=== PATIENT | male | born 1965 | race Caucasian/White ===

== ENCOUNTER 2023-02-22 19:38 | Inpatient (IN) ==
[2023-02-22] MEDS ORDERED: NARCAN INJ ONE (19:45)
[2023-02-22] MEDS ORDERED: NS 1,000 ML IV 1,000 ML ONE (19:45)
[2023-02-22] MEDS: NS 1,000 ML IV 1,000 ML IV ONE (19:48)
[2023-02-22] MEDS ORDERED: NARCAN INJ IVP ONE (19:52)
[2023-02-22 20:12] LABS: BILIRUBIN,URINE NEGATIVE (NEGATIVE); BLOOD/HEMOGLOBIN,URINE 4+ (NEGATIVE); GLUCOSE, URINE NEGATIVE (NEGATIVE); KETONES,URINE NEGATIVE (NEGATIVE); LEUKOCYTE ESTERASE ,URINE NEGATIVE (NEGATIVE); NITRITES,URINE POSITIVE (NEGATIVE); PROTEIN,URINE 3+ (NEGATIVE); UROBILINOGEN,URINE NORMAL (NORMAL)
--- NOTE | 2023-02-22 20:12 | DR.DING ---
HPI <Jane Monge - Last Filed: 02/22/23 22:57> Time Seen Time Seen by Provider: 02/22/23 19:57 Complaint Chief Complaint Doctors Comments: Abbey has a h/o alcohol use and cirhosis.He was found at a local apartment unresponsive and PD and EMS were notified. PD gave partient 4mg of intranasal narcan and he became alert. He had a BG check of 99. Patient was transported by ambulance to the ED. He became lethargic and iv access was initiated on arrival and he recieved narcan 2mg iv.Patient does not have any complaints. Patient has sisters in [facility].His sister Nannette Miller is an Rn and would like to be called if you need more information.Patient used to live in [place] but recently moved to [place] to be near family when he developed cirrhosis. <Angel Andrei - Last Filed: 02/23/23 08:06> PMH Past Surgical History: No Surgical History: Unknown ROS <Jane Monge - Last Filed: 02/22/23 22:57> Review of Systems Constitutional: Weakness Eyes: No Symptoms Reported ENTM: No Symptoms Reported Respiratoy: No Symptoms Reported Cardiovascular: No Symptoms Reported Gastrointestinal/Abdominal: No Symptoms Reported Genitourinary: No Symptoms Reported Neurological: No Symptoms Reported Musculoskeletal: No Symptoms Reported Integumentary: No Symptoms Reported Hematologic/Lymphatic: No Symptoms Reported Endocrine: No Symptoms Reported Psychiatric: No Symptoms Reported All Other Systems: Reviewed and Negative PE <Jane Monge - Last Filed: 02/22/23 22:57> Vital signs Vitals: Vital Signs Temperature 97.1 F Pulse Rate 66 Pulse Rate 63 Pulse Rate 61 Pulse Rate 59 Pulse Rate 60 Pulse Rate 61 Pulse Rate 63 Pulse Rate 60 Pulse Rate 66 Pulse Rate 56 Pulse Rate 61 Pulse Rate 62 Pulse Rate 75 Pulse Rate 62 Pulse Rate 71 Pulse Rate 66 Pulse Rate 55 Pulse Rate 59 Pulse Rate 55 Respiratory Rate 13 Respiratory Rate 14 Respiratory Rate 26 Respiratory Rate 24 Respiratory Rate 18 Respiratory Rate 15 Respiratory Rate 20 Respiratory Rate 14 Respiratory Rate 15 Respiratory Rate 14 Respiratory Rate 14 Respiratory Rate 27 Respiratory Rate 30 Respiratory Rate 30 Respiratory Rate 24 Respiratory Rate 18 Respiratory Rate 15 Respiratory Rate 16 Respiratory Rate 15 Blood Pressure 130/74 Blood Pressure 164/90 Blood Pressure 164/90 Blood Pressure 144/67 Blood Pressure 144/67 Blood Pressure 162/73 Blood Pressure 163/75 Blood Pressure 168/72 Blood Pressure 162/74 Blood Pressure 162/74 O2 Sat by Pulse Oximetry 98 O2 Sat by Pulse Oximetry 100 O2 Sat by Pulse Oximetry 100 O2 Sat by Pulse Oximetry 100 O2 Sat by Pulse Oximetry 100 O2 Sat by Pulse Oximetry 100 O2 Sat by Pulse Oximetry 100 O2 Sat by Pulse Oximetry 100 O2 Sat by Pulse Oximetry 100 O2 Sat by Pulse Oximetry 100 O2 Sat by Pulse Oximetry 100 O2 Sat by Pulse Oximetry 100 O2 Sat by Pulse Oximetry 100 O2 Sat by Pulse Oximetry 100 O2 Sat by Pulse Oximetry 100 O2 Sat by Pulse Oximetry 100 O2 Sat by Pulse Oximetry 100 General Limitations: No Limitations General Appearance: In No Apparent Distress and Lethargic Head Head Exam: Normal Inspection Eyes Eye exam: Normal Appearance ENT ENT Exam: Normal Exam Neck Neck Exam: Normal Inspection Chest Chest Inspection: Normal Inspection Respiratory Respiratory Exam: Normal Lung Sounds Bilat Respiratory Exam: Bilateral: Clear to Auscultation Cardiovascular Cardiovascular Exam: Regular Rate and Normal Rhythm Abdominal Exam Abdominal Exam: Distention and Hypoactive Bowel Sounds Extremities Extremities Exam: Edema (Non-pitting legs and feet bilaterally) Back Back Exam: Normal Inspection Neurologic Neurological Exam: Alert; negative Oriented X3 (Oriented to self) Psychiatric Psychiatric Exam: Normal Affect and Normal Mood Skin Skin Exam: Warm, Dry, Intact and Normal Color <Angel Forbes - [facility] Filed: 02/23/23 08:06> Vital signs Vitals: Vital Signs Temperature 97.1 F Pulse Rate 66 Pulse Rate 63 Pulse Rate 61 Pulse Rate 59 Pulse Rate 60 Pulse Rate 61 Pulse Rate 63 Pulse Rate 60 Pulse Rate 66 Pulse Rate 56 Pulse Rate 61 Pulse Rate 62 Pulse Rate 75 Pulse Rate 62 Pulse Rate 71 Pulse Rate 66 Pulse Rate 55 Pulse Rate 59 Pulse Rate 55 Respiratory Rate 13 Respiratory Rate 14 Respiratory Rate 26 Respiratory Rate 24 Respiratory Rate 18 Respiratory Rate 15 Respiratory Rate 20 Respiratory Rate 14 Respiratory Rate 15 Respiratory Rate 14 Respiratory Rate 14 Respiratory Rate 27 Respiratory Rate 30 Respiratory Rate 30 Respiratory Rate 24 Respiratory Rate 18 Respiratory Rate 15 Respiratory Rate 16 Respiratory Rate 15 Blood Pressure 130/74 Blood Pressure 164/90 Blood Pressure 164/90 Blood Pressure 144/67 Blood Pressure 144/67 Blood Pressure 162/73 Blood Pressure 163/75 Blood Pressure 168/72 Blood Pressure 162/74 Blood Pressure 162/74 O2 Sat by Pulse Oximetry 98 O2 Sat by Pulse Oximetry 100 O2 Sat by Pulse Oximetry 100 O2 Sat by Pulse Oximetry 100 O2 Sat by Pulse Oximetry 100 O2 Sat by Pulse Oximetry 100 O2 Sat by Pulse Oximetry 100 O2 Sat by Pulse Oximetry 100 O2 Sat by Pulse Oximetry 100 O2 Sat by Pulse Oximetry 100 O2 Sat by Pulse Oximetry 100 O2 Sat by Pulse Oximetry 100 O2 Sat by Pulse Oximetry 100 O2 Sat by Pulse Oximetry 100 O2 Sat by Pulse Oximetry 100 O2 Sat by Pulse Oximetry 100 O2 Sat by Pulse Oximetry 100 MDM <Jane Saleem - Last Filed: 02/22/23 22:57> Differential Diagnosis Differential Diagnosis: Alcohol abuse, Accidental drug overdose and Substance abuse (DDx:Infection,Electrolyte abnormality,Encephalopathy) COURSE <Jane Saleem - Last Filed: 02/22/23 22:57> Treatment Treatment: Patient was brought to a critical care room and IV access was ninitated. He was given: narcan 2mg iv,Rocephin 2g iv for UTi and Possible JOEY pneumonia, lactulose 30mg for ammonia 103,Magnesium 1g for Mg 1.7.Discussed case with Dr Rivas. Dr Rivas will admit patient to [facility]. Patient susan nue to be lethargic.He has stable vs and is on 2L 02 per NC. ROR <Jane Monge - Last Filed: 02/22/23 22:57> Labs Reviewed Laboratory Results Reviewed?: Yes 02/23/23 04:21 02/23/23 04:21 Laboratory: WBC 9.3 X10^3/uL (3.6-10.0) 02/22/23 20:16 RBC 3.92 X10^6/uL (4.7-6.0) L 02/22/23 20:16 Hgb 12.1 g/dL (13.5-18.0) L 02/22/23 20:16 Hct 34.6 % (42.0-54.0) L 02/22/23 20:16 MCV 88.4 fL (80.0-100.0) 02/22/23 20:16 MCH 30.8 pg (27.0-34.0) 02/22/23 20:16 MCHC 34.9 g/dL (33.0-35.0) 02/22/23 20:16 RDW 15.0 % (11.6-16.5) 02/22/23 20:16 Plt Count 250 X10^3/uL (150.0-450.0) 02/22/23 20:16 MPV 7.3 fL (7.4-11.0) L 02/22/23 20:16 Neut % (Auto) 79.4 % (42.0-75.0) H 02/22/23 20:16 Lymph % (Auto) 10.2 % (21.0-51.0) L 02/22/23 20:16 [place] % (Auto) 8.0 % (0.0-13.0) 02/22/23 20:16 Eos % (Auto) 1.7 % (0.9-2.9) 02/22/23 20:16 Baso % (Auto) 0.7 % (0.2-1.0) 02/22/23 20:16 Neut # (Auto) 7.4 x10^3/uL (2.2-4.8) H 02/22/23 20:16 Lymph # (Auto) 1.0 X10^3/uL (1.3-2.9) L 02/22/23 20:16 [place] # (Auto) 0.7 x10^3/uL (0.3-0.8) 02/22/23 20:16 Eos # (Auto) 0.2 x10^3/uL (0.0-0.2) 02/22/23 20:16 Baso # (Auto) 0.1 X10^3/uL (0.0-0.1) 02/22/23 20:16 Absolute Nucleated RBC 0.0 /100WBC 02/22/23 20:16 Sodium 139 mmol/L (136-145) 02/22/23 20:16 Corrected Sodium TNP 02/22/23 20:16 Potassium 4.5 mmol/L (3.5-5.1) 02/22/23 20:16 Chloride 107 mmol/L (98-107) 02/22/23 20:16 Carbon Dioxide 25.1 mmol/L (21-32) 02/22/23 20:16 BUN 20 mg/dL (7-18) H 02/22/23 20:16 Creatinine 0.90 mg/dL (0.70-1.30) 02/22/23 20:16 Est GFR (MDRD) Af Amer > 60 (>60) 02/22/23 20:16 Est GFR (MDRD) Non-Af > 60 (>60) 02/22/23 20:16 Glucose 104 mg/dL (65-99) H 02/22/23 20:16 Calcium 8.5 mg/dL (8.5-10.1) 02/22/23 20:16 Corrected Calcium 10.3 mg/dL (8.5-10.1) H 02/22/23 20:16 Magnesium 1.7 mg/dL (2.0-2.9) L 02/22/23 20:16 Total Bilirubin 0.70 mg/dL (0.2-1.0) 02/22/23 20:16 AST 34 Units/L (15-37) 02/22/23 20:16 ALT 9 Units/L (12-78) L 02/22/23 20:16 Alkaline Phosphatase 113 Units/L (46-116) 02/22/23 20:16 Ammonia 103 umol/L (11-32) H 02/22/23 20:16 Total Protein 5.8 g/dL (6.4-8.2) L 02/22/23 20:16 Albumin 1.7 g/dL (3.4-5.0) L 02/22/23 20:16 Globulin 4.1 g/dL (2.5-4.5) 02/22/23 20:16 Albumin/Globulin Ratio 0.4 Ratio (1.1-2.1) L 02/22/23 20:16 Amylase 81 Units/L (25-115) 02/22/23 20:16 Lipase 266 Units/L (73-393) 02/22/23 20:16 Lipase 271 Units/L (73-393) 02/22/23 20:16 Specimen Type Catherized urine 02/22/23 20:02 Urine Color Yellow (YELLOW) 02/22/23 20:02 Urine Appearance Cloudy (CLEAR) 02/22/23 20:02 Urine pH 8.0 (5.0 - 8.0) 02/22/23 20:02 Ur Specific Balm 1.015 (1.000-1.030) 02/22/23 20:02 Urine Protein 3+ (NEGATIVE) 02/22/23 20:02 Urine Glucose (UA) Negative (NEGATIVE) 02/22/23 20:02 Urine Ketones Negative (NEGATIVE) 02/22/23 20:02 Urine Blood 4+ (NEGATIVE) 02/22/23 20:02 Urine Nitrite Positive (NEGATIVE) 02/22/23 20:02 Urine Bilirubin Negative (NEGATIVE) 02/22/23 20:02 Urine Urobilinogen Normal (NORMAL) 02/22/23 20:02 Ur Leukocyte Esterase Negative (NEGATIVE) 02/22/23 20:02 Urine RBC 3-5 /HPF (0-3) A 02/22/23 20:02 Urine WBC 3-5 /HPF (0-5) 02/22/23 20:02 Ur Squamous Epith Cells Rare /HPF (NEGATIVE) 02/22/23 20:02 Urine Bacteria 3+ /HPF (NEGATIVE) 02/22/23 20:02 Ur Culture Indicated? Yes/culture set up 02/22/23 20:02 Salicylates < 2.8 mg/dL (2.8-20) L 02/22/23 20:16 Urine Opiates Screen Negative (NEG=<300) 02/22/23 20:02 Urine Methadone Screen Negative (NEG=<300) 02/22/23 20:02 Acetaminophen 1.1 ug/mL (10-30) L 02/22/23 20:16 Ur Barbiturates Screen Negative (NEG=<200) 02/22/23 20:02 Ur Phencyclidine Scrn Negative (NEG=<25) 02/22/23 20:02 Ur Amphetamines Screen Negative (NEG=<1000) 02/22/23 20:02 U Benzodiazepines Scrn Negative (NEG=<200) 02/22/23 20:02 Urine Cocaine Screen Negative (NEG=<300) 02/22/23 20:02 U Marijuana (THC) Screen Positive (NEG=<50) A 02/22/23 20:02 Ethyl Alcohol mg/dL < 3 mg/dL (0-19.9) 02/22/23 20:16 <Angel Forbes - Last Filed: 02/23/23 08:06> Labs Reviewed Laboratory: WBC 9.3 X10^3/uL (3.6-10.0) 02/22/23 20:16 RBC 3.92 X10^6/uL (4.7-6.0) L 02/22/23 20:16 Hgb 12.1 g/dL (13.5-18.0) L 02/22/23 20:16 Hct 34.6 % (42.0-54.0) L 02/22/23 20:16 MCV 88.4 fL (80.0-100.0) 02/22/23 20:16 MCH 30.8 pg (27.0-34.0) 02/22/23 20:16 MCHC 34.9 g/dL (33.0-35.0) 02/22/23 20:16 RDW 15.0 % (11.6-16.5) 02/22/23 20:16 Plt Count 250 X10^3/uL (150.0-450.0) 02/22/23 20:16 MPV 7.3 fL (7.4-11.0) L 02/22/23 20:16 Neut % (Auto) 79.4 % (42.0-75.0) H 02/22/23 20:16 Lymph % (Auto) 10.2 % (21.0-51.0) L 02/22/23 20:16 [place] % (Auto) 8.0 % (0.0-13.0) 02/22/23 20:16 Eos % (Auto) 1.7 % (0.9-2.9) 02/22/23 20:16 Baso % (Auto) 0.7 % (0.2-1.0) 02/22/23 20:16 Neut # (Auto) 7.4 x10^3/uL (2.2-4.8) H 02/22/23 20:16 Lymph # (Auto) 1.0 X10^3/uL (1.3-2.9) L 02/22/23 20:16 [place] # (Auto) 0.7 x10^3/uL (0.3-0.8) 02/22/23 20:16 Eos # (Auto) 0.2 x10^3/uL (0.0-0.2) 02/22/23 20:16 Baso # (Auto) 0.1 X10^3/uL (0.0-0.1) 02/22/23 20:16 Absolute Nucleated RBC 0.0 /100WBC 02/22/23 20:16 Sodium 139 mmol/L (136-145) 02/22/23 20:16 Corrected Sodium TNP 02/22/23 20:16 Potassium 4.5 mmol/L (3.5-5.1) 02/22/23 20:16 Chloride 107 mmol/L (98-107) 02/22/23 20:16 Carbon Dioxide 25.1 mmol/L (21-32) 02/22/23 20:16 BUN 20 mg/dL (7-18) H 02/22/23 20:16 Creatinine 0.90 mg/dL (0.70-1.30) 02/22/23 20:16 Est GFR (MDRD) Af Amer > 60 (>60) 02/22/23 20:16 Est GFR (MDRD) Non-Af > 60 (>60) 02/22/23 20:16 Glucose 104 mg/dL (65-99) H 02/22/23 20:16 Calcium 8.5 mg/dL (8.5-10.1) 02/22/23 20:16 Corrected Calcium 10.3 mg/dL (8.5-10.1) H 02/22/23 20:16 Magnesium 1.7 mg/dL (2.0-2.9) L 02/22/23 20:16 Total Bilirubin 0.70 mg/dL (0.2-1.0) 02/22/23 20:16 AST 34 Units/L (15-37) 02/22/23 20:16 ALT 9 Units/L (12-78) L 02/22/23 20:16 Alkaline Phosphatase 113 Units/L (46-116) 02/22/23 20:16 Ammonia 103 umol/L (11-32) H 02/22/23 20:16 Total Protein 5.8 g/dL (6.4-8.2) L 02/22/23 20:16 Albumin 1.7 g/dL (3.4-5.0) L 02/22/23 20:16 Globulin 4.1 g/dL (2.5-4.5) 02/22/23 20:16 Albumin/Globulin Ratio 0.4 Ratio (1.1-2.1) L 02/22/23 20:16 Amylase 81 Units/L (25-115) 02/22/23 20:16 Lipase 266 Units/L (73-393) 02/22/23 20:16 Lipase 271 Units/L (73-393) 02/22/23 20:16 Specimen Type Catherized urine 02/22/23 20:02 Urine Color Yellow (YELLOW) 02/22/23 20:02 Urine Appearance Cloudy (CLEAR) 02/22/23 20: Urine pH 8.0 (5.0 - 8.0) 02/22/23 20:02 Ur Specific Balm 1.015 (1.000-1.030) 02/22/23 20:02 Urine Protein 3+ (NEGATIVE) 02/22/23 20: Urine Glucose (UA) Negative (NEGATIVE) 02/22/23 20: Urine Ketones Negative (NEGATIVE) 02/22/23 20: Urine Blood 4+ (NEGATIVE) 02/22/23 20: Urine Nitrite Positive (NEGATIVE) 02/22/23 20: Urine Bilirubin Negative (NEGATIVE) 02/22/23 20:02 Urine Urobilinogen Normal (NORMAL) 02/22/23 20:02 Ur Leukocyte Esterase Negative (NEGATIVE) 02/22/23 20:02 Urine RBC 3-5 /HPF (0-3) A 02/22/23 20:02 Urine WBC 3-5 /HPF (0-5) 02/22/23 20:02 Ur Squamous Epith Cells Rare /HPF (NEGATIVE) 02/22/23 20:02 Urine Bacteria 3+ /HPF (NEGATIVE) 02/22/23 20:02 Ur Culture Indicated? Yes/culture set up 02/22/23 20:02 Salicylates < 2.8 mg/dL (2.8-20) L 02/22/23 20:16 Urine Opiates Screen Negative (NEG=<300) 02/22/23 20:02 Urine Methadone Screen Negative (NEG=<300) 02/22/23 20:02 Acetaminophen 1.1 ug/mL (10-30) L 02/22/23 20:16 Ur Barbiturates Screen Negative (NEG=<200) 02/22/23 20:02 Ur Phencyclidine Scrn Negative (NEG=<25) 02/22/23 20:02 Ur Amphetamines Screen Negative (NEG=<1000) 02/22/23 20:02 U Benzodiazepines Scrn Negative (NEG=<200) 02/22/23 20:02 Urine Cocaine Screen Negative (NEG=<300) 02/22/23 20:02 U Marijuana (THC) Screen Positive (NEG=<50) A 02/22/23 20:02 Ethyl Alcohol mg/dL < 3 mg/dL (0-19.9) 02/22/23 20:16 Opioid <Jane Monge - Last Filed: 02/22/23 22:57> Opioid Risk Tool Total: 0 Total Score Risk Category: Low Risk Copyright: Paul predicting aberrant behaviors <Angel Forbes - Last Filed: 02/23/23 08:06> Opioid Risk Tool Age (Shaan box if 16-45): No History of Preadolescent Sexual Abuse: No Total: 0 Total Score Risk Category: Low Risk Discharge Plan Diagnosis Discharge Problem: Altered mental status, Urinary tract infection, Cirrhosis Discharge Plan Patient Disposition: ADMITTED INPATIENT Condition: Stable <Angel Forbes - Last Filed: 02/23/23 08:06> Additional Notes Additional Notes: Pt initially greeted by me, intial orders written for W/u. Pt seen, treated and admitted by Dr Murphy.
[2023-02-22 20:21] LABS: APPEARANCE,URINE CLOUDY (CLEAR); BACTERIA,URINE 3+ /HPF (NEGATIVE); COLOR,URINE YELLOW (YELLOW); SQUAMOUS EPITHELIAL CELL,UR RARE /HPF (NEGATIVE)
[2023-02-22 20:27] LABS: BASOPHILS # (AUTO) 0.1 X10^3/uL (0.0-0.1); BASOPHILS % (AUTO) 0.7 % (0.2-1.0); EOSINOPHILS # (AUTO) 0.2 x10^3/uL (0.0-0.2); EOSINOPHILS % (AUTO) 1.7 % (0.9-2.9); HEMATOCRIT 34.6 % (42.0-54.0); HEMOGLOBIN 12.1 g/dL (13.5-18.0); LYMPHOCYTES % (AUTO) 10.2 % (21.0-51.0); MEAN CORPUSCULAR HEMOGLOBIN 30.8 pg (27.0-34.0); MEAN CORPUSCULAR HGB CONC 34.9 g/dL (33.0-35.0); MEAN CORPUSCULAR VOLUME 88.4 fL (80.0-100.0); MEAN PLATELET VOLUME 7.3 fL (7.4-11.0); MONOCYTES # (AUTO) 0.7 x10^3/uL (0.3-0.8); NEUTROPHILS # (AUTO) 7.4 x10^3/uL (2.2-4.8); NEUTROPHILS % (AUTO) 79.4 % (42.0-75.0); PLATELET COUNT 250 X10^3/uL (150.0-450.0); RED BLOOD COUNT 3.92 X10^6/uL (4.7-6.0); WHITE BLOOD COUNT 9.3 X10^3/uL (3.6-10.0)
[2023-02-22 20:43] LABS: ALANINE AMINOTRANSFERASE 9 Units/L (12-78); ALBUMIN 1.7 g/dL (3.4-5.0); ALKALINE PHOSPHATASE 113 Units/L (46-116); ASPARTATE AMINO TRANSFERASE 34 Units/L (15-37); BLOOD UREA NITROGEN 20 mg/dL (7-18); CALCIUM 8.5 mg/dL (8.5-10.1); CARBON DIOXIDE 25.1 mmol/L (21-32); CHLORIDE 107 mmol/L (98-107); COR CA(FOR HYPOALB) 10.3 mg/dL (8.5-10.1); GLUCOSE 104 mg/dL (65-99); LIPASE 271 Units/L (73-393); POTASSIUM 4.5 mmol/L (3.5-5.1); SODIUM 139 mmol/L (136-145); TOTAL PROTEIN 5.8 g/dL (6.4-8.2); eGFR NON BLACK RACES > 60 (>60)
[2023-02-22 20:45] LABS: ACETAMINOPHEN 1.1 ug/mL (10-30)
[2023-02-22 20:53] LABS: BLOOD ALCOHOL < 3 mg/dL (0-19.9); SALICYLATE < 2.8 mg/dL (2.8-20)
[2023-02-22 21:09] LABS: AMYLASE 81 Units/L (25-115); LIPASE 266 Units/L (73-393)
[2023-02-22 21:18] LABS: AMMONIA 103 umol/L (11-32)
[2023-02-22] MEDS ORDERED: NS 100 ML IV 100 ML ONE (21:41)
[2023-02-22] MEDS ORDERED: ROCEPHIN VIAL 2 GRAMS ONE (21:41)
[2023-02-22] MEDS ORDERED: ROCEPHIN VIAL 2 GRAMS 2 G in NS 100 ML IV 100 ML IV ONE (21:41)
[2023-02-22] MEDS ORDERED: MAGNESIUM SULFATE 1 GRAM/100 mL PREMIX 1 G/100 ML BAG IV ONE ×2 (21:41→21:42)
[2023-02-22] MEDS ORDERED: CHRONULAC PO ONE (21:50)
[2023-02-22] MEDS ORDERED: CHRONULAC ONE (21:50)
[2023-02-22] MEDS ORDERED: PATIENT'S HOME MEDICATION (Lactulose 10 gram/15 mL solution) PO PRN (22:46)
[2023-02-22] MEDS ORDERED: CONSULT PHARMACY - POTASSIUM & MAGNESIUM XX SCH (23:00)
[2023-02-22] MEDS ORDERED: CHRONULAC PO PRN (23:07)
[2023-02-22] MEDS ORDERED: NS 250 ML IV 250 ML IV ONE (23:29)
[2023-02-22] MEDS ORDERED: NS 250 ML IV 250 ML IV PRN (23:29)
[2023-02-22] MEDS ORDERED: MAG-OX TAB PO SCH (23:30)
[2023-02-22] MEDS: MAGNESIUM SULFATE 1 GRAM/100 mL PREMIX 1 G/100 ML BAG IV SCH (23:31)
--- NOTE | 2023-02-22 23:44 | RAD ---
HISTORYEMS STATING THEY WERE CALLED OUT TO UNRESPONSIVE MALE. PT ADMINISTERED NARCAN 4MG NASALLY BY POLICE. ^ pt combative during examSTUDYCHEST, 1 [id number] trachea is midline. The cardiac silhouette is mildly enlarged.. Pulmonary vascular congestion. Parenchymal opacities throughout the right lung. There is blunting of the right costophrenic angle due to small effusion. No pneumothorax. The bony thorax is unremarkable.IMPRESSIONMild cardiomegaly with pulmonary vascular congestion.Right mid and lower lung parenchymal opacities with small right pleural effusion..Electronically signed by: Shaka Whyte (Feb 22, 2023 23:43:08)
[2023-02-23 01:12] VITALS: BMI 32.8
[2023-02-23] MEDS: MAGNESIUM SULFATE 1 GRAM/100 mL PREMIX 1 G/100 ML BAG IV SCH (02:24)
[2023-02-23 05:08] LABS: BASOPHILS # (AUTO) 0.1 X10^3/uL (0.0-0.1); BASOPHILS % (AUTO) 0.9 % (0.2-1.0); EOSINOPHILS # (AUTO) 0.4 x10^3/uL (0.0-0.2); EOSINOPHILS % (AUTO) 3.8 % (0.9-2.9); HEMATOCRIT 32.2 % (42.0-54.0); HEMOGLOBIN 11.4 g/dL (13.5-18.0); LYMPHOCYTES # (AUTO) 1.5 X10^3/uL (1.3-2.9); LYMPHOCYTES % (AUTO) 15.8 % (21.0-51.0); MEAN CORPUSCULAR HGB CONC 35.4 g/dL (33.0-35.0); MEAN CORPUSCULAR VOLUME 87.7 fL (80.0-100.0); MEAN PLATELET VOLUME 7.8 fL (7.4-11.0); MONOCYTES # (AUTO) 0.9 x10^3/uL (0.3-0.8); MONOCYTES % (AUTO) 8.8 % (0.0-13.0); NEUTROPHILS # (AUTO) 6.9 x10^3/uL (2.2-4.8); NEUTROPHILS % (AUTO) 70.7 % (42.0-75.0); PLATELET COUNT 237 X10^3/uL (150.0-450.0); RED BLOOD COUNT 3.67 X10^6/uL (4.7-6.0); WHITE BLOOD COUNT 9.8 X10^3/uL (3.6-10.0)
[2023-02-23 05:25] LABS: ALANINE AMINOTRANSFERASE 8 Units/L (12-78); ALBUMIN 1.4 g/dL (3.4-5.0); ALKALINE PHOSPHATASE 98 Units/L (46-116); ASPARTATE AMINO TRANSFERASE 31 Units/L (15-37); BLOOD UREA NITROGEN 16 mg/dL (7-18); CALCIUM 8.1 mg/dL (8.5-10.1); CARBON DIOXIDE 25.8 mmol/L (21-32); CHLORIDE 109 mmol/L (98-107); COR CA(FOR HYPOALB) 10.2 mg/dL (8.5-10.1); CREATININE 0.78 mg/dL (0.70-1.30); GLUCOSE 84 mg/dL (65-99); POTASSIUM 3.7 mmol/L (3.5-5.1); SODIUM 139 mmol/L (136-145); eGFR NON BLACK RACES > 60 (>60)
[2023-02-23] MEDS ORDERED: CONSULT PHARMACY - POTASSIUM & MAGNESIUM XX SCH ×2 (07:00→21:00)
[2023-02-23] MEDS: LASIX PO SCH ×2 (08:31→21:12)
[2023-02-23] MEDS: PROTONIX TAB 40 MG PO SCH (08:31)
[2023-02-23] MEDS: LOVENOX INJ 40 MG SYR SC SCH (08:32)
[2023-02-23] MEDS: K-RIDER 10 MEQ/NS 100 ML 10 MEQ/100 ML BAG IV SCH ×4 (08:32→23:03)
[2023-02-23] MEDS: MICRO K EXTEN CAP 10 MEQ PO SCH (08:32)
--- NOTE | 2023-02-23 16:20 | DR.H&P ---
H&P History & Physical for Day of: H&P Date: 02/23/23 Chief Complaint Chief Complaint: Unresponsive Allergies Allergies Allergy/AdvReac Type Severity Reaction Status Date / Time No Known Drug Allergies Allergy Unknown Verified 01/02/23 09:55 History of Present Illness History of Present Illness: This is a 57-year-old white male well-known to me. He was found recently in his apartment yesterday after being unresponsive. The [place] [employer] and EMS were notified and the patient was given the patient 4 mg of intranasal Narcan. After that was given he became alert and they checked his blood glucose and it was 99. The patient was subsequently transported to the [facility] emergency department via ambulance. The patient became lethargic on the way to the emergency department where he was given Narcan 2 mg IV and became more alert afterward. After the patient became alert he had no complaints. The patient has a history of alcoholic cirrhosis. He also has a history of alcohol abuse and ascites. The patient typically goes between 2 and 4 times per month to [facility] where he receives paracentesis. He has had some appointments set up with construction and maintenance inspector, Dr. Valladares in the past however the patient has neglected to go to his gastroenterology appointments that had been set up for him. He recently failed an oral drug screen with me and was discharged from our practice. Past Medical History Past Medical History: Cirrhosis, COPD, GERD and Hypertension Past Surgical History Surgical History: Unknown Family History Family Medical History: CA and Hypertension Social History Does patient currently use any type of tobacco product: Yes Have you used tobacco products in the last 12 months: Yes Type of Tobacco Use: MARAJUANA Alcohol Use: Heavy Drug Use: Marijuana Medications Home Medications: Home Medications Medication Instructions Recorded Confirmed Type furosemide 40 mg tablet 40 mg PO BID 02/22/23 02/22/23 History lactulose 10 gram/15 mL oral ml PO 02/22/23 History solution pantoprazole 40 mg tablet,delayed 40 mg PO QDAY 02/22/23 02/22/23 History release potassium chloride 10 mEq 10 meq PO QDAY 02/22/23 02/22/23 History tablet,extended release Labs 02/23/23 04:21 02/23/23 04:21 Labs: 02/22/23 20:02 Urine,Catheterized Urine Culture - Preliminary Laboratory WBC 9.8 X10^3/uL (3.6-10.0) 02/23/23 04:21 RBC 3.67 X10^6/uL (4.7-6.0) L 02/23/23 04:21 Hgb 11.4 g/dL (13.5-18.0) L 02/23/23 04:21 Hct 32.2 % (42.0-54.0) L 02/23/23 04:21 MCV 87.7 fL (80.0-100.0) 02/23/23 04:21 MCH 31.0 pg (27.0-34.0) 02/23/23 04:21 MCHC 35.4 g/dL (33.0-35.0) H 02/23/23 04:21 RDW 15.0 % (11.6-16.5) 02/23/23 04:21 Plt Count 237 X10^3/uL (150.0-450.0) 02/23/23 04:21 MPV 7.8 fL (7.4-11.0) 02/23/23 04:21 Neut % (Auto) 70.7 % (42.0-75.0) 02/23/23 04:21 Lymph % (Auto) 15.8 % (21.0-51.0) L 02/23/23 04:21 Band[place] % (Auto) 8.8 % (0.0-13.0) 02/23/23 04:21 Eos % (Auto) 3.8 % (0.9-2.9) H 02/23/23 04:21 Baso % (Auto) 0.9 % (0.2-1.0) 02/23/23 04:21 Neut # (Auto) 6.9 x10^3/uL (2.2-4.8) H 02/23/23 04:21 Lymph # (Auto) 1.5 X10^3/uL (1.3-2.9) 02/23/23 04:21 Bandera # (Auto) 0.9 x10^3/uL (0.3-0.8) H 02/23/23 04:21 Eos # (Auto) 0.4 x10^3/uL (0.0-0.2) H 02/23/23 04:21 Baso # (Auto) 0.1 X10^3/uL (0.0-0.1) 02/23/23 04:21 Absolute Nucleated RBC 0.0 /100WBC 02/23/23 04:21 Sodium 139 mmol/L (136-145) 02/23/23 04:21 Corrected Sodium TNP 02/23/23 04:21 Potassium 3.7 mmol/L (3.5-5.1) 02/23/23 04:21 Chloride 109 mmol/L (98-107) H 02/23/23 04:21 Carbon Dioxide 25.8 mmol/L (21-32) 02/23/23 04:21 BUN 16 mg/dL (7-18) 02/23/23 04:21 Creatinine 0.78 mg/dL (0.70-1.30) 02/23/23 04:21 Est GFR (MDRD) Af Amer > 60 (>60) 02/23/23 04:21 Est GFR (MDRD) Non-Af > 60 (>60) 02/23/23 04:21 Glucose 84 mg/dL (65-99) 02/23/23 04:21 Calcium 8.1 mg/dL (8.5-10.1) L 02/23/23 04:21 Corrected Calcium 10.2 mg/dL (8.5-10.1) H 02/23/23 04:21 Magnesium 2.0 mg/dL (2.0-2.9) 02/23/23 04:21 Total Bilirubin 0.60 mg/dL (0.2-1.0) 02/23/23 04:21 AST 31 Units/L (15-37) 02/23/23 04:21 ALT 8 Units/L (12-78) L 02/23/23 04:21 Alkaline Phosphatase 98 Units/L (46-116) 02/23/23 04:21 Ammonia 103 umol/L (11-32) H 02/22/23 20:16 Total Protein 5.0 g/dL (6.4-8.2) L 02/23/23 04:21 Albumin 1.4 g/dL (3.4-5.0) L 02/23/23 04:21 Globulin 3.6 g/dL (2.5-4.5) 02/23/23 04:21 Albumin/Globulin Ratio 0.4 Ratio (1.1-2.1) L 02/23/23 04:21 Amylase 81 Units/L (25-115) 02/22/23 20:16 Lipase 266 Units/L (73-393) 02/22/23 20:16 Lipase 271 Units/L (73-393) 02/22/23 20:16 Specimen Type Catherized urine 02/22/23 20:02 Urine Color Yellow (YELLOW) 02/22/23 20:02 Urine Appearance Cloudy (CLEAR) 02/22/23 20:02 Urine pH 8.0 (5.0 - 8.0) 02/22/23 20:02 Ur Specific [place] 1.015 (1.000-1.030) 02/22/23 20:02 Urine Protein 3+ (NEGATIVE) 02/22/23 20: Urine Glucose (UA) Negative (NEGATIVE) 02/22/23 20: Urine Ketones Negative (NEGATIVE) 02/22/23 20:02 Urine Blood 4+ (NEGATIVE) 02/22/23 20:02 Urine Nitrite Positive (NEGATIVE) 02/22/23 20: Urine Bilirubin Negative (NEGATIVE) 02/22/23 20:02 Urine Urobilinogen Normal (NORMAL) 02/22/23 20:02 Ur Leukocyte Esterase Negative (NEGATIVE) 02/22/23 20:02 Urine RBC 3-5 /HPF (0-3) A 02/22/23 20:02 Urine WBC 3-5 /HPF (0-5) 02/22/23 20:02 Ur Squamous Epith Cells Rare /HPF (NEGATIVE) 02/22/23 20:02 Urine Bacteria 3+ /HPF (NEGATIVE) 02/22/23 20:02 Ur Culture Indicated? Yes/culture set up 02/22/23 20:02 Salicylates < 2.8 mg/dL (2.8-20) L 02/22/23 20:16 Urine Opiates Screen Negative (NEG=<300) 02/22/23 20:02 Urine Methadone Screen Negative (NEG=<300) 02/22/23 20:02 Acetaminophen 1.1 ug/mL (10-30) L 02/22/23 20:16 Ur Barbiturates Screen Negative (NEG=<200) 02/22/23 20:02 Ur Phencyclidine Scrn Negative (NEG=<25) 02/22/23 20:02 Ur Amphetamines Screen Negative (NEG=<1000) 02/22/23 20:02 U Benzodiazepines Scrn Negative (NEG=<200) 02/22/23 20:02 Urine Cocaine Screen Negative (NEG=<300) 02/22/23 20:02 U Marijuana (THC) Screen Positive (NEG=<50) A 02/22/23 20:02 Ethyl Alcohol mg/dL < 3 mg/dL (0-19.9) 02/22/23 20:16 Review of Systems Constitutional: No Symptoms Reported Eyes: No Symptoms Reported ENT: No Symptoms Reported Respiratory: No Symptoms Reported Cardiovascular: No Symptoms Reported Gastrointestinal: Nausea and Abdominal Pain; denies Vomiting, Diarrhea, Constipation, Melena or Hematochezia Genitourinary: No Symptoms Reported Musculoskeletal: Back Pain Skin: No Symptoms Reported Neurological: Weakness, Incoordination and Confusion; denies Numbness or Seizures Physical Exam Vital Signs: Vital Signs Pulse Rate 78 Pulse Rate 78 Pulse Rate 79 Pulse Rate 79 Pulse Rate 78 Pulse Rate 75 Pulse Rate 72 Pulse Rate 76 Pulse Rate 78 Pulse Rate 78 Pulse Rate 80 Pulse Rate 84 Pulse Rate 77 Pulse Rate 77 Pulse Rate 79 Pulse Rate 82 Pulse Rate 71 Pulse Rate 72 Pulse Rate 76 Pulse Rate 70 Pulse Rate 77 Pulse Rate 75 Pulse Rate 74 Pulse Rate 71 Pulse Rate 69 Pulse Rate 73 Pulse Rate 78 Pulse Rate 76 Pulse Rate 71 Pulse Rate 77 Pulse Rate 80 Respiratory Rate 18 Respiratory Rate 20 Respiratory Rate 18 Respiratory Rate 18 Respiratory Rate 18 Respiratory Rate 16 Respiratory Rate 15 Respiratory Rate 16 Respiratory Rate 16 Respiratory Rate 15 Respiratory Rate 16 Respiratory Rate 18 Respiratory Rate 33 Respiratory Rate 17 Respiratory Rate 19 Respiratory Rate 29 Respiratory Rate 16 Respiratory Rate 16 Respiratory Rate 17 Respiratory Rate 15 Respiratory Rate 17 Respiratory Rate 20 Respiratory Rate 24 Respiratory Rate 18 Respiratory Rate 17 Respiratory Rate 19 Respiratory Rate 27 Respiratory Rate 34 Respiratory Rate 17 Respiratory Rate 18 Respiratory Rate 23 Blood Pressure 119/57 Blood Pressure 129/76 Blood Pressure 129/76 Blood Pressure 128/73 Blood Pressure 128/73 Blood Pressure 128/73 Blood Pressure 114/77 Blood Pressure 103/59 Blood Pressure 119/60 Blood Pressure 88/64 Blood Pressure 88/64 O2 Sat by Pulse Oximetry 96 O2 Sat by Pulse Oximetry 96 O2 Sat by Pulse Oximetry 96 O2 Sat by Pulse Oximetry 96 O2 Sat by Pulse Oximetry 96 O2 Sat by Pulse Oximetry 97 O2 Sat by Pulse Oximetry 98 O2 Sat by Pulse Oximetry 98 O2 Sat by Pulse Oximetry 97 O2 Sat by Pulse Oximetry 97 O2 Sat by Pulse Oximetry 97 O2 Sat by Pulse Oximetry 97 O2 Sat by Pulse Oximetry 96 O2 Sat by Pulse Oximetry 96 O2 Sat by Pulse Oximetry 99 O2 Sat by Pulse Oximetry 99 O2 Sat by Pulse Oximetry 99 O2 Sat by Pulse Oximetry 98 O2 Sat by Pulse Oximetry 97 O2 Sat by Pulse Oximetry 99 O2 Sat by Pulse Oximetry 100 O2 Sat by Pulse Oximetry 97 O2 Sat by Pulse Oximetry 97 O2 Sat by Pulse Oximetry 99 O2 Sat by Pulse Oximetry 99 O2 Sat by Pulse Oximetry 99 O2 Sat by Pulse Oximetry 100 O2 Sat by Pulse Oximetry 100 O2 Sat by Pulse Oximetry 100 O2 Sat by Pulse Oximetry 99 O2 Sat by Pulse Oximetry 100 Oriented: Normal, Time, Person and Place Eyes: Normal Throat: Normal Respiratory: Clear Throughout Cardiovascular: Normal Auscultation: Bowel Sounds: Normal Palpation: Normal and Other (Abdomen distended with ascites present.) Tenderness: Diffuse Psychiatric: Anxiety and Depression Mood Description: Depressed and Appropriate; negative Happy or Suspicious Affect: Anxious and Depressed; negative Angry, Flat, Hysterical, Quiet or Violent Speech Pattern: Clear and Appropriate; negative Unclear, Inappropriate, Delayed, Slurred, Excessive, Aphasic or Artificially Ventilated Assessment/Plan (1) Urinary tract infection: Qualifiers: Urinary tract infection type: acute cystitis Hematuria presence: with hematuria Qualified Code(s): N30.01 - Acute cystitis with hematuria Status: Acute Plan: Continue IV Rocephin and follow-up with urine culture and sensitivity when available. (2) Hyperammonemia: Status: Acute Plan: Change the patient's lactulose 15 mg every 8 hours as needed to every 8 hours. Recheck the ammonia level tomorrow morning. (3) Acute opioid intoxication delirium with moderate or severe use disorder: Narrative Support Text: The patient's acute opioid intoxication has resolved with intranasal Narcan yesterday and IV Narcan yesterday as well. Status: Acute (4) Alcoholic cirrhosis of liver with ascites: Status: None Plan: Consult gastroenterology, Dr. 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 (5) Chronic obstructive pulmonary disease: Status: None Plan: Monitor patient's O2 saturation and treat accordingly. (6) Hypertension: Status: None Plan: Monitor daily blood pressures. Treat accordingly. (7) Bilateral lower extremity edema: Status: Acute Plan: IV Lasix.
[2023-02-23] MEDS: ROCEPHIN VIAL 1 GRAM 1 G in NS 100 ML IV 100 ML IV SCH (17:32)
[2023-02-23] MEDS ORDERED: CHRONULAC ONE (20:20)
[2023-02-23] MEDS: CHRONULAC PO SCH (21:22)
[2023-02-24] MEDS: CHRONULAC PO SCH ×3 (05:04→22:39)
[2023-02-24 05:06] LABS: BASOPHILS # (AUTO) 0.1 X10^3/uL (0.0-0.1); BASOPHILS % (AUTO) 1.2 % (0.2-1.0); EOSINOPHILS # (AUTO) 0.3 x10^3/uL (0.0-0.2); EOSINOPHILS % (AUTO) 4.6 % (0.9-2.9); HEMATOCRIT 30.9 % (42.0-54.0); HEMOGLOBIN 10.9 g/dL (13.5-18.0); LYMPHOCYTES # (AUTO) 1.7 X10^3/uL (1.3-2.9); LYMPHOCYTES % (AUTO) 21.9 % (21.0-51.0); MEAN CORPUSCULAR HEMOGLOBIN 30.8 pg (27.0-34.0); MEAN CORPUSCULAR HGB CONC 35.1 g/dL (33.0-35.0); MEAN CORPUSCULAR VOLUME 87.8 fL (80.0-100.0); MEAN PLATELET VOLUME 7.7 fL (7.4-11.0); MONOCYTES # (AUTO) 0.7 x10^3/uL (0.3-0.8); MONOCYTES % (AUTO) 9.6 % (0.0-13.0); NEUTROPHILS # (AUTO) 4.8 x10^3/uL (2.2-4.8); NEUTROPHILS % (AUTO) 62.7 % (42.0-75.0); PLATELET COUNT 234 X10^3/uL (150.0-450.0); RED BLOOD COUNT 3.52 X10^6/uL (4.7-6.0); RED CELL DISTRIBUTION WIDTH 15.2 % (11.6-16.5); WHITE BLOOD COUNT 7.6 X10^3/uL (3.6-10.0)
[2023-02-24 05:10] LABS: AMMONIA 86 umol/L (11-32)
[2023-02-24 05:19] LABS: ALANINE AMINOTRANSFERASE 9 Units/L (12-78); ALBUMIN 1.4 g/dL (3.4-5.0); ALKALINE PHOSPHATASE 102 Units/L (46-116); ASPARTATE AMINO TRANSFERASE 33 Units/L (15-37); BLOOD UREA NITROGEN 15 mg/dL (7-18); CALCIUM 7.6 mg/dL (8.5-10.1); CARBON DIOXIDE 25.2 mmol/L (21-32); CHLORIDE 108 mmol/L (98-107); COR CA(FOR HYPOALB) 9.7 mg/dL (8.5-10.1); COR NA(FOR HYPERGLY) 141 mmol/L (136-145); CREATININE 0.98 mg/dL (0.70-1.30); GLUCOSE 132 mg/dL (65-99); POTASSIUM 3.5 mmol/L (3.5-5.1); SODIUM 140 mmol/L (136-145); eGFR NON BLACK RACES > 60 (>60)
[2023-02-24] MEDS ORDERED: CONSULT PHARMACY - POTASSIUM & MAGNESIUM XX SCH (06:00)
[2023-02-24] MEDS: ROCEPHIN VIAL 1 GRAM 1 G in NS 100 ML IV 100 ML IV SCH (09:08)
[2023-02-24] MEDS: MICRO K EXTEN CAP 10 MEQ PO SCH (09:08)
[2023-02-24] MEDS: ALDACTONE TAB 25 MG PO SCH (09:08)
[2023-02-24] MEDS: LASIX PO SCH ×2 (09:08→20:08)
[2023-02-24] MEDS: PROTONIX TAB 40 MG PO SCH (09:08)
[2023-02-24] MEDS: LOVENOX INJ 40 MG SYR SC SCH (09:08)
[2023-02-24] MEDS: K-RIDER 10 MEQ/NS 100 ML 10 MEQ/100 ML BAG IV SCH ×2 (09:08→10:43)
--- NOTE | 2023-02-24 09:52 | DR.CONSULT ---
Consult - Consultation for Day of: Date: 02/23/23 (GI) - Chief Complaint Chief Complaint: Patient referred for abnormal LFTs. Patient has complaints of mild, generalized abdominal pain and nausea. Denies melena, hematochezia, vomiting, dysphagia, diarrhea, constipation, and GERD. Denies previous colonoscopy. Last EGD was done in 2020. Patient was seen on office Jul 2022, but did not return for follow-up. He is currently on Protonix, Lasix, and Lactulose at home. Pt was found recently in his apartment yesterday after being unresponsive. The [place] [employer] and EMS were notified and the patient was given the patient 4 mg of intranasal Narcan. After that was given he became alert and they checked his blood glucose and it was 99. The patient was subsequently transported to the [facility] emergency department via ambulance. The patient became lethargic on the way to the emergency department where he was given Narcan 2 mg IV and became more alert afterward. After the patient became alert he had no complaints. The patient has a history of alcoholic cirrhosis. He also has a history of alcohol abuse and ascites. The patient typically goes between 2 and 4 times per month to [facility] where he receives paracentesis. He has had some appointments set up with neuropsychology service director, Dr. Valladares in the past however the patient has neglected to go to his gastroenterology appointments that had been set up for him. He recently failed an oral drug screen with me and was discharged from our practice. - Past Medical History Past Medical History: Hypertension, Cirrhosis, COPD, GERD - Past Surgical History Surgical History: Unknown - Family History Family Medical History: [place], Hypertension - Social History Does patient currently use any type of tobacco product: Yes Have you used tobacco products in the last 12 months: Yes Type of Tobacco Use: MARAJUANA Alcohol Use: Heavy Drug Use: Marijuana - Medications Home Medications: No Known Drug Allergies Allergy (Unknown, Verified 01/02/23 09:55) CONTINUE taking the following medications furosemide 40 mg tablet 40 mg PO BID 02/22/23 [History] lactulose 10 gram/15 mL oral solution ml PO 02/22/23 [History] pantoprazole 40 mg tablet,delayed release 40 mg PO QDAY 02/22/23 [History] potassium chloride 10 mEq tablet,extended release 10 meq PO QDAY 02/22/23 [History] - Review of Systems Constitutional: See HPI, Weakness. denies: No Symptoms Reported, Fever, Chills, Sweats, Malaise, Other Eyes: denies: No Symptoms Reported, See HPI, Pain, Vision Change, Conjunctivae Inflammation, Eyelid Inflammation, Redness, Other ENT: denies: No Symptoms Reported, See HPI, Ear Pain, Ear Discharge, Nose Pain, Nose Discharge, Nose Congestion, Mouth Pain, Mouth Swelling, Throat Pain, Throat Swelling, Other Respiratory: No Symptoms Reported. denies: See HPI, Cough, Dry, Shortness of Breath, Hemoptysis, SOB with Excertion, Pleuritic Pain, Sputum, Wheezing, Other Cardiovascular: No Symptoms Reported. denies: Chest Pain, See HPI, Palpitatio ns, Orthopnea, Paroxysmal Noc. Dyspnea, Edema, Light Headedness, Other Gastrointestinal: Nausea, Abdominal Pain. denies: No Symptoms Reported, See HPI, Vomiting, Diarrhea, Constipation, Melena, Hematochezia, Other Genitourinary: No Symptoms Reported. denies: See HPI, Dysuria, Frequency, Incontinence, Hematuria, Retention, Other Musculoskeletal: No Symptoms Reported. denies: See HPI, Shoulder Pain, Arm Pain, Back Pain, Hand Pain, Leg Pain, Foot Pain, Neck Pain, Other Skin: No Symptoms Reported. denies: See HPI, Rash, Lesions, Jaundice, Bruising, Wound, Ecchymosis, Other Neurological: No Symptoms Reported. denies: See HPI, Weakness, Numbness, Incoordination, Change in Speech, Confusion, Seizures, Other - Physical Exam Vital Signs: Vital Signs Temperature 98 F Pulse Rate 76 Pulse Rate 79 Pulse Rate 76 Pulse Rate 92 Pulse Rate 83 Pulse Rate 81 Pulse Rate 76 Pulse Rate 75 Pulse Rate 80 Pulse Rate 70 Pulse Rate 77 Pulse Rate 73 Pulse Rate 81 Pulse Rate 73 Pulse Rate 73 Pulse Rate 90 Pulse Rate 80 Pulse Rate 78 Pulse Rate 82 Pulse Rate 76 Pulse Rate 77 Pulse Rate 75 Pulse Rate 78 Pulse Rate 79 Pulse Rate 80 Pulse Rate 77 Pulse Rate 83 Pulse Rate 77 Pulse Rate 83 Pulse Rate 81 Pulse Rate 81 Pulse Rate 78 Pulse Rate 81 Pulse Rate 80 Pulse Rate 82 Pulse Rate 83 Pulse Rate 87 Pulse Rate 87 Pulse Rate 77 Respiratory Rate 20 Respiratory Rate 20 Respiratory Rate 20 Respiratory Rate 20 Respiratory Rate 20 Respiratory Rate 25 Respiratory Rate 27 Respiratory Rate 31 Respiratory Rate 20 Respiratory Rate 22 Blood Pressure 147/82 Blood Pressure 140/65 Blood Pressure 165/79 Blood Pressure 170/77 Blood Pressure 170/77 Blood Pressure 170/77 Blood Pressure 167/90 Blood Pressure 175/84 Blood Pressure 175/84 Blood Pressure 183/84 Blood Pressure 147/82 Blood Pressure 147/82 Blood Pressure 147/82 Blood Pressure 152/73 Blood Pressure 152/73 O2 Sat by Pulse Oximetry 97 O2 Sat by Pulse Oximetry 97 O2 Sat by Pulse Oximetry 96 O2 Sat by Pulse Oximetry 96 O2 Sat by Pulse Oximetry 96 O2 Sat by Pulse Oximetry 96 O2 Sat by Pulse Oximetry 97 O2 Sat by Pulse Oximetry 98 O2 Sat by Pulse Oximetry 96 O2 Sat by Pulse Oximetry 93 O2 Sat by Pulse Oximetry 97 O2 Sat by Pulse Oximetry 100 O2 Sat by Pulse Oximetry 98 O2 Sat by Pulse Oximetry 98 O2 Sat by Pulse Oximetry 99 O2 Sat by Pulse Oximetry 99 O2 Sat by Pulse Oximetry 100 O2 Sat by Pulse Oximetry 99 O2 Sat by Pulse Oximetry 91 O2 Sat by Pulse Oximetry 98 O2 Sat by Pulse Oximetry 99 O2 Sat by Pulse Oximetry 98 O2 Sat by Pulse Oximetry 100 O2 Sat by Pulse Oximetry 100 O2 Sat by Pulse Oximetry 99 O2 Sat by Pulse Oximetry 99 O2 Sat by Pulse Oximetry 98 O2 Sat by Pulse Oximetry 99 O2 Sat by Pulse Oximetry 98 O2 Sat by Pulse Oximetry 99 O2 Sat by Pulse Oximetry 96 O2 Sat by Pulse Oximetry 97 O2 Sat by Pulse Oximetry 97 O2 Sat by Pulse Oximetry 97 O2 Sat by Pulse Oximetry 98 O2 Sat by Pulse Oximetry 96 O2 Sat by Pulse Oximetry 98 O2 Sat by Pulse Oximetry 98 O2 Sat by Pulse Oximetry 98 Oriented: Normal. negative: Time, Person, Place, Not Oriented, Unable to test, Other Eyes: Normal. negative: Blurred Vision, Diplopia, Discharge, Pain, Redness, Photophobia, Other Ear: negative: Normal, Right, Left, Swelling, Ecchymosis, Hemotypanum, Abrasion, Laceration Nose: negative: Normal, Injected, Discharge, Blood, Other Throat: negative: Normal, Tonsillar Hypertrophy, Red, Exudate, Dry, Other Respiratory: Clear Throughout. negative: Diminished Throughout, Rhonchi Throughout, Rales Throughout, Wheezes Throughout, RUL Clear, RML Clear, RLL Clear, JOEY Clear, LML Clear, LLL Clear, RUL Diminished, RML Diminished, RLL Diminished, JOEY Diminished, LML Diminished, LLL Diminished, RUL Absent, RML Absent, RLL Absent, JOEY Absent, LML Absent, LLL Absent, RUL Rhonchi, RML Rhonchi, RLL Rhonchi, JOEY Rhonchi, LML Rhonchi, LLL Rhonchi, RUL Insp. Wheeze, RML Insp. Wheeze, RLL Insp. Wheeze, JOEY Insp.Wheeze, LML Insp.Wheeze, LLL Insp.Wheeze, RUL Exp. Wheeze, RML Exp. Wheeze, RLL Exp. Wheeze, JOEY Exp. Wheeze, LML Exp. Wheeze, LLL Exp. Wheeze, RUL Rales, RML Rales, RLL Rales, JOEY Rales, LML Rales, LLL Rales, RUL Rub, RML Rub, RLL Rub, JOEY Rub, LML Rub, LLL Rub, RUL Squeak, RML Squeak, RLL Squeak, JOEY Squeak, LML Squeak, LLL Squeak Cardiovascular: Normal. negative: Tachycardia, Bradycardia, Irregular, S3, S4, Systolic, Diastolic, Murmur, Edema, Other : negative: Normal, Dysuria, Hematuria, Frequency, Discharge, Testicular Pain, Bleeding, , Other Auscultation: Bowel Sounds: Normal. negative: Bruit, Absent, Increased, Decreased, High Pitched, Other Palpation: Other (Abd distended). negative: Normal, Spleen Enlarged, Liver Enlarged, Mass Pulsatile Tenderness: Diffuse (Mild). negative: Normal, RUQ, RLQ, LUQ, LLQ, Epigastric, Periumbilical, Suprapubic, Mild, Moderate, Severe, Rebound, Guarding, Rigidity, Other Skin: Normal. negative: Decreased Turgur, Rash, Papular, Macular, Maculopapular, Vesicular, Pustular, Petechial, Red, Tender, Hot, Diaphoresis, Wound, Bruising, Ecchymosis, Other Musculoskeletal: Normal. negative: Right, Left, Shoulder, Clavicle, Arm, Elbow, Forearm, Wrist, Hand, Hip, Thigh, Knee, Leg, Ankle, Foot, Back:Thoracic, Back:Lumbar, Back:Midline, Back:Paraspinous, Pelvis, Swelling, Tender, Deformity, Pulse Deficit, Motor Deficit, Sensory Deficit, Instability, Crepitance Psychiatric: Normal. negative: Anxiety, Depression, Agitation, Other Mood Description: Calm. negative: Angry, Apathetic, Depressed, Fearful, Flat, Happy, Hostile, Sad, Suspicious, Withdrawn, Anxious, Appropriate, Labile Affect: Normal. negative: Angry, Anxious, Depressed, Flat, Hysterical, Quiet, Violent Speech Pattern: Clear, Appropriate. negative: Unclear, Inappropriate, Delayed, Slurred, Excessive, Aphasic, Artificially Ventilated, Trach(not ventilated) - Plan Plan: Assessment. 1. Alcoholic liver cirrhosis. 2. Hyperammonemia. 3. Ascites. Plan: LFTs normal at present, continue to monitor. Liver US. Hemoccult stool. Continue Protonix, Lactulose, Lasix, and Spironolactone. Continue garcia pportive measures. Plan D/W Dr. Valladares - Allergies Allergies/Adverse Reactions: Allergies Allergy/AdvReac Type Severity Reaction Status Date / Time No Known Drug Allergies Allergy Unknown Verified 01/02/23 09:55
--- NOTE | 2023-02-24 20:50 | PCM.PROG ---
Progress Note Progress Note for Day of Date of Exam: 02/24/23 Subjective Subjective: The patient is alert and awake this morning. He reports he feels better and had a better night of resting last night. His ammonia level is down to 83 from 103 yesterday. His hemoglobin has dropped slightly to 10.9. He currently is receiving lactulose 30 mg p.o. 3 times daily for his elevated ammonia. Fortunately, he is not confused nor does he have altered mental status at this time. Gastroenterology has not seen the patient for the consultation at this time, we will wait for them and follow up with a consult when available. His blood pressure is elevated so we will add spironolactone 50 mg p.o. daily for his generalized edema, ascites, and hypertension. We will follow up with his daily blood pressure checks until we get his blood pressure under control. Past Medical Family Social History Past Med/Fam/Surg Hx: No changes since H&P Allergies: Allergies No Known Drug Allergies Allergy (Unknown, Verified 01/02/23 09:55) Onset Date: 05/26/2022 Review of Systems ROS: No change since H&P Vital Signs and I&O's Vital Signs: Vital Signs Temperature 97.4 F Temperature 98.3 F Pulse Rate 82 Pulse Rate 73 Pulse Rate 88 Pulse Rate 97 Pulse Rate 82 Pulse Rate 73 Pulse Rate 78 Pulse Rate 77 Pulse Rate 81 Pulse Rate 83 Pulse Rate 83 Pulse Rate 81 Pulse Rate 83 Pulse Rate 84 Pulse Rate 90 Pulse Rate 86 Pulse Rate 84 Pulse Rate 84 Pulse Rate 80 Pulse Rate 75 Pulse Rate 89 Pulse Rate 76 Pulse Rate 69 Pulse Rate 104 Pulse Rate 104 Blood Pressure 170/88 Blood Pressure 173/95 Blood Pressure 168/93 Blood Pressure 130/71 O2 Sat by Pulse Oximetry 98 O2 Sat by Pulse Oximetry 99 O2 Sat by Pulse Oximetry 97 O2 Sat by Pulse Oximetry 97 O2 Sat by Pulse Oximetry 98 O2 Sat by Pulse Oximetry 99 O2 Sat by Pulse Oximetry 99 O2 Sat by Pulse Oximetry 99 O2 Sat by Pulse Oximetry 98 O2 Sat by Pulse Oximetry 96 O2 Sat by Pulse Oximetry 96 O2 Sat by Pulse Oximetry 96 O2 Sat by Pulse Oximetry 95 O2 Sat by Pulse Oximetry 95 O2 Sat by Pulse Oximetry 97 O2 Sat by Pulse Oximetry 95 O2 Sat by Pulse Oximetry 94 O2 Sat by Pulse Oximetry 95 O2 Sat by Pulse Oximetry 97 O2 Sat by Pulse Oximetry 99 O2 Sat by Pulse Oximetry 99 O2 Sat by Pulse Oximetry 99 O2 Sat by Pulse Oximetry 98 O2 Sat by Pulse Oximetry 90 O2 Sat by Pulse Oximetry 97 Intake and Output: Intake & Output 02/22/23 02/23/23 02/24/23 02/25/23 11:59 11:59 11:59 11:59 Intake Total 100 / 100 694 / 694 830 / 830 Balance 100 / 100 694 / 694 830 / 830 Physical Exam Oriented: Normal; negative Time, Person, Place, Not Oriented, Unable to test or Other Eyes: Normal; negative Blurred Vision, Diplopia, Discharge, Pain, Redness, Photophobia or Other Ear: negative Normal, Right, Left, Swelling, Ecchymosis, Hemotypanum, Abrasion or Laceration Nose: negative Normal, Injected, Discharge, Blood or Other Throat: negative Normal, Tonsillar Hypertrophy, Red, Exudate, Dry or Other Cardiovascular: Normal; negative Tachycardia, Bradycardia, Irregular, S3, S4, Systolic, Diastolic, Murmur, Edema or Other : negative Normal, Dysuria, Hematuria, Frequency, Discharge, Testicular Pain, Bleeding, or Other Auscultation: Bowel Sounds: Normal; negative Bruit, Absent, Increased, Decreased, High Pitched or Other Tenderness: Diffuse (Mild); negative Normal, RUQ, RLQ, LUQ, LLQ, Epigastric, Periumbilical, Suprapubic, Mild, Moderate, Severe, Rebound, Guarding, Rigidity or Other Skin: Normal; negative Decreased Turgur, Rash, Papular, Macular, Maculopapular, Vesicular, Pustular, Petechial, Red, Tender, Hot, Diaphoresis, Wound, Bruising, Ecchymosis or Other Musculoskeletal: Normal; negative Right, Left, Shoulder, Clavicle, Arm, Elbow, Forearm, Wrist, Hand, Hip, Thigh, Knee, Leg, Ankle, Foot, Back:Thoracic, Back:Lumbar, Back:Midline, Back:Paraspinous, Pelvis, Swelling, Tender, Deformity, Pulse Deficit, Motor Deficit, Sensory Deficit, Instability or Crepitance Psychiatric: Normal; negative Anxiety, Depression, Agitation or Other Mood Description: Calm; negative Angry, Apathetic, Depressed, Fearful, Flat, Happy, Hostile, Sad, Suspicious, Withdrawn, Anxious, Appropriate or Labile Affect: Normal; negative Angry, Anxious, Depressed, Flat, Hysterical, Quiet or Violent Speech Pattern: Clear Laboratory and Diagnostics 02/24/23 04:18 02/24/23 04:18 Labs: 02/22/23 20:02 Urine,Catheterized Urine Culture - Preliminary Laboratory WBC 7.6 X10^3/uL (3.6-10.0) 02/24/23 04:18 RBC 3.52 X10^6/uL (4.7-6.0) L 02/24/23 04:18 Hgb 10.9 g/dL (13.5-18.0) L 02/24/23 04:18 Hct 30.9 % (42.0-54.0) L 02/24/23 04:18 MCV 87.8 fL (80.0-100.0) 02/24/23 04:18 MCH 30.8 pg (27.0-34.0) 02/24/23 04:18 MCHC 35.1 g/dL (33.0-35.0) H 02/24/23 04:18 RDW 15.2 % (11.6-16.5) 02/24/23 04:18 Plt Count 234 X10^3/uL (150.0-450.0) 02/24/23 04:18 MPV 7.7 fL (7.4-11.0) 02/24/23 04:18 Neut % (Auto) 62.7 % (42.0-75.0) 02/24/23 04:18 Lymph % (Auto) 21.9 % (21.0-51.0) 02/24/23 04:18 [place] % (Auto) 9.6 % (0.0-13.0) 02/24/23 04:18 Eos % (Auto) 4.6 % (0.9-2.9) H 02/24/23 04:18 Baso % (Auto) 1.2 % (0.2-1.0) H 02/24/23 04:18 Neut # (Auto) 4.8 x10^3/uL (2.2-4.8) 02/24/23 04:18 Lymph # (Auto) 1.7 X10^3/uL (1.3-2.9) 02/24/23 04:18 [place] # (Auto) 0.7 x10^3/uL (0.3-0.8) 02/24/23 04:18 Eos # (Auto) 0.3 x10^3/uL (0.0-0.2) H 02/24/23 04:18 Baso # (Auto) 0.1 X10^3/uL (0.0-0.1) 02/24/23 04:18 Absolute Nucleated RBC 0.0 /100WBC 02/24/23 04:18 Sodium 140 mmol/L (136-145) 02/24/23 04:18 Corrected Sodium 141 mmol/L (136-145) 02/24/23 04:18 Potassium 3.5 mmol/L (3.5-5.1) 02/24/23 04:18 Chloride 108 mmol/L (98-107) H 02/24/23 04:18 Carbon Dioxide 25.2 mmol/L (21-32) 02/24/23 04:18 BUN 15 mg/dL (7-18) 02/24/23 04:18 Creatinine 0.98 mg/dL (0.70-1.30) 02/24/23 04:18 Est GFR (MDRD) Af Amer > 60 (>60) 02/24/23 04:18 Est GFR (MDRD) Non-Af > 60 (>60) 02/24/23 04:18 Glucose 132 mg/dL (65-99) H 02/24/23 04:18 Calcium 7.6 mg/dL (8.5-10.1) L 02/24/23 04:18 Corrected Calcium 9.7 mg/dL (8.5-10.1) 02/24/23 04:18 Magnesium 2.0 mg/dL (2.0-2.9) 02/23/23 04:21 Total Bilirubin 0.30 mg/dL (0.2-1.0) 02/24/23 04:18 AST 33 Units/L (15-37) 02/24/23 04:18 ALT 9 Units/L (12-78) L 02/24/23 04:18 Alkaline Phosphatase 102 Units/L (46-116) 02/24/23 04:18 Ammonia 86 umol/L (11-32) H 02/24/23 04:18 Total Protein 5.0 g/dL (6.4-8.2) L 02/24/23 04:18 Albumin 1.4 g/dL (3.4-5.0) L 02/24/23 04:18 Globulin 3.6 g/dL (2.5-4.5) 02/24/23 04:18 Albumin/Globulin Ratio 0.4 Ratio (1.1-2.1) L 02/24/23 04:18 Amylase 81 Units/L (25-115) 02/22/23 20:16 Lipase 266 Units/L (73-393) 02/22/23 20:16 Lipase 271 Units/L (73-393) 02/22/23 20:16 Specimen Type Catherized urine 02/22/23 20:02 Urine Color Yellow (YELLOW) 02/22/23 20: Urine Appearance Cloudy (CLEAR) 02/22/23 20:02 Urine pH 8.0 (5.0 - 8.0) 02/22/23 20:02 Ur Specific [place] 1.015 (1.000-1.030) 02/22/23 20:02 Urine Protein 3+ (NEGATIVE) 02/22/23 20:02 Urine Glucose (UA) Negative (NEGATIVE) 02/22/23 20: Urine Ketones Negative (NEGATIVE) 02/22/23 20: Urine Blood 4+ (NEGATIVE) 02/22/23 20: Urine Nitrite Positive (NEGATIVE) 02/22/23 20: Urine Bilirubin Negative (NEGATIVE) 02/22/23 20:02 Urine Urobilinogen Normal (NORMAL) 02/22/23 20:02 Ur Leukocyte Esterase Negative (NEGATIVE) 02/22/23 20:02 Urine RBC 3-5 /HPF (0-3) A 02/22/23 20:02 Urine WBC 3-5 /HPF (0-5) 02/22/23 20:02 Ur Squamous Epith Cells Rare /HPF (NEGATIVE) 02/22/23 20:02 Urine Bacteria 3+ /HPF (NEGATIVE) 02/22/23 20:02 Ur Culture Indicated? Yes/culture set up 02/22/23 20:02 Salicylates < 2.8 mg/dL (2.8-20) L 02/22/23 20:16 Urine Opiates Screen Negative (NEG=<300) 02/22/23 20:02 Urine Methadone Screen Negative (NEG=<300) 02/22/23 20:02 Acetaminophen 1.1 ug/mL (10-30) L 02/22/23 20:16 Ur Barbiturates Screen Negative (NEG=<200) 02/22/23 20:02 Ur Phencyclidine Scrn Negative (NEG=<25) 02/22/23 20:02 Ur Amphetamines Screen Negative (NEG=<1000) 02/22/23 20:02 U Benzodiazepines Scrn Negative (NEG=<200) 02/22/23 20:02 Urine Cocaine Screen Negative (NEG=<300) 02/22/23 20:02 U Marijuana (THC) Screen Positive (NEG=<50) A 02/22/23 20:02 Ethyl Alcohol mg/dL < 3 mg/dL (0-19.9) 02/22/23 20:16 Plan (1) Urinary tract infection: Status: Acute Qualifiers: Hematuria presence: with hematuria Urinary tract infection type: acute cystitis Qualified Code(s): N30.01 - Acute cystitis with hematuria Plan: Continue IV Rocephin and follow-up with urine culture and sensitivity when available. (2) Hyperammonemia: Status: Acute Plan: Continue the patient's lactulose 15 mg every 8 hours as needed to every 8 hours. Recheck the ammonia level tomorrow morning. (3) Acute opioid intoxication delirium with moderate or severe use disorder: Status: Resolved (4) Alcoholic cirrhosis of liver with ascites: Status: None Plan: Consult gastroenterology, Dr. 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 (5) Chronic obstructive pulmonary disease: Status: None Plan: Monitor patient's O2 saturation and treat accordingly. (6) Hypertension: Status: None Plan: Add spironolactone 50 mg p.o. daily. (7) Bilateral lower extremity edema: Status: Acute Plan: IV Lasix.
[2023-02-25] MEDS: CHRONULAC PO SCH ×3 (05:02→21:24)
[2023-02-25 05:21] LABS: BASOPHILS # (AUTO) 0.1 X10^3/uL (0.0-0.1); BASOPHILS % (AUTO) 1.2 % (0.2-1.0); EOSINOPHILS # (AUTO) 0.5 x10^3/uL (0.0-0.2); EOSINOPHILS % (AUTO) 6.3 % (0.9-2.9); HEMATOCRIT 29.9 % (42.0-54.0); HEMOGLOBIN 10.9 g/dL (13.5-18.0); LYMPHOCYTES # (AUTO) 1.5 X10^3/uL (1.3-2.9); LYMPHOCYTES % (AUTO) 16.9 % (21.0-51.0); MEAN CORPUSCULAR HEMOGLOBIN 31.6 pg (27.0-34.0); MEAN CORPUSCULAR HGB CONC 36.3 g/dL (33.0-35.0); MEAN CORPUSCULAR VOLUME 86.9 fL (80.0-100.0); MEAN PLATELET VOLUME 7.7 fL (7.4-11.0); MONOCYTES % (AUTO) 11.2 % (0.0-13.0); NEUTROPHILS # (AUTO) 5.6 x10^3/uL (2.2-4.8); NEUTROPHILS % (AUTO) 64.4 % (42.0-75.0); PLATELET COUNT 237 X10^3/uL (150.0-450.0); RED BLOOD COUNT 3.44 X10^6/uL (4.7-6.0); WHITE BLOOD COUNT 8.7 X10^3/uL (3.6-10.0)
[2023-02-25 05:30] LABS: AMMONIA 99 umol/L (11-32)
[2023-02-25 05:35] LABS: ALANINE AMINOTRANSFERASE 12 Units/L (12-78); ALBUMIN 1.4 g/dL (3.4-5.0); ALKALINE PHOSPHATASE 104 Units/L (46-116); ASPARTATE AMINO TRANSFERASE 36 Units/L (15-37); BLOOD UREA NITROGEN 12 mg/dL (7-18); CALCIUM 7.3 mg/dL (8.5-10.1); CARBON DIOXIDE 27.1 mmol/L (21-32); CHLORIDE 106 mmol/L (98-107); COR CA(FOR HYPOALB) 9.4 mg/dL (8.5-10.1); COR NA(FOR HYPERGLY) 139 mmol/L (136-145); CREATININE 0.92 mg/dL (0.70-1.30); GLUCOSE 145 mg/dL (65-99); MAGNESIUM 1.8 mg/dL (2.0-2.9); POTASSIUM 3.6 mmol/L (3.5-5.1); SODIUM 138 mmol/L (136-145); TOTAL PROTEIN 5.1 g/dL (6.4-8.2); eGFR NON BLACK RACES > 60 (>60)
[2023-02-25] MEDS ORDERED: CONSULT PHARMACY - POTASSIUM & MAGNESIUM XX SCH (06:00)
[2023-02-25] MEDS: LASIX PO SCH ×2 (08:39→21:24)
[2023-02-25] MEDS: PROTONIX TAB 40 MG PO SCH (08:39)
[2023-02-25] MEDS: MICRO K EXTEN CAP 10 MEQ PO SCH (08:39)
[2023-02-25] MEDS: ROCEPHIN VIAL 1 GRAM 1 G in NS 100 ML IV 100 ML IV SCH (08:40)
[2023-02-25] MEDS: MAG-OX TAB PO SCH ×2 (08:40→09:33)
[2023-02-25] MEDS: ALDACTONE TAB 25 MG PO SCH (08:40)
[2023-02-25] MEDS: LOVENOX INJ 40 MG SYR SC SCH (08:40)
[2023-02-25] MEDS ORDERED: K-DUR TAB 20 MEQ PO ONE (09:00)
[2023-02-25] MEDS: ALBUMIN HUMAN 25%- 100 ML 100 ML IV SCH (09:32)
[2023-02-25] MEDS: ZOSYN VIAL 3.375 GRAMS 3.375 G in NS 100 ML IV 100 ML IV SCH ×2 (15:36→21:24)
--- NOTE | 2023-02-25 18:17 | US ---
PROCEDURE: Ultrasound Abdomen Limited .HISTORY: Cirrhosis.TECHNIQUE: Dempsey scale and color Doppler evaluation was performed of the liver, gallbladder, and common duct.COMPARISON: 01/03/2023 ultrasound paracentesis.TECHNICAL QUALITY: Satisfactory .FINDINGS:Heterogeneous echo pattern to the liver and irregular contour consistent with cirrhosis with no masses or intrahepatic biliary ductal dilatation. Hepatomegaly with right lobe measuring 19.5 cm. Hepatopetal and hepatofugal flow in the portal and hepatic veins. Patent hepatic artery.Gallbladder shows no stones or sludge with normal wall at 3 mm.Normal common duct at 4 mm.Moderate ascites around the liver.IMPRESSION:1. Cirrhosis.2. Normal biliary tract.3. Moderate ascites.Electronically signed by: Vincent Morris (Feb 25, 2023 18:14:50)
--- NOTE | 2023-02-25 20:36 | PCM.PROG ---
Progress Note - Progress Note for Day of Date of Exam: 02/25/23 - Subjective Subjective: IS A 57 YEAR OLD WHITE MALE. HE IS A 57 YEAR OLD PATIENT OF . HE IS CURRENTLY INPATIENT STATUS FOR TREATMENT OF URINARY TRACT INFECTION, ALCOHOLIC CIRRHOSIS OF LIVER WITH ASCITES, HYPERAMMONEMIA, BILATERAL LOWER EXTREMITY EDEMA, AND ACUTE OPIOID INTOXICATION DELIRIUM. HE HAS A PMH OF COPD, HTN, GERD, CIRRHOSIS, AND ALCOHOL ABUSE. PATIENT REQUIRES PARACENTESIS ABOUT TWO TO FOUR TIMES A MONTH, WHICH HE GETS AT [facility]. TODAY, HE IS ALERT AND ORIENTED, LYING IN BED ON MORNING ROUNDS. HE COMPLAINS OF LEFT SIDE CHEST AND RIB PAIN THIS MORNING. HE REPORTS THAT PAIN INITIALLY STARTED WHEN HE FELL AT HOME AND HAS PROGRESSIVELY GOTTEN WORSE. ON EXAMINATION, HEART IS REGULAR IN RATE AND RHYTHM. BILATERAL LUNGS ARE NOTED WITH DIMINISHED LUNG SOUNDS THROUGHOUT. ABDOMEN IS MODERATELY DISTENDED. NORMAL BOWEL SOUNDS ARE NOTED IN ALL QUADRANTS. GOOD MOVEMENT TO UPPER AND LOWER EXTREMITIES WITH 1+ PITTING EDEMA NOTED. HIS VITALS THIS MORNING ARE: 98.2-93-21-97%-128/60. LABS WERE OBTAINED. WBC 8.7, RBC 3.44, HGB 10.9, HCT 29.9, PLT COUNT 237, SODIUM 138, POTASSIUM 3.6, CHLORIDE 106, BUN 12, CREATININE 0.92, GLUCOSE 145, CALCIUM 7.3, MAGNESIUM 1.8, AST 36, ALT 12, ALK PHOS 104, AMMONIA 99, BNP 156, TOTAL PROTEIN 5.1, ALBUMIN 1.4. URINE CULTURE IS POSITIVE FOR E.COLI. A LIVER ULTRASOUND WAS DONE YESTERDAY. RESULTS ARE PENDING. HE IS CURRENTLY RECEIVING NORMAL SALINE AT [facility], ROCEPHIN 1G IV DAILY, LACTULOSE 15MG TID, LOVENOX 40MG SC DAILY, LASIX 40MG PO BID, PROTONIX 40MG DAILY, POTASSIUM CHLORIDE 10MEQ PO DAILY, AND ALDACTONE 50MG DAILY. TODAY, WE WILL DISCONTINUE THE ROCEPHIN AND START ZOSYN 3.375G IV TID. WE WILL ALSO ADD ALBUMIN 25% IV DAILY. OTHERWISE, WE WILL FOLLOW UP WITH AM LABS AND CONTINUE TO MONITOR. TIME SPENT ON CLINICAL ASSESSMENT, REVIEWING LABS AND IMAGING, DECISION MAKING, AND DOCUMENTATION GREATER THAN 45 MINUTES. - Past Medical Family Social History Past Med/Fam/Surg Hx: No changes since H&P Allergies: Allergies No Known Drug Allergies Allergy (Unknown, Verified 01/02/23 09:55) Onset Date: 05/26/2022 - Review of Systems ROS: No change since H&P - Vital Signs and I&O's Vital Signs: Vital Signs Temperature 98.6 F Temperature 98.4 F Pulse Rate [Brachial] 96 Pulse Rate 87 Pulse Rate 92 Pulse Rate 94 Respiratory Rate 20 Respiratory Rate 20 Respiratory Rate 24 Respiratory Rate 25 Blood Pressure [Right Arm] 138/78 Blood Pressure 133/69 Blood Pressure 141/87 O2 Sat by Pulse Oximetry 98 O2 Sat by Pulse Oximetry 98 O2 Sat by Pulse Oximetry 98 O2 Sat by Pulse Oximetry 94 Intake and Output: Intake & Output 02/23/23 02/24/23 02/25/23 02/26/23 11:59 11:59 11:59 11:59 Intake Total 100 / 100 694 / 694 850 / 850 1300 / 1300 Balance 100 / 100 694 / 694 850 / 850 1300 / 1300 - Physical Exam Oriented: Normal. negative: Time, Person, Place, Not Oriented, Unable to test, Other Eyes: Normal. negative: Blurred Vision, Diplopia, Discharge, Pain, Redness, Photophobia, Other Ear: negative: Normal, Right, Left, Swelling, Ecchymosis, Hemotypanum, Abrasion, Laceration Nose: negative: Injected, Discharge, Blood, Other, Normal Throat: negative: Tonsillar Hypertrophy, Red, Exudate, Dry, Normal, Other Respiratory: Generalized, Diminished Cardiovascular: Normal. negative: Tachycardia, Bradycardia, Irregular, S3, S4, Systolic, Diastolic, Murmur, Edema, Other : negative: Dysuria, Hematuria, Frequency, Discharge, Testicular Pain, Bleeding, , Normal, Other Auscultation: Bowel Sounds: Normal. negative: Bruit, Absent, Increased, Decreased, High Pitched, Other Palpation: Normal Tenderness: Diffuse (Mild), Other (DISTENDED ). negative: Normal, RUQ, RLQ, LUQ, LLQ, Epigastric, Periumbilical, Suprapubic, Mild, Moderate, Severe, Rebound, Guarding, Rigidity Skin: Normal. negative: Decreased Turgur, Rash, Papular, Macular, Maculopapular, Vesicular, Pustular, Petechial, Red, Tender, Hot, Diaphoresis, Wound, Bruising, Ecchymosis, Other Musculoskeletal: Normal. negative: Shoulder, Clavicle, Arm, Elbow, Right, Left, Forearm, Wrist, Hand, Hip, Thigh, Knee, Leg, Ankle, Foot, Back:Thoracic, Back:Lumbar, Back:Midline, Back:Paraspinous, Pelvis, Swelling, Tender, Deformity, Pulse Deficit, Motor Deficit, Sensory Deficit, Instability, Crepitance Psychiatric: Normal. negative: Anxiety, Depression, Agitation, Other Mood Description: Calm. negative: Angry, Apathetic, Depressed, Fearful, Flat, Happy, Hostile, Sad, Suspicious, Withdrawn, Anxious, Appropriate, Labile Affect: Normal. negative: Angry, Anxious, Depressed, Flat, Hysterical, Quiet, Violent Speech Pattern: Clear - Laboratory and Diagnostics Result Diagrams: 02/25/23 04:55 02/25/23 04:55 Labs: 02/22/23 20:02 Urine,Catheterized Urine Culture - Final Escherichia Coli Laboratory WBC 8.7 X10^3/uL (3.6-10.0) 02/25/23 04:55 RBC 3.44 X10^6/uL (4.7-6.0) L 02/25/23 04:55 Hgb 10.9 g/dL (13.5-18.0) L 02/25/23 04:55 Hct 29.9 % (42.0-54.0) L 02/25/23 04:55 MCV 86.9 fL (80.0-100.0) 02/25/23 04:55 MCH 31.6 pg (27.0-34.0) 02/25/23 04:55 MCHC 36.3 g/dL (33.0-35.0) H 02/25/23 04:55 RDW 15.0 % (11.6-16.5) 02/25/23 04:55 Plt Count 237 X10^3/uL (150.0-450.0) 02/25/23 04:55 MPV 7.7 fL (7.4-11.0) 02/25/23 04:55 Neut % (Auto) 64.4 % (42.0-75.0) 02/25/23 04:55 Lymph % (Auto) 16.9 % (21.0-51.0) L 02/25/23 04:55 [place] % (Auto) 11.2 % (0.0-13.0) 02/25/23 04:55 Eos % (Auto) 6.3 % (0.9-2.9) H 02/25/23 04:55 Baso % (Auto) 1.2 % (0.2-1.0) H 02/25/23 04:55 Neut # (Auto) 5.6 x10^3/uL (2.2-4.8) H 02/25/23 04:55 Lymph # (Auto) 1.5 X10^3/uL (1.3-2.9) 02/25/23 04:55 [place] # (Auto) 1.0 x10^3/uL (0.3-0.8) H 02/25/23 04:55 Eos # (Auto) 0.5 x10^3/uL (0.0-0.2) H 02/25/23 04:55 Baso # (Auto) 0.1 X10^3/uL (0.0-0.1) 02/25/23 04:55 Absolute Nucleated RBC 0.0 /100WBC 02/25/23 04:55 Sodium 138 mmol/L (136-145) 02/25/23 04:55 Corrected Sodium 139 mmol/L (136-145) 02/25/23 04:55 Potassium 3.6 mmol/L (3.5-5.1) 02/25/23 04:55 Chloride 106 mmol/L (98-107) 02/25/23 04:55 Carbon Dioxide 27.1 mmol/L (21-32) 02/25/23 04:55 BUN 12 mg/dL (7-18) 02/25/23 04:55 Creatinine 0.92 mg/dL (0.70-1.30) 02/25/23 04:55 Est GFR (MDRD) Af Amer > 60 (>60) 02/25/23 04:55 Est GFR (MDRD) Non-Af > 60 (>60) 02/25/23 04:55 Glucose 145 mg/dL (65-99) H 02/25/23 04:55 Calcium 7.3 mg/dL (8.5-10.1) L 02/25/23 04:55 Corrected Calcium 9.4 mg/dL (8.5-10.1) 02/25/23 04:55 Magnesium 1.8 mg/dL (2.0-2.9) L 02/25/23 04:55 Total Bilirubin 0.40 mg/dL (0.2-1.0) 02/25/23 04:55 AST 36 Units/L (15-37) 02/25/23 04:55 ALT 12 Units/L (12-78) 02/25/23 04:55 Alkaline Phosphatase 104 Units/L (46-116) 02/25/23 04:55 Ammonia 99 umol/L (11-32) H 02/25/23 04:55 B-Natriuretic Peptide 156 pg/mL (0-79) H 02/25/23 04:55 Total Protein 5.1 g/dL (6.4-8.2) L 02/25/23 04:55 Albumin 1.4 g/dL (3.4-5.0) L 02/25/23 04:55 Globulin 3.7 g/dL (2.5-4.5) 02/25/23 04:55 Albumin/Globulin Ratio 0.4 Ratio (1.1-2.1) L 02/25/23 04:55 Amylase 81 Units/L (25-115) 02/22/23 20:16 Lipase 266 Units/L (73-393) 02/22/23 20:16 Lipase 271 Units/L (73-393) 02/22/23 20:16 Specimen Type Catherized urine 02/22/23 20:02 Urine Color Yellow (YELLOW) 02/22/23 20:02 Urine Appearance Cloudy (CLEAR) 02/22/23 20:02 Urine pH 8.0 (5.0 - 8.0) 02/22/23 20:02 Ur Specific [place] 1.015 (1.000-1.030) 02/22/23 20:02 Urine Protein 3+ (NEGATIVE) 02/22/23 20:02 Urine Glucose (UA) Negative (NEGATIVE) 02/22/23 20:02 Urine Ketones Negative (NEGATIVE) 02/22/23 20:02 Urine Blood 4+ (NEGATIVE) 02/22/23 20:02 Urine Nitrite Positive (NEGATIVE) 02/22/23 20:02 Urine Bilirubin Negative (NEGATIVE) 02/22/23 20:02 Urine Urobilinogen Normal (NORMAL) 02/22/23 20:02 Ur Leukocyte Esterase Negative (NEGATIVE) 02/22/23 20:02 Urine RBC 3-5 /HPF (0-3) A 02/22/23 20:02 Urine WBC 3-5 /HPF (0-5) 02/22/23 20:02 Ur Squamous Epith Cells Rare /HPF (NEGATIVE) 02/22/23 20:02 Urine Bacteria 3+ /HPF (NEGATIVE) 02/22/23 20:02 Ur Culture Indicated? Yes/culture set up 02/22/23 20:02 Stl Occult Blood (IFOB) Negative (NEGATIVE) 02/25/23 20:00 Salicylates < 2.8 mg/dL (2.8-20) L 02/22/23 20:16 Urine Opiates Screen Negative (NEG=<300) 02/22/23 20:02 Urine Methadone Screen Negative (NEG=<300) 02/22/23 20:02 Acetaminophen 1.1 ug/mL (10-30) L 02/22/23 20:16 Ur Barbiturates Screen Negative (NEG=<200) 02/22/23 20:02 Ur Phencyclidine Scrn Negative (NEG=<25) 02/22/23 20:02 Ur Amphetamines Screen Negative (NEG=<1000) 02/22/23 20:02 U Benzodiazepines Scrn Negative (NEG=<200) 02/22/23 20:02 Urine Cocaine Screen Negative (NEG=<300) 02/22/23 20:02 U Marijuana (THC) Screen Positive (NEG=<50) A 02/22/23 20:02 Ethyl Alcohol mg/dL < 3 mg/dL (0-19.9) 02/22/23 20:16 - Plan (1) Urinary tract infection Status: Acute Qualifiers: Urinary tract infection type: acute cystitis Hematuria presence: with hematuria Qualified Code(s): N30.01 - Acute cystitis with hematuria Plan: discontinue IV Rocephin and start zosyn 3.375g iv tid. continue to monitor (2) Alcoholic cirrhosis of liver with ascites Status: None Plan: Consult gastroenterology, Dr. 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 (3) Hyperammonemia Status: Acute Plan: Continue the patient's lactulose 15 mg every 8 hours as needed to every 8 hours. Recheck the ammonia level tomorrow morning. (4) Hypoalbuminemia Status: Acute Plan: albumin 25% iv daily (5) Bilateral lower extremity edema Status: Acute Plan: IV Lasix. (6) Chronic obstructive pulmonary disease Status: Chronic Qualifiers: COPD type: unspecified COPD Qualified Code(s): J44.9 - Chronic obstructive pulmonary disease, unspecified Plan: Monitor patient's O2 saturation and treat accordingly. (7) Hypertension Status: Chronic Qualifiers: Hypertension type: primary hypertension Qualified Code(s): I10 - Essential (primary) hypertension Plan: Add spironolactone 50 mg p.o. daily.
[2023-02-26 05:03] LABS: BASOPHILS # (AUTO) 0.1 X10^3/uL (0.0-0.1); EOSINOPHILS # (AUTO) 0.5 x10^3/uL (0.0-0.2); HEMATOCRIT 33.6 % (42.0-54.0); LYMPHOCYTES # (AUTO) 1.5 X10^3/uL (1.3-2.9); LYMPHOCYTES % (AUTO) 18.5 % (21.0-51.0); MEAN CORPUSCULAR HEMOGLOBIN 31.2 pg (27.0-34.0); MEAN CORPUSCULAR HGB CONC 35.7 g/dL (33.0-35.0); MEAN CORPUSCULAR VOLUME 87.3 fL (80.0-100.0); MEAN PLATELET VOLUME 7.3 fL (7.4-11.0); MONOCYTES # (AUTO) 0.9 x10^3/uL (0.3-0.8); MONOCYTES % (AUTO) 11.2 % (0.0-13.0); NEUTROPHILS # (AUTO) 5.3 x10^3/uL (2.2-4.8); NEUTROPHILS % (AUTO) 63.3 % (42.0-75.0); PLATELET COUNT 279 X10^3/uL (150.0-450.0); RED BLOOD COUNT 3.85 X10^6/uL (4.7-6.0); RED CELL DISTRIBUTION WIDTH 15.4 % (11.6-16.5); WHITE BLOOD COUNT 8.3 X10^3/uL (3.6-10.0)
[2023-02-26 05:06] LABS: AMMONIA 39 umol/L (11-32)
[2023-02-26] MEDS: CHRONULAC PO SCH ×3 (05:13→21:06)
[2023-02-26] MEDS: ZOSYN VIAL 3.375 GRAMS 3.375 G in NS 100 ML IV 100 ML IV SCH ×3 (05:14→21:06)
[2023-02-26 05:21] LABS: ALANINE AMINOTRANSFERASE 12 Units/L (12-78); ALBUMIN 1.8 g/dL (3.4-5.0); ALKALINE PHOSPHATASE 113 Units/L (46-116); ASPARTATE AMINO TRANSFERASE 34 Units/L (15-37); BLOOD UREA NITROGEN 11 mg/dL (7-18); CALCIUM 7.9 mg/dL (8.5-10.1); CARBON DIOXIDE 27.7 mmol/L (21-32); CHLORIDE 106 mmol/L (98-107); COR CA(FOR HYPOALB) 9.7 mg/dL (8.5-10.1); CREATININE 0.94 mg/dL (0.70-1.30); GLUCOSE 79 mg/dL (65-99); POTASSIUM 3.5 mmol/L (3.5-5.1); SODIUM 139 mmol/L (136-145); TOTAL PROTEIN 5.8 g/dL (6.4-8.2); eGFR NON BLACK RACES > 60 (>60)
[2023-02-26] MEDS ORDERED: CONSULT PHARMACY - POTASSIUM & MAGNESIUM XX SCH (06:00)
--- NOTE | 2023-02-26 07:33 | RAD ---
HISTORYFellSTUDYRight ribs five viewsCOMPARISONChest February 22, 2023FINDINGSSubmitted images of the right ribs are of limited technical quality; detail is reduced.There is no definite right rib fracture or bone destruction or contour deformity.Re-demonstration of 3.4 cm soft tissue mass with associated pleural effusion at the right base.IMPRESSION1. No acute rib fracture although the study is technically limited and incomplete. A repeat study is recommended if symptoms persist.2. 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 Associated pleural effusion.Electronically signed by: DELFIN BAUMANN (Feb 26, 2023 07:31:45)
[2023-02-26] MEDS: ALBUMIN HUMAN 25%- 100 ML 100 ML IV SCH (08:06)
[2023-02-26] MEDS: MICRO K EXTEN CAP 10 MEQ PO SCH (08:08)
[2023-02-26] MEDS: LASIX PO SCH ×2 (08:08→21:06)
[2023-02-26] MEDS: PROTONIX TAB 40 MG PO SCH (08:08)
[2023-02-26] MEDS: ALDACTONE TAB 25 MG PO SCH (08:08)
[2023-02-26] MEDS: LOVENOX INJ 40 MG SYR SC SCH (08:08)
[2023-02-26] MEDS ORDERED: K-DUR TAB 20 MEQ PO SCH (09:00)
[2023-02-26] MEDS ORDERED: OMNIPAQUE 350 mg/mL 100 mL BTL 100 ML ONE (09:59)
--- NOTE | 2023-02-26 10:19 | PCM.PROG ---
Progress Note - Progress Note for Day of Date of Exam: 02/26/23 - Subjective Subjective: IS A 57 YEAR OLD WHITE MALE. HE IS A PATIENT OF . HE IS CURRENTLY INPATIENT STATUS FOR TREATMENT OF URINARY TRACT INFECTION, ALCOHOLIC CIRRHOSIS OF LIVER WITH ASCITES, HYPERAMMONEMIA, BILATERAL LOWER EXTREMITY EDEMA, AND ACUTE OPIOID INTOXICATION DELIRIUM. HE HAS A PMH OF COPD, HTN, GERD, CIRRHOSIS, AND ALCOHOL ABUSE. PATIENT REQUIRES PARACENTESIS ABOUT TWO TO FOUR TIMES A MONTH, WHICH HE GETS AT THE [facility]. TODAY, HE IS ALERT AND ORIENTED, LYING IN BED ON MORNING ROUNDS. HE COMPLAINS OF SHORTNESS OF BREATH AND LEFT SIDE CHEST AND RIB PAIN THIS MORNING. HE REPORTS THAT PAIN INITIALLY STARTED WHEN HE FELL AT HOME AND HAS PROGRESSIVELY GOTTEN WORSE. ON EXAMINATION, HEART IS REGULAR IN RATE AND RHYTHM. BILATERAL LUNGS ARE NOTED WITH DIMINISHED LUNG SOUNDS THROUGHOUT. ABDOMEN IS MODERATELY DISTENDED. NORMAL BOWEL SOUNDS ARE NOTED IN ALL QUADRANTS. GOOD MOVEMENT TO UPPER AND LOWER EXTREMITIES WITH 1+ PITTING EDEMA NOTED. HIS VITALS THIS MORNING ARE: 98 .9-80-20-97%-114/52. LABS WERE OBTAINED. WBC 8.3, RBC 3.85, HGB 12.0, HCT 33.6, PLT COUNT 279, SODIUM 139, POTASSIUM 3.5, CHLORIDE 106, CARBON DIOXIDE 27.7, BUN 11, CREATININE 0.94, GLUCOSE 79, MAGNESIUM 2.0, AST 34, ALT 12, ALK PHOS 113, AMMONIA 39, TOTAL PROTEIN 5.8, ALBUMIN 1.8. URINE CULTURE IS POSITIVE FOR E.COLI. A LIVER ULTRASOUND WAS DONE MONDAY AND REVEALED: 1. Cirrhosis.2. Normal biliary tract.3. Moderate ascites. WE OBTAINED A RIB SERIES AND CHEST XRAY YESTERDAY. IT REVEALED: 1. No acute rib fracture although the study is technically limited and incomplete. A repeat study is recommended if symptoms persist. 2. 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 Associated pleural effusion. HE IS CURRENTLY RECEIVING NORMAL SALINE AT KVO, ALBUMIN 25% IV DAILY, ZOSYN 3.375G IV TID, LACTULOSE 15MG TID, LOVENOX 40MG SC DAILY, LASIX 40MG PO BID, PROTONIX 40MG DAILY, POTASSIUM CHLORIDE 10MEQ PO DAILY, AND ALDACTONE 50MG DAILY. WE WILL CONTINUE WITH CURRENT PLAN OF CARE TODAY. WE WILL ORDER A CHEST CT WITH CONTRAST TO FURTHER EVALUATE THE RIGHT LUNG MASS. OTHERWISE, WE WILL FOLLOW UP WITH AM LABS AND CONTINUE TO MONITOR. TIME SPENT ON CLINICAL ASSESSMENT, REVIEWING LABS AND IMAGING, DECISION MAKING, AND DOCUMENTATION GREATER THAN 45 MINUTES. - Past Medical Family Social History Past Med/Fam/Surg Hx: No changes since H&P Allergies: Allergies No Known Drug Allergies Allergy (Unknown, Verified 01/02/23 09:55) Onset Date: 05/26/2022 - Review of Systems ROS: No change since H&P - Vital Signs and I&O's Vital Signs: Vital Signs Temperature 98.9 F Temperature 98.5 F Pulse Rate [Brachial] 80 Pulse Rate [Brachial] 88 Respiratory Rate 20 Respiratory Rate 20 Blood Pressure [Right Arm] 114/52 Blood Pressure [Right Arm] 160/86 O2 Sat by Pulse Oximetry 97 O2 Sat by Pulse Oximetry 98 Intake and Output: Intake & Output 02/23/23 02/24/23 02/25/23 02/26/23 11:59 11:59 11:59 11:59 Intake Total 100 / 100 694 / 694 850 / 850 1959 Balance 100 / 100 694 / 694 850 / 850 1959 - Physical Exam Oriented: Normal. negative: Time, Person, Place, Not Oriented, Unable to test, Other Eyes: Normal. negative: Blurred Vision, Diplopia, Discharge, Pain, Redness, Photophobia, Other Ear: negative: Normal, Right, Left, Swelling, Ecchymosis, Hemotypanum, Abrasion, Laceration Nose: negative: Injected, Discharge, Blood, Other, Normal Throat: negative: Tonsillar Hypertrophy, Red, Exudate, Dry, Normal, Other Respiratory: Generalized, Diminished Cardiovascular: Normal. negative: Tachycardia, Bradycardia, Irregular, S3, S4, Systolic, Diastolic, Murmur, Edema, Other : negative: Dysuria, Hematuria, Frequency, Discharge, Testicular Pain, Bleeding, , Normal, Other Auscultation: Bowel Sounds: Normal. negative: Bruit, Absent, Increased, Decreased, High Pitched, Other Tenderness: Diffuse (Mild), Other (DISTENDED ). negative: Normal, RUQ, RLQ, LUQ, LLQ, Epigastric, Periumbilical, Suprapubic, Mild, Moderate, Severe, Rebound, Guarding, Rigidity Skin: Normal. negative: Decreased Turgur, Rash, Papular, Macular, Maculopapular, Vesicular, Pustular, Petechial, Red, Tender, Hot, Diaphoresis, Wound, Bruising, Ecchymosis, Other Musculoskeletal: Normal. negative: Shoulder, Clavicle, Arm, Elbow, Right, Left, Forearm, Wrist, Hand, Hip, Thigh, Knee, Leg, Ankle, Foot, Back:Thoracic, Back:Lumbar, Back:Midline, Back:Paraspinous, Pelvis, Swelling, Tender, Deformity, Pulse Deficit, Motor Deficit, Sensory Deficit, Instability, Crepitance Psychiatric: Normal. negative: Anxiety, Depression, Agitation, Other Mood Description: Calm. negative: Angry, Apathetic, Depressed, Fearful, Flat, Happy, Hostile, Sad, Suspicious, Withdrawn, Anxious, Appropriate, Labile Affect: Normal. negative: Angry, Anxious, Depressed, Flat, Hysterical, Quiet, Violent Speech Pattern: Clear - Laboratory and Diagnostics Result Diagrams: 02/26/23 04:45 02/26/23 04:45 Labs: 02/22/23 20:02 Urine,Catheterized Urine Culture - Final Escherichia Coli Laboratory WBC 8.3 X10^3/uL (3.6-10.0) 02/26/23 04:45 RBC 3.85 X10^6/uL (4.7-6.0) L 02/26/23 04:45 Hgb 12.0 g/dL (13.5-18.0) L 02/26/23 04:45 Hct 33.6 % (42.0-54.0) L 02/26/23 04:45 MCV 87.3 fL (80.0-100.0) 02/26/23 04:45 MCH 31.2 pg (27.0-34.0) 02/26/23 04:45 MCHC 35.7 g/dL (33.0-35.0) H 02/26/23 04:45 RDW 15.4 % (11.6-16.5) 02/26/23 04:45 Plt Count 279 X10^3/uL (150.0-450.0) 02/26/23 04:45 MPV 7.3 fL (7.4-11.0) L 02/26/23 04:45 Neut % (Auto) 63.3 % (42.0-75.0) 02/26/23 04:45 Lymph % (Auto) 18.5 % (21.0-51.0) L 02/26/23 04:45 [place] % (Auto) 11.2 % (0.0-13.0) 02/26/23 04:45 Eos % (Auto) 6.0 % (0.9-2.9) H 02/26/23 04:45 Baso % (Auto) 1.0 % (0.2-1.0) 02/26/23 04:45 Neut # (Auto) 5.3 x10^3/uL (2.2-4.8) H 02/26/23 04:45 Lymph # (Auto) 1.5 X10^3/uL (1.3-2.9) 02/26/23 04:45 [place] # (Auto) 0.9 x10^3/uL (0.3-0.8) H 02/26/23 04:45 Eos # (Auto) 0.5 x10^3/uL (0.0-0.2) H 02/26/23 04:45 Baso # (Auto) 0.1 X10^3/uL (0.0-0.1) 02/26/23 04:45 Absolute Nucleated RBC 0.1 /100WBC 02/26/23 04:45 Sodium 139 mmol/L (136-145) 02/26/23 04:45 Corrected Sodium TNP 02/26/23 04:45 Potassium 3.5 mmol/L (3.5-5.1) 02/26/23 04:45 Chloride 106 mmol/L (98-107) 02/26/23 04:45 Carbon Dioxide 27.7 mmol/L (21-32) 02/26/23 04:45 BUN 11 mg/dL (7-18) 02/26/23 04:45 Creatinine 0.94 mg/dL (0.70-1.30) 02/26/23 04:45 Est GFR (MDRD) Af Amer > 60 (>60) 02/26/23 04:45 Est GFR (MDRD) Non-Af > 60 (>60) 02/26/23 04:45 Glucose 79 mg/dL (65-99) 02/26/23 04:45 Calcium 7.9 mg/dL (8.5-10.1) L 02/26/23 04:45 Corrected Calcium 9.7 mg/dL (8.5-10.1) 02/26/23 04:45 Magnesium 2.0 mg/dL (2.0-2.9) 02/26/23 04:45 Total Bilirubin 0.50 mg/dL (0.2-1.0) 02/26/23 04:45 AST 34 Units/L (15-37) 02/26/23 04:45 ALT 12 Units/L (12-78) 02/26/23 04:45 Alkaline Phosphatase 113 Units/L (46-116) 02/26/23 04:45 Ammonia 39 umol/L (11-32) H 02/26/23 04:45 B-Natriuretic Peptide 156 pg/mL (0-79) H 02/25/23 04:55 Total Protein 5.8 g/dL (6.4-8.2) L 02/26/23 04:45 Albumin 1.8 g/dL (3.4-5.0) L 02/26/23 04:45 Globulin 4.0 g/dL (2.5-4.5) 02/26/23 04:45 Albumin/Globulin Ratio 0.5 Ratio (1.1-2.1) L 02/26/23 04:45 Amylase 81 Units/L (25-115) 02/22/23 20:16 Lipase 266 Units/L (73-393) 02/22/23 20:16 Lipase 271 Units/L (73-393) 02/22/23 20:16 Specimen Type Catherized urine 02/22/23 20:02 Urine Color Yellow (YELLOW) 02/22/23 20:02 Urine Appearance Cloudy (CLEAR) 02/22/23 20:02 Urine pH 8.0 (5.0 - 8.0) 02/22/23 20:02 Ur Specific [place] 1.015 (1.000-1.030) 02/22/23 20:02 Urine Protein 3+ (NEGATIVE) 02/22/23 20:02 Urine Glucose (UA) Negative (NEGATIVE) 02/22/23 20:02 Urine Ketones Negative (NEGATIVE) 02/22/23 20:02 Urine Blood 4+ (NEGATIVE) 02/22/23 20:02 Urine Nitrite Positive (NEGATIVE) 02/22/23 20:02 Urine Bilirubin Negative (NEGATIVE) 02/22/23 20:02 Urine Urobilinogen Normal (NORMAL) 02/22/23 20:02 Ur Leukocyte Esterase Negative (NEGATIVE) 02/22/23 20:02 Urine RBC 3-5 /HPF (0-3) A 02/22/23 20:02 Urine WBC 3-5 /HPF (0-5) 02/22/23 20:02 Ur Squamous Epith Cells Rare /HPF (NEGATIVE) 02/22/23 20:02 Urine Bacteria 3+ /HPF (NEGATIVE) 02/22/23 20:02 Ur Culture Indicated? Yes/culture set up 02/22/23 20:02 Stl Occult Blood (IFOB) Negative (NEGATIVE) 02/25/23 20:00 Salicylates < 2.8 mg/dL (2.8-20) L 02/22/23 20:16 Urine Opiates Screen Negative (NEG=<300) 02/22/23 20:02 Urine Methadone Screen Negative (NEG=<300) 02/22/23 20:02 Acetaminophen 1.1 ug/mL (10-30) L 02/22/23 20:16 Ur Barbiturates Screen Negative (NEG=<200) 02/22/23 20:02 Ur Phencyclidine Scrn Negative (NEG=<25) 02/22/23 20:02 Ur Amphetamines Screen Negative (NEG=<1000) 02/22/23 20:02 U Benzodiazepines Scrn Negative (NEG=<200) 02/22/23 20:02 Urine Cocaine Screen Negative (NEG=<300) 02/22/23 20:02 U Marijuana (THC) Screen Positive (NEG=<50) A 02/22/23 20:02 Ethyl Alcohol mg/dL < 3 mg/dL (0-19.9) 02/22/23 20:16 - Plan (1) Urinary tract infection Status: Acute Qualifiers: Urinary tract infection type: acute cystitis Hematuria presence: with hematuria Qualified Code(s): N30.01 - Acute cystitis with hematuria Plan: discontinue IV Rocephin and start zosyn 3.375g iv tid. continue to monitor (2) Alcoholic cirrhosis of liver with ascites Status: None Plan: Consult gastroenterology, Dr. 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 (3) Hyperammonemia Status: Acute Plan: Continue the patient's lactulose 15 mg every 8 hours as needed to every 8 hours. Recheck the ammonia level tomorrow morning. (4) Hypoalbuminemia Status: Acute Plan: albumin 25% iv daily (5) Bilateral lower extremity edema Status: Acute Plan: IV Lasix. (6) Chronic obstructive pulmonary disease Status: Chronic Qualifiers: COPD type: unspecified COPD Qualified Code(s): J44.9 - Chronic obstructive pulmonary disease, unspecified Plan: Monitor patient's O2 saturation and treat accordingly. (7) Hypertension Status: Chronic Qualifiers: Hypertension type: primary hypertension Qualified Code(s): I10 - Essential (primary) hypertension Plan: Add spironolactone 50 mg p.o. daily.
[2023-02-27] MEDS: ZOSYN VIAL 3.375 GRAMS 3.375 G in NS 100 ML IV 100 ML IV SCH ×3 (05:11→21:51)
[2023-02-27] MEDS: CHRONULAC PO SCH ×3 (05:11→21:51)
[2023-02-27 05:24] LABS: BASOPHILS # (AUTO) 0.1 X10^3/uL (0.0-0.1); BASOPHILS % (AUTO) 1.3 % (0.2-1.0); EOSINOPHILS # (AUTO) 0.5 x10^3/uL (0.0-0.2); EOSINOPHILS % (AUTO) 7.3 % (0.9-2.9); HEMATOCRIT 30.3 % (42.0-54.0); HEMOGLOBIN 10.7 g/dL (13.5-18.0); LYMPHOCYTES # (AUTO) 1.3 X10^3/uL (1.3-2.9); LYMPHOCYTES % (AUTO) 18.2 % (21.0-51.0); MEAN CORPUSCULAR HEMOGLOBIN 30.9 pg (27.0-34.0); MEAN CORPUSCULAR HGB CONC 35.2 g/dL (33.0-35.0); MEAN CORPUSCULAR VOLUME 87.8 fL (80.0-100.0); MEAN PLATELET VOLUME 7.4 fL (7.4-11.0); MONOCYTES # (AUTO) 0.7 x10^3/uL (0.3-0.8); MONOCYTES % (AUTO) 9.5 % (0.0-13.0); NEUTROPHILS # (AUTO) 4.6 x10^3/uL (2.2-4.8); NEUTROPHILS % (AUTO) 63.7 % (42.0-75.0); PLATELET COUNT 222 X10^3/uL (150.0-450.0); RED BLOOD COUNT 3.45 X10^6/uL (4.7-6.0); RED CELL DISTRIBUTION WIDTH 15.6 % (11.6-16.5); WHITE BLOOD COUNT 7.3 X10^3/uL (3.6-10.0)
[2023-02-27 05:40] LABS: ALANINE AMINOTRANSFERASE 9 Units/L (12-78); ALBUMIN 1.7 g/dL (3.4-5.0); ALKALINE PHOSPHATASE 91 Units/L (46-116); ASPARTATE AMINO TRANSFERASE 24 Units/L (15-37); BLOOD UREA NITROGEN 11 mg/dL (7-18); CALCIUM 7.7 mg/dL (8.5-10.1); CARBON DIOXIDE 25.9 mmol/L (21-32); CHLORIDE 106 mmol/L (98-107); COR CA(FOR HYPOALB) 9.5 mg/dL (8.5-10.1); COR NA(FOR HYPERGLY) 141 mmol/L (136-145); CREATININE 0.93 mg/dL (0.70-1.30); GLUCOSE 135 mg/dL (65-99); POTASSIUM 3.4 mmol/L (3.5-5.1); SODIUM 140 mmol/L (136-145); eGFR NON BLACK RACES > 60 (>60)
[2023-02-27] MEDS ORDERED: CONSULT PHARMACY - POTASSIUM & MAGNESIUM XX SCH (06:00)
--- NOTE | 2023-02-27 07:40 | RAD ---
HISTORYShortness of breathSTUDYChest AP [id number]/02/2023 chest x-ray, 02/26/2023 CT chestFINDINGSHeart size is normal. Right lung is clear. There is a right pleural effusion present somewhat decreased when compared to the prior examination. Rounded density in the right lung base could represent fluid within the minor fissure or could reflect pleural/parenchymal mass as is suggested on the chest CT. Remainder of the lung andrews are clear. Bony thorax is unremarkable.IMPRESSIONDecreasing right pleural effusionRounded density peripherally in the right lung base which may represent some residual fluid within the minor fissure however it could also reflect the pleural parenchymal masslike density suggested on recent chest CT. This could be infectious, neoplastic, or atelectatic in origin.Electronically signed by: HENRIETTA ALVAREZ (Feb 27, 2023 07:34:18)
[2023-02-27] MEDS: ALDACTONE TAB 25 MG PO SCH (08:43)
[2023-02-27] MEDS: LOVENOX INJ 40 MG SYR SC SCH (08:43)
[2023-02-27] MEDS: MAG-OX TAB PO SCH ×2 (08:44→09:57)
[2023-02-27] MEDS: LASIX PO SCH ×2 (08:44→21:51)
[2023-02-27] MEDS: PROTONIX TAB 40 MG PO SCH (08:44)
[2023-02-27] MEDS: ALBUMIN HUMAN 25%- 100 ML 100 ML IV SCH (08:44)
[2023-02-27] MEDS: MICRO K EXTEN CAP 10 MEQ PO SCH (08:45)
[2023-02-27] MEDS ORDERED: K-DUR TAB 20 MEQ PO ONE (09:00)
--- NOTE | 2023-02-27 10:37 | CT ---
HISTORYSHORTNESS OF BREATH, RIGHT LUNG MASSSTUDYCT chest with IV contrastCOMPARISONX-ray 02/22/[address] abdomen 04/15/2022TECHNIQUEMultiple axial images of the chest were obtained from the thoracic inlet to the upper abdomenwith the administration of IV contrast. Sagittal and coronal reformations are performed. Dose reduction techniques including Automated Exposure Control (AEC) and adjustment of mA and kV were utilized.FINDINGSChanges of cirrhosis with moderate to prominent ascites and splenomegaly are seen in the upper abdomen. Varices are seen in the paraesophageal region. These changes are similar to prior CT abdomen. Reactive appearing lymph nodes are seen in the left axilla and mediastinum.There is volume loss in the right fernanda thorax with mediastinal shift to the right. There is small right pleural effusion and 2 areas of rounded atelectasis in the right lung. A right lung mass is not likely. There is a calcified granuloma within the rounded atelectasis at the right lung base.In the subpleural region of the right lower lobe of the lungs there is a 1.5 mm nodule. There is a probable sub mm nodule laterally in the left lower lung on MIP axial image 76. On MIP axial image 70, there is another 2.0 mm nodule. There is mild linear atelectasis in the left upper lobe of the lungs superiorly.There is probable cardiomegaly and possible mild CHF. No pulmonary edema is seen. The thoracic aorta is normal in size. No acute fractures are seen.IMPRESSIONSmall right pleural effusion with 2 areas of likely rounded atelectasis are seen in the right lung.There are few tiny nodules in the left lung without evidence of suspicious lung mass. Recommend follow-up chest CT in 1 years time for these tiny nodulesCirrhosis and portal venous hypertension changes are seen in the upper abdomen.Electronically signed by: Marco A Rothman (Feb 27, 2023 10:35:56)
[2023-02-27] MEDS ORDERED: NS 250 ML IV 250 ML IV ONE (16:36)
[2023-02-27] MEDS ORDERED: MAG-OX TAB PO SCH (21:00)
[2023-02-27] MEDS ORDERED: K-DUR TAB 20 MEQ PO SCH (21:00)
[2023-02-27] MEDS: PULMICORT NEB TX 0.5 MG NEB SCH (21:10)
[2023-02-28] MEDS: CHRONULAC PO SCH ×3 (05:18→21:02)
[2023-02-28] MEDS: ZOSYN VIAL 3.375 GRAMS 3.375 G in NS 100 ML IV 100 ML IV SCH ×3 (05:18→21:02)
[2023-02-28 06:07] LABS: BASOPHILS # (AUTO) 0.1 X10^3/uL (0.0-0.1); BASOPHILS % (AUTO) 1.2 % (0.2-1.0); EOSINOPHILS # (AUTO) 0.5 x10^3/uL (0.0-0.2); EOSINOPHILS % (AUTO) 6.2 % (0.9-2.9); HEMATOCRIT 28.5 % (42.0-54.0); HEMOGLOBIN 10.1 g/dL (13.5-18.0); LYMPHOCYTES # (AUTO) 1.4 X10^3/uL (1.3-2.9); LYMPHOCYTES % (AUTO) 17.5 % (21.0-51.0); MEAN CORPUSCULAR HEMOGLOBIN 31.2 pg (27.0-34.0); MEAN CORPUSCULAR HGB CONC 35.6 g/dL (33.0-35.0); MEAN CORPUSCULAR VOLUME 87.7 fL (80.0-100.0); MEAN PLATELET VOLUME 7.4 fL (7.4-11.0); MONOCYTES # (AUTO) 1.1 x10^3/uL (0.3-0.8); MONOCYTES % (AUTO) 13.6 % (0.0-13.0); NEUTROPHILS # (AUTO) 4.8 x10^3/uL (2.2-4.8); NEUTROPHILS % (AUTO) 61.5 % (42.0-75.0); PLATELET COUNT 224 X10^3/uL (150.0-450.0); RED BLOOD COUNT 3.25 X10^6/uL (4.7-6.0); RED CELL DISTRIBUTION WIDTH 15.1 % (11.6-16.5); WHITE BLOOD COUNT 7.9 X10^3/uL (3.6-10.0)
[2023-02-28 06:26] LABS: ALANINE AMINOTRANSFERASE 7 Units/L (12-78); ALBUMIN 1.9 g/dL (3.4-5.0); ALKALINE PHOSPHATASE 85 Units/L (46-116); ASPARTATE AMINO TRANSFERASE 21 Units/L (15-37); BLOOD UREA NITROGEN 10 mg/dL (7-18); CALCIUM 7.8 mg/dL (8.5-10.1); CARBON DIOXIDE 27.1 mmol/L (21-32); CHLORIDE 106 mmol/L (98-107); COR CA(FOR HYPOALB) 9.5 mg/dL (8.5-10.1); CREATININE 0.88 mg/dL (0.70-1.30); GLUCOSE 100 mg/dL (65-99); POTASSIUM 3.4 mmol/L (3.5-5.1); SODIUM 138 mmol/L (136-145); eGFR NON BLACK RACES > 60 (>60)
[2023-02-28] MEDS ORDERED: CONSULT PHARMACY - POTASSIUM & MAGNESIUM XX SCH (07:00)
--- NOTE | 2023-02-28 08:01 | RAD ---
HISTORYShortness of breathSTUDYChest AP [id number]/07/2023 chest x-ray, CT chest 02/26/2023FINDINGSHeart size is normal. June are normal. There is some residual right pleural effusion present. It is unchanged from the prior examination. There is a rounded density again identified in the right lung base which could represent fluid within the minor fissure or could reflect the pleural parenchymal masslike densities visualized on recent chest CT. These densities could be infectious, neoplastic or atelectatic (as in rounded atelectasis). Remainder of the lung andrews are clear.IMPRESSIONNo significant change from the prior examinationElectronically signed by: HENRIETTA ALVAREZ (Feb 28, 2023 08:00:22)
[2023-02-28] MEDS: LOVENOX INJ 40 MG SYR SC SCH (08:59)
[2023-02-28] MEDS: MICRO K EXTEN CAP 10 MEQ PO SCH ×2 (09:00→21:03)
[2023-02-28] MEDS: ALBUMIN HUMAN 25%- 100 ML 100 ML IV SCH (09:00)
[2023-02-28] MEDS: PULMICORT NEB TX 0.5 MG NEB SCH ×2 (09:00→20:24)
[2023-02-28] MEDS: PROTONIX TAB 40 MG PO SCH (09:00)
[2023-02-28] MEDS: LASIX PO SCH ×2 (09:00→21:03)
[2023-02-28] MEDS: ALDACTONE TAB 25 MG PO SCH (09:01)
[2023-02-28] MEDS ORDERED: K-DUR TAB 20 MEQ PO SCH (10:00)
[2023-02-28] MEDS: MAG-OX TAB PO SCH ×2 (10:00→21:03)
[2023-02-28] MEDS ORDERED: MAG-OX TAB PO SCH (10:00)
[2023-02-28 12:28] LABS: IRON 52 ug/dL (50-175)
[2023-02-28 19:51] VITALS: RESP 20
[2023-03-01] MEDS: ZOSYN VIAL 3.375 GRAMS 3.375 G in NS 100 ML IV 100 ML IV SCH (05:08)
[2023-03-01] MEDS: CHRONULAC PO SCH (05:08)
[2023-03-01 06:21] LABS: BASOPHILS # (AUTO) 0.1 X10^3/uL (0.0-0.1); BASOPHILS % (AUTO) 1.3 % (0.2-1.0); EOSINOPHILS # (AUTO) 0.5 x10^3/uL (0.0-0.2); EOSINOPHILS % (AUTO) 6.1 % (0.9-2.9); HEMATOCRIT 29.9 % (42.0-54.0); HEMOGLOBIN 10.4 g/dL (13.5-18.0); LYMPHOCYTES # (AUTO) 1.4 X10^3/uL (1.3-2.9); LYMPHOCYTES % (AUTO) 16.3 % (21.0-51.0); MEAN CORPUSCULAR HEMOGLOBIN 30.6 pg (27.0-34.0); MEAN CORPUSCULAR HGB CONC 34.7 g/dL (33.0-35.0); MEAN CORPUSCULAR VOLUME 88.4 fL (80.0-100.0); MEAN PLATELET VOLUME 7.5 fL (7.4-11.0); MONOCYTES % (AUTO) 11.8 % (0.0-13.0); NEUTROPHILS # (AUTO) 5.4 x10^3/uL (2.2-4.8); NEUTROPHILS % (AUTO) 64.5 % (42.0-75.0); PLATELET COUNT 207 X10^3/uL (150.0-450.0); RED BLOOD COUNT 3.39 X10^6/uL (4.7-6.0); RED CELL DISTRIBUTION WIDTH 15.3 % (11.6-16.5); WHITE BLOOD COUNT 8.3 X10^3/uL (3.6-10.0)
[2023-03-01 06:30] LABS: ALANINE AMINOTRANSFERASE 9 Units/L (12-78); ALKALINE PHOSPHATASE 93 Units/L (46-116); ASPARTATE AMINO TRANSFERASE 26 Units/L (15-37); BLOOD UREA NITROGEN 9 mg/dL (7-18); CALCIUM 8.1 mg/dL (8.5-10.1); CARBON DIOXIDE 26.3 mmol/L (21-32); CHLORIDE 107 mmol/L (98-107); COR CA(FOR HYPOALB) 9.7 mg/dL (8.5-10.1); CREATININE 0.91 mg/dL (0.70-1.30); GLUCOSE 90 mg/dL (65-99); MAGNESIUM 1.8 mg/dL (2.0-2.9); SODIUM 138 mmol/L (136-145); TOTAL PROTEIN 5.4 g/dL (6.4-8.2); eGFR NON BLACK RACES > 60 (>60)
--- NOTE | 2023-03-01 07:24 | RAD ---
HISTORYShortness of breathSTUDYChest AP [id number]/08/2023FINDINGSHear t size is normal. June appear normal. Some residual right pleural effusion is present unchanged. Rounded density again identified laterally in the right lung base also unchanged. This could represent retained fluid within the minor fissure or could reflect the pleural parenchymal masslike densities visualized on recent chest CT. These densities could be infectious, neoplastic or atelectatic in origin. Remainder of the lung andrews are clear. Bony thorax is unremarkable.IMPRESSIONNo significant change from the prior examinationElectronically signed by: HENRIETTA ALVAREZ (Mar 01, 2023 07:23:06)
--- NOTE | 2023-03-01 07:53 | PCM.PROG ---
Progress Note Progress Note for Day of Date of Exam: 02/27/23 Subjective Subjective: Patient is unchanged through the weekend. He does have what appears to be a soft tissue mass in the right lower lung consistent with neoplasm we will obtain another CT scan to have a look at this. We are waiting gastroenterology consultation to look for guidance regarding his chronic liver failure Past Medical Family Social History Past Med/Fam/Surg Hx: No changes since H&P Allergies: Allergies No Known Drug Allergies Allergy (Unknown, Verified 01/02/23 09:55) Onset Date: 05/26/2022 Review of Systems ROS: No change since H&P Vital Signs and I&O's Vital Signs: Vital Signs Temperature 97.8 F Pulse Rate [Brachial] 89 Respiratory Rate 20 Blood Pressure [Right Arm] 161/74 O2 Sat by Pulse Oximetry 98 Intake and Output: Intake & Output 02/26/23 02/27/23 02/28/23 03/01/23 11:59 11:59 11:59 11:59 Intake Total 1959 1600 / 1600 1919 / 0 1074 / 1074 Balance 1959 1600 / 1600 1919 1074 / 1074 Physical Exam Oriented: Normal; negative Time, Person, Place, Not Oriented, Unable to test or Other Eyes: Normal; negative Blurred Vision, Diplopia, Discharge, Pain, Redness, Photophobia or Other Ear: negative Normal, Right, Left, Swelling, Ecchymosis, Hemotypanum, Abrasion or Laceration Nose: negative Normal, Injected, Discharge, Blood or Other Throat: negative Normal, Tonsillar Hypertrophy, Red, Exudate, Dry or Other Respiratory: Generalized and Diminished Cardiovascular: Normal; negative Tachycardia, Bradycardia, Irregular, S3, S4, Systolic, Diastolic, Murmur, Edema or Other : negative Normal, Dysuria, Hematuria, Frequency, Discharge, Testicular Pain, Bleeding, or Other Auscultation: Bowel Sounds: Normal; negative Bruit, Absent, Increased, Decreased, High Pitched or Other Tenderness: Diffuse (Mild) and Other (DISTENDED ); negative Normal, RUQ, RLQ, LUQ, LLQ, Epigastric, Periumbilical, Suprapubic, Mild, Moderate, Severe, Rebo und, Guarding or Rigidity Skin: Normal; negative Decreased Turgur, Rash, Papular, Macular, Maculopapular, Vesicular, Pustular, Petechial, Red, Tender, Hot, Diaphoresis, Wound, Bruising, Ecchymosis or Other Musculoskeletal: Normal; negative Right, Left, Shoulder, Clavicle, Arm, Elbow, Forearm, Wrist, Hand, Hip, Thigh, Knee, Leg, Ankle, Foot, Back:Thoracic, Back:Lumbar, Back:Midline, Back:Paraspinous, Pelvis, Swelling, Tender, Deformity, Pulse Deficit, Motor Deficit, Sensory Deficit, Instability or Crepitance Psychiatric: Normal; negative Anxiety, Depression, Agitation or Other Mood Description: Calm; negative Angry, Apathetic, Depressed, Fearful, Flat, Happy, Hostile, Sad, Suspicious, Withdrawn, Anxious, Appropriate or Labile Affect: Normal; negative Angry, Anxious, Depressed, Flat, Hysterical, Quiet or Violent Speech Pattern: Clear Laboratory and Diagnostics 03/01/23 05:31 03/01/23 05:31 Labs: 02/22/23 20:02 Urine,Catheterized Urine Culture - Final Escherichia Coli Laboratory WBC 8.3 X10^3/uL (3.6-10.0) 03/01/23 05:31 RBC 3.39 X10^6/uL (4.7-6.0) L 03/01/23 05:31 Hgb 10.4 g/dL (13.5-18.0) L 03/01/23 05:31 Hct 29.9 % (42.0-54.0) L 03/01/23 05:31 MCV 88.4 fL (80.0-100.0) 03/01/23 05:31 MCH 30.6 pg (27.0-34.0) 03/01/23 05:31 MCHC 34.7 g/dL (33.0-35.0) 03/01/23 05:31 RDW 15.3 % (11.6-16.5) 03/01/23 05:31 Plt Count 207 X10^3/uL (150.0-450.0) 03/01/23 05:31 MPV 7.5 fL (7.4-11.0) 03/01/23 05:31 Neut % (Auto) 64.5 % (42.0-75.0) 03/01/23 05:31 Lymph % (Auto) 16.3 % (21.0-51.0) L 03/01/23 05:31 [place] % (Auto) 11.8 % (0.0-13.0) 03/01/23 05:31 Eos % (Auto) 6.1 % (0.9-2.9) H 03/01/23 05:31 Baso % (Auto) 1.3 % (0.2-1.0) H 03/01/23 05:31 Neut # (Auto) 5.4 x10^3/uL (2.2-4.8) H 03/01/23 05:31 Lymph # (Auto) 1.4 X10^3/uL (1.3-2.9) 03/01/23 05:31 [place] # (Auto) 1.0 x10^3/uL (0.3-0.8) H 03/01/23 05:31 Eos # (Auto) 0.5 x10^3/uL (0.0-0.2) H 03/01/23 05:31 Baso # (Auto) 0.1 X10^3/uL (0.0-0.1) 03/01/23 05:31 Absolute Nucleated RBC 0.1 /100WBC 03/01/23 05:31 Sodium 138 mmol/L (136-145) 03/01/23 05:31 Corrected Sodium TNP 03/01/23 05:31 Potassium 4.0 mmol/L (3.5-5.1) 03/01/23 05:31 Chloride 107 mmol/L (98-107) 03/01/23 05:31 Carbon Dioxide 26.3 mmol/L (21-32) 03/01/23 05:31 BUN 9 mg/dL (7-18) 03/01/23 05:31 Creatinine 0.91 mg/dL (0.70-1.30) 03/01/23 05:31 Est GFR (MDRD) Af Amer > 60 (>60) 03/01/23 05:31 Est GFR (MDRD) Non-Af > 60 (>60) 03/01/23 05:31 Glucose 90 mg/dL (65-99) 03/01/23 05:31 Calcium 8.1 mg/dL (8.5-10.1) L 03/01/23 05:31 Corrected Calcium 9.7 mg/dL (8.5-10.1) 03/01/23 05:31 Magnesium 1.8 mg/dL (2.0-2.9) L 03/01/23 05:31 Iron 52 ug/dL (50-175) 02/28/23 11:40 Transferrin 102 mg/dL (202-364) L 02/28/23 11:40 Ferritin 220 ng/mL (26-388) 02/28/23 11:40 Total Bilirubin 0.50 mg/dL (0.2-1.0) 03/01/23 05:31 AST 26 Units/L (15-37) 03/01/23 05:31 ALT 9 Units/L (12-78) L 03/01/23 05:31 Alkaline Phosphatase 93 Units/L (46-116) 03/01/23 05:31 Ammonia 39 umol/L (11-32) H 02/26/23 04:45 B-Natriuretic Peptide 156 pg/mL (0-79) H 02/25/23 04:55 Total Protein 5.4 g/dL (6.4-8.2) L 03/01/23 05:31 Albumin 2.0 g/dL (3.4-5.0) L 03/01/23 05:31 Globulin 3.4 g/dL (2.5-4.5) 03/01/23 05:31 Albumin/Globulin Ratio 0.6 Ratio (1.1-2.1) L 03/01/23 05:31 Amylase 81 Units/L (25-115) 02/22/23 20:16 Lipase 266 Units/L (73-393) 02/22/23 20:16 Lipase 271 Units/L (73-393) 02/22/23 20:16 Specimen Type Catherized urine 02/22/23 20:02 Urine Color Yellow (YELLOW) 02/22/23 20:02 Urine Appearance Cloudy (CLEAR) 02/22/23 20:02 Urine pH 8.0 (5.0 - 8.0) 02/22/23 20:02 Ur Specific [place] 1.015 (1.000-1.030) 02/22/23 20:02 Urine Protein 3+ (NEGATIVE) 02/22/23 20:02 Urine Glucose (UA) Negative (NEGATIVE) 02/22/23 20:02 Urine Ketones Negative (NEGATIVE) 02/22/23 20:02 Urine Blood 4+ (NEGATIVE) 02/22/23 20:02 Urine Nitrite Positive (NEGATIVE) 02/22/23 20:02 Urine Bilirubin Negative (NEGATIVE) 02/22/23 20:02 Urine Urobilinogen Normal (NORMAL) 02/22/23 20:02 Ur Leukocyte Esterase Negative (NEGATIVE) 02/22/23 20:02 Urine RBC 3-5 /HPF (0-3) A 02/22/23 20:02 Urine WBC 3-5 /HPF (0-5) 02/22/23 20:02 Ur Squamous Epith Cells Rare /HPF (NEGATIVE) 02/22/23 20:02 Urine Bacteria 3+ /HPF (NEGATIVE) 02/22/23 20:02 Ur Culture Indicated? Yes/culture set up 02/22/23 20:02 Stl Occult Blood (IFOB) Negative (NEGATIVE) 02/25/23 20:00 Salicylates < 2.8 mg/dL (2.8-20) L 02/22/23 20:16 Urine Opiates Screen Negative (NEG=<300) 02/22/23 20:02 Urine Methadone Screen Negative (NEG=<300) 02/22/23 20:02 Acetaminophen 1.1 ug/mL (10-30) L 02/22/23 20:16 Ur Barbiturates Screen Negative (NEG=<200) 02/22/23 20:02 Ur Phencyclidine Scrn Negative (NEG=<25) 02/22/23 20:02 Ur Amphetamines Screen Negative (NEG=<1000) 02/22/23 20:02 U Benzodiazepines Scrn Negative (NEG=<200) 02/22/23 20:02 Urine Cocaine Screen Negative (NEG=<300) 02/22/23 20:02 U Marijuana (THC) Screen Positive (NEG=<50) A 02/22/23 20:02 Ethyl Alcohol mg/dL < 3 mg/dL (0-19.9) 02/22/23 20:16 Plan (1) Urinary tract infection: Status: Acute Qualifiers: Hematuria presence: with hematuria Urinary tract infection type: acute cystitis Qualified Code(s): N30.01 - Acute cystitis with hematuria Plan: discontinue IV Rocephin and start zosyn 3.375g iv tid. continue to monitor (2) Alcoholic cirrhosis of liver with ascites: Status: None Plan: Consult gastroenterology, Dr. 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 (3) Hyperammonemia: Status: Acute Narrative Support Text: Improve Plan: Continue the patient's lactulose 15 mg every 8 hours as needed to every 8 hours. Recheck the ammonia level tomorrow morning. (4) Hypoalbuminemia: Status: Acute Plan: albumin 25% iv daily (5) Bilateral lower extremity edema: Status: Acute Plan: IV Lasix. (6) Chronic obstructive pulmonary disease: Status: Chronic Qualifiers: COPD type: unspecified COPD Qualified Code(s): J44.9 - Chronic obstructive pulmonary disease, unspecified Plan: Monitor patient's O2 saturation and treat accordingly. (7) Hypertension: Status: Chronic Qualifiers: Hypertension type: primary hypertension Qualified Code(s): I10 - Essential (primary) hypertension Plan: Add spironolactone 50 mg p.o. daily.
--- NOTE | 2023-03-01 07:55 | PCM.PROG ---
Progress Note Progress Note for Day of Date of Exam: 02/28/23 Subjective Subjective: The patient is alert and awake this morning. I spoke with Dr. Valladares's nurse practitioner regarding consultation. She I have asked Dr. Valladares to see him today regarding his chronic liver problems. They have agreed to follow-up with him in the office when he gets out. Plan on discharge in a pproximately 1 to 2 days. Past Medical Family Social History Past Med/Fam/Surg Hx: No changes since H&P Allergies: Allergies No Known Drug Allergies Allergy (Unknown, Verified 01/02/23 09:55) Onset Date: 05/26/2022 Review of Systems ROS: No change since H&P Vital Signs and I&O's Vital Signs: Vital Signs Temperature 97.8 F Pulse Rate [Brachial] 89 Respiratory Rate 20 Blood Pressure [Right Arm] 161/74 O2 Sat by Pulse Oximetry 98 Intake and Output: Intake & Output 02/26/23 02/27/23 02/28/23 03/01/23 11:59 11:59 11:59 11:59 Intake Total 1959 1600 / 1600 1919 / 1919 1074 / 1074 Balance 1959 1600 / 1600 19190 1074 / 1074 Physical Exam Oriented: Normal; negative Time, Person, Place, Not Oriented, Unable to test or Other Eyes: Normal; negative Blurred Vision, Diplopia, Discharge, Pain, Redness, Photophobia or Other Ear: negative Normal, Right, Left, Swelling, Ecchymosis, Hemotypanum, Abrasion or Laceration Nose: negative Normal, Injected, Discharge, Blood or Other Throat: negative Normal, Tonsillar Hypertrophy, Red, Exudate, Dry or Other Respiratory: Generalized and Diminished Cardiovascular: Normal; negative Tachycardia, Bradycardia, Irregular, S3, S4, Systolic, Diastolic, Murmur, Edema or Other : negative Normal, Dysuria, Hematuria, Frequency, Discharge, Testicular Pain, Bleeding, or Other Auscultation: Bowel Sounds: Normal; negative Bruit, Absent, Increased, Decreased, High Pitched or Other Tenderness: Diffuse (Mild) and Other (DISTENDED ); negative Normal, RUQ, RLQ, LUQ, LLQ, Epigastric, Periumbilical, Suprapubic, Mild, Moderate, Severe, Rebound, Guarding or Rigidity Skin: Normal; negative Decreased Turgur, Rash, Papular, Macular, Maculopapular, Vesicular, Pustular, Petechial, Red, Tender, Hot, Diaphoresis, Wound, Bruising, Ecchymosis or Other Musculoskeletal: Normal; negative Right, Left, Shoulder, Clavicle, Arm, Elbow, Forearm, Wrist, Hand, Hip, Thigh, Knee, Leg, Ankle, Foot, Back:Thoracic, Back:Lumbar, Back:Midline, Back:Paraspinous, Pelvis, Swelling, Tender, Deform ity, Pulse Deficit, Motor Deficit, Sensory Deficit, Instability or Crepitance Psychiatric: Normal; negative Anxiety, Depression, Agitation or Other Mood Description: Calm; negative Angry, Apathetic, Depressed, Fearful, Flat, Happy, Hostile, Sad, Suspicious, Withdrawn, Anxious, Appropriate or Labile Affect: Normal; negative Angry, Anxious, Depressed, Flat, Hysterical, Quiet or Violent Speech Pattern: Clear Laboratory and Diagnostics 03/01/23 05:31 03/01/23 05:31 Labs: 02/22/23 20:02 Urine,Catheterized Urine Culture - Final Escherichia Coli Laboratory WBC 8.3 X10^3/uL (3.6-10.0) 03/01/23 05:31 RBC 3.39 X10^6/uL (4.7-6.0) L 03/01/23 05:31 Hgb 10.4 g/dL (13.5-18.0) L 03/01/23 05:31 Hct 29.9 % (42.0-54.0) L 03/01/23 05:31 MCV 88.4 fL (80.0-100.0) 03/01/23 05:31 MCH 30.6 pg (27.0-34.0) 03/01/23 05:31 MCHC 34.7 g/dL (33.0-35.0) 03/01/23 05:31 RDW 15.3 % (11.6-16.5) 03/01/23 05:31 Plt Count 207 X10^3/uL (150.0-450.0) 03/01/23 05:31 MPV 7.5 fL (7.4-11.0) 03/01/23 05:31 Neut % (Auto) 64.5 % (42.0-75.0) 03/01/23 05:31 Lymph % (Auto) 16.3 % (21.0-51.0) L 03/01/23 05:31 [place] % (Auto) 11.8 % (0.0-13.0) 03/01/23 05:31 Eos % (Auto) 6.1 % (0.9-2.9) H 03/01/23 05:31 Baso % (Auto) 1.3 % (0.2-1.0) H 03/01/23 05:31 Neut # (Auto) 5.4 x10^3/uL (2.2-4.8) H 03/01/23 05:31 Lymph # (Auto) 1.4 X10^3/uL (1.3-2.9) 03/01/23 05:31 [place] # (Auto) 1.0 x10^3/uL (0.3-0.8) H 03/01/23 05:31 Eos # (Auto) 0.5 x10^3/uL (0.0-0.2) H 03/01/23 05:31 Baso # (Auto) 0.1 X10^3/uL (0.0-0.1) 03/01/23 05:31 Absolute Nucleated RBC 0.1 /100WBC 03/01/23 05:31 Sodium 138 mmol/L (136-145) 03/01/23 05:31 Corrected Sodium TNP 03/01/23 05:31 Potassium 4.0 mmol/L (3.5-5.1) 03/01/23 05:31 Chloride 107 mmol/L (98-107) 03/01/23 05:31 Carbon Dioxide 26.3 mmol/L (21-32) 03/01/23 05:31 BUN 9 mg/dL (7-18) 03/01/23 05:31 Creatinine 0.91 mg/dL (0.70-1.30) 03/01/23 05:31 Est GFR (MDRD) Af Amer > 60 (>60) 03/01/23 05:31 Est GFR (MDRD) Non-Af > 60 (>60) 03/01/23 05:31 Glucose 90 mg/dL (65-99) 03/01/23 05:31 Calcium 8.1 mg/dL (8.5-10.1) L 03/01/23 05:31 Corrected Calcium 9.7 mg/dL (8.5-10.1) 03/01/23 05:31 Magnesium 1.8 mg/dL (2.0-2.9) L 03/01/23 05:31 Iron 52 ug/dL (50-175) 02/28/23 11:40 Transferrin 102 mg/dL (202-364) L 02/28/23 11:40 Ferritin 220 ng/mL (26-388) 02/28/23 11:40 Total Bilirubin 0.50 mg/dL (0.2-1.0) 03/01/23 05:31 AST 26 Units/L (15-37) 03/01/23 05:31 ALT 9 Units/L (12-78) L 03/01/23 05:31 Alkaline Phosphatase 93 Units/L (46-116) 03/01/23 05:31 Ammonia 39 umol/L (11-32) H 02/26/23 04:45 B-Natriuretic Peptide 156 pg/mL (0-79) H 02/25/23 04:55 Total Protein 5.4 g/dL (6.4-8.2) L 03/01/23 05:31 Albumin 2.0 g/dL (3.4-5.0) L 03/01/23 05:31 Globulin 3.4 g/dL (2.5-4.5) 03/01/23 05:31 Albumin/Globulin Ratio 0.6 Ratio (1.1-2.1) L 03/01/23 05:31 Amylase 81 Units/L (25-115) 02/22/23 20:16 Lipase 266 Units/L (73-393) 02/22/23 20:16 Lipase 271 Units/L (73-393) 02/22/23 20:16 Specimen Type Catherized urine 02/22/23 20:02 Urine Color Yellow (YELLOW) 02/22/23 20:02 Urine Appearance Cloudy (CLEAR) 02/22/23 20:02 Urine pH 8.0 (5.0 - 8.0) 02/22/23 20:02 Ur Specific [place] 1.015 (1.000-1.030) 02/22/23 20:02 Urine Protein 3+ (NEGATIVE) 02/22/23 20:02 Urine Glucose (UA) Negative (NEGATIVE) 02/22/23 20:02 Urine Ketones Negative (NEGATIVE) 02/22/23 20:02 Urine Blood 4+ (NEGATIVE) 02/22/23 20:02 Urine Nitrite Positive (NEGATIVE) 02/22/23 20:02 Urine Bilirubin Negative (NEGATIVE) 02/22/23 20:02 Urine Urobilinogen Normal (NORMAL) 02/22/23 20:02 Ur Leukocyte Esterase Negative (NEGATIVE) 02/22/23 20:02 Urine RBC 3-5 /HPF (0-3) A 02/22/23 20:02 Urine WBC 3-5 /HPF (0-5) 02/22/23 20:02 Ur Squamous Epith Cells Rare /HPF (NEGATIVE) 02/22/23 20:02 Urine Bacteria 3+ /HPF (NEGATIVE) 02/22/23 20:02 Ur Culture Indicated? Yes/culture set up 02/22/23 20:02 Stl Occult Blood (IFOB) Negative (NEGATIVE) 02/25/23 20:00 Salicylates < 2.8 mg/dL (2.8-20) L 02/22/23 20:16 Urine Opiates Screen Negative (NEG=<300) 02/22/23 20:02 Urine Methadone Screen Negative (NEG=<300) 02/22/23 20:02 Acetaminophen 1.1 ug/mL (10-30) L 02/22/23 20:16 Ur Barbiturates Screen Negative (NEG=<200) 02/22/23 20:02 Ur Phencyclidine Scrn Negative (NEG=<25) 02/22/23 20:02 Ur Amphetamines Screen Negative (NEG=<1000) 02/22/23 20:02 U Benzodiazepines Scrn Negative (NEG=<200) 02/22/23 20:02 Urine Cocaine Screen Negative (NEG=<300) 02/22/23 20:02 U Marijuana (THC) Screen Positive (NEG=<50) A 02/22/23 20:02 Ethyl Alcohol mg/dL < 3 mg/dL (0-19.9) 02/22/23 20:16 Plan (1) Urinary tract infection: Status: Acute Qualifiers: Hematuria presence: with hematuria Urinary tract infection type: acute cystitis Qualified Code(s): N30.01 - Acute cystitis with hematuria Plan: discontinue IV Rocephin and start zosyn 3.375g iv tid. continue to monitor (2) Alcoholic cirrhosis of liver with ascites: Status: None Plan: Consult gastroenterology, Dr. 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 (3) Hyperammonemia: Status: Acute Plan: Continue the patient's lactulose 15 mg every 8 hours as needed to every 8 hours. Recheck the ammonia level tomorrow morning. (4) Hypoalbuminemia: Status: Acute Plan: albumin 25% iv daily (5) Bilateral lower extremity edema: Status: Acute Plan: IV Lasix. (6) Chronic obstructive pulmonary disease: Status: Chronic Qualifiers: COPD type: unspecified COPD Qualified Code(s): J44.9 - Chronic obs tructive pulmonary disease, unspecified Plan: Monitor patient's O2 saturation and treat accordingly. (7) Hypertension: Status: Chronic Qualifiers: Hypertension type: primary hypertension Qualified Code(s): I10 - Essential (primary) hypertension Plan: Add spironolactone 50 mg p.o. daily. (8) Right lower lobe lung mass: Status: Acute Plan: Check CT scan of the lungs with IV contrast.
[2023-03-01 08:01] VITALS: BP 135/63; TEMP 98.6
[2023-03-01] MEDS: MICRO K EXTEN CAP 10 MEQ PO SCH (08:22)
[2023-03-01] MEDS: ALBUMIN HUMAN 25%- 100 ML 100 ML IV SCH (08:22)
[2023-03-01] MEDS: ALDACTONE TAB 25 MG PO SCH (08:22)
[2023-03-01] MEDS: LASIX PO SCH (08:22)
[2023-03-01] MEDS: MAG-OX TAB PO SCH (08:23)
[2023-03-01] MEDS: PROTONIX TAB 40 MG PO SCH (08:23)
[2023-03-01] MEDS: LOVENOX INJ 40 MG SYR SC SCH (08:23)
[2023-03-01] MEDS: PULMICORT NEB TX 0.5 MG NEB SCH (08:40)
--- NOTE | 2023-03-01 08:58 | EKG ---
Test Reason : Chest pain Blood Pressure : */* mmHG Vent. Rate : 89 BPM Atrial Rate : 89 BPM P-R Int : 156 ms QRS Dur : 80 ms QT Int : 400 ms P-R-T Axes : 6 50 59 degrees QTc Int : 486 ms Normal sinus rhythm Prolonged QT Abnormal ECG No previous ECGs available Confirmed by Kwesi Johnson ([id number]) on 03/01/2023 12:07:12 PM Referred By: Confirmed By: Kwesi Johnson
[2023-03-01 09:24] VITALS: PULSE 81; O2SAT 98
[2023-03-03 06:07] LABS: HEPATITIS B SURFACE ANTIGEN Negative (Negative)
== END 2023-03-01 11:10 | disposition home health service (06) | DRG 690 ==
LOC: ICU 19:38 → ER 19:38 → ICU 23:15 → MED/SURG 02-25 14:36
PROVIDERS: ADMIT Family Medicine; ATTEND Family Medicine
DX: F12.921 Cannabis use, unspecified with intoxication delirium; N30.01 Acute cystitis with hematuria; I10 Essential (primary) hypertension; R07.89 Other chest pain; R60.0 Localized edema; F11.221 Opioid dependence with intoxication delirium; E72.20 Disorder of urea cycle metabolism, unspecified; R40.4 Transient alteration of awareness; K70.31 Alcoholic cirrhosis of liver with ascites; E87.6 Hypokalemia; R07.81 Pleurodynia; E88.09 Other disorders of plasma-protein metabolism, not elsewhere classified; J44.9 Chronic obstructive pulmonary disease, unspecified; R91.8 Other nonspecific abnormal finding of lung field; R06.02 Shortness of breath; B96.29 Other Escherichia coli [E. coli] as the cause of diseases classified elsewhere; Z91.81 History of falling

== ENCOUNTER 2023-12-12 04:18 | Observation (INO) ==
[2023-12-12 04:49] LABS: EOSINOPHILS # (AUTO) 0.4 x10^3/uL (0.0-0.2); HEMOGLOBIN 9.1 g/dL (13.5-18.0)
--- NOTE | 2023-12-12 04:52 | DR.SOBA ---
HPI <KALI CAZARES - Last Filed: 12/12/23 08:08> Time Seen Time Seen by Provider: 12/12/23 04:52 Primary Care Physician Primary Care Physician: Chris Peter Chief Complaint:: pt to room 4 via stretcher per EMS with c/o shortness of breath d/t needing peritoneal dialysis which he usually receives every week in [place] but more often if needed, pt reports his last dialysis was last Mon. and his wt was 186 lb, pt c/o swelling in his abd, pt with NAD noted at present COVID-19 Coronavirus risk:travel/contact w/high risk person: No Has patient experienced Coronavirus symptoms: No Source History Provided: Patient and EMS Mode of Arrival Mode of Arrival: Stretcher Timing Onset of Chief Complaint: 12/11/23 PMH <KALI CAZARES - Last Filed: 12/12/23 08:08> PMH Past Medical History: Yes Past Medical History: Cirrhosis, COPD, GERD and Hypertension Past Surgical History: No Surgical History: Unknown Family History History of Family Medical Conditions: Yes Family Medical History: DC and Hypertension Social History Alcohol Use: None Do you use any recreational Drugs:: No Lives With: Family Lives Where: Home Travel Risk Coronavirus risk:travel/contact w/high risk person: No Has patient experienced Coronavirus symptoms: No Infectious screening Have you traveled outside the country in the last 6 months?: No Isolation: Standard PE <KALI CAZARES Last Filed: 12/12/23 08:08> Vital Signs Vitals: Vital Signs Temperature 97.7 F Pulse Rate 71 Pulse Rate 73 Pulse Rate 72 Pulse Rate 75 Pulse Rate 75 Pulse Rate 76 Pulse Rate 77 Pulse Rate 75 Pulse Rate 77 Pulse Rate 76 Pulse Rate 87 Pulse Rate 83 Pulse Rate 84 Pulse Rate 89 Respiratory Rate 22 Blood Pressure 160/83 Blood Pressure 156/80 Blood Pressure 156/83 Blood Pressure 165/89 Blood Pressure 160/82 Blood Pressure 135/85 Blood Pressure 155/74 Blood Pressure 141/78 Blood Pressure 159/84 O2 Sat by Pulse Oximetry 100 O2 Sat by Pulse Oximetry 100 O2 Sat by Pulse Oximetry 100 O2 Sat by Pulse Oximetry 100 O2 Sat by Pulse Oximetry 99 O2 Sat by Pulse Oximetry 99 O2 Sat by Pulse Oximetry 99 O2 Sat by Pulse Oximetry 99 O2 Sat by Pulse Oximetry 99 O2 Sat by Pulse Oximetry 99 O2 Sat by Pulse Oximetry 99 O2 Sat by Pulse Oximetry 99 O2 Sat by Pulse Oximetry 98 O2 Sat by Pulse Oximetry 99 O2 Sat by Pulse Oximetry 99 O2 Sat by Pulse Oximetry 99 <Angel Andrei - Last Filed: 12/12/23 10:03> Vital Signs Vitals: Vital Signs Temperature 97.7 F Pulse Rate 71 Pulse Rate 73 Pulse Rate 72 Pulse Rate 75 Pulse Rate 75 Pulse Rate 76 Pulse Rate 77 Pulse Rate 75 Pulse Rate 77 Pulse Rate 76 Pulse Rate 87 Pulse Rate 83 Pulse Rate 84 Pulse Rate 89 Respiratory Rate 22 Blood Pressure 160/83 Blood Pressure 156/80 Blood Pressure 156/83 Blood Pressure 165/89 Blood Pressure 160/82 Blood Pressure 135/85 Blood Pressure 155/74 Blood Pressure 141/78 Blood Pressure 159/84 O2 Sat by Pulse Oximetry 100 O2 Sat by Pulse Oximetry 100 O2 Sat by Pulse Oximetry 100 O2 Sat by Pulse Oximetry 100 O2 Sat by Pulse Oximetry 99 O2 Sat by Pulse Oximetry 99 O2 Sat by Pulse Oximetry 99 O2 Sat by Pulse Oximetry 99 O2 Sat by Pulse Oximetry 99 O2 Sat by Pulse Oximetry 99 O2 Sat by Pulse Oximetry 99 O2 Sat by Pulse Oximetry 99 O2 Sat by Pulse Oximetry 98 O2 Sat by Pulse Oximetry 99 O2 Sat by Pulse Oximetry 99 O2 Sat by Pulse Oximetry 99 <Angel Forbes - Last Filed: 12/12/23 10:03> Treatment Treatment: 58-year-old male with recurrent ascites, initially evaluated by Dr. Cazares. Was signed over for me. Dr. Ernandez came and put a drain into the peritoneum, 500 mls out, drain left in, recommended admission. Dr. Rivas on- call, accepts admission. ROR <KALI CAZARES - Last Filed: 12/12/23 08:08> Labs Reviewed 12/12/23 04:30 12/12/23 04:30 Laboratory: WBC 11.2 X10^3/uL (3.6-10.0) H 12/12/23 04:30 RBC 3.03 X10^6/uL (4.7-6.0) L 12/12/23 04:30 Hgb 9.1 g/dL (13.5-18.0) L 12/12/23 04:30 Hct 26.9 % (42.0-54.0) L 12/12/23 04:30 MCV 88.9 fL (80.0-100.0) 12/12/23 04:30 MCH 29.9 pg (27.0-34.0) 12/12/23 04:30 MCHC 33.7 g/dL (33.0-35.0) 12/12/23 04:30 RDW 16.5 % (11.6-16.5) 12/12/23 04:30 Plt Count 160 X10^3/uL (150.0-450.0) 12/12/23 04:30 Plt Count Comment Adequate (ADEQUATE) 12/12/23 04:30 MPV 7.7 fL (7.4-11.0) 12/12/23 04:30 Neut % (Auto) 78.1 % (42.0-75.0) H 12/12/23 04:30 Lymph % (Auto) 7.1 % (21.0-51.0) L 12/12/23 04:30 [place] % (Auto) 7.9 % (0.0-13.0) 12/12/23 04:30 Eos % (Auto) 3.6 % (0.9-2.9) H 12/12/23 04:30 Baso % (Auto) 3.3 % (0.2-1.0) H 12/12/23 04:30 Neut # (Auto) 8.7 x10^3/uL (2.2-4.8) H 12/12/23 04:30 Lymph # (Auto) 0.8 X10^3/uL (1.3-2.9) L 12/12/23 04:30 [place] # (Auto) 0.9 x10^3/uL (0.3-0.8) H 12/12/23 04:30 Eos # (Auto) 0.4 x10^3/uL (0.0-0.2) H 12/12/23 04:30 Baso # (Auto) 0.4 X10^3/uL (0.0-0.1) H 12/12/23 04:30 Absolute Nucleated RBC 0.1 /100WBC 12/12/23 04:30 Total Counted 100 12/12/23 04:30 Neutrophils % (Manual) 72 % (39-76) 12/12/23 04:30 Lymphocytes % (Manual) 17 % (13-43) 12/12/23 04:30 Monocytes % (Manual) 6 % (4-9) 12/12/23 04:30 Eosinophils % (Manual) 4 % (0-6) 12/12/23 04:30 Basophils % (Manual) 1 % (0-1) 12/12/23 04:30 Plt Morphology Comment Normal (NORMAL) 12/12/23 04:30 RBC Morphology Normal (NORMAL) 12/12/23 04:30 Sodium 142 mmol/L (136-145) 12/12/23 04:30 Corrected Sodium TNP 12/12/23 04:30 Potassium 4.2 mmol/L (3.5-5.1) 12/12/23 04:30 Chloride 110 mmol/L (98-107) H 12/12/23 04:30 Carbon Dioxide 27.0 mmol/L (21-32) 12/12/23 04:30 BUN 24 mg/dL (7-18) H 12/12/23 04:30 Creatinine 1.47 mg/dL (0.70-1.30) H 12/12/23 04:30 Est GFR (MDRD) Af Amer > 60 (>60) 12/12/23 04:30 Est GFR (MDRD) Non-Af 52 (>60) L 12/12/23 04:30 Glucose 98 mg/dL (65-99) 12/12/23 04:30 Calcium 8.0 mg/dL (8.5-10.1) L 12/12/23 04:30 Corrected Calcium 9.8 mg/dL (8.5-10.1) 12/12/23 04:30 Total Bilirubin 0.40 mg/dL (0.2-1.0) 12/12/23 04:30 AST 30 Units/L (15-37) 12/12/23 04:30 ALT 12 Units/L (12-78) 12/12/23 04:30 Alkaline Phosphatase 124 Units/L (46-116) H 12/12/23 04:30 Total Protein 5.8 g/dL (6.4-8.2) L 12/12/23 04:30 Albumin 1.8 g/dL (3.4-5.0) L 12/12/23 04:30 Globulin 4.0 g/dL (2.5-4.5) 12/12/23 04:30 Albumin/Globulin Ratio 0.5 Ratio (1.1-2.1) L 12/12/23 04:30 <Angel Forbes - Last Filed: 12/12/23 10:03> Labs Reviewed Laboratory: WBC 11.2 X10^3/uL (3.6-10.0) H 12/12/23 04:30 RBC 3.03 X10^6/uL (4.7-6.0) L 12/12/23 04:30 Hgb 9.1 g/dL (13.5-18.0) L 12/12/23 04:30 Hct 26.9 % (42.0-54.0) L 12/12/23 04:30 MCV 88.9 fL (80.0-100.0) 12/12/23 04:30 MCH 29.9 pg (27.0-34.0) 12/12/23 04:30 MCHC 33.7 g/dL (33.0-35.0) 12/12/23 04:30 RDW 16.5 % (11.6-16.5) 12/12/23 04:30 Plt Count 160 X10^3/uL (150.0-450.0) 12/12/23 04:30 Plt Count Comment Adequate (ADEQUATE) 12/12/23 04:30 MPV 7.7 fL (7.4-11.0) 12/12/23 04:30 Neut % (Auto) 78.1 % (42.0-75.0) H 12/12/23 04:30 Lymph % (Auto) 7.1 % (21.0-51.0) L 12/12/23 04:30 [place] % (Auto) 7.9 % (0.0-13.0) 12/12/23 04:30 Eos % (Auto) 3.6 % (0.9-2.9) H 12/12/23 04:30 Baso % (Auto) 3.3 % (0.2-1.0) H 12/12/23 04:30 Neut # (Auto) 8.7 x10^3/uL (2.2-4.8) H 12/12/23 04:30 Lymph # (Auto) 0.8 X10^3/uL (1.3-2.9) L 12/12/23 04:30 [place] # (Auto) 0.9 x10^3/uL (0.3-0.8) H 12/12/23 04:30 Eos # (Auto) 0.4 x10^3/uL (0.0-0.2) H 12/12/23 04:30 Baso # (Auto) 0.4 X10^3/uL (0.0-0.1) H 12/12/23 04:30 Absolute Nucleated RBC 0.1 /100WBC 12/12/23 04:30 Total Counted 100 12/12/23 04:30 Neutrophils % (Manual) 72 % (39-76) 12/12/23 04:30 Lymphocytes % (Manual) 17 % (13-43) 12/12/23 04:30 Monocytes % (Manual) 6 % (4-9) 12/12/23 04:30 Eosinophils % (Manual) 4 % (0-6) 12/12/23 04:30 Basophils % (Manual) 1 % (0-1) 12/12/23 04:30 Plt Morphology Comment Normal (NORMAL) 12/12/23 04:30 RBC Morphology Normal (NORMAL) 12/12/23 04:30 Sodium 142 mmol/L (136-145) 12/12/23 04:30 Corrected Sodium TNP 12/12/23 04:30 Potassium 4.2 mmol/L (3.5-5.1) 12/12/23 04:30 Chloride 110 mmol/L (98-107) H 12/12/23 04:30 Carbon Dioxide 27.0 mmol/L (21-32) 12/12/23 04:30 BUN 24 mg/dL (7-18) H 12/12/23 04:30 Creatinine 1.47 mg/dL (0.70-1.30) H 12/12/23 04:30 Est GFR (MDRD) Af Amer > 60 (>60) 12/12/23 04:30 Est GFR (MDRD) Non-Af 52 (>60) L 12/12/23 04:30 Glucose 98 mg/dL (65-99) 12/12/23 04:30 Calcium 8.0 mg/dL (8.5-10.1) L 12/12/23 04:30 Corrected Calcium 9.8 mg/dL (8.5-10.1) 12/12/23 04:30 Total Bilirubin 0.40 mg/dL (0.2-1.0) 12/12/23 04:30 AST 30 Units/L (15-37) 12/12/23 04:30 ALT 12 Units/L (12-78) 12/12/23 04:30 Alkaline Phosphatase 124 Units/L (46-116) H 12/12/23 04:30 Total Protein 5.8 g/dL (6.4-8.2) L 12/12/23 04:30 Albumin 1.8 g/dL (3.4-5.0) L 12/12/23 04:30 Globulin 4.0 g/dL (2.5-4.5) 12/12/23 04:30 Albumin/Globulin Ratio 0.5 Ratio (1.1-2.1) L 12/12/23 04:30 Opioid <KALI CAZARES - Last Filed: 12/12/23 08:08> Opioid Risk Tool Age ([place] box if 16-45): No History of Preadolescent Sexual Abuse: No Total: 0 Total Score Risk Category: Low Risk Copyright: Humberto OSEGUERA predicting aberrant behaviors <Angel Forbes - Last Filed: 12/12/23 10:03> Opioid Risk Tool Total: 0 Total Score Risk Category: Low Risk Discharge Plan Diagnosis Discharge Problem: Tense ascites, Cirrhosis Discharge Plan Patient Disposition: ADMITTED INPATIENT Condition: Stable Orders to Discharge Patient Discharge Orders: Transfer (Routine); Ordered 12/12/23 Ordered By: Angel Forbes
[2023-12-12 04:53] LABS: BASOPHILS # (AUTO) 0.4 X10^3/uL (0.0-0.1); BASOPHILS % (AUTO) 3.3 % (0.2-1.0); EOSINOPHILS % (AUTO) 3.6 % (0.9-2.9); HEMATOCRIT 26.9 % (42.0-54.0); LYMPHOCYTES # (AUTO) 0.8 X10^3/uL (1.3-2.9); LYMPHOCYTES % (AUTO) 7.1 % (21.0-51.0); MEAN CORPUSCULAR HEMOGLOBIN 29.9 pg (27.0-34.0); MEAN CORPUSCULAR HGB CONC 33.7 g/dL (33.0-35.0); MEAN CORPUSCULAR VOLUME 88.9 fL (80.0-100.0); MEAN PLATELET VOLUME 7.7 fL (7.4-11.0); MONOCYTES # (AUTO) 0.9 x10^3/uL (0.3-0.8); MONOCYTES % (AUTO) 7.9 % (0.0-13.0); NEUTROPHILS # (AUTO) 8.7 x10^3/uL (2.2-4.8); NEUTROPHILS % (AUTO) 78.1 % (42.0-75.0); PLATELET COUNT 160 X10^3/uL (150.0-450.0); RED BLOOD COUNT 3.03 X10^6/uL (4.7-6.0); RED CELL DISTRIBUTION WIDTH 16.5 % (11.6-16.5); WHITE BLOOD COUNT 11.2 X10^3/uL (3.6-10.0)
[2023-12-12 04:58] LABS: ALANINE AMINOTRANSFERASE 12 Units/L (12-78); ALBUMIN 1.8 g/dL (3.4-5.0); ALKALINE PHOSPHATASE 124 Units/L (46-116); ASPARTATE AMINO TRANSFERASE 30 Units/L (15-37); BLOOD UREA NITROGEN 24 mg/dL (7-18); CHLORIDE 110 mmol/L (98-107); COR CA(FOR HYPOALB) 9.8 mg/dL (8.5-10.1); CREATININE 1.47 mg/dL (0.70-1.30); GLUCOSE 98 mg/dL (65-99); POTASSIUM 4.2 mmol/L (3.5-5.1); SODIUM 142 mmol/L (136-145); TOTAL PROTEIN 5.8 g/dL (6.4-8.2); eGFR NON BLACK RACES 52 (>60)
[2023-12-12 05:08] LABS: BASOPHILS % (MANUAL) 1 % (0-1); PLATELET MORPHOLOGY COMMENT NORMAL (NORMAL)
[2023-12-12] MEDS ORDERED: CONSULT PHARMACY - POTASSIUM & MAGNESIUM XX SCH (10:45)
[2023-12-12] MEDS ORDERED: CHRONULAC PO PRN (11:53)
[2023-12-12] MEDS: MICRO K EXTEN CAP 10 MEQ PO SCH (12:43)
[2023-12-12] MEDS: PROTONIX TAB 40 MG PO SCH (12:44)
[2023-12-12] MEDS: ALDACTONE TAB 25 MG PO SCH (12:44)
[2023-12-12] MEDS: DILAUDID INJ IVP PRN (12:49)
[2023-12-12 13:04] VITALS: BMI 28.5
[2023-12-12] MEDS: ULTRAM PO SCH (14:13)
[2023-12-12] MEDS: LASIX PO SCH (16:28)
[2023-12-12 19:21] LABS: AMMONIA 101 umol/L (11-32)
[2023-12-12] MEDS: PULMICORT NEB TX 0.5 MG NEB SCH (20:21)
[2023-12-12] MEDS: INDERAL TAB 10 MG PO SCH (21:03)
[2023-12-12] MEDS: CHRONULAC PO SCH (21:03)
[2023-12-13 07:08] LABS: BASOPHILS # (AUTO) 0.1 X10^3/uL (0.0-0.1); BASOPHILS % (AUTO) 1.1 % (0.2-1.0); EOSINOPHILS # (AUTO) 0.2 x10^3/uL (0.0-0.2); EOSINOPHILS % (AUTO) 2.2 % (0.9-2.9); HEMATOCRIT 26.1 % (42.0-54.0); HEMOGLOBIN 8.8 g/dL (13.5-18.0); LYMPHOCYTES # (AUTO) 0.9 X10^3/uL (1.3-2.9); LYMPHOCYTES % (AUTO) 9.1 % (21.0-51.0); MEAN CORPUSCULAR HGB CONC 33.7 g/dL (33.0-35.0); MEAN CORPUSCULAR VOLUME 89.1 fL (80.0-100.0); MEAN PLATELET VOLUME 7.6 fL (7.4-11.0); MONOCYTES # (AUTO) 0.9 x10^3/uL (0.3-0.8); MONOCYTES % (AUTO) 8.4 % (0.0-13.0); NEUTROPHILS # (AUTO) 8.2 x10^3/uL (2.2-4.8); NEUTROPHILS % (AUTO) 79.2 % (42.0-75.0); PLATELET COUNT 169 X10^3/uL (150.0-450.0); RED BLOOD COUNT 2.92 X10^6/uL (4.7-6.0); RED CELL DISTRIBUTION WIDTH 16.2 % (11.6-16.5); WHITE BLOOD COUNT 10.3 X10^3/uL (3.6-10.0)
[2023-12-13 07:20] LABS: AMMONIA 96 umol/L (11-32)
[2023-12-13 07:22] LABS: PLATELET MORPHOLOGY COMMENT NORMAL (NORMAL)
[2023-12-13 07:35] LABS: ALANINE AMINOTRANSFERASE 11 Units/L (12-78); ALBUMIN 1.5 g/dL (3.4-5.0); ALKALINE PHOSPHATASE 113 Units/L (46-116); ASPARTATE AMINO TRANSFERASE 27 Units/L (15-37); BLOOD UREA NITROGEN 23 mg/dL (7-18); CALCIUM 7.9 mg/dL (8.5-10.1); CARBON DIOXIDE 28.1 mmol/L (21-32); CHLORIDE 108 mmol/L (98-107); COR CA(FOR HYPOALB) 9.9 mg/dL (8.5-10.1); COR NA(FOR HYPERGLY) 138 mmol/L (136-145); CREATININE 1.11 mg/dL (0.70-1.30); GLUCOSE 117 mg/dL (65-99); MAGNESIUM 1.8 mg/dL (2.0-2.9); POTASSIUM 4.2 mmol/L (3.5-5.1); SODIUM 138 mmol/L (136-145); TOTAL PROTEIN 5.3 g/dL (6.4-8.2); eGFR NON BLACK RACES > 60 (>60)
[2023-12-13] MEDS: ALBUMIN HUMAN 25%- 100 ML 100 ML IV SCH (09:46)
[2023-12-13] MEDS: MEGACE PO SCH (09:49)
--- NOTE | 2023-12-13 09:58 | DR.PROGNOT ---
HOSPITAL PROGRESS NOTE Progress Note for Day of: Progress Note Date: 12/13/23 Chief Complaint Chief Complaint: Patient is comfortable today after draining about 6 L of ascites. No nausea or vomiting and breathing better. BUN and creatinine are 23 and 1.1, serum ammonia level is elevated to 96, albumin 1.5, BNP is elevated to 320. Platelet count 169, white count 10.3 with hemoglobin 8.8. Stable vital signs and afebrile. Past Medical Family Social History Allergies: Allergies No Known Drug Allergies Allergy (Unknown, Verified 12/12/23 04:42) Onset Date: 05/26/2022 Review Of Systems ROS: No change since H&P Vital Signs Vital Signs: Vital Signs Temperature 97.6 F Temperature 97.8 F Pulse Rate [Bilateral Brachial 63 ] Pulse Rate [Bilateral Brachial 58 ] Respiratory Rate 18 Respiratory Rate 20 Respiratory Rate 20 Respiratory Rate 20 Blood Pressure [Right Arm] 135/81 Blood Pressure [Right Arm] 129/74 O2 Sat by Pulse Oximetry 98 O2 Sat by Pulse Oximetry 96 Physical Exam GI:Palpation: Other (Soft abdomen with moderate distention with residual ascites. Nontender. Bowel sounds present.) Speech Pattern: Clear and Appropriate Laboratory and Diagnostics 12/13/23 06:47 12/13/23 06:47 Labs: Laboratory WBC 10.3 X10^3/uL (3.6-10.0) H 12/13/23 06:47 RBC 2.92 X10^6/uL (4.7-6.0) L 12/13/23 06:47 Hgb 8.8 g/dL (13.5-18.0) L 12/13/23 06:47 Hct 26.1 % (42.0-54.0) L 12/13/23 06:47 MCV 89.1 fL (80.0-100.0) 12/13/23 06:47 MCH 30.0 pg (27.0-34.0) 12/13/23 06:47 MCHC 33.7 g/dL (33.0-35.0) 12/13/23 06:47 RDW 16.2 % (11.6-16.5) 12/13/23 06:47 Plt Count 169 X10^3/uL (150.0-450.0) 12/13/23 06:47 Plt Count Comment Adequate (ADEQUATE) 12/13/23 06:47 MPV 7.6 fL (7.4-11.0) 12/13/23 06:47 Neut % (Auto) 79.2 % (42.0-75.0) H 12/13/23 06:47 Lymph % (Auto) 9.1 % (21.0-51.0) L 12/13/23 06:47 [place] % (Auto) 8.4 % (0.0-13.0) 12/13/23 06:47 Eos % (Auto) 2.2 % (0.9-2.9) 12/13/23 06:47 Baso % (Auto) 1.1 % (0.2-1.0) H 12/13/23 06:47 Neut # (Auto) 8.2 x10^3/uL (2.2-4.8) H 12/13/23 06:47 Lymph # (Auto) 0.9 X10^3/uL (1.3-2.9) L 12/13/23 06:47 [place] # (Auto) 0.9 x10^3/uL (0.3-0.8) H 12/13/23 06:47 Eos # (Auto) 0.2 x10^3/uL (0.0-0.2) 12/13/23 06:47 Baso # (Auto) 0.1 X10^3/uL (0.0-0.1) 12/13/23 06:47 Absolute Nucleated RBC 0.0 /100WBC 12/13/23 06:47 Total Counted 100 12/13/23 06:47 Neutrophils % (Manual) 75 % (39-76) 12/13/23 06:47 Lymphocytes % (Manual) 16 % (13-43) 12/13/23 06:47 Monocytes % (Manual) 5 % (4-9) 12/13/23 06:47 Eosinophils % (Manual) 4 % (0-6) 12/13/23 06:47 Basophils % (Manual) 1 % (0-1) 12/12/23 04:30 Plt Morphology Comment Normal (NORMAL) 12/13/23 06:47 RBC Morphology Normal (NORMAL) 12/13/23 06:47 Sodium 138 mmol/L (136-145) 12/13/23 06:47 Corrected Sodium 138 mmol/L (136-145) 12/13/23 06:47 Potassium 4.2 mmol/L (3.5-5.1) 12/13/23 06:47 Chloride 108 mmol/L (98-107) H 12/13/23 06:47 Carbon Dioxide 28.1 mmol/L (21-32) 12/13/23 06:47 BUN 23 mg/dL (7-18) H 12/13/23 06:47 Creatinine 1.11 mg/dL (0.70-1.30) 12/13/23 06:47 Est GFR (MDRD) Af Amer > 60 (>60) 12/13/23 06:47 Est GFR (MDRD) Non-Af > 60 (>60) 12/13/23 06:47 Glucose 117 mg/dL (65-99) H 12/13/23 06:47 Calcium 7.9 mg/dL (8.5-10.1) L 12/13/23 06:47 Corrected Calcium 9.9 mg/dL (8.5-10.1) 12/13/23 06:47 Magnesium 1.8 mg/dL (2.0-2.9) L 12/13/23 06:47 Total Bilirubin 0.40 mg/dL (0.2-1.0) 12/13/23 06:47 AST 27 Units/L (15-37) 12/13/23 06:47 ALT 11 Units/L (12-78) L 12/13/23 06:47 Alkaline Phosphatase 113 Units/L (46-116) 12/13/23 06:47 Ammonia 96 umol/L (11-32) H 12/13/23 06:47 B-Natriuretic Peptide 320 pg/mL (0-79) H 12/13/23 06:47 Total Protein 5.3 g/dL (6.4-8.2) L 12/13/23 06:47 Albumin 1.5 g/dL (3.4-5.0) L 12/13/23 06:47 Globulin 3.8 g/dL (2.5-4.5) 12/13/23 06:47 Albumin/Globulin Ratio 0.4 Ratio (1.1-2.1) L 12/13/23 06:47 Assessment and Plan 1: Large ascites secondary to liver cirrhosis, status post paracentesis and drainage. Patient will receive salt to pure albumin and drain more ascites today. Problem Patient Problems: Patient Problems (Updated 12/12/23 @ 09:00 by Angel Forbes) Cirrhosis (Acute) K74.60 Tense ascites (Acute) R18.8
--- NOTE | 2023-12-13 11:32 | DR.H&P ---
H&P History & Physical for Day of: H&P Date: 12/12/23 Chief Complaint Chief Complaint: Shortness of breath History of Present Illness History of Present Illness: This is a 58-year-old white male who presented to [facility] via EMS on a stretcher. He states he could not breathe and has having significant shortness of breath. He states he is needing peritoneal dialysis which he normally receives weekly about day but sometimes more often if needed. Patient states his last dialysis was last Monday which was 6 days ago. His current weight is 186 pounds and he is complaining of swelling in his abdomen. Patient is currently in no acute distress according to the ER. The ER physician called general surgery, Dr. Sparks who came down and put in a drain in his abdomen and they were able to get out 500 cc of fluid. Given his current condition we elected to go ahead and meeting to the hospital so we can continue to drain the fluid off of his abdomen as he has chronic profound ascites. Past Medical History Past Medical History: Cirrhosis, COPD, GERD and Hypertension Past Surgical History Surgical History: Unknown Family History Family Medical History: HI and Hypertension Social History Alcohol Use: None Drug Use: Marijuana Medications Home Medications: Home Medications Medication Instructions Recorded Confirmed Type fluticasone fur. 100 mcg-umeclid 1 ea inhalation QDAY 12/12/23 12/12/23 History 62.5 mcg-vilant 25 mcg inhalat.powder (Trelegy Ellipta) furosemide 40 mg tablet (Lasix) 80 mg PO DAILY 12/12/23 12/12/23 History hydromorphone 2 mg tablet 2 mg PO BID PRN 12/12/23 12/12/23 History lactulose 10 gram/15 mL oral 15 ml PO TID PRN 12/12/23 12/12/23 History solution (Constulose) nadolol 20 mg tablet 20 mg PO DAILY 12/12/23 12/12/23 History pantoprazole 40 mg tablet,delayed 40 mg PO QDAY 12/12/23 12/12/23 History release potassium chloride 10 mEq 10 meq PO DAILY 12/12/23 12/12/23 History capsule,extended release spironolactone 50 mg tablet 50 mg PO QDAY 12/12/23 12/12/23 History tramadol 50 mg tablet 50 mg PO TID PRN 12/12/23 12/12/23 History Allergies Allergies Allergy/AdvReac Type Severity Reaction Status Date / Time No Known Drug Allergies Allergy Unknown Verified 12/12/23 04:42 Labs 12/13/23 06:47 12/13/23 06:47 Labs: Laboratory WBC 11.2 X10^3/uL (3.6-10.0) H 12/12/23 04:30 RBC 3.03 X10^6/uL (4.7-6.0) L 12/12/23 04:30 Hgb 9.1 g/dL (13.5-18.0) L 12/12/23 04:30 Hct 26.9 % (42.0-54.0) L 12/12/23 04:30 MCV 88.9 fL (80.0-100.0) 12/12/23 04:30 MCH 29.9 pg (27.0-34.0) 12/12/23 04:30 MCHC 33.7 g/dL (33.0-35.0) 12/12/23 04:30 RDW 16.5 % (11.6-16.5) 12/12/23 04:30 Plt Count 160 X10^3/uL (150.0-450.0) 12/12/23 04:30 Plt Count Comment Adequate (ADEQUATE) 12/12/23 04:30 MPV 7.7 fL (7.4-11.0) 12/12/23 04:30 Neut % (Auto) 78.1 % (42.0-75.0) H 12/12/23 04:30 Lymph % (Auto) 7.1 % (21.0-51.0) L 12/12/23 04:30 [place] % (Auto) 7.9 % (0.0-13.0) 12/12/23 04:30 Eos % (Auto) 3.6 % (0.9-2.9) H 12/12/23 04:30 Baso % (Auto) 3.3 % (0.2-1.0) H 12/12/23 04:30 Neut # (Auto) 8.7 x10^3/uL (2.2-4.8) H 12/12/23 04:30 Lymph # (Auto) 0.8 X10^3/uL (1.3-2.9) L 12/12/23 04:30 [place] # (Auto) 0.9 x10^3/uL (0.3-0.8) H 12/12/23 04:30 Eos # (Auto) 0.4 x10^3/uL (0.0-0.2) H 12/12/23 04:30 Baso # (Auto) 0.4 X10^3/uL (0.0-0.1) H 12/12/23 04:30 Absolute Nucleated RBC 0.1 /100WBC 12/12/23 04:30 Total Counted 100 12/12/23 04:30 Neutrophils % (Manual) 72 % (39-76) 12/12/23 04:30 Lymphocytes % (Manual) 17 % (13-43) 12/12/23 04:30 Monocytes % (Manual) 6 % (4-9) 12/12/23 04:30 Eosinophils % (Manual) 4 % (0-6) 12/12/23 04:30 Basophils % (Manual) 1 % (0-1) 12/12/23 04:30 Plt Morphology Comment Normal (NORMAL) 12/12/23 04:30 RBC Morphology Normal (NORMAL) 12/12/23 04:30 Sodium 142 mmol/L (136-145) 12/12/23 04:30 Corrected Sodium TNP 12/12/23 04:30 Potassium 4.2 mmol/L (3.5-5.1) 12/12/23 04:30 Chloride 110 mmol/L (98-107) H 12/12/23 04:30 Carbon Dioxide 27.0 mmol/L (21-32) 12/12/23 04:30 BUN 24 mg/dL (7-18) H 12/12/23 04:30 Creatinine 1.47 mg/dL (0.70-1.30) H 12/12/23 04:30 Est GFR (MDRD) Af Amer > 60 (>60) 12/12/23 04:30 Est GFR (MDRD) Non-Af 52 (>60) L 12/12/23 04:30 Glucose 98 mg/dL (65-99) 12/12/23 04:30 Calcium 8.0 mg/dL (8.5-10.1) L 12/12/23 04:30 Corrected Calcium 9.8 mg/dL (8.5-10.1) 12/12/23 04:30 Total Bilirubin 0.40 mg/dL (0.2-1.0) 12/12/23 04:30 AST 30 Units/L (15-37) 12/12/23 04:30 ALT 12 Units/L (12-78) 12/12/23 04:30 Alkaline Phosphatase 124 Units/L (46-116) H 12/12/23 04:30 Total Protein 5.8 g/dL (6.4-8.2) L 12/12/23 04:30 Albumin 1.8 g/dL (3.4-5.0) L 12/12/23 04:30 Globulin 4.0 g/dL (2.5-4.5) 12/12/23 04:30 Albumin/Globulin Ratio 0.5 Ratio (1.1-2.1) L 12/12/23 04:30 Review of Systems Constitutional: Weakness Eyes: No Symptoms Reported ENT: No Symptoms Reported Respiratory: Shortness of Breath Cardiovascular: No Symptoms Reported Gastrointestinal: Abdominal Pain Genitourinary: No Symptoms Reported Musculoskeletal: No Symptoms Reported Skin: No Symptoms Reported Neurological: No Symptoms Reported Physical Exam Vital Signs: Vital Signs Temperature 97.7 F Temperature 98.6 F Pulse Rate [Bilateral Brachial 65 ] Pulse Rate [Bilateral Brachial 80 ] Pulse Rate 79 Pulse Rate 77 Pulse Rate 78 Pulse Rate 78 Pulse Rate 79 Pulse Rate 76 Pulse Rate 77 Pulse Rate 74 Pulse Rate 80 Pulse Rate 80 Respiratory Rate 18 Respiratory Rate 18 Respiratory Rate 17 Respiratory Rate 17 Respiratory Rate 16 Respiratory Rate 16 Blood Pressure [Right Arm] 126/65 Blood Pressure [Right Arm] 152/78 Blood Pressure 145/71 Blood Pressure 149/80 Blood Pressure 144/73 Blood Pressure 149/78 Blood Pressure 155/70 Blood Pressure 155/70 Blood Pressure 157/72 Blood Pressure 157/72 Blood Pressure 147/82 Blood Pressure 150/88 O2 Sat by Pulse Oximetry 97 O2 Sat by Pulse Oximetry 98 O2 Sat by Pulse Oximetry 99 O2 Sat by Pulse Oximetry 100 O2 Sat by Pulse Oximetry 99 O2 Sat by Pulse Oximetry 99 O2 Sat by Pulse Oximetry 99 O2 Sat by Pulse Oximetry 99 O2 Sat by Pulse Oximetry 99 O2 Sat by Pulse Oximetry 100 O2 Sat by Pulse Oximetry 99 O2 Sat by Pulse Oximetry 99 Oriented: Normal, Time, Person and Place Eyes: Normal Ear: Normal Nose: Normal Throat: Normal Respiratory: Clear Throughout Cardiovascular: Normal : Normal Auscultation: Bowel Sounds: Normal Palpation: Normal and Other (The patient's abdomen initially was very distended until after the drain was put in and drained off his ascitic fluid) Tenderness: Normal Skin: Normal Musculoskeletal: Normal Psychiatric: Normal Mood Description: Calm Affect: Normal Speech Pattern: Clear Assessment/Plan (1) Cirrhosis: Status: Acute Plan: Avoid any medications that is hepatically metabolized to ease the burden on the liver and patient is informed to make sure he does not drink any alcohol. And he is also informed not to take Tylenol. (2) Hypoalbuminemia: Status: Acute Plan: IV albumin 25% IV daily. (3) Right lower lobe lung mass: Status: Acute Plan: I will check with the patient to see if his right lower lung mass is being monitored by his primary care physician or someone else. (4) Alcoholic cirrhosis of liver with ascites: Status: None Plan: Continue oral spironolactone, Lasix and lactulose. (5) Chronic obstructive pulmonary disease: Qualifiers: COPD type: unspecified COPD Qualified Code(s): J44.9 - Chronic obstructive pulmonary disease, unspecified Status: Chronic Plan: Continue patient's Trelegy. (6) Hypertension: Qualifiers: Hypertension type: primary hypertension Qualified Code(s): I10 - Essential (primary) hypertension Status: Chronic Plan: Monitor patient's blood pressure daily and we will hold his antihypertensives since we are draining a lot of fluid. He is already had approximately 5 L drained off today. Review H&P Reviewed: Yes Patient was examined?: Yes
--- NOTE | 2023-12-13 11:38 | PCM.PROG ---
Progress Note Progress Note for Day of Date of Exam: 12/13/23 Subjective Subjective: The patient states he feels much better this morning. The drain has not drained much more ascitic fluid off since yesterday. His abdomen is much better and decompress at this time. His albumin is low this morning so we will give him some IV albumin 25% today and again tomorrow morning. We will continue him with his peritoneal drain at this time continue his regular home medications except his blood pressure medication at this time. If his blood pressure becomes elevated we will resume it as well. His hemoglobin is stable this morning 8.8 and he does have a slightly small elevated white count of 10,300. Overall he is improving and hopefully we can get him discharged home in the next 1 or 2 days. Past Medical Family Social History Allergies: Allergies No Known Drug Allergies Allergy (Unknown, Verified 12/12/23 04:42) Onset Date: 05/26/2022 Review of Systems ROS: No change since H&P Vital Signs and I&O's Vital Signs: Vital Signs Temperature 97.6 F Temperature 97.8 F Pulse Rate [Bilateral Brachial 63 ] Pulse Rate [Bilateral Brachial 58 ] Respiratory Rate 18 Respiratory Rate 18 Respiratory Rate 20 Respiratory Rate 20 Respiratory Rate 20 Blood Pressure [Right Arm] 135/81 Blood Pressure [Right Arm] 129/74 O2 Sat by Pulse Oximetry 98 O2 Sat by Pulse Oximetry 96 Intake and Output: Intake & Output 12/10/23 12/11/23 12/12/23 12/13/23 11:59 11:59 11:59 11:59 Intake Total 920 / 920 Output Total 4100 / 5500 1400 / 1400 Balance -4100 / -5500 -480 / -480 Physical Exam Oriented: Normal, Time, Person and Place Eyes: Normal Ear: Normal Nose: Normal Throat: Normal Respiratory: Normal Cardiovascular: Normal : Normal Auscultation: Bowel Sounds: Normal Tenderness: Normal Skin: Normal Musculoskeletal: Normal Psychiatric: Normal Mood Description: Calm Affect: Normal Speech Pattern: Clear Laboratory and Diagnostics 12/13/23 06:47 12/13/23 06:47 Labs: Laboratory WBC 10.3 X10^3/uL (3.6-10.0) H 12/13/23 06:47 RBC 2.92 X10^6/uL (4.7-6.0) L 12/13/23 06:47 Hgb 8.8 g/dL (13.5-18.0) L 12/13/23 06:47 Hct 26.1 % (42.0-54.0) L 12/13/23 06:47 MCV 89.1 fL (80.0-100.0) 12/13/23 06:47 MCH 30.0 pg (27.0-34.0) 12/13/23 06:47 MCHC 33.7 g/dL (33.0-35.0) 12/13/23 06:47 RDW 16.2 % (11.6-16.5) 12/13/23 06:47 Plt Count 169 X10^3/uL (150.0-450.0) 12/13/23 06:47 Plt Count Comment Adequate (ADEQUATE) 12/13/23 06:47 MPV 7.6 fL (7.4-11.0) 12/13/23 06:47 Neut % (Auto) 79.2 % (42.0-75.0) H 12/13/23 06:47 Lymph % (Auto) 9.1 % (21.0-51.0) L 12/13/23 06:47 [place] % (Auto) 8.4 % (0.0-13.0) 12/13/23 06:47 Eos % (Auto) 2.2 % (0.9-2.9) 12/13/23 06:47 Baso % (Auto) 1.1 % (0.2-1.0) H 12/13/23 06:47 Neut # (Auto) 8.2 x10^3/uL (2.2-4.8) H 12/13/23 06:47 Lymph # (Auto) 0.9 X10^3/uL (1.3-2.9) L 12/13/23 06:47 [place] # (Auto) 0.9 x10^3/uL (0.3-0.8) H 12/13/23 06:47 Eos # (Auto) 0.2 x10^3/uL (0.0-0.2) 12/13/23 06:47 Baso # (Auto) 0.1 X10^3/uL (0.0-0.1) 12/13/23 06:47 Absolute Nucleated RBC 0.0 /100WBC 12/13/23 06:47 Total Counted 100 12/13/23 06:47 Neutrophils % (Manual) 75 % (39-76) 12/13/23 06:47 Lymphocytes % (Manual) 16 % (13-43) 12/13/23 06:47 Monocytes % (Manual) 5 % (4-9) 12/13/23 06:47 Eosinophils % (Manual) 4 % (0-6) 12/13/23 06:47 Basophils % (Manual) 1 % (0-1) 12/12/23 04:30 Plt Morphology Comment Normal (NORMAL) 12/13/23 06:47 RBC Morphology Normal (NORMAL) 12/13/23 06:47 Sodium 138 mmol/L (136-145) 12/13/23 06:47 Corrected Sodium 138 mmol/L (136-145) 12/13/23 06:47 Potassium 4.2 mmol/L (3.5-5.1) 12/13/23 06:47 Chloride 108 mmol/L (98-107) H 12/13/23 06:47 Carbon Dioxide 28.1 mmol/L (21-32) 12/13/23 06:47 BUN 23 mg/dL (7-18) H 12/13/23 06:47 Creatinine 1.11 mg/dL (0.70-1.30) 12/13/23 06:47 Est GFR (MDRD) Af Amer > 60 (>60) 12/13/23 06:47 Est GFR (MDRD) Non-Af > 60 (>60) 12/13/23 06:47 Glucose 117 mg/dL (65-99) H 12/13/23 06:47 Calcium 7.9 mg/dL (8.5-10.1) L 12/13/23 06:47 Corrected Calcium 9.9 mg/dL (8.5-10.1) 12/13/23 06:47 Magnesium 1.8 mg/dL (2.0-2.9) L 12/13/23 06:47 Total Bilirubin 0.40 mg/dL (0.2-1.0) 12/13/23 06:47 AST 27 Units/L (15-37) 12/13/23 06:47 ALT 11 Units/L (12-78) L 12/13/23 06:47 Alkaline Phosphatase 113 Units/L (46-116) 12/13/23 06:47 Ammonia 96 umol/L (11-32) H 12/13/23 06:47 B-Natriuretic Peptide 320 pg/mL (0-79) H 12/13/23 06:47 Total Protein 5.3 g/dL (6.4-8.2) L 12/13/23 06:47 Albumin 1.5 g/dL (3.4-5.0) L 12/13/23 06:47 Globulin 3.8 g/dL (2.5-4.5) 12/13/23 06:47 Albumin/Globulin Ratio 0.4 Ratio (1.1-2.1) L 12/13/23 06:47 Radiology Reviewed: Yes Plan (1) Cirrhosis: Status: Acute Plan: Avoid any medications that is hepatically metabolized to ease the burden on the liver and patient is informed to make sure he does not drink any alcohol. And he is also informed not to take Tylenol. (2) Hypoalbuminemia: Status: Acute Plan: IV albumin 25% IV daily. (3) Right lower lobe lung mass: Status: Acute Plan: I will check with the patient to see if his right lower lung mass is being monitored by his primary care physician or someone else. (4) Alcoholic cirrhosis of liver with ascites: Status: None Plan: Continue oral spironolactone, Lasix and lactulose. (5) Chronic obstructive pulmonary disease: Status: Chronic Qualifiers: COPD type: unspecified COPD Qualified Code(s): J44.9 - Chronic obstructive pulmonary disease, unspecified Plan: Continue patient's Trelegy. (6) Hypertension: Status: Chronic Qualifiers: Hypertension type: primary hypertension Qualified Code(s): I10 - Essential (primary) hypertension Plan: Continue patient's current antihypertensive treatment.
[2023-12-13] MEDS ORDERED: PATIENT'S HOME MEDICATION (Fluticasone-Umeclidin-Vilanter [Trelegy Ellipta] 100-62.5-25 mc IN SCH (11:45)
[2023-12-13] MEDS ORDERED: DUONEB 0.5 MG/3 MG (3 mL) NEB SCH (13:00)
[2023-12-13] MEDS: DUONEB 0.5 MG/3 MG (3 mL) NEB SCH (21:27)
[2023-12-14] MEDS: CHRONULAC PO PRN (03:30)
[2023-12-14] MEDS: DUONEB 0.5 MG/3 MG (3 mL) NEB ONE (04:42)
[2023-12-14 06:27] VITALS: RESP 18
[2023-12-14 06:36] LABS: BASOPHILS # (AUTO) 0.1 X10^3/uL (0.0-0.1); EOSINOPHILS # (AUTO) 0.4 x10^3/uL (0.0-0.2); EOSINOPHILS % (AUTO) 3.7 % (0.9-2.9); HEMATOCRIT 26.5 % (42.0-54.0); LYMPHOCYTES # (AUTO) 1.3 X10^3/uL (1.3-2.9); LYMPHOCYTES % (AUTO) 11.8 % (21.0-51.0); MEAN CORPUSCULAR HEMOGLOBIN 30.2 pg (27.0-34.0); MEAN CORPUSCULAR HGB CONC 34.1 g/dL (33.0-35.0); MEAN CORPUSCULAR VOLUME 88.6 fL (80.0-100.0); MEAN PLATELET VOLUME 7.6 fL (7.4-11.0); NEUTROPHILS # (AUTO) 8.4 x10^3/uL (2.2-4.8); NEUTROPHILS % (AUTO) 74.5 % (42.0-75.0); PLATELET COUNT 190 X10^3/uL (150.0-450.0); RED BLOOD COUNT 2.99 X10^6/uL (4.7-6.0); RED CELL DISTRIBUTION WIDTH 16.6 % (11.6-16.5); WHITE BLOOD COUNT 11.3 X10^3/uL (3.6-10.0)
[2023-12-14 06:49] LABS: BAND NEUTROPHILS % 2 % (0-10); PLATELET MORPHOLOGY COMMENT NORMAL (NORMAL)
[2023-12-14 06:53] LABS: ALANINE AMINOTRANSFERASE 11 Units/L (12-78); ALBUMIN 1.7 g/dL (3.4-5.0); ALKALINE PHOSPHATASE 109 Units/L (46-116); ASPARTATE AMINO TRANSFERASE 23 Units/L (15-37); BLOOD UREA NITROGEN 23 mg/dL (7-18); CARBON DIOXIDE 27.7 mmol/L (21-32); CHLORIDE 106 mmol/L (98-107); COR CA(FOR HYPOALB) 9.8 mg/dL (8.5-10.1); CREATININE 1.02 mg/dL (0.70-1.30); GLUCOSE 81 mg/dL (65-99); MAGNESIUM 1.8 mg/dL (2.0-2.9); POTASSIUM 3.9 mmol/L (3.5-5.1); SODIUM 137 mmol/L (136-145); TOTAL PROTEIN 5.2 g/dL (6.4-8.2); eGFR NON BLACK RACES > 60 (>60)
[2023-12-14] MEDS: PULMICORT NEB TX 0.5 MG NEB SCH (08:51)
[2023-12-14] MEDS ORDERED: SPIRONOLACTONE 50 MG PO SCH (09:00)
[2023-12-14] MEDS ORDERED: ALBUMIN HUMAN 25%- 100 ML 100 ML IV SCH (09:00)
--- NOTE | 2023-12-14 09:04 | DR.PROGNOT ---
HOSPITAL PROGRESS NOTE Progress Note for Day of: Progress Note Date: 12/14/23 Chief Complaint Chief Complaint: Patient is feeling better after significant amount of ascites was drained. No shortness of breath and minimal abdominal discomfort. The drainage catheter was removed, Patient could be discharged from surgical point of view and will follow as an outpatient. Past Medical Family Social History Allergies: Allergies No Known Drug Allergies Allergy (Unknown, Verified 12/12/23 04:42) Onset Date: 05/26/2022 Review Of Systems ROS: No change since H&P Vital Signs Vital Signs: Vital Signs Temperature 98.1 F Pulse Rate [Bilateral Brachial 61 ] Respiratory Rate 18 Respiratory Rate 18 Respiratory Rate 20 Respiratory Rate 20 Blood Pressure [Right Arm] 135/64 O2 Sat by Pulse Oximetry 100 Physical Exam Oriented: Normal, Time, Person and Place Eyes: Normal Ear: Normal Nose: Normal Throat: Normal Respiratory: Normal Cardiovascular: Normal : Normal GI:Auscultation: Normal GI:Palpation: Other (Soft but full abdomen with good bowel sounds, nontender.) GI: Tenderness: Normal Skin: Normal Musculoskeletal: Normal Psychiatric: Normal Mood Description: Calm Affect: Normal Speech Pattern: Clear and Appropriate Laboratory and Diagnostics 12/14/23 06:03 12/14/23 06:03 Labs: Laboratory WBC 11.3 X10^3/uL (3.6-10.0) H 12/14/23 06:03 RBC 2.99 X10^6/uL (4.7-6.0) L 12/14/23 06:03 Hgb 9.0 g/dL (13.5-18.0) L 12/14/23 06:03 Hct 26.5 % (42.0-54.0) L 12/14/23 06:03 MCV 88.6 fL (80.0-100.0) 12/14/23 06:03 MCH 30.2 pg (27.0-34.0) 12/14/23 06:03 MCHC 34.1 g/dL (33.0-35.0) 12/14/23 06:03 RDW 16.6 % (11.6-16.5) H 12/14/23 06:03 Plt Count 190 X10^3/uL (150.0-450.0) 12/14/23 06:03 Plt Count Comment Adequate (ADEQUATE) 12/14/23 06:03 MPV 7.6 fL (7.4-11.0) 12/14/23 06:03 Neut % (Auto) 74.5 % (42.0-75.0) 12/14/23 06:03 Lymph % (Auto) 11.8 % (21.0-51.0) L 12/14/23 06:03 [place] % (Auto) 9.0 % (0.0-13.0) 12/14/23 06:03 Eos % (Auto) 3.7 % (0.9-2.9) H 12/14/23 06:03 Baso % (Auto) 1.0 % (0.2-1.0) 12/14/23 06:03 Neut # (Auto) 8.4 x10^3/uL (2.2-4.8) H 12/14/23 06:03 Lymph # (Auto) 1.3 X10^3/uL (1.3-2.9) 12/14/23 06:03 [place] # (Auto) 1.0 x10^3/uL (0.3-0.8) H 12/14/23 06:03 Eos # (Auto) 0.4 x10^3/uL (0.0-0.2) H 12/14/23 06:03 Baso # (Auto) 0.1 X10^3/uL (0.0-0.1) 12/14/23 06:03 Absolute Nucleated RBC 0.1 /100WBC 12/14/23 06:03 Total Counted 100 12/14/23 06:03 Neutrophils % (Manual) 72 % (39-76) 12/14/23 06:03 Band Neutrophils % 2 % (0-10) 12/14/23 06:03 Lymphocytes % (Manual) 13 % (13-43) 12/14/23 06:03 Monocytes % (Manual) 8 % (4-9) 12/14/23 06:03 Eosinophils % (Manual) 5 % (0-6) 12/14/23 06:03 Basophils % (Manual) 1 % (0-1) 12/12/23 04:30 Plt Morphology Comment Normal (NORMAL) 12/14/23 06:03 RBC Morphology Normal (NORMAL) 12/14/23 06:03 Sodium 137 mmol/L (136-145) 12/14/23 06:03 Corrected Sodium TNP 12/14/23 06:03 Potassium 3.9 mmol/L (3.5-5.1) 12/14/23 06:03 Chloride 106 mmol/L (98-107) 12/14/23 06:03 Carbon Dioxide 27.7 mmol/L (21-32) 12/14/23 06:03 BUN 23 mg/dL (7-18) H 12/14/23 06:03 Creatinine 1.02 mg/dL (0.70-1.30) 12/14/23 06:03 Est GFR (MDRD) Af Amer > 60 (>60) 12/14/23 06:03 Est GFR (MDRD) Non-Af > 60 (>60) 12/14/23 06:03 Glucose 81 mg/dL (65-99) 12/14/23 06:03 Calcium 8.0 mg/dL (8.5-10.1) L 12/14/23 06:03 Corrected Calcium 9.8 mg/dL (8.5-10.1) 12/14/23 06:03 Magnesium 1.8 mg/dL (2.0-2.9) L 12/14/23 06:03 Total Bilirubin 0.40 mg/dL (0.2-1.0) 12/14/23 06:03 AST 23 Units/L (15-37) 12/14/23 06:03 ALT 11 Units/L (12-78) L 12/14/23 06:03 Alkaline Phosphatase 109 Units/L (46-116) 12/14/23 06:03 Ammonia 85 umol/L (11-32) H 12/14/23 08:14 B-Natriuretic Peptide 320 pg/mL (0-79) H 12/13/23 06:47 Total Protein 5.2 g/dL (6.4-8.2) L 12/14/23 06:03 Albumin 1.7 g/dL (3.4-5.0) L 12/14/23 06:03 Globulin 3.5 g/dL (2.5-4.5) 12/14/23 06:03 Albumin/Globulin Ratio 0.5 Ratio (1.1-2.1) L 12/14/23 06:03 Assessment and Plan 1: Large ascites secondary to liver cirrhosis, status post paracentesis and drainage. Patient could be discharged and will follow as an outpatient in 10 days. Problem Patient Problems: Patient Problems Cirrhosis (Acute) K74.60 Tense ascites (Acute) R18.8
[2023-12-14 10:47] VITALS: BP 125/68; PULSE 71; TEMP 97.9; O2SAT 97
--- NOTE | 2023-12-14 11:01 | PCM.DCPLAN ---
DISCHARGE SUMMARY Admission Date Date of Admission: 12/12/23 Discharge Date Discharge Date: 12/14/23 Admission Diagnoses (1) Cirrhosis: Status: Acute (2) Hypoalbuminemia: Status: Acute (3) Right lower lobe lung mass: Status: Acute (4) Alcoholic cirrhosis of liver with ascites: Status: None (5) Chronic obstructive pulmonary disease: Status: Chronic (6) Hypertension: Status: Chronic Discharge Diagnoses Discharge Diagnosis: 1. Alcohol cirrhosis of liver with ascites 2. Hyperammonemia 3. COPD 4. Hypertension 5. History of right lower lung mass 6. History of anemia of chronic disease 7. Hypoalbuminemia 8. Abdominal pain secondary abdominal distention secondary to ascites 9. Hypomagnesemia Discharge Medications Discharge Medications: Home Medication List fluticasone fur. 100 mcg-umeclid 62.5 mcg-vilant 25 mcg inhalat.powder (Trelegy Ellipta) 1 ea inhalation QDAY 12/12/23 [History] furosemide 40 mg tablet (Lasix) 80 mg PO DAILY 12/12/23 [History] hydromorphone 2 mg tablet 2 mg PO BID PRN 12/12/23 [History] lactulose 10 gram/15 mL oral solution (Constulose) 15 ml PO TID PRN 12/12/23 [History] nadolol 20 mg tablet 20 mg PO DAILY 12/12/23 [History] pantoprazole 40 mg tablet,delayed release 40 mg PO QDAY 12/12/23 [History] potassium chloride 10 mEq capsule,extended release 10 meq PO DAILY 12/12/23 [History] spironolactone 50 mg tablet 50 mg PO QDAY 12/12/23 [History] tramadol 50 mg tablet 50 mg PO TID PRN 12/12/23 [History] Prescriptions: Hospital Course Vital Signs: Vital Signs Temperature 97.9 F Temperature 98.1 F Pulse Rate [Bilateral Brachial 71 ] Pulse Rate [Bilateral Brachial 61 ] Respiratory Rate 18 Respiratory Rate 20 Respiratory Rate 18 Respiratory Rate 20 Respiratory Rate 20 Blood Pressure [Right Arm] 125/68 Blood Pressure [Right Arm] 135/64 O2 Sat by Pulse Oximetry 97 O2 Sat by Pulse Oximetry 100 Latest Lab Results: Laboratory Last Values WBC 11.3 X10^3/uL (3.6-10.0) H 12/14/23 06:03 RBC 2.99 X10^6/uL (4.7-6.0) L 05/23/24 06:03 Hgb 9.0 g/dL (13.5-18.0) L 12/14/23 06:03 Hct 26.5 % (42.0-54.0) L 12/14/23 06:03 MCV 88.6 fL (80.0-100.0) 12/14/23 06:03 MCH 30.2 pg (27.0-34.0) 12/14/23 06:03 MCHC 34.1 g/dL (33.0-35.0) 12/14/23 06:03 RDW 16.6 % (11.6-16.5) H 12/14/23 06:03 Plt Count 190 X10^3/uL (150.0-450.0) 12/14/23 06:03 Plt Count Comment Adequate (ADEQUATE) 12/14/23 06:03 MPV 7.6 fL (7.4-11.0) 12/14/23 06:03 Neut % (Auto) 74.5 % (42.0-75.0) 12/14/23 06:03 Lymph % (Auto) 11.8 % (21.0-51.0) L 12/14/23 06:03 [place] % (Auto) 9.0 % (0.0-13.0) 12/14/23 06:03 Eos % (Auto) 3.7 % (0.9-2.9) H 12/14/23 06:03 Baso % (Auto) 1.0 % (0.2-1.0) 12/14/23 06:03 Neut # (Auto) 8.4 x10^3/uL (2.2-4.8) H 12/14/23 06:03 Lymph # (Auto) 1.3 X10^3/uL (1.3-2.9) 12/14/23 06:03 [place] # (Auto) 1.0 x10^3/uL (0.3-0.8) H 12/14/23 06:03 Eos # (Auto) 0.4 x10^3/uL (0.0-0.2) H 12/14/23 06:03 Baso # (Auto) 0.1 X10^3/uL (0.0-0.1) 12/14/23 06:03 Absolute Nucleated RBC 0.1 /100WBC 12/14/23 06:03 Total Counted 100 12/14/23 06:03 Neutrophils % (Manual) 72 % (39-76) 12/14/23 06:03 Band Neutrophils % 2 % (0-10) 12/14/23 06:03 Lymphocytes % (Manual) 13 % (13-43) 12/14/23 06:03 Monocytes % (Manual) 8 % (4-9) 12/14/23 06:03 Eosinophils % (Manual) 5 % (0-6) 12/14/23 06:03 Basophils % (Manual) 1 % (0-1) 12/12/23 04:30 Plt Morphology Comment Normal (NORMAL) 12/14/23 06:03 RBC Morphology Normal (NORMAL) 12/14/23 06:03 Sodium 137 mmol/L (136-145) 12/14/23 06:03 Corrected Sodium TNP 12/14/23 06:03 Potassium 3.9 mmol/L (3.5-5.1) 12/14/23 06:03 Chloride 106 mmol/L (98-107) 12/14/23 06:03 Carbon Dioxide 27.7 mmol/L (21-32) 12/14/23 06:03 BUN 23 mg/dL (7-18) H 12/14/23 06:03 Creatinine 1.02 mg/dL (0.70-1.30) 12/14/23 06:03 Est GFR (MDRD) Af Amer > 60 (>60) 12/14/23 06:03 Est GFR (MDRD) Non-Af > 60 (>60) 12/14/23 06:03 Glucose 81 mg/dL (65-99) 12/14/23 06:03 Calcium 8.0 mg/dL (8.5-10.1) L 12/14/23 06:03 Corrected Calcium 9.8 mg/dL (8.5-10.1) 12/14/23 06:03 Magnesium 1.8 mg/dL (2.0-2.9) L 12/14/23 06:03 Total Bilirubin 0.40 mg/dL (0.2-1.0) 12/14/23 06:03 AST 23 Units/L (15-37) 12/14/23 06:03 ALT 11 Units/L (12-78) L 12/14/23 06:03 Alkaline Phosphatase 109 Units/L (46-116) 12/14/23 06:03 Ammonia 85 umol/L (11-32) H 12/14/23 08:14 B-Natriuretic Peptide 320 pg/mL (0-79) H 12/13/23 06:47 Total Protein 5.2 g/dL (6.4-8.2) L 12/14/23 06:03 Albumin 1.7 g/dL (3.4-5.0) L 12/14/23 06:03 Globulin 3.5 g/dL (2.5-4.5) 12/14/23 06:03 Albumin/Globulin Ratio 0.5 Ratio (1.1-2.1) L 12/14/23 06:03 Hospital Course: This is a 58-year-old white male who presented to [facility] via EMS on a stretcher. He states he could not breathe and has having significant shortness of breath. He states he is needing peritoneal dialysis which he normally receives weekly about day but sometimes more often if needed. Patient states his last dialysis was last Monday which was 6 days ago. His current weight is 186 pounds and he is complaining of swelling in his abdomen. Patient is currently in no acute distress according to the ER. The ER physician called general surgery, Dr. Sparks who came down and put in a drain in his abdomen and they were able to get out 500 cc of fluid. Given his current condition we elected to go ahead and meeting to the hospital so we can continue to drain the fluid off of his abdomen as he has chronic profound ascites. After admission when I saw him the following morning he had had somewhere between 5.5 to 6 L drained from his abdomen after our surgeon Dr. Sparks placed a drain in his abdomen. Through that day until this morning the patient has drained off another 5 L or more. He is feeling much better over the last couple of days and is not having any new complaints. Today our surgeon has cleared him to be discharged home after we will remove the peritoneal drain. We will have him fol low-up with his primary care physicians in [place], [place] for hospital follow- up. We we will make sure we send the hospital records to his primary care physician for review when the patient follows up with him on hospital discharge. We will resume his regular home medications as before with no changes at this time. Patient will be discharged home in stable condition. Explained to him that he if we can get a hold of his primary care physician if he needs to be seen to go to the closest ER for further workup and evaluation. He understands this.
== END 2023-12-14 12:15 | disposition hospice, home (50) ==
LOC: ER 04:18 → U 04:18 → MED/SURG 09:45
PROVIDERS: ADMIT Family Medicine; ATTEND Family Medicine
DX: R91.8 Other nonspecific abnormal finding of lung field; E83.42 Hypomagnesemia; K21.9 Gastro-esophageal reflux disease without esophagitis; J44.9 Chronic obstructive pulmonary disease, unspecified; K70.31 Alcoholic cirrhosis of liver with ascites; R74.8 Abnormal levels of other serum enzymes; E88.09 Other disorders of plasma-protein metabolism, not elsewhere classified; R06.02 Shortness of breath; I10 Essential (primary) hypertension

== ENCOUNTER 2024-02-22 13:43 | Observation (INO) ==
[2024-02-22 13:53] VITALS: BMI 32.1
--- NOTE | 2024-02-22 14:02 | DR.CP ---
HPI Time Seen Time Seen by Provider: 02/22/24 13:53 PCP Primary Care Physician: XAVIER LANTIGUA Complaint Chief Complaint Doctor Comments: 58-year-old male presents with increasing swelling of his abdomen. Patient has a history of cirrhosis, and recurrent ascites. Has been getting paracentesis on a near weekly basis. Patient was in the hospital last week and got tapped, had several liters removed over via peritoneal drain, over several hours. Patient have pain diffusely of the abdomen. He states he also has nausea and frequent vomiting. He has been moving his bowels frequently, which she relates due to the lactulose. No urinary issues. Abdominal pain worse with movement. Nothing makes it better.. Chief Complaint:: PT STATES THAT HE HAVING FLUID BUILD UP, SOB. PT USUALLY GETS A PARECENTESIS EVERY WEEK, BUT HASN'T HAD ONE IN A WEEK IN A HALF. COVID-19 Coronavirus risk:travel/contact w/high risk person: No Has patient experienced Coronavirus symptoms: No Reviewed Nurses Notes Review: Yes Source History Provided: Patient Mode of Arrival Mode of Arrival: Ambulatory Timing Onset of Chief Complaint: 02/22/24 PMH PMH Past Medical History: Yes Past Medical History: Cirrhosis, COPD, GERD and Hypertension Past Surgical History: Yes Surgical History: No History Family History History of Family Medical Conditions: Yes Family Medical History: [place] and Hypertension Social History Does patient currently use any type of tobacco product: No Have you used tobacco products in the last 12 months: No Type of Tobacco Use: None Does any household member use tobacco: No Alcohol Use: None Do you use any recreational Drugs:: No Lives With: Alone Lives Where: Home Travel Risk Coronavirus risk:travel/contact w/high risk person: No Has patient experienced Coronavirus symptoms: No Infectious screening Have you traveled outside the country in the last 6 months?: No Isolation: Standard ROS Review of Systems Constitutional: No Symptoms Reported Eyes: No Symptoms Reported ENTM: No Symptoms Reported Respiratoy: No Symptoms Reported Cardiovascular: No Symptoms Reported Gastrointestinal/Abdominal: See HPI Genitourinary: No Symptoms Reported Neurological: No Symptoms Reported Musculoskeletal: No Symptoms Reported Integumentary: No Symptoms Reported Psychiatric: No Symptoms Reported All Other Systems: Reviewed and Negative PE Vitals Vitals: Vital Signs Temperature 98.4 F Pulse Rate 74 Pulse Rate 75 Pulse Rate 74 Pulse Rate 73 Pulse Rate 75 Respiratory Rate 20 Respiratory Rate 20 Respiratory Rate 20 Blood Pressure 139/78 Blood Pressure 147/83 Blood Pressure 144/88 Blood Pressure 156/84 O2 Sat by Pulse Oximetry 96 O2 Sat by Pulse Oximetry 98 O2 Sat by Pulse Oximetry 98 O2 Sat by Pulse Oximetry 97 O2 Sat by Pulse Oximetry 97 General General Appearance: Alert and In No Apparent Distress Eyes Eye exam: PERRL and EOMI Chest Chest Inspection: Normal Inspection Respiratory Respiratory Exam: Normal Lung Sounds Bilat; negative Accessory Muscle Use or Respiratory Distress Cardiovascular Cardiovascular Exam: Regular Rate, Normal Rhythm and Normal Heart Sounds Abdominal Exam Abdominal Exam: Normal Bowel Sounds, Soft, Distention (Has diffuse ascites) and Tenderness (Mild, all quadrants. No guarding or rebound) Extremities Extremities Exam: Edema (2+ lower extremity edema bilaterally) Neurologic Neurological Exam: Alert, Oriented X3 and CN II-XII Intact; negative Motor Sensory Deficit Skin Skin Exam: Warm and Dry COURSE Treatment Treatment: 58-year-old male with recurrent ascites due to cirrhosis of the liver. Last tapped on 02/14. Discussed with surgery, Dr Ernandez. Has a complicated paracentesis history, needs a drain over several hours to remove adequate amount of fluid. Baseline labs obtained. Patient given IV Zofran/morphine. 1512 -labs overall acceptable. Will present patient to his primary care provider, Dr. Navas, for admission, for paracentesis with Dr. Ernandez. 1526 - Dr Navas accepts the admission. ROR Labs Reviewed Laboratory Results Reviewed?: Yes 02/23/24 06:08 02/23/24 06:08 Laboratory: WBC 8.7 X10^3/uL (3.6-10.0) 02/22/24 14:02 RBC 3.06 X10^6/uL (4.7-6.0) L 02/22/24 14:02 Hgb 9.3 g/dL (13.5-18.0) L 02/22/24 14:02 Hct 27.3 % (42.0-54.0) L 02/22/24 14:02 MCV 89.3 fL (80.0-100.0) 02/22/24 14:02 MCH 30.5 pg (27.0-34.0) 02/22/24 14:02 MCHC 34.2 g/dL (33.0-35.0) 02/22/24 14:02 RDW 16.6 % (11.6-16.5) H 02/22/24 14:02 Plt Count 228 X10^3/uL (150.0-450.0) 02/22/24 14:02 MPV 7.5 fL (7.4-11.0) 02/22/24 14:02 Neut % (Auto) 66.3 % (42.0-75.0) 02/22/24 14:02 Lymph % (Auto) 13.9 % (21.0-51.0) L 02/22/24 14:02 [place] % (Auto) 9.3 % (0.0-13.0) 02/22/24 14:02 Eos % (Auto) 9.3 % (0.9-2.9) H 02/22/24 14:02 Baso % (Auto) 1.2 % (0.2-1.0) H 02/22/24 14:02 Neut # (Auto) 5.7 x10^3/uL (2.2-4.8) H 02/22/24 14:02 Lymph # (Auto) 1.2 X10^3/uL (1.3-2.9) L 02/22/24 14:02 [place] # (Auto) 0.8 x10^3/uL (0.3-0.8) 02/22/24 14:02 Eos # (Auto) 0.8 x10^3/uL (0.0-0.2) H 02/22/24 14:02 Baso # (Auto) 0.1 X10^3/uL (0.0-0.1) 02/22/24 14:02 Absolute Nucleated RBC 0.0 /100WBC 02/22/24 14:02 PT 14.9 SECONDS (11.8-14.3) 02/22/24 14:02 INR Target Range - 02/22/24 14:02 INR 1.20 (0.8-1.3) 02/22/24 14:02 APTT 33.9 SECONDS (22.9-36.5) 02/22/24 14:02 PTT Comment - 02/22/24 14:02 Sodium 144 mmol/L (136-145) 02/22/24 14:02 Corrected Sodium TNP 02/22/24 14:02 Potassium 4.0 mmol/L (3.5-5.1) 02/22/24 14:02 Chloride 111 mmol/L (98-107) H 02/22/24 14:02 Carbon Dioxide 27.8 mmol/L (21-32) 02/22/24 14:02 BUN 23 mg/dL (7-18) H 02/22/24 14:02 Creatinine 0.96 mg/dL (0.70-1.30) 02/22/24 14:02 Est GFR (MDRD) Af Amer > 60 (>60) 02/22/24 14:02 Est GFR (MDRD) Non-Af > 60 (>60) 02/22/24 14:02 Glucose 108 mg/dL (65-99) H 02/22/24 14:02 Calcium 8.2 mg/dL (8.5-10.1) L 02/22/24 14:02 Corrected Calcium 10.0 mg/dL (8.5-10.1) 02/22/24 14:02 Total Bilirubin 0.70 mg/dL (0.2-1.0) 02/22/24 14:02 AST 30 Units/L (15-37) 02/22/24 14:02 ALT 11 Units/L (12-78) L 02/22/24 14:02 Alkaline Phosphatase 122 Units/L (46-116) H 02/22/24 14:02 Ammonia 77 umol/L (11-32) H 02/22/24 14:02 Total Protein 5.1 g/dL (6.4-8.2) L 02/22/24 14:02 Albumin 1.7 g/dL (3.4-5.0) L 02/22/24 14:02 Globulin 3.4 g/dL (2.5-4.5) 02/22/24 14:02 Albumin/Globulin Ratio 0.5 Ratio (1.1-2.1) L 02/22/24 14:02 Lipase 80 Units/L (16-77) H 02/22/24 14:02 Labs overall acceptable. Ammonia level slightly elevated. Opioid Opioid Risk Tool Age (Shaan box if 16-45): No History of Preadolescent Sexual Abuse: No Total: 0 Total Score Risk Category: Low Risk Copyright: Humberto OSEGUERA predicting aberrant behaviors Discharge Plan Diagnosis Discharge Problem: Tense ascites Discharge Plan Patient Disposition: 09 ADMITTED INPATIENT Condition: Stable
[2024-02-22] MEDS: MORPHINE SULFATE INJ 4 MG IVP ONE (14:08)
[2024-02-22 14:09] LABS: BASOPHILS # (AUTO) 0.1 X10^3/uL (0.0-0.1); BASOPHILS % (AUTO) 1.2 % (0.2-1.0); EOSINOPHILS # (AUTO) 0.8 x10^3/uL (0.0-0.2); EOSINOPHILS % (AUTO) 9.3 % (0.9-2.9); HEMATOCRIT 27.3 % (42.0-54.0); HEMOGLOBIN 9.3 g/dL (13.5-18.0); LYMPHOCYTES # (AUTO) 1.2 X10^3/uL (1.3-2.9); LYMPHOCYTES % (AUTO) 13.9 % (21.0-51.0); MEAN CORPUSCULAR HEMOGLOBIN 30.5 pg (27.0-34.0); MEAN CORPUSCULAR HGB CONC 34.2 g/dL (33.0-35.0); MEAN CORPUSCULAR VOLUME 89.3 fL (80.0-100.0); MEAN PLATELET VOLUME 7.5 fL (7.4-11.0); MONOCYTES # (AUTO) 0.8 x10^3/uL (0.3-0.8); MONOCYTES % (AUTO) 9.3 % (0.0-13.0); NEUTROPHILS # (AUTO) 5.7 x10^3/uL (2.2-4.8); NEUTROPHILS % (AUTO) 66.3 % (42.0-75.0); PLATELET COUNT 228 X10^3/uL (150.0-450.0); RED BLOOD COUNT 3.06 X10^6/uL (4.7-6.0); RED CELL DISTRIBUTION WIDTH 16.6 % (11.6-16.5); WHITE BLOOD COUNT 8.7 X10^3/uL (3.6-10.0)
[2024-02-22] MEDS: ZOFRAN INJ 4 MG VIAL IVP ONE (14:09)
[2024-02-22 14:25] LABS: ALANINE AMINOTRANSFERASE 11 Units/L (12-78); ALBUMIN 1.7 g/dL (3.4-5.0); ALKALINE PHOSPHATASE 122 Units/L (46-116); ASPARTATE AMINO TRANSFERASE 30 Units/L (15-37); BLOOD UREA NITROGEN 23 mg/dL (7-18); CALCIUM 8.2 mg/dL (8.5-10.1); CARBON DIOXIDE 27.8 mmol/L (21-32); CHLORIDE 111 mmol/L (98-107); CREATININE 0.96 mg/dL (0.70-1.30); GLUCOSE 108 mg/dL (65-99); LIPASE 80 Units/L (16-77); SODIUM 144 mmol/L (136-145); TOTAL PROTEIN 5.1 g/dL (6.4-8.2); eGFR NON BLACK RACES > 60 (>60)
[2024-02-22 14:45] LABS: AMMONIA 77 umol/L (11-32)
[2024-02-22] MEDS ORDERED: CONSULT PHARMACY - POTASSIUM & MAGNESIUM XX SCH (16:19)
[2024-02-22] MEDS: NS 250 ML IV 250 ML IV ONE (18:27)
[2024-02-22] MEDS: ALBUMIN HUMAN 25%- 100 ML 100 ML IV ONE (18:27)
[2024-02-22] MEDS: NORCO 5/325 MG TAB PO PRN (18:47)
[2024-02-23] MEDS: NORCO 5/325 MG TAB PO PRN (03:17)
[2024-02-23 06:31] LABS: BASOPHILS # (AUTO) 0.1 X10^3/uL (0.0-0.1); BASOPHILS % (AUTO) 1.4 % (0.2-1.0); EOSINOPHILS # (AUTO) 0.7 x10^3/uL (0.0-0.2); EOSINOPHILS % (AUTO) 8.8 % (0.9-2.9); HEMATOCRIT 26.4 % (42.0-54.0); LYMPHOCYTES # (AUTO) 1.1 X10^3/uL (1.3-2.9); LYMPHOCYTES % (AUTO) 14.4 % (21.0-51.0); MEAN CORPUSCULAR HEMOGLOBIN 30.5 pg (27.0-34.0); MEAN CORPUSCULAR HGB CONC 34.1 g/dL (33.0-35.0); MEAN CORPUSCULAR VOLUME 89.3 fL (80.0-100.0); MEAN PLATELET VOLUME 7.9 fL (7.4-11.0); MONOCYTES # (AUTO) 0.7 x10^3/uL (0.3-0.8); MONOCYTES % (AUTO) 9.2 % (0.0-13.0); NEUTROPHILS # (AUTO) 5.2 x10^3/uL (2.2-4.8); NEUTROPHILS % (AUTO) 66.2 % (42.0-75.0); PLATELET COUNT 192 X10^3/uL (150.0-450.0); RED BLOOD COUNT 2.95 X10^6/uL (4.7-6.0); RED CELL DISTRIBUTION WIDTH 17.3 % (11.6-16.5); WHITE BLOOD COUNT 7.8 X10^3/uL (3.6-10.0)
[2024-02-23 06:48] LABS: ALANINE AMINOTRANSFERASE 7 Units/L (12-78); ALBUMIN 1.8 g/dL (3.4-5.0); ALKALINE PHOSPHATASE 103 Units/L (46-116); ASPARTATE AMINO TRANSFERASE 25 Units/L (15-37); BLOOD UREA NITROGEN 21 mg/dL (7-18); CALCIUM 7.8 mg/dL (8.5-10.1); CARBON DIOXIDE 29.4 mmol/L (21-32); CHLORIDE 110 mmol/L (98-107); COR CA(FOR HYPOALB) 9.6 mg/dL (8.5-10.1); COR NA(FOR HYPERGLY) 143 mmol/L (136-145); CREATININE 0.95 mg/dL (0.70-1.30); GLUCOSE 120 mg/dL (65-99); POTASSIUM 4.1 mmol/L (3.5-5.1); SODIUM 143 mmol/L (136-145); TOTAL PROTEIN 4.6 g/dL (6.4-8.2); eGFR NON BLACK RACES > 60 (>60)
[2024-02-23] MEDS: ALBUMIN HUMAN 25%- 100 ML 100 ML IV SCH (08:46)
[2024-02-23] MEDS: PROTONIX INJ 40 MG VIAL IVP SCH (08:46)
[2024-02-23 13:01] VITALS: BP 110/64; PULSE 62; RESP 18; TEMP 97.7; O2SAT 97
--- NOTE | 2024-02-23 13:34 | RAD ---
EXAM:KUBHISTORY:ASCITES; HTN, CIRRHOSIS, COPDCOMPARISON:02/16/2024TECHNIQUE:A supine view was acquired.FINDINGS:There is a nonobstructive, nonspecific bowel gas pattern. No pathologic calcifications are noted.The osseous structures are intact. Catheter tubing projects over right lower quadrant.IMPRESSION:Nonobstructive, nonspecific bowel gas pattern.THIS IS AN ELECTRONICALLY VERIFIED FINAL REPORT02/23/2024 1:31 PM - Electronically signed by Conner Arredondo MD
== END 2024-02-23 13:40 | disposition home health service (06) ==
LOC: ER 13:43 → MED/SURG 13:43
PROVIDERS: ADMIT Internal Medicine; ATTEND Internal Medicine
DX: R60.0 Localized edema; R10.84 Generalized abdominal pain; K21.9 Gastro-esophageal reflux disease without esophagitis; R06.02 Shortness of breath; K70.31 Alcoholic cirrhosis of liver with ascites; J44.9 Chronic obstructive pulmonary disease, unspecified

== ENCOUNTER 2024-05-20 11:46 | Observation (INO) ==
--- NOTE | 2024-05-20 15:37 | DR.SOBA ---
HPI Time Seen Time Seen by Provider: 05/20/24 15:36 Primary Care Physician Primary Care Physician: tl alfaro Complaints Chief Complaint:: Patient states he has been short of breath for a couple of days due to his ascites states it has been a month since his fluids has been drained off and he feels like he is going to bust. COVID-19 Coronavirus risk:travel/contact w/high risk person: No Has patient experienced Coronavirus symptoms: No Source History Provided: Patient Mode of Arrival Mode of Arrival: Wheelchair Timing Onset of Chief Complaint: 05/20/24 PMH PMH Past Medical History: Yes Past Medical History: COPD, GERD, Hypertension and Liver Disease Past Surgical History: No Surgical History: No History Family History History of Family Medical Conditions: Yes Family Medical History: [place], Coronary Artery Disease and Hypertension Social History Does patient currently use any type of tobacco product: No Have you used tobacco products in the last 12 months: No Type of Tobacco Use: None Does any household member use tobacco: No Alcohol Use: None Do you use any recreational Drugs:: No Lives With: Family Lives Where: Home Travel Risk Coronavirus risk:travel/contact w/high risk person: No Has patient experienced Coronavirus symptoms: No Infectious screening In the last 2 months have you had wt loss of >10#?: NO Have you had fever, night sweats or hemotysis?: No Have you traveled outside the country in the last 6 months?: No Isolation: Standard PE Vital Signs Vitals: Vital Signs Temperature 97.9 F Pulse Rate [Bilateral Radial] 84 Pulse Rate 90 Respiratory Rate 20 Respiratory Rate 20 Blood Pressure [Right Arm] 138/78 Blood Pressure 152/81 O2 Sat by Pulse Oximetry 98 O2 Sat by Pulse Oximetry 98 ROR Labs Reviewed 05/20/24 15:50 05/20/24 15:50 Laboratory: WBC 8.6 X10^3/uL (3.6-10.0) 05/20/24 15:50 WBC Cancelled 05/20/24 15:50 RBC 3.45 X10^6/uL (4.7-6.0) L 05/20/24 15:50 RBC Cancelled 05/20/24 15:50 Hgb 10.9 g/dL (13.5-18.0) L 05/20/24 15:50 Hgb Cancelled 05/20/24 15:50 Hct 31.1 % (42.0-54.0) L 05/20/24 15:50 Hct Cancelled 05/20/24 15:50 MCV 90.3 fL (80.0-100.0) 05/20/24 15:50 MCV Cancelled 05/20/24 15:50 MCH 31.6 pg (27.0-34.0) 05/20/24 15:50 MCH Cancelled 05/20/24 15:50 MCHC 35.0 g/dL (33.0-35.0) 05/20/24 15:50 MCHC Cancelled 05/20/24 15:50 RDW 16.4 % (11.6-16.5) 05/20/24 15:50 RDW Cancelled 05/20/24 15:50 Plt Count 220 X10^3/uL (150.0-450.0) 05/20/24 15:50 Plt Count Cancelled 05/20/24 15:50 Plt Count Comment Adequate (ADEQUATE) 05/20/24 15:50 MPV 7.8 fL (7.4-11.0) 05/20/24 15:50 MPV Cancelled 05/20/24 15:50 Neut % (Auto) 41.3 % (42.0-75.0) L 05/20/24 15:50 Neut % (Auto) Cancelled 05/20/24 15:50 Lymph % (Auto) 10.2 % (21.0-51.0) L 05/20/24 15:50 Lymph % (Auto) Cancelled 05/20/24 15:50 [place] % (Auto) 9.0 % (0.0-13.0) 05/20/24 15:50 [place] % (Auto) Cancelled 05/20/24 15:50 Eos % (Auto) 38.2 % (0.9-2.9) H 05/20/24 15:50 Eos % (Auto) Cancelled 05/20/24 15:50 Baso % (Auto) 1.3 % (0.2-1.0) H 05/20/24 15:50 Baso % (Auto) Cancelled 05/20/24 15:50 Neut # (Auto) 3.5 x10^3/uL (2.2-4.8) 05/20/24 15:50 Neut # (Auto) Cancelled 05/20/24 15:50 Lymph # (Auto) 0.9 X10^3/uL (1.3-2.9) L 05/20/24 15:50 Lymph # (Auto) Cancelled 05/20/24 15:50 [place] # (Auto) 0.8 x10^3/uL (0.3-0.8) 05/20/24 15:50 [place] # (Auto) Cancelled 05/20/24 15:50 Eos # (Auto) 3.3 x10^3/uL (0.0-0.2) H 05/20/24 15:50 Eos # (Auto) Cancelled 05/20/24 15:50 Baso # (Auto) 0.1 X10^3/uL (0.0-0.1) 05/20/24 15:50 Baso # (Auto) Cancelled 05/20/24 15:50 Absolute Nucleated RBC 0.1 /100WBC 05/20/24 15:50 Absolute Nucleated RBC Cancelled 05/20/24 15:50 Total Counted 100 05/20/24 15:50 Neutrophils % (Manual) 51 % (39-76) 05/20/24 15:50 Lymphocytes % (Manual) 11 % (13-43) L 05/20/24 15:50 Monocytes % (Manual) 6 % (4-9) 05/20/24 15:50 Eosinophils % (Manual) 32 % (0-6) H 05/20/24 15:50 Plt Morphology Comment Normal (NORMAL) 05/20/24 15:50 RBC Morphology Normal (NORMAL) 05/20/24 15:50 Sodium 142 mmol/L (136-145) 05/20/24 15:50 Corrected Sodium TNP 05/20/24 15:50 Potassium 3.6 mmol/L (3.5-5.1) 05/20/24 15:50 Chloride 109 mmol/L (98-107) H 05/20/24 15:50 Carbon Dioxide 27.2 mmol/L (21-32) 05/20/24 15:50 BUN 17 mg/dL (7-18) 05/20/24 15:50 Creatinine 1.07 mg/dL (0.70-1.30) 05/20/24 15:50 Est GFR (MDRD) Af Amer > 60 (>60) 05/20/24 15:50 Est GFR (MDRD) Non-Af > 60 (>60) 05/20/24 15:50 Glucose 95 mg/dL (65-99) 05/20/24 15:50 Calcium 8.1 mg/dL (8.5-10.1) L 05/20/24 15:50 Corrected Calcium 9.9 mg/dL (8.5-10.1) 05/20/24 15:50 Total Bilirubin 0.60 mg/dL (0.2-1.0) 05/20/24 15:50 AST 37 Units/L (15-37) 05/20/24 15:50 ALT 16 Units/L (12-78) 05/20/24 15:50 Alkaline Phosphatase 116 Units/L (46-116) 05/20/24 15:50 Creatine Kinase 90 Units/L (39-308) 05/20/24 15:50 Troponin I High Sens 10.7 ng/L (4.0-60.0) 05/20/24 15:50 Total Protein 5.5 g/dL (6.4-8.2) L 05/20/24 15:50 Albumin 1.7 g/dL (3.4-5.0) L 05/20/24 15:50 Globulin 3.8 g/dL (2.5-4.5) 05/20/24 15:50 Albumin/Globulin Ratio 0.4 Ratio (1.1-2.1) L 05/20/24 15:50 Amylase 52 Units/L (25-115) 05/20/24 15:50 Lipase 48 Units/L (16-77) 05/20/24 15:50 Opioid Opioid Risk Tool Age (Shaan box if 16-45): No History of Preadolescent Sexual Abuse: No Total: 0 Total Score Risk Category: Low Risk Copyright: Humberto OSEGUERA predicting aberrant behaviors Discharge Plan Discharge Plan Patient Disposition: 01 HOME, SELF-CARE Condition: Stable Prescriptions: No Action Xifaxan 550 mg tablet 550 mg PO BID spironolactone 25 mg Tablet 25 mg PO QDAY oxycodone 5 mg tablet 5 mg PO Q8H Trelegy Ellipta 100-62.5-25 mcg blister with device 1 ea INHALATION QDAY albuterol sulfate 90 mcg/actuation HFA aerosol inhaler 2 puff inhalation Q4H PRN furosemide [Lasix] 40 mg Tablet 40 mg PO DAILY Qty: 30 3[facility] Health Concerns: Post Hospitalization: new medications and changes needed to prevent readmission or further decline. Pt educated and given instructions on all concerns. Plan of Treatment: Continue with present treatment and follow up plan. Pt is to keep follow up appointment as instructed and take medications as ordered. Orders to Discharge Patient Discharge Orders: Transfer (Routine); Ordered 05/20/24 Ordered By: KALI HODGE Follow ups/Referrals Follow ups/Referrals: TL ALFARO [Primary Care Provider] - 3 days Instructions Stand Alone Forms: Post Hospital Follow Up Care
[2024-05-20 16:10] LABS: LYMPHOCYTES # (AUTO) 0.9 X10^3/uL (1.3-2.9); LYMPHOCYTES % (AUTO) 10.2 % (21.0-51.0); NEUTROPHILS # (AUTO) 3.5 x10^3/uL (2.2-4.8)
[2024-05-20 16:16] LABS: BASOPHILS # (AUTO) 0.1 X10^3/uL (0.0-0.1); BASOPHILS % (AUTO) 1.3 % (0.2-1.0); EOSINOPHILS # (AUTO) 3.3 x10^3/uL (0.0-0.2); EOSINOPHILS % (AUTO) 38.2 % (0.9-2.9); HEMATOCRIT 31.1 % (42.0-54.0); HEMOGLOBIN 10.9 g/dL (13.5-18.0); MEAN CORPUSCULAR HEMOGLOBIN 31.6 pg (27.0-34.0); MEAN CORPUSCULAR VOLUME 90.3 fL (80.0-100.0); MEAN PLATELET VOLUME 7.8 fL (7.4-11.0); MONOCYTES # (AUTO) 0.8 x10^3/uL (0.3-0.8); NEUTROPHILS % (AUTO) 41.3 % (42.0-75.0); PLATELET COUNT 220 X10^3/uL (150.0-450.0); RED BLOOD COUNT 3.45 X10^6/uL (4.7-6.0); RED CELL DISTRIBUTION WIDTH 16.4 % (11.6-16.5); WHITE BLOOD COUNT 8.6 X10^3/uL (3.6-10.0)
[2024-05-20 16:18] LABS: ALANINE AMINOTRANSFERASE 16 Units/L (12-78); ALBUMIN 1.7 g/dL (3.4-5.0); ALKALINE PHOSPHATASE 116 Units/L (46-116); AMYLASE 52 Units/L (25-115); ASPARTATE AMINO TRANSFERASE 37 Units/L (15-37); BLOOD UREA NITROGEN 17 mg/dL (7-18); CALCIUM 8.1 mg/dL (8.5-10.1); CARBON DIOXIDE 27.2 mmol/L (21-32); CHLORIDE 109 mmol/L (98-107); COR CA(FOR HYPOALB) 9.9 mg/dL (8.5-10.1); CREATININE 1.07 mg/dL (0.70-1.30); GLUCOSE 95 mg/dL (65-99); LIPASE 48 Units/L (16-77); POTASSIUM 3.6 mmol/L (3.5-5.1); SODIUM 142 mmol/L (136-145); TOTAL PROTEIN 5.5 g/dL (6.4-8.2); eGFR NON BLACK RACES > 60 (>60)
[2024-05-20 16:58] LABS: PLATELET MORPHOLOGY COMMENT NORMAL (NORMAL)
--- NOTE | 2024-05-20 17:01 | RAD ---
EXAMINATION: CHEST, 1 VIEW HISTORY: short of breath for a couple of days due to his ascites states it has been a month since his fluids h as been drained off and he feels like he is going to bust.; . COMPARISON STUDY: 02/14/2024 TECHNIQUE: One view FINDINGS: Cardiomegaly is present. Round opacity in the right lower lobe likely representing a pseudotumor. P leural-parenchymal scarring in the right lower lobe. No acute infiltrates. No pneumothorax. Poor i nspiration. Hilar and mediastinal structures and bony structures are unchanged. Surgical clips kennedi g the kenn versus technical artifact. Correlate clinically. IMPRESSION: No acute findings. THIS IS AN ELECTRONICALLY VERIFIED FINAL REPORT 05/20/2024 4:56 PM - Electronically signed by Marco A Garcia MD
[2024-05-20 19:33] VITALS: BMI 34.2
[2024-05-20] MEDS: LASIX IVP ONE (20:22)
[2024-05-20] MEDS ORDERED: DILAUDID INJ IVP PRN (20:31)
[2024-05-20] MEDS ORDERED: TYLENOL 325 MG TAB PO PRN (20:31)
[2024-05-20] MEDS: NORCO 5/325 MG TAB PO PRN (23:19)
[2024-05-21 06:18] LABS: BILIRUBIN,URINE NEGATIVE (NEGATIVE); BLOOD/HEMOGLOBIN,URINE 4+ (NEGATIVE); GLUCOSE, URINE NEGATIVE (NEGATIVE); KETONES,URINE NEGATIVE (NEGATIVE); LEUKOCYTE ESTERASE ,URINE NEGATIVE (NEGATIVE); NITRITES,URINE NEGATIVE (NEGATIVE); PROTEIN,URINE 3+ (NEGATIVE); UROBILINOGEN,URINE 1+ (NORMAL)
[2024-05-21 06:28] LABS: BASOPHILS # (AUTO) 0.2 X10^3/uL (0.0-0.1); BASOPHILS % (AUTO) 2.3 % (0.2-1.0); EOSINOPHILS # (AUTO) 4.1 x10^3/uL (0.0-0.2); EOSINOPHILS % (AUTO) 47.5 % (0.9-2.9); HEMATOCRIT 28.8 % (42.0-54.0); HEMOGLOBIN 10.1 g/dL (13.5-18.0); LYMPHOCYTES # (AUTO) 1.3 X10^3/uL (1.3-2.9); LYMPHOCYTES % (AUTO) 15.2 % (21.0-51.0); MEAN CORPUSCULAR HEMOGLOBIN 31.6 pg (27.0-34.0); MEAN CORPUSCULAR HGB CONC 35.2 g/dL (33.0-35.0); MEAN CORPUSCULAR VOLUME 89.7 fL (80.0-100.0); MEAN PLATELET VOLUME 7.8 fL (7.4-11.0); MONOCYTES # (AUTO) 0.7 x10^3/uL (0.3-0.8); MONOCYTES % (AUTO) 7.7 % (0.0-13.0); NEUTROPHILS # (AUTO) 2.4 x10^3/uL (2.2-4.8); NEUTROPHILS % (AUTO) 27.3 % (42.0-75.0); PLATELET COUNT 190 X10^3/uL (150.0-450.0); RED BLOOD COUNT 3.21 X10^6/uL (4.7-6.0); RED CELL DISTRIBUTION WIDTH 16.2 % (11.6-16.5); WHITE BLOOD COUNT 8.7 X10^3/uL (3.6-10.0)
[2024-05-21 06:31] LABS: APPEARANCE,URINE SLIGHTLY HAZY (CLEAR); COLOR,URINE YELLOW (YELLOW)
[2024-05-21 06:32] LABS: BACTERIA,URINE TRACE /HPF (NEGATIVE); HYALINE CASTS, URINE FEW /LPF (NEGATIVE); SQUAMOUS EPITHELIAL CELL,UR FEW /HPF (NEGATIVE)
[2024-05-21 06:40] LABS: ALANINE AMINOTRANSFERASE 13 Units/L (12-78); ALBUMIN 1.5 g/dL (3.4-5.0); ALKALINE PHOSPHATASE 105 Units/L (46-116); ASPARTATE AMINO TRANSFERASE 33 Units/L (15-37); BLOOD UREA NITROGEN 18 mg/dL (7-18); CALCIUM 7.9 mg/dL (8.5-10.1); CHLORIDE 110 mmol/L (98-107); COR CA(FOR HYPOALB) 9.9 mg/dL (8.5-10.1); CREATININE 1.12 mg/dL (0.70-1.30); GLUCOSE 89 mg/dL (65-99); POTASSIUM 3.4 mmol/L (3.5-5.1); SODIUM 143 mmol/L (136-145); eGFR NON BLACK RACES > 60 (>60)
[2024-05-21 06:53] LABS: PLATELET MORPHOLOGY COMMENT NORMAL (NORMAL)
[2024-05-21] MEDS ORDERED: CONSULT PHARMACY - POTASSIUM & MAGNESIUM XX SCH ×2 (07:00→17:41)
[2024-05-21] MEDS: MORPHINE SULFATE INJ 2 MG INJ IVP PRN (08:16)
[2024-05-21] MEDS: PROVENTIL NEB TX 0.083% 2.5MG/ 3ML NEB SCH (08:56)
[2024-05-21] MEDS: PULMICORT NEB TX 0.5 MG NEB SCH (08:56)
[2024-05-21] MEDS: K-DUR TAB 20 MEQ PO SCH (09:46)
[2024-05-21] MEDS: ALDACTONE TAB 25 MG PO SCH (09:46)
[2024-05-21] MEDS: ALBUMIN HUMAN 25%- 100 ML 100 ML IV SCH (09:46)
[2024-05-21] MEDS: LOVENOX INJ 40 MG SYR SC SCH (09:47)
--- NOTE | 2024-05-21 17:43 | DR.H&P ---
H&P History & Physical for Day of: H&P Date: 05/20/24 Chief Complaint Chief Complaint: SOB, SWELLING, RETAINING WATER History of Present Illness History of Present Illness: PT IS 59 WM, ER ADMISSION, WITH CO SOB FOR SEVERAL DAYS DUE TO FLUID RETENTION. PT HAS PMH OF LIVER DISEASE, CIRRHOSIS, ANEMIA, HTN AND OA. PT REPORTS HE HAS BEEN TAKING PRESCRIPTION MEDICATION PRESCRIBED. PT ADMITTED FOR EVALUATION AND TREATMENT OF ACUTE ILLNESS. Past Medical History Past Medical History: COPD, GERD, Hypertension and Liver Disease Past Surgical History Surgical History: No History Family History Family Medical History: [place] Social History Does patient currently use any type of tobacco product: No Have you used tobacco products in the last 12 months: No Type of Tobacco Use: None Does any household member use tobacco: No Alcohol Use: None Drug Use: None Medications Home Medications: Home Medications Medication Instructions Recorded Confirmed Type fluticasone fur. 100 mcg-umeclid 1 ea inhalation QDAY 02/22/24 05/20/24 History 62.5 mcg-vilant 25 mcg inhalat.powder (Trelegy Ellipta) albuterol sulfate 90 mcg/actuation 2 puff inhalation Q4H PRN 03/14/24 05/21/24 History aerosol inhaler (Ventolin HFA) rifaximin 550 mg tablet (Xifaxan) 550 mg PO BID 04/11/24 05/21/24 History oxycodone 5 mg tablet 5 mg PO Q8H 04/17/24 05/21/24 History spironolactone 25 mg tablet 25 mg PO QDAY 04/17/24 05/20/24 History Allergies Allergies Allergy/AdvReac Type Severity Reaction Status Date / Time No Known Drug Allergies Allergy Unknown Verified 04/11/24 16:24 Labs 05/21/24 05:44 05/21/24 05:44 Labs: Laboratory WBC 8.7 X10^3/uL (3.6-10.0) 05/21/24 05:44 RBC 3.21 X10^6/uL (4.7-6.0) L 05/21/24 05:44 Hgb 10.1 g/dL (13.5-18.0) L 05/21/24 05:44 Hct 28.8 % (42.0-54.0) L 05/21/24 05:44 MCV 89.7 fL (80.0-100.0) 05/21/24 05:44 MCH 31.6 pg (27.0-34.0) 05/21/24 05:44 MCHC 35.2 g/dL (33.0-35.0) H 05/21/24 05:44 RDW 16.2 % (11.6-16.5) 05/21/24 05:44 Plt Count 190 X10^3/uL (150.0-450.0) 05/21/24 05:44 Plt Count Comment Adequate (ADEQUATE) 05/21/24 05:44 MPV 7.8 fL (7.4-11.0) 05/21/24 05:44 Neut % (Auto) 27.3 % (42.0-75.0) L 05/21/24 05:44 Lymph % (Auto) 15.2 % (21.0-51.0) L 05/21/24 05:44 [place] % (Auto) 7.7 % (0.0-13.0) 05/21/24 05:44 Eos % (Auto) 47.5 % (0.9-2.9) H 05/21/24 05:44 Baso % (Auto) 2.3 % (0.2-1.0) H 05/21/24 05:44 Neut # (Auto) 2.4 x10^3/uL (2.2-4.8) 05/21/24 05:44 Lymph # (Auto) 1.3 X10^3/uL (1.3-2.9) 05/21/24 05:44 [place] # (Auto) 0.7 x10^3/uL (0.3-0.8) 05/21/24 05:44 Eos # (Auto) 4.1 x10^3/uL (0.0-0.2) H 05/21/24 05:44 Baso # (Auto) 0.2 X10^3/uL (0.0-0.1) H 05/21/24 05:44 Absolute Nucleated RBC 0.1 /100WBC 05/21/24 05:44 Total Counted 100 05/21/24 05:44 Neutrophils % (Manual) 40 % (39-76) 05/21/24 05:44 Lymphocytes % (Manual) 22 % (13-43) 05/21/24 05:44 Monocytes % (Manual) 5 % (4-9) 05/21/24 05:44 Eosinophils % (Manual) 33 % (0-6) H 05/21/24 05:44 Plt Morphology Comment Normal (NORMAL) 05/21/24 05:44 RBC Morphology Normal (NORMAL) 05/21/24 05:44 Sodium 143 mmol/L (136-145) 05/21/24 05:44 Corrected Sodium TNP 05/21/24 05:44 Potassium 3.4 mmol/L (3.5-5.1) L 05/21/24 05:44 Chloride 110 mmol/L (98-107) H 05/21/24 05:44 Carbon Dioxide 29.0 mmol/L (21-32) 05/21/24 05:44 BUN 18 mg/dL (7-18) 05/21/24 05:44 Creatinine 1.12 mg/dL (0.70-1.30) 05/21/24 05:44 Est GFR (MDRD) Af Amer > 60 (>60) 05/21/24 05:44 Est GFR (MDRD) Non-Af > 60 (>60) 05/21/24 05:44 Glucose 89 mg/dL (65-99) 05/21/24 05:44 Calcium 7.9 mg/dL (8.5-10.1) L 05/21/24 05:44 Corrected Calcium 9.9 mg/dL (8.5-10.1) 05/21/24 05:44 Magnesium 1.6 mg/dL (2.0-2.9) L 05/21/24 05:44 Total Bilirubin 0.50 mg/dL (0.2-1.0) 05/21/24 05:44 AST 33 Units/L (15-37) 05/21/24 05:44 ALT 13 Units/L (12-78) 05/21/24 05:44 Alkaline Phosphatase 105 Units/L (46-116) 05/21/24 05:44 Creatine Kinase 90 Units/L (39-308) 05/20/24 15:50 Troponin I High Sens 10.7 ng/L (4.0-60.0) 05/20/24 15:50 Total Protein 5.0 g/dL (6.4-8.2) L 05/21/24 05:44 Albumin 1.5 g/dL (3.4-5.0) L 05/21/24 05:44 Globulin 3.5 g/dL (2.5-4.5) 05/21/24 05:44 Albumin/Globulin Ratio 0.4 Ratio (1.1-2.1) L 05/21/24 05:44 Amylase 52 Units/L (25-115) 05/20/24 15:50 Lipase 48 Units/L (16-77) 05/20/24 15:50 Specimen Type Clean catch urine 05/21/24 06:03 Urine Color Yellow (YELLOW) 05/21/24 06:03 Urine Appearance Slightly hazy (CLEAR) 05/21/24 06:03 Urine pH 6.0 (5.0 - 8.0) 05/21/24 06:03 Ur Specific [place] 1.020 (1.000-1.030) 05/21/24 06:03 Urine Protein 3+ (NEGATIVE) 05/21/24 06:03 Urine Glucose (UA) Negative (NEGATIVE) 05/21/24 06:03 Urine Ketones Negative (NEGATIVE) 05/21/24 06:03 Urine Blood 4+ (NEGATIVE) 05/21/24 06:03 Urine Nitrite Negative (NEGATIVE) 05/21/24 06:03 Urine Bilirubin Negative (NEGATIVE) 05/21/24 06:03 Urine Urobilinogen 1+ (NORMAL) 05/21/24 06:03 Ur Leukocyte Esterase Negative (NEGATIVE) 05/21/24 06:03 Urine RBC 5-10 /HPF (0-3) A 05/21/24 06:03 Urine WBC 0-2 /HPF (0-5) 05/21/24 06:03 Ur Squamous Epith Cells Few /HPF (NEGATIVE) 05/21/24 06:03 Urine Bacteria Trace /HPF (NEGATIVE) 05/21/24 06:03 Hyaline Casts Few /LPF (NEGATIVE) 05/21/24 06:03 Urine Mucus Few /HPF (NEGATIVE) 05/21/24 06:03 Ur Culture Indicated? No/not indicated 05/21/24 06:03 Review of Systems Constitutional: No Symptoms Reported and Weakness Eyes: No Symptoms Reported ENT: No Symptoms Reported Respiratory: Shortness of Breath Cardiovascular: No Symptoms Reported Gastrointestinal: Nausea and Abdominal Pain Genitourinary: Retention Musculoskeletal: Back Pain and Leg Pain Skin: Rash Neurological: No Symptoms Reported Physical Exam Vital Signs: Vital Signs Temperature 98.0 F Temperature 98.0 F Pulse Rate [Left Brachial] 74 Pulse Rate [Left Brachial] 67 Respiratory Rate 20 Respiratory Rate 19 Blood Pressure [Left Arm] 151/85 Blood Pressure [Left Arm] 164/84 O2 Sat by Pulse Oximetry 98 O2 Sat by Pulse Oximetry 96 Oriented: Normal Eyes: Normal Ear: Normal Nose: Normal Throat: Normal Respiratory: RLL Diminished and LLL Diminished Cardiovascular: Edema Auscultation: Bowel Sounds: Normal Palpation: Spleen Enlarged and Liver Enlarged Tenderness: Diffuse (DIFFUSE TENDERNESS) Musculoskeletal: Back:Lumbar, Swelling and Tender Psychiatric: Normal Affect: Normal Speech Pattern: Clear and Appropriate Assessment/Plan (1) Ascites: Status: Acute Plan: ADMIT, CONSULT DR THOMPSON FOR PARACENTESIS ALBUMIN REPLACEMENT BP CONTROL, PAIN CONTROL VERIFY HOME MEDICATIONS RESUME XIFAXIN AND LACTULOSE, AM AMMONIA LEVEL (2) Cirrhosis: Status: Acute (3) Cellulitis of left leg: Status: Acute (4) Hypertension: Qualifiers: Hypertension type: primary hypertension Qualified Code(s): I10 - Essential (primary) hypertension Status: Chronic (5) Hypomagnesemia: Status: Acute
--- NOTE | 2024-05-21 17:48 | PCM.PROG ---
Progress Note Progress Note for Day of Date of Exam: 05/21/24 Subjective Subjective: PT IS 59 WM WITH CIRRHOSIS OF THE LIVER, ADMITTED WITH SEVERE ABDOMINAL ASCITES REQUIRING PARACENTESIS PER DR THOMPSON. PTS MAGNESIUM WAS LOW ON ADMISSION AND PT WAS STARTED ON ALBUMIN REPLACEMENT THERAPY. Past Medical Family Social History Allergies: Allergies No Known Drug Allergies Allergy (Unknown, Verified 04/11/24 16:24) Onset Date: 05/26/2022 Vital Signs and I&O's Vital Signs: Vital Signs Temperature 98.0 F Temperature 98.0 F Pulse Rate [Left Brachial] 74 Pulse Rate [Left Brachial] 67 Respiratory Rate 20 Respiratory Rate 19 Blood Pressure [Left Arm] 151/85 Blood Pressure [Left Arm] 164/84 O2 Sat by Pulse Oximetry 98 O2 Sat by Pulse Oximetry 96 Intake and Output: Intake & Output 05/19/24 05/20/24 05/21/24 05/22/24 11:59 11:59 11:59 11:59 Intake Total 490 / 490 2000 / 2000 Output Total 85512 / 07808 Balance 490 / 490 -[id number] / -[id number] Physical Exam Oriented: Normal Eyes: Normal Ear: Normal Nose: Normal Throat: Normal Cardiovascular: Edema Auscultation: Bowel Sounds: Normal Tenderness: Diffuse (DIFFUSE TENDERNESS) Musculoskeletal: Back:Lumbar, Swelling and Tender Psychiatric: Normal Affect: Normal Speech Pattern: Clear and Appropriate Laboratory and Diagnostics 05/21/24 05:44 05/21/24 05:44 Labs: Laboratory WBC 8.7 X10^3/uL (3.6-10.0) 05/21/24 05:44 RBC 3.21 X10^6/uL (4.7-6.0) L 05/21/24 05:44 Hgb 10.1 g/dL (13.5-18.0) L 05/21/24 05:44 Hct 28.8 % (42.0-54.0) L 05/21/24 05:44 MCV 89.7 fL (80.0-100.0) 05/21/24 05:44 MCH 31.6 pg (27.0-34.0) 05/21/24 05:44 MCHC 35.2 g/dL (33.0-35.0) H 05/21/24 05:44 RDW 16.2 % (11.6-16.5) 05/21/24 05:44 Plt Count 190 X10^3/uL (150.0-450.0) 05/21/24 05:44 Plt Count Comment Adequate (ADEQUATE) 05/21/24 05:44 MPV 7.8 fL (7.4-11.0) 05/21/24 05:44 Neut % (Auto) 27.3 % (42.0-75.0) L 05/21/24 05:44 Lymph % (Auto) 15.2 % (21.0-51.0) L 05/21/24 05:44 [place] % (Auto) 7.7 % (0.0-13.0) 05/21/24 05:44 Eos % (Auto) 47.5 % (0.9-2.9) H 05/21/24 05:44 Baso % (Auto) 2.3 % (0.2-1.0) H 05/21/24 05:44 Neut # (Auto) 2.4 x10^3/uL (2.2-4.8) 05/21/24 05:44 Lymph # (Auto) 1.3 X10^3/uL (1.3-2.9) 05/21/24 05:44 [place] # (Auto) 0.7 x10^3/uL (0.3-0.8) 05/21/24 05:44 Eos # (Auto) 4.1 x10^3/uL (0.0-0.2) H 05/21/24 05:44 Baso # (Auto) 0.2 X10^3/uL (0.0-0.1) H 05/21/24 05:44 Absolute Nucleated RBC 0.1 /100WBC 05/21/24 05:44 Total Counted 100 05/21/24 05:44 Neutrophils % (Manual) 40 % (39-76) 05/21/24 05:44 Lymphocytes % (Manual) 22 % (13-43) 05/21/24 05:44 Monocytes % (Manual) 5 % (4-9) 05/21/24 05:44 Eosinophils % (Manual) 33 % (0-6) H 05/21/24 05:44 Plt Morphology Comment Normal (NORMAL) 05/21/24 05:44 RBC Morphology Normal (NORMAL) 05/21/24 05:44 Sodium 143 mmol/L (136-145) 05/21/24 05:44 Corrected Sodium TNP 05/21/24 05:44 Potassium 3.4 mmol/L (3.5-5.1) L 05/21/24 05:44 Chloride 110 mmol/L (98-107) H 05/21/24 05:44 Carbon Dioxide 29.0 mmol/L (21-32) 05/21/24 05:44 BUN 18 mg/dL (7-18) 05/21/24 05:44 Creatinine 1.12 mg/dL (0.70-1.30) 05/21/24 05:44 Est GFR (MDRD) Af Amer > 60 (>60) 05/21/24 05:44 Est GFR (MDRD) Non-Af > 60 (>60) 05/21/24 05:44 Glucose 89 mg/dL (65-99) 05/21/24 05:44 Calcium 7.9 mg/dL (8.5-10.1) L 05/21/24 05:44 Corrected Calcium 9.9 mg/dL (8.5-10.1) 05/21/24 05:44 Magnesium 1.6 mg/dL (2.0-2.9) L 05/21/24 05:44 Total Bilirubin 0.50 mg/dL (0.2-1.0) 05/21/24 05:44 AST 33 Units/L (15-37) 05/21/24 05:44 ALT 13 Units/L (12-78) 05/21/24 05:44 Alkaline Phosphatase 105 Units/L (46-116) 05/21/24 05:44 Creatine Kinase 90 Units/L (39-308) 05/20/24 15:50 Troponin I High Sens 10.7 ng/L (4.0-60.0) 05/20/24 15:50 Total Protein 5.0 g/dL (6.4-8.2) L 05/21/24 05:44 Albumin 1.5 g/dL (3.4-5.0) L 05/21/24 05:44 Globulin 3.5 g/dL (2.5-4.5) 05/21/24 05:44 Albumin/Globulin Ratio 0.4 Ratio (1.1-2.1) L 05/21/24 05:44 Amylase 52 Units/L (25-115) 05/20/24 15:50 Lipase 48 Units/L (16-77) 05/20/24 15:50 Specimen Type Clean catch urine 05/21/24 06:03 Urine Color Yellow (YELLOW) 05/21/24 06:03 Urine Appearance Slightly hazy (CLEAR) 05/21/24 06:03 Urine pH 6.0 (5.0 - 8.0) 05/21/24 06:03 Ur Specific [place] 1.020 (1.000-1.030) 05/21/24 06:03 Urine Protein 3+ (NEGATIVE) 05/21/24 06:03 Urine Glucose (UA) Negative (NEGATIVE) 05/21/24 06:03 Urine Ketones Negative (NEGATIVE) 05/21/24 06:03 Urine Blood 4+ (NEGATIVE) 05/21/24 06:03 Urine Nitrite Negative (NEGATIVE) 05/21/24 06:03 Urine Bilirubin Negative (NEGATIVE) 05/21/24 06:03 Urine Urobilinogen 1+ (NORMAL) 05/21/24 06:03 Ur Leukocyte Esterase Negative (NEGATIVE) 05/21/24 06:03 Urine RBC 5-10 /HPF (0-3) A 05/21/24 06:03 Urine WBC 0-2 /HPF (0-5) 05/21/24 06:03 Ur Squamous Epith Cells Few /HPF (NEGATIVE) 05/21/24 06:03 Urine Bacteria Trace /HPF (NEGATIVE) 05/21/24 06:03 Hyaline Casts Few /LPF (NEGATIVE) 05/21/24 06:03 Urine Mucus Few /HPF (NEGATIVE) 05/21/24 06:03 Ur Culture Indicated? No/not indicated 05/21/24 06:03 Plan (1) Ascites: Status: Acute Plan: CONSULT DR THOMPSON FOR PARACENTESIS ALBUMIN REPLACEMENT BP CONTROL, PAIN CONTROL VERIFY HOME MEDICATIONS RESUME XIFAXIN AND LACTULOSE, AM AMMONIA LEVEL (2) Cirrhosis: Status: Acute (3) Cellulitis of left leg: Status: Acute (4) Hypertension: Status: Chronic Qualifiers: Hypertension type: primary hypertension Qualified Code(s): I10 - Essential (primary) hypertension (5) Hypomagnesemia: Status: Acute
[2024-05-21] MEDS: ROXICODONE TAB 5 MG PO PRN (19:35)
[2024-05-21] MEDS: MAG-OX TAB PO SCH (20:29)
[2024-05-21] MEDS: XIFAXAN PO SCH (20:35)
--- NOTE | 2024-05-22 05:38 | RAD ---
PROCEDURE: Chest X-ray 2 Views. HISTORY: SOB; HTN, LIVER DISEASE, COPD, GERD . TECHNIQUE: PA and lateral views. COMPARISON: None. TECHNICAL QUALITY: Satisfactory. FINDINGS: Normal size heart. Mediastinum and hilar regions show no masses or lymphadenopathy. Normal central vascularity. Unchanged 3 cm nodular area right base with some atelectasis at the right base. Small right pleural effusions unchanged. Left lung andrews clear. No acute bony abnormality. IMPRESSION: Unchanged nodular area right base with small effusion and atelectasis. THIS IS AN ELECTRONICALLY VERIFIED FINAL REPORT 05/22/2024 5:34 AM - Electronically signed by Vincent Morris MD
[2024-05-22 06:28] LABS: BASOPHILS % (AUTO) 0.3 % (0.2-1.0); EOSINOPHILS # (AUTO) 4.7 x10^3/uL (0.0-0.2); EOSINOPHILS % (AUTO) 42.9 % (0.9-2.9); HEMATOCRIT 31.7 % (42.0-54.0); LYMPHOCYTES # (AUTO) 1.4 X10^3/uL (1.3-2.9); LYMPHOCYTES % (AUTO) 12.4 % (21.0-51.0); MEAN CORPUSCULAR HEMOGLOBIN 31.2 pg (27.0-34.0); MEAN CORPUSCULAR HGB CONC 34.6 g/dL (33.0-35.0); MEAN CORPUSCULAR VOLUME 90.2 fL (80.0-100.0); MONOCYTES # (AUTO) 0.8 x10^3/uL (0.3-0.8); MONOCYTES % (AUTO) 7.3 % (0.0-13.0); NEUTROPHILS # (AUTO) 4.1 x10^3/uL (2.2-4.8); NEUTROPHILS % (AUTO) 37.1 % (42.0-75.0); PLATELET COUNT 205 X10^3/uL (150.0-450.0); RED BLOOD COUNT 3.52 X10^6/uL (4.7-6.0); RED CELL DISTRIBUTION WIDTH 16.6 % (11.6-16.5)
[2024-05-22 06:37] LABS: ALANINE AMINOTRANSFERASE 12 Units/L (12-78); ALBUMIN 1.5 g/dL (3.4-5.0); ALKALINE PHOSPHATASE 105 Units/L (46-116); ASPARTATE AMINO TRANSFERASE 33 Units/L (15-37); BLOOD UREA NITROGEN 15 mg/dL (7-18); CALCIUM 7.7 mg/dL (8.5-10.1); CARBON DIOXIDE 31.8 mmol/L (21-32); CHLORIDE 110 mmol/L (98-107); COR CA(FOR HYPOALB) 9.7 mg/dL (8.5-10.1); CREATININE 1.03 mg/dL (0.70-1.30); GLUCOSE 104 mg/dL (65-99); MAGNESIUM 1.7 mg/dL (2.0-2.9); POTASSIUM 3.7 mmol/L (3.5-5.1); SODIUM 145 mmol/L (136-145); TOTAL PROTEIN 4.7 g/dL (6.4-8.2); eGFR NON BLACK RACES > 60 (>60)
[2024-05-22 06:44] LABS: AMMONIA 35 umol/L (11-32)
[2024-05-22] MEDS ORDERED: CONSULT PHARMACY - POTASSIUM & MAGNESIUM XX SCH (07:00)
[2024-05-22 07:14] LABS: BAND NEUTROPHILS % 2 % (0-10); PLATELET MORPHOLOGY COMMENT NORMAL (NORMAL)
[2024-05-22] MEDS: MAG-OX TAB PO SCH (09:03)
[2024-05-22] MEDS: K-DUR TAB 20 MEQ PO SCH (09:03)
[2024-05-22] MEDS: CHRONULAC PO SCH (10:32)
[2024-05-22] MEDS: INFLUENZA VACCINE IM ONE (10:32)
[2024-05-23 05:30] VITALS: RESP 20
[2024-05-23 06:29] LABS: BASOPHILS # (AUTO) 0.2 X10^3/uL (0.0-0.1); BASOPHILS % (AUTO) 1.6 % (0.2-1.0); EOSINOPHILS # (AUTO) 3.9 x10^3/uL (0.0-0.2); EOSINOPHILS % (AUTO) 34.9 % (0.9-2.9); HEMATOCRIT 31.4 % (42.0-54.0); LYMPHOCYTES # (AUTO) 1.3 X10^3/uL (1.3-2.9); LYMPHOCYTES % (AUTO) 11.4 % (21.0-51.0); MEAN CORPUSCULAR HEMOGLOBIN 31.1 pg (27.0-34.0); MEAN CORPUSCULAR VOLUME 88.9 fL (80.0-100.0); MEAN PLATELET VOLUME 8.8 fL (7.4-11.0); MONOCYTES # (AUTO) 0.6 x10^3/uL (0.3-0.8); MONOCYTES % (AUTO) 5.8 % (0.0-13.0); NEUTROPHILS # (AUTO) 5.2 x10^3/uL (2.2-4.8); NEUTROPHILS % (AUTO) 46.3 % (42.0-75.0); PLATELET COUNT 186 X10^3/uL (150.0-450.0); RED BLOOD COUNT 3.53 X10^6/uL (4.7-6.0); RED CELL DISTRIBUTION WIDTH 16.7 % (11.6-16.5); WHITE BLOOD COUNT 11.2 X10^3/uL (3.6-10.0)
[2024-05-23 06:46] LABS: ALANINE AMINOTRANSFERASE 10 Units/L (12-78); ALBUMIN 1.7 g/dL (3.4-5.0); ALKALINE PHOSPHATASE 98 Units/L (46-116); ASPARTATE AMINO TRANSFERASE 28 Units/L (15-37); BLOOD UREA NITROGEN 16 mg/dL (7-18); CALCIUM 7.9 mg/dL (8.5-10.1); CHLORIDE 109 mmol/L (98-107); COR CA(FOR HYPOALB) 9.7 mg/dL (8.5-10.1); CREATININE 0.88 mg/dL (0.70-1.30); GLUCOSE 92 mg/dL (65-99); MAGNESIUM 1.9 mg/dL (2.0-2.9); SODIUM 140 mmol/L (136-145); TOTAL PROTEIN 4.7 g/dL (6.4-8.2); eGFR NON BLACK RACES > 60 (>60)
[2024-05-23 06:59] LABS: BAND NEUTROPHILS % 1 % (0-10); PLATELET MORPHOLOGY COMMENT NORMAL (NORMAL)
[2024-05-23] MEDS ORDERED: CONSULT PHARMACY - POTASSIUM & MAGNESIUM XX SCH (07:00)
[2024-05-23] MEDS: SOLU-Medrol 40 MG VIAL IVP ONE (09:05)
[2024-05-23] MEDS: MAG-OX TAB PO SCH (09:06)
[2024-05-23] MEDS: DILAUDID INJ IVP ONE (09:16)
[2024-05-23 11:05] VITALS: TEMP 97.6
[2024-05-23 12:57] VITALS: BP 121/84; PULSE 80; O2SAT 97
== END 2024-05-23 14:45 | disposition home health service (06) ==
LOC: SUPCPDRO → ER 11:46 → MED/SURG 11:46
PROVIDERS: ADMIT Family Medicine; ATTEND Internal Medicine
DX: K74.69 Other cirrhosis of liver; R06.02 Shortness of breath; R18.8 Other ascites; E83.42 Hypomagnesemia; Z59.86 Financial insecurity; K21.9 Gastro-esophageal reflux disease without esophagitis; K42.9 Umbilical hernia without obstruction or gangrene; J44.9 Chronic obstructive pulmonary disease, unspecified; R60.0 Localized edema; J90 Pleural effusion, not elsewhere classified; L03.116 Cellulitis of left lower limb; I10 Essential (primary) hypertension

== ENCOUNTER 2024-06-26 08:21 | Observation (INO) ==
--- NOTE | 2024-06-26 08:30 | DR.SOBA ---
HPI Time Seen Time Seen by Provider: 06/26/24 08:24 Complaints Chief Complaint Doctors Comments: 59-year-old male, history of alcoholic cirrhosis, with recurrent ascites, also hx of COPD, complains of increasing dyspnea over the past couple days, worse today, accompanied by increasing abdominal distention and tightness. Admits to chills but no fever. Denies chest pain. Denies other complaints. PMH PMH Past Medical History: COPD, GERD, Hypertension and Liver Disease Past Surgical History: Yes Surgical History: No History Family History Family Medical History: [place] Social History Do you use any recreational Drugs:: No ROS Review of Systems Respiratoy: Short of Breath; negative Productive Cough or Wheezing Cardiovascular: negative Chest Pain Gastrointestinal/Abdominal: Abdominal Pain (with distension) All Other Systems: Reviewed and Negative PE Vital Signs Vitals: Vital Signs Temperature 98.3 F Pulse Rate 95 Pulse Rate 92 Pulse Rate 95 Pulse Rate 78 Pulse Rate 75 Respiratory Rate 22 Respiratory Rate 20 Respiratory Rate 20 Blood Pressure 164/95 Blood Pressure 204/95 O2 Sat by Pulse Oximetry 99 O2 Sat by Pulse Oximetry 99 O2 Sat by Pulse Oximetry 98 O2 Sat by Pulse Oximetry 98 O2 Sat by Pulse Oximetry 98 General Limitations: No Limitations General Appearance: Alert and In No Apparent Distress Head Head Exam: Normal Inspection Eyes Eye exam: Normal Appearance ENT ENT Exam: Normal Exam Neck Neck Exam: Normal Inspection Chest Chest Inspection: Normal Inspection Respiratory Respiratory Exam: Normal Lung Sounds Bilat Respiratory Exam: Bilateral: Clear to Auscultation (O2 98% on 2L NC) Cardiovascular Cardiovascular Exam: Regular Rate and Normal Rhythm Abdominal Exam Abdominal Exam: Distention and Ascites; negative Tenderness or Guarding Extremities Extremities Exam: Normal Inspection Back Back Exam: Normal Inspection Neurologic Neurological Exam: Alert and Oriented X3 Psychiatric Psychiatric Exam: Normal Affect and Normal Mood Skin Skin Exam: Warm, Dry, Intact and Normal Color ROR Labs Reviewed 06/26/24 08:46 06/26/24 08:46 Laboratory: WBC 9.5 X10^3/uL (3.6-10.0) 06/26/24 08:46 RBC 3.50 X10^6/uL (4.7-6.0) L 06/26/24 08:46 Hgb 10.8 g/dL (13.5-18.0) L 06/26/24 08:46 Hct 31.9 % (42.0-54.0) L 06/26/24 08:46 MCV 91.1 fL (80.0-100.0) 06/26/24 08:46 MCH 30.9 pg (27.0-34.0) 06/26/24 08:46 MCHC 33.9 g/dL (33.0-35.0) 06/26/24 08:46 RDW 17.1 % (11.6-16.5) H 06/26/24 08:46 Plt Count 305 X10^3/uL (150.0-450.0) 06/26/24 08:46 MPV 7.8 fL (7.4-11.0) 06/26/24 08:46 Neut % (Auto) 71.6 % (42.0-75.0) 06/26/24 08:46 Lymph % (Auto) 11.5 % (21.0-51.0) L 06/26/24 08:46 [place] % (Auto) 6.8 % (0.0-13.0) 06/26/24 08:46 Eos % (Auto) 9.7 % (0.9-2.9) H 06/26/24 08:46 Baso % (Auto) 0.4 % (0.2-1.0) 06/26/24 08:46 Neut # (Auto) 6.8 x10^3/uL (2.2-4.8) H 06/26/24 08:46 Lymph # (Auto) 1.1 X10^3/uL (1.3-2.9) L 06/26/24 08:46 [place] # (Auto) 0.6 x10^3/uL (0.3-0.8) 06/26/24 08:46 Eos # (Auto) 0.9 x10^3/uL (0.0-0.2) H 06/26/24 08:46 Baso # (Auto) 0.0 X10^3/uL (0.0-0.1) 06/26/24 08:46 Absolute Nucleated RBC 0.1 /100WBC 06/26/24 08:46 PT 15.4 SECONDS (11.8-14.3) 06/26/24 08:46 INR Target Range - 06/26/24 08:46 INR 1.25 (0.8-1.3) 06/26/24 08:46 APTT 33.6 SECONDS (22.9-36.5) 06/26/24 08:46 PTT Comment - 06/26/24 08:46 Sodium 142 mmol/L (136-145) 06/26/24 08:46 Corrected Sodium 142 mmol/L (136-145) 06/26/24 08:46 Potassium 3.5 mmol/L (3.5-5.1) 06/26/24 08:46 Chloride 107 mmol/L (98-107) 06/26/24 08:46 Carbon Dioxide 31.5 mmol/L (21-32) 06/26/24 08:46 BUN 17 mg/dL (7-18) 06/26/24 08:46 Creatinine 1.08 mg/dL (0.70-1.30) 06/26/24 08:46 Est GFR (MDRD) Af Amer > 60 (>60) 06/26/24 08:46 Est GFR (MDRD) Non-Af > 60 (>60) 06/26/24 08:46 Glucose 118 mg/dL (65-99) H 06/26/24 08:46 Calcium 8.3 mg/dL (8.5-10.1) L 06/26/24 08:46 Corrected Calcium 10.4 mg/dL (8.5-10.1) H 06/26/24 08:46 Magnesium 1.8 mg/dL (2.0-2.9) L 06/26/24 08:46 Total Bilirubin 0.60 mg/dL (0.2-1.0) 06/26/24 08:46 AST 44 Units/L (15-37) H 06/26/24 08:46 ALT 19 Units/L (12-78) 06/26/24 08:46 Alkaline Phosphatase 129 Units/L (46-116) H 06/26/24 08:46 Creatine Kinase 153 Units/L (39-308) 06/26/24 08:46 Troponin I High Sens 18.5 ng/L (4.0-60.0) 06/26/24 08:46 B-Natriuretic Peptide 358 pg/mL (0-79) H 06/26/24 08:46 Total Protein 6.0 g/dL (6.4-8.2) L 06/26/24 08:46 Albumin 1.4 g/dL (3.4-5.0) L 06/26/24 08:46 Globulin 4.6 g/dL (2.5-4.5) H 06/26/24 08:46 Albumin/Globulin Ratio 0.3 Ratio (1.1-2.1) L 06/26/24 08:46 Opioid Opioid Risk Tool Age (Shaan box if 16-45): No History of Preadolescent Sexual Abuse: No Total: 0 Total Score Risk Category: Low Risk Copyright: Humberto OSEGUERA predicting aberrant behaviors Discharge Plan Diagnosis Discharge Problem: Pneumonia, Ascites Discharge Plan Patient Disposition: ADMITTED INPATIENT Condition: Stable Prescriptions: No Action spironolactone 25 mg Tablet 25 mg PO QDAY furosemide [Lasix] 40 mg Tablet 40 mg PO DAILY Qty: 30 3RF Health Concerns: Post Hospitalization: new medications and changes needed to prevent readmission or further decline. Pt educated and given instructions on all concerns. Plan of Treatment: Continue with present treatment and follow up plan. Pt is to keep follow up appointment as instructed and take medications as ordered. Orders to Discharge Patient Discharge Orders: Transfer (Routine); Ordered 06/26/24 Ordered By: Mikhail Hicks Instructions Stand Alone Forms: Find Help Web Site, Post Hospital Follow Up Care
[2024-06-26 08:31] VITALS: BMI 39.0
--- NOTE | 2024-06-26 08:34 | EKG ---
Test Reason : Dyspnea Blood Pressure : */* mmHG Vent. Rate : 97 BPM Atrial Rate : 97 BPM P-R Int : 158 ms QRS Dur : 80 ms QT Int : 368 ms P-R-T Axes : 3 21 34 degrees QTc Int : 467 ms Sinus rhythm with occasional premature ventricular complexes and fusion complexes Otherwise normal ECG When compared with ECG of 01-MAR-2023 08:50, fusion complexes are now present premature ventricular complexes are now present QRS voltage has decreased Confirmed by Trev German MD ([id number]) on 07/02/2024 12:47:37 PM Referred By: Confirmed By: Trev German MD
[2024-06-26 09:01] LABS: BASOPHILS % (AUTO) 0.4 % (0.2-1.0); EOSINOPHILS # (AUTO) 0.9 x10^3/uL (0.0-0.2); EOSINOPHILS % (AUTO) 9.7 % (0.9-2.9); HEMATOCRIT 31.9 % (42.0-54.0); HEMOGLOBIN 10.8 g/dL (13.5-18.0); LYMPHOCYTES # (AUTO) 1.1 X10^3/uL (1.3-2.9); LYMPHOCYTES % (AUTO) 11.5 % (21.0-51.0); MEAN CORPUSCULAR HEMOGLOBIN 30.9 pg (27.0-34.0); MEAN CORPUSCULAR HGB CONC 33.9 g/dL (33.0-35.0); MEAN CORPUSCULAR VOLUME 91.1 fL (80.0-100.0); MEAN PLATELET VOLUME 7.8 fL (7.4-11.0); MONOCYTES # (AUTO) 0.6 x10^3/uL (0.3-0.8); MONOCYTES % (AUTO) 6.8 % (0.0-13.0); NEUTROPHILS # (AUTO) 6.8 x10^3/uL (2.2-4.8); NEUTROPHILS % (AUTO) 71.6 % (42.0-75.0); PLATELET COUNT 305 X10^3/uL (150.0-450.0); RED CELL DISTRIBUTION WIDTH 17.1 % (11.6-16.5); WHITE BLOOD COUNT 9.5 X10^3/uL (3.6-10.0)
--- NOTE | 2024-06-26 09:03 | RAD ---
EXAM:Portable chestHISTORY:Shortness of breathCOMPARISON:05/22/2024FINDINGS:Trang ent is rotated to the left. Heart size is normal. June are normal. Abnormal parenchymal density is present in the right lung base possibly a developing infiltrate. Remainder of the lung andrews appear free of acute infiltrates. No definite pleural effusions identified. Left hemidiaphragm is mildly elevated. Previously present nodular right basilar lung density is no longer identified and possibly representing some fluid in the minor fissure. Bony thorax is unremarkable.IMPRESSION:Right basilar lung infiltrateTHIS IS AN ELECTRONICALLY VERIFIED FINAL [id number]/2024 9:00 AM - Electronically signed by Dinh Wilhelm MD
[2024-06-26 09:13] LABS: ALANINE AMINOTRANSFERASE 19 Units/L (12-78); ALBUMIN 1.4 g/dL (3.4-5.0); ALKALINE PHOSPHATASE 129 Units/L (46-116); ASPARTATE AMINO TRANSFERASE 44 Units/L (15-37); BLOOD UREA NITROGEN 17 mg/dL (7-18); CALCIUM 8.3 mg/dL (8.5-10.1); CARBON DIOXIDE 31.5 mmol/L (21-32); CHLORIDE 107 mmol/L (98-107); COR CA(FOR HYPOALB) 10.4 mg/dL (8.5-10.1); COR NA(FOR HYPERGLY) 142 mmol/L (136-145); CREATINE KINASE 153 Units/L (39-308); CREATININE 1.08 mg/dL (0.70-1.30); GLUCOSE 118 mg/dL (65-99); MAGNESIUM 1.8 mg/dL (2.0-2.9); POTASSIUM 3.5 mmol/L (3.5-5.1); SODIUM 142 mmol/L (136-145); eGFR NON BLACK RACES > 60 (>60)
[2024-06-26 09:29] LABS: INR 1.25 (0.8-1.3)
[2024-06-26] MEDS: LASIX IVP ONE (09:39)
[2024-06-26] MEDS: ROCEPHIN VIAL 2 GRAMS 2 G in NS 100 ML IV 100 ML IV SCH (09:39)
[2024-06-26] MEDS: ZITHROMAX INJ 500 MG VIAL 500 MG in NS 250 ML IV 250 ML IV SCH (10:20)
[2024-06-26] MEDS: NORCO 5/325 MG TAB PO PRN (11:24)
[2024-06-26] MEDS: NORCO 5/325 MG TAB ONE (11:28)
[2024-06-26] MEDS: DUONEB 0.5 MG/3 MG (3 mL) NEB SCH (13:41)
[2024-06-26] MEDS ORDERED: TUSSIONEX PENNKINETIC SUSP PO PRN (14:14)
[2024-06-26] MEDS ORDERED: CONSULT PHARMACY - ANTIBIOTIC XX SCH (15:00)
[2024-06-26] MEDS ORDERED: NS 1/2 1,000 ML IV 1,000 ML IV SCH (15:00)
[2024-06-26] MEDS ORDERED: CONSULT PHARMACY - POTASSIUM & MAGNESIUM XX SCH (15:00)
[2024-06-26] MEDS: VSL#3 PROBIOTIC CAP 112.5 B PO SCH (15:09)
[2024-06-26] MEDS: NS 1/2 + KCL 20 MEQ/L 1,000 ML with MAGNESIUM SULFATE 50% INJ VIAL 1 G IV SCH (15:09)
[2024-06-26] MEDS: ROBITUSSIN DM PO SCH (16:28)
--- NOTE | 2024-06-26 17:40 | DR.H&P ---
H&P History & Physical for Day of: H&P Date: 06/26/24 Chief Complaint Chief Complaint: STOMACH SWELLING, SOB, WEAKNESS History of Present Illness History of Present Illness: PT IS 59 WM, ER ADMISSION AFTER PRESENTING WITH CO DIFFUSE ABDOMINAL DISTENTION, SOB, WEAKNESS AND FLUID RETENTION. PT HAS PMH OF LIVER DISEASE. PT REPORT HE PRESENTED TO THE ER EARLIER THIS WEEK FOR SAME SYMPTOMS BUT DID NOT REQUIRE PARACENTESIS AT THAT TIME. PT STATES HE IS MORE WEAK AND FEELS LIKE AMMONIA LEVEL IS ELEVATED. Past Medical History Past Medical History: COPD, GERD, Hypertension and Liver Disease Past Surgical History Surgical History: No History Family History Family Medical History: Diabetes Mellitus and [place] Social History Does patient currently use any type of tobacco product: No Have you used tobacco products in the last 12 months: No Type of Tobacco Use: None Alcohol Use: None Drug Use: None Medications Home Medications: Home Medications Medication Instructions Recorded Confirmed Type spironolactone 25 mg tablet 25 mg PO QDAY 04/17/24 06/26/24 History Allergies Allergies Allergy/AdvReac Type Severity Reaction Status Date / Time No Known Drug Allergies Allergy Unknown Verified 04/11/24 16:24 Labs 06/26/24 08:46 06/26/24 08:46 Labs: Laboratory WBC 9.5 X10^3/uL (3.6-10.0) 06/26/24 08:46 RBC 3.50 X10^6/uL (4.7-6.0) L 06/26/24 08:46 Hgb 10.8 g/dL (13.5-18.0) L 06/26/24 08:46 Hct 31.9 % (42.0-54.0) L 06/26/24 08:46 MCV 91.1 fL (80.0-100.0) 06/26/24 08:46 MCH 30.9 pg (27.0-34.0) 06/26/24 08:46 MCHC 33.9 g/dL (33.0-35.0) 06/26/24 08:46 RDW 17.1 % (11.6-16.5) H 06/26/24 08:46 Plt Count 305 X10^3/uL (150.0-450.0) 06/26/24 08:46 MPV 7.8 fL (7.4-11.0) 06/26/24 08:46 Neut % (Auto) 71.6 % (42.0-75.0) 06/26/24 08:46 Lymph % (Auto) 11.5 % (21.0-51.0) L 06/26/24 08:46 [place] % (Auto) 6.8 % (0.0-13.0) 06/26/24 08:46 Eos % (Auto) 9.7 % (0.9-2.9) H 06/26/24 08:46 Baso % (Auto) 0.4 % (0.2-1.0) 06/26/24 08:46 Neut # (Auto) 6.8 x10^3/uL (2.2-4.8) H 06/26/24 08:46 Lymph # (Auto) 1.1 X10^3/uL (1.3-2.9) L 06/26/24 08:46 [place] # (Auto) 0.6 x10^3/uL (0.3-0.8) 06/26/24 08:46 Eos # (Auto) 0.9 x10^3/uL (0.0-0.2) H 06/26/24 08:46 Baso # (Auto) 0.0 X10^3/uL (0.0-0.1) 06/26/24 08:46 Absolute Nucleated RBC 0.1 /100WBC 06/26/24 08:46 PT 15.4 SECONDS (11.8-14.3) 06/26/24 08:46 INR Target Range - 06/26/24 08:46 INR 1.25 (0.8-1.3) 06/26/24 08:46 APTT 33.6 SECONDS (22.9-36.5) 06/26/24 08:46 PTT Comment - 06/26/24 08:46 Sodium 142 mmol/L (136-145) 06/26/24 08:46 Corrected Sodium 142 mmol/L (136-145) 06/26/24 08:46 Potassium 3.5 mmol/L (3.5-5.1) 06/26/24 08:46 Chloride 107 mmol/L (98-107) 06/26/24 08:46 Carbon Dioxide 31.5 mmol/L (21-32) 06/26/24 08:46 BUN 17 mg/dL (7-18) 06/26/24 08:46 Creatinine 1.08 mg/dL (0.70-1.30) 06/26/24 08:46 Est GFR (MDRD) Af Amer > 60 (>60) 06/26/24 08:46 Est GFR (MDRD) Non-Af > 60 (>60) 06/26/24 08:46 Glucose 118 mg/dL (65-99) H 06/26/24 08:46 Calcium 8.3 mg/dL (8.5-10.1) L 06/26/24 08:46 Corrected Calcium 10.4 mg/dL (8.5-10.1) H 06/26/24 08:46 Magnesium 1.8 mg/dL (2.0-2.9) L 06/26/24 08:46 Total Bilirubin 0.60 mg/dL (0.2-1.0) 06/26/24 08:46 AST 44 Units/L (15-37) H 06/26/24 08:46 ALT 19 Units/L (12-78) 06/26/24 08:46 Alkaline Phosphatase 129 Units/L (46-116) H 06/26/24 08:46 Creatine Kinase 153 Units/L (39-308) 06/26/24 08:46 Troponin I High Sens 18.5 ng/L (4.0-60.0) 06/26/24 08:46 B-Natriuretic Peptide 358 pg/mL (0-79) H 06/26/24 08:46 Total Protein 6.0 g/dL (6.4-8.2) L 06/26/24 08:46 Albumin 1.4 g/dL (3.4-5.0) L 06/26/24 08:46 Globulin 4.6 g/dL (2.5-4.5) H 06/26/24 08:46 Albumin/Globulin Ratio 0.3 Ratio (1.1-2.1) L 06/26/24 08:46 Review of Systems Constitutional: Weakness Eyes: No Symptoms Reported ENT: No Symptoms Reported Respiratory: Shortness of Breath Cardiovascular: Edema Gastrointestinal: Nausea Genitourinary: No Symptoms Reported Musculoskeletal: Back Pain and Leg Pain Skin: No Symptoms Reported Neurological: Weakness Physical Exam Vital Signs: Vital Signs Temperature 98.1 F Temperature 98.1 F Pulse Rate [Radial] 72 Pulse Rate [Radial] 94 Pulse Rate 101 Pulse Rate 101 Pulse Rate 100 Pulse Rate 100 Pulse Rate 101 Pulse Rate 105 Pulse Rate 101 Pulse Rate 97 Pulse Rate 101 Pulse Rate 95 Respiratory Rate 20 Respiratory Rate 19 Respiratory Rate 15 Respiratory Rate 15 Respiratory Rate 15 Respiratory Rate 23 Respiratory Rate 22 Respiratory Rate 25 Respiratory Rate 25 Respiratory Rate 26 Respiratory Rate 23 Respiratory Rate 17 Respiratory Rate 22 Respiratory Rate 22 Blood Pressure [Right Arm] 134/87 Blood Pressure [Right Arm] 168/85 Blood Pressure 135/94 Blood Pressure 135/94 Blood Pressure 154/87 O2 Sat by Pulse Oximetry 95 O2 Sat by Pulse Oximetry 96 O2 Sat by Pulse Oximetry 97 O2 Sat by Pulse Oximetry 97 O2 Sat by Pulse Oximetry 98 O2 Sat by Pulse Oximetry 97 O2 Sat by Pulse Oximetry 97 O2 Sat by Pulse Oximetry 96 O2 Sat by Pulse Oximetry 98 O2 Sat by Pulse Oximetry 98 O2 Sat by Pulse Oximetry 98 O2 Sat by Pulse Oximetry 99 Oriented: Normal Eyes: Normal Ear: Normal Nose: Normal Throat: Dry Respiratory: RLL Diminished and LLL Diminished Cardiovascular: Murmur : Normal Auscultation: Bowel Sounds: Decreased Palpation: Spleen Enlarged, Liver Enlarged and Other Tenderness: Diffuse Skin: Decreased Turgur Musculoskeletal: Leg and Swelling Mood Description: Calm Affect: Depressed Speech Pattern: Clear and Appropriate Assessment/Plan (1) Tense ascites: Status: Acute Plan: ADMIT, CONSULT DR THOMPSON CXR ON ADMISSION PRN SUPPLEMENTAL O2 , AMMONIA LEVEL STRICT I&OS (2) SOB (shortness of breath): Status: Acute (3) Cirrhosis: Status: Acute (4) Pneumonia: Status: Acute
[2024-06-26] MEDS: PULMICORT NEB TX 0.5 MG NEB SCH (21:15)
[2024-06-27 06:22] LABS: BASOPHILS # (AUTO) 0.1 X10^3/uL (0.0-0.1); BASOPHILS % (AUTO) 1.5 % (0.2-1.0); EOSINOPHILS # (AUTO) 1.1 x10^3/uL (0.0-0.2); HEMATOCRIT 27.9 % (42.0-54.0); HEMOGLOBIN 9.6 g/dL (13.5-18.0); MEAN CORPUSCULAR HEMOGLOBIN 31.2 pg (27.0-34.0); MEAN CORPUSCULAR HGB CONC 34.3 g/dL (33.0-35.0); MEAN PLATELET VOLUME 8.2 fL (7.4-11.0); MONOCYTES # (AUTO) 0.7 x10^3/uL (0.3-0.8); MONOCYTES % (AUTO) 9.2 % (0.0-13.0); NEUTROPHILS # (AUTO) 4.8 x10^3/uL (2.2-4.8); NEUTROPHILS % (AUTO) 62.3 % (42.0-75.0); PLATELET COUNT 244 X10^3/uL (150.0-450.0); RED BLOOD COUNT 3.07 X10^6/uL (4.7-6.0); RED CELL DISTRIBUTION WIDTH 17.1 % (11.6-16.5); WHITE BLOOD COUNT 7.7 X10^3/uL (3.6-10.0)
[2024-06-27 06:45] LABS: ALANINE AMINOTRANSFERASE 16 Units/L (12-78); ALBUMIN 1.3 g/dL (3.4-5.0); ALKALINE PHOSPHATASE 111 Units/L (46-116); ASPARTATE AMINO TRANSFERASE 46 Units/L (15-37); BLOOD UREA NITROGEN 20 mg/dL (7-18); CARBON DIOXIDE 29.2 mmol/L (21-32); CHLORIDE 110 mmol/L (98-107); COR CA(FOR HYPOALB) 10.2 mg/dL (8.5-10.1); CREATININE 1.04 mg/dL (0.70-1.30); GLUCOSE 106 mg/dL (65-99); POTASSIUM 3.9 mmol/L (3.5-5.1); SODIUM 144 mmol/L (136-145); TOTAL PROTEIN 5.3 g/dL (6.4-8.2); eGFR NON BLACK RACES > 60 (>60)
[2024-06-27] MEDS: LASIX IVP SCH (09:21)
[2024-06-27] MEDS: ALDACTONE TAB 25 MG PO SCH (09:21)
[2024-06-27] MEDS: ALBUMIN HUMAN 25%- 100 ML 100 ML IV SCH (12:16)
[2024-06-27] MEDS: CHRONULAC PO SCH (12:16)
--- NOTE | 2024-06-27 15:09 | RAD ---
EXAM:CHEST x-ray, 1 VIEWHISTORY:PNEUMONIA ; HTN, LIVER DISEASE, COPD, GERD -COMPARISON:X-ray 06/26/2024FINDINGS:Right-sided pleural-based density appears slightly more rounded than on prior study. This may be rounded atelectasis associated with [id number] pleural fluid. Heart is normal in size. Left lung is clear. No pneumothorax is seen.IMPRESSION:Opacity in the right lower lung has slightly more rounded appearance possibly due to or atelectasis or loculated pleural fluid. Right lower lobe pneumonia cannot be completely excluded. Extent of the opacities in the right lower lung are similar to prior study.THIS IS AN ELECTRONICALLY VERIFIED FINAL [id number]/[id number] 3:06 PM - Electronically signed by Marco A Rothman MD
[2024-06-27] MEDS: LOVENOX INJ 40 MG SYR SC SCH (17:04)
[2024-06-28 06:11] LABS: BASOPHILS % (AUTO) 0 % (0.2-1.0); EOSINOPHILS # (AUTO) 0.8 x10^3/uL (0.0-0.2); EOSINOPHILS % (AUTO) 9.9 % (0.9-2.9); HEMATOCRIT 28.4 % (42.0-54.0); HEMOGLOBIN 9.8 g/dL (13.5-18.0); LYMPHOCYTES # (AUTO) 0.9 X10^3/uL (1.3-2.9); LYMPHOCYTES % (AUTO) 11.4 % (21.0-51.0); MEAN CORPUSCULAR HEMOGLOBIN 31.3 pg (27.0-34.0); MEAN CORPUSCULAR HGB CONC 34.4 g/dL (33.0-35.0); MEAN CORPUSCULAR VOLUME 90.8 fL (80.0-100.0); MEAN PLATELET VOLUME 8.5 fL (7.4-11.0); MONOCYTES # (AUTO) 0.8 x10^3/uL (0.3-0.8); MONOCYTES % (AUTO) 9.6 % (0.0-13.0); NEUTROPHILS # (AUTO) 5.6 x10^3/uL (2.2-4.8); NEUTROPHILS % (AUTO) 69.1 % (42.0-75.0); PLATELET COUNT 234 X10^3/uL (150.0-450.0); RED BLOOD COUNT 3.13 X10^6/uL (4.7-6.0); WHITE BLOOD COUNT 8.2 X10^3/uL (3.6-10.0)
[2024-06-28 06:25] LABS: ALANINE AMINOTRANSFERASE 14 Units/L (12-78); ALBUMIN 1.3 g/dL (3.4-5.0); ALKALINE PHOSPHATASE 94 Units/L (46-116); ASPARTATE AMINO TRANSFERASE 43 Units/L (15-37); BLOOD UREA NITROGEN 21 mg/dL (7-18); CALCIUM 7.8 mg/dL (8.5-10.1); CARBON DIOXIDE 27.6 mmol/L (21-32); CHLORIDE 108 mmol/L (98-107); CREATININE 0.97 mg/dL (0.70-1.30); GLUCOSE 102 mg/dL (65-99); POTASSIUM 4.1 mmol/L (3.5-5.1); SODIUM 140 mmol/L (136-145); TOTAL PROTEIN 4.7 g/dL (6.4-8.2); eGFR NON BLACK RACES > 60 (>60)
--- NOTE | 2024-06-28 11:44 | RAD ---
EXAM:CHEST x-ray, 1 VIEWHISTORY:PNEUMONIA; HTN, LIVER DISEASE, COPD, GERD -COMPARISON:X-ray 06/27/2024FINDINGS:Persistent rounded density is seen in the right lower lung that may be rounded atelectasis or pneumonia. There is a probable moderate right pleural effusion, also.Patient is lordotic in positioning. Heart is likely normal in size. Left lung is clear.IMPRESSION:Probable persistent right lower lobe atelectasis or pneumonia with right pleural effusion. Recommend continued x-ray follow-up to document resolution.THIS IS AN ELECTRONICALLY VERIFIED FINAL [id number]/2024 11:40 AM - Electronically signed by Marco A Rothman MD
[2024-06-28] MEDS: MAGNESIUM SULFATE 50% INJ VIAL ONE (16:15)
--- NOTE | 2024-06-29 06:03 | RAD ---
EXAMINATION:CHEST, PA/LAT ADULTHISTORY:PNEUMONIA; .COMPARISON STUDY:Chest x-ray 06/28/2024TECHNIQUE:3 views of the chest frontal and lateral projections.FINDINGS:The lungs are expanded. Subtle radiolucency along the right and left hemidiaphragms of the chest potentially representing intraperitoneal free air. Dense opacity right pulmonary base. Mild cardiac silhouette enlargement. Bones are unchanged.IMPRESSION:Subtle radiolucency along the right and left hemidiaphragms of the chest potentially representing intraperitoneal free air.Dense opacity right pulmonary base.Mild cardiac silhouette enlargement.THIS IS AN ELECTRONICALLY VERIFIED FINAL [id number]/2024 6:00 AM - Electronically signed by Marie Morales MD
[2024-06-29 07:00] LABS: BASOPHILS % (AUTO) 0.4 % (0.2-1.0); EOSINOPHILS # (AUTO) 0.9 x10^3/uL (0.0-0.2); HEMATOCRIT 29.7 % (42.0-54.0); HEMOGLOBIN 10.2 g/dL (13.5-18.0); LYMPHOCYTES % (AUTO) 13.3 % (21.0-51.0); MEAN CORPUSCULAR HEMOGLOBIN 31.2 pg (27.0-34.0); MEAN CORPUSCULAR HGB CONC 34.2 g/dL (33.0-35.0); MEAN PLATELET VOLUME 8.1 fL (7.4-11.0); MONOCYTES # (AUTO) 0.8 x10^3/uL (0.3-0.8); MONOCYTES % (AUTO) 10.1 % (0.0-13.0); NEUTROPHILS # (AUTO) 5.1 x10^3/uL (2.2-4.8); NEUTROPHILS % (AUTO) 65.2 % (42.0-75.0); PLATELET COUNT 243 X10^3/uL (150.0-450.0); RED BLOOD COUNT 3.27 X10^6/uL (4.7-6.0); RED CELL DISTRIBUTION WIDTH 17.4 % (11.6-16.5); WHITE BLOOD COUNT 7.8 X10^3/uL (3.6-10.0)
[2024-06-29 07:09] LABS: ALANINE AMINOTRANSFERASE 13 Units/L (12-78); ALBUMIN 1.5 g/dL (3.4-5.0); ALKALINE PHOSPHATASE 92 Units/L (46-116); ASPARTATE AMINO TRANSFERASE 31 Units/L (15-37); BLOOD UREA NITROGEN 21 mg/dL (7-18); CALCIUM 7.7 mg/dL (8.5-10.1); CARBON DIOXIDE 30.3 mmol/L (21-32); CHLORIDE 107 mmol/L (98-107); COR CA(FOR HYPOALB) 9.7 mg/dL (8.5-10.1); COR NA(FOR HYPERGLY) 141 mmol/L (136-145); CREATININE 1.09 mg/dL (0.70-1.30); GLUCOSE 147 mg/dL (65-99); POTASSIUM 3.6 mmol/L (3.5-5.1); SODIUM 140 mmol/L (136-145); TOTAL PROTEIN 4.6 g/dL (6.4-8.2); eGFR NON BLACK RACES > 60 (>60)
[2024-06-30] MEDS: ZOFRAN INJ 4 MG VIAL IVP PRN (04:56)
[2024-06-30 06:12] LABS: BASOPHILS # (AUTO) 0.2 X10^3/uL (0.0-0.1); BASOPHILS % (AUTO) 2.8 % (0.2-1.0); EOSINOPHILS % (AUTO) 11.1 % (0.9-2.9); HEMATOCRIT 29.5 % (42.0-54.0); HEMOGLOBIN 10.1 g/dL (13.5-18.0); LYMPHOCYTES # (AUTO) 1.2 X10^3/uL (1.3-2.9); LYMPHOCYTES % (AUTO) 13.6 % (21.0-51.0); MEAN CORPUSCULAR HEMOGLOBIN 31.1 pg (27.0-34.0); MEAN CORPUSCULAR HGB CONC 34.3 g/dL (33.0-35.0); MEAN CORPUSCULAR VOLUME 90.7 fL (80.0-100.0); MEAN PLATELET VOLUME 9.2 fL (7.4-11.0); MONOCYTES # (AUTO) 0.9 x10^3/uL (0.3-0.8); NEUTROPHILS # (AUTO) 5.5 x10^3/uL (2.2-4.8); NEUTROPHILS % (AUTO) 62.5 % (42.0-75.0); PLATELET COUNT 231 X10^3/uL (150.0-450.0); RED BLOOD COUNT 3.26 X10^6/uL (4.7-6.0); RED CELL DISTRIBUTION WIDTH 17.7 % (11.6-16.5); WHITE BLOOD COUNT 8.8 X10^3/uL (3.6-10.0)
[2024-06-30 06:28] LABS: ALANINE AMINOTRANSFERASE 14 Units/L (12-78); ALBUMIN 1.6 g/dL (3.4-5.0); ALKALINE PHOSPHATASE 94 Units/L (46-116); ASPARTATE AMINO TRANSFERASE 36 Units/L (15-37); BLOOD UREA NITROGEN 22 mg/dL (7-18); CALCIUM 7.7 mg/dL (8.5-10.1); CARBON DIOXIDE 30.7 mmol/L (21-32); CHLORIDE 108 mmol/L (98-107); COR CA(FOR HYPOALB) 9.6 mg/dL (8.5-10.1); COR NA(FOR HYPERGLY) 141 mmol/L (136-145); CREATININE 1.02 mg/dL (0.70-1.30); GLUCOSE 146 mg/dL (65-99); POTASSIUM 4.3 mmol/L (3.5-5.1); SODIUM 140 mmol/L (136-145); TOTAL PROTEIN 4.6 g/dL (6.4-8.2); eGFR NON BLACK RACES > 60 (>60)
--- NOTE | 2024-06-30 06:51 | RAD ---
EXAMINATION:CHEST, 1 VIEWHISTORY:PNEUMONIA; HX: HTN, HIATAL HERNIA .COMPARISON STUDY:Chest x-ray 06/29/2024TECHNIQUE:Single frontal view of the chestFINDINGS:Lungs are expanded. Dense alveolar infiltrate right mid and lower lung field. Mild volume loss of the right lung. Left lung is clear. Mild cardiac silhouette enlargement. Normal pulmonary vascular pattern. Bones are intact.IMPRESSION:Persistent infiltrate right mid and lower lung with mild volume loss of the right lung field.Mild cardiac silhouette enlargement.THIS IS AN ELECTRONICALLY VERIFIED FINAL [id number]/2024 6:48 AM - Electronically signed by Marie Morales MD
--- NOTE | 2024-06-30 08:37 | PCM.PROG ---
Progress Note Progress Note for Day of Date of Exam: 06/29/24 Subjective Subjective: Patient is a 59-year-old male admitted for pneumonia, abdominal ascites with severe peripheral edema, and cirrhosis of the liver. This morning he is resting comfortably in bed. No acute events overnight. Labs/imaging: WBC 7.8, hemoglobin 10.2, platelets 243, sodium 140, potassium 3.6, creatinine 1.09, glucose 147. Patient is currently being treated with IV antibiotics Rocephin and azithromycin. He does have a drainage catheter after foot having paracentesis. Continue to monitor ins and outs. Continue to monitor output. Continue lactulose. Supplemental oxygen and pulmonary toileting. Patient is gradually improving. Continue closely monitor and follow-up labs/imaging. Past Medical Family Social History Allergies: Allergies No Known Drug Allergies Allergy (Unknown, Verified 04/11/24 16:24) Onset Date: 05/26/2022 Review of Systems ROS changes noted: see HPI Vital Signs and I&O's Vital Signs: Vital Signs Temperature 98.0 F Temperature 98.0 F Pulse Rate [Radial] 80 Pulse Rate [Radial] 80 Respiratory Rate 18 Respiratory Rate 19 Respiratory Rate 18 Respiratory Rate 18 Blood Pressure [Left Arm] 180/77 Blood Pressure [Left Arm] 180/77 O2 Sat by Pulse Oximetry 99 O2 Sat by Pulse Oximetry 99 Intake and Output: Intake & Output 06/27/24 06/28/24 06/29/24 06/30/24 23:59 23:59 23:59 23:59 Intake Total 2843 / 2843 1889 / 1889 1475 / 1475 1536 / 1536 Output Total 85129 / 17893 5650 / 5650 3975 / 3975 252 / 252 Balance -24399 / -37799 -3761 / -3761 -2500 / -2500 1284 / 1284 Physical Exam Oriented: Normal Eyes: Normal Ear: Normal Nose: Normal Throat: Dry Respiratory: Diminished Cardiovascular: Murmur : Normal Auscultation: Bowel Sounds: Decreased Tenderness: Diffuse Skin: Decreased Turgur Musculoskeletal: Leg and Swelling Mood Description: Calm Affect: Depressed Speech Pattern: Clear and Appropriate Laboratory and Diagnostics 06/30/24 05:30 06/30/24 05:30 Labs: 06/27/24 11:27 Sputum - Expectorated Sputum Sputum Culture - Final 06/27/24 11:27 Sputum - Expectorated Sputum - Final 06/26/24 08:46 Blood Blood Culture - Preliminary 06/26/24 08:30 Blood Blood Culture - Preliminary Laboratory WBC 8.8 X10^3/uL (3.6-10.0) 06/30/24 05:30 RBC 3.26 X10^6/uL (4.7-6.0) L 06/30/24 05:30 Hgb 10.1 g/dL (13.5-18.0) L 06/30/24 05:30 Hct 29.5 % (42.0-54.0) L 06/30/24 05:30 MCV 90.7 fL (80.0-100.0) 06/30/24 05:30 MCH 31.1 pg (27.0-34.0) 06/30/24 05:30 MCHC 34.3 g/dL (33.0-35.0) 06/30/24 05:30 RDW 17.7 % (11.6-16.5) H 06/30/24 05:30 Plt Count 231 X10^3/uL (150.0-450.0) 06/30/24 05:30 MPV 9.2 fL (7.4-11.0) 06/30/24 05:30 Neut % (Auto) 62.5 % (42.0-75.0) 06/30/24 05:30 Lymph % (Auto) 13.6 % (21.0-51.0) L 06/30/24 05:30 [place] % (Auto) 10.0 % (0.0-13.0) 06/30/24 05:30 Eos % (Auto) 11.1 % (0.9-2.9) H 06/30/24 05:30 Baso % (Auto) 2.8 % (0.2-1.0) H 06/30/24 05:30 Neut # (Auto) 5.5 x10^3/uL (2.2-4.8) H 06/30/24 05:30 Lymph # (Auto) 1.2 X10^3/uL (1.3-2.9) L 06/30/24 05:30 [place] # (Auto) 0.9 x10^3/uL (0.3-0.8) H 06/30/24 05:30 Eos # (Auto) 1.0 x10^3/uL (0.0-0.2) H 06/30/24 05:30 Baso # (Auto) 0.2 X10^3/uL (0.0-0.1) H 06/30/24 05:30 Absolute Nucleated RBC 0.1 /100WBC 06/30/24 05:30 PT 15.4 SECONDS (11.8-14.3) 06/26/24 08:46 INR Target Range - 06/26/24 08:46 INR 1.25 (0.8-1.3) 06/26/24 08:46 APTT 33.6 SECONDS (22.9-36.5) 06/26/24 08:46 PTT Comment - 06/26/24 08:46 Sodium 140 mmol/L (136-145) 06/30/24 05:30 Corrected Sodium 141 mmol/L (136-145) 06/30/24 05:30 Potassium 4.3 mmol/L (3.5-5.1) 06/30/24 05:30 Chloride 108 mmol/L (98-107) H 06/30/24 05:30 Carbon Dioxide 30.7 mmol/L (21-32) 06/30/24 05:30 BUN 22 mg/dL (7-18) H 06/30/24 05:30 Creatinine 1.02 mg/dL (0.70-1.30) 06/30/24 05:30 Est GFR (MDRD) Af Amer > 60 (>60) 06/30/24 05:30 Est GFR (MDRD) Non-Af > 60 (>60) 06/30/24 05:30 Glucose 146 mg/dL (65-99) H 06/30/24 05:30 Calcium 7.7 mg/dL (8.5-10.1) L 06/30/24 05:30 Corrected Calcium 9.6 mg/dL (8.5-10.1) 06/30/24 05:30 Magnesium 2.0 mg/dL (2.0-2.9) 06/28/24 05:29 Total Bilirubin 0.40 mg/dL (0.2-1.0) 06/30/24 05:30 AST 36 Units/L (15-37) 06/30/24 05:30 ALT 14 Units/L (12-78) 06/30/24 05:30 Alkaline Phosphatase 94 Units/L (46-116) 06/30/24 05:30 Creatine Kinase 153 Units/L (39-308) 06/26/24 08:46 Troponin I High Sens 18.5 ng/L (4.0-60.0) 06/26/24 08:46 B-Natriuretic Peptide 358 pg/mL (0-79) H 06/26/24 08:46 Total Protein 4.6 g/dL (6.4-8.2) L 06/30/24 05:30 Albumin 1.6 g/dL (3.4-5.0) L 06/30/24 05:30 Globulin 3.0 g/dL (2.5-4.5) 06/30/24 05:30 Albumin/Globulin Ratio 0.5 Ratio (1.1-2.1) L 06/30/24 05:30 Plan (1) Tense ascites: Status: Acute Plan: ADMIT, CONSULT DR THOMPSON CXR ON ADMISSION PRN SUPPLEMENTAL O2 , [place] LEVEL STRICT I&OS (2) SOB (shortness of breath): Status: Acute (3) Cirrhosis: Status: Acute (4) Pneumonia: Status: Acute
--- NOTE | 2024-06-30 11:40 | PCM.PROG ---
Progress Note Progress Note for Day of Date of Exam: 06/30/24 Subjective Subjective: Patient is a 59-year-old male admitted for pneumonia, abdominal ascites with severe peripheral edema, and cirrhosis of the liver. This morning he is resting comfortably in bed. No acute events overnight. He does reports some shortness of breath. Labs/imaging: WBC 8.8, hemoglobin 10.1, platelets 231, sodium 140, potassium 4.3, creatinine 1.02, glucose 146. Patient is currently being treated with IV antibiotics Rocephin and azithromycin. He did have drainage catheter removed after paracentesis. Continue to monitor ins and outs. Continue to monitor output. Continue lactulose. Supplemental oxygen and pulmonary toileting. Patient is gradually improving. Continue closely monitor and follow-up labs/imaging. Past Medical Family Social History Allergies: Allergies No Known Drug Allergies Allergy (Unknown, Verified 04/11/24 16:24) Onset Date: 05/26/2022 Review of Systems ROS changes noted: see HPI Vital Signs and I&O's Vital Signs: Vital Signs Temperature 98.0 F Temperature 98.0 F Temperature 98.0 F Pulse Rate [Radial] 75 Pulse Rate [Radial] 80 Pulse Rate [Radial] 80 Pulse Rate 75 Respiratory Rate 20 Respiratory Rate 19 Respiratory Rate 18 Respiratory Rate 19 Respiratory Rate 18 Respiratory Rate 18 Blood Pressure [Left Arm] 124/68 Blood Pressure [Left Arm] 180/77 Blood Pressure [Left Arm] 180/77 O2 Sat by Pulse Oximetry 95 O2 Sat by Pulse Oximetry 95 O2 Sat by Pulse Oximetry 99 O2 Sat by Pulse Oximetry 99 Intake and Output: Intake & Output 06/27/24 06/28/24 06/29/24 06/30/24 23:59 23:59 23:59 23:59 Intake Total 2843 / 2843 1889 / 1889 1475 / 1475 1536 / 1536 Output Total 42272 / 22073 5650 / 5650 3975 / 3975 252 / 252 Balance -82236 / -12324 -3761 / -3761 -2500 / -2500 1284 / 1284 Physical Exam Oriented: Normal Eyes: Normal Ear: Normal Nose: Normal Throat: Dry Respiratory: Diminished Cardiovascular: Murmur : Normal Auscultation: Bowel Sounds: Decreased Tenderness: Diffuse Skin: Decreased Turgur Musculoskeletal: Leg and Swelling Mood Description: Calm Affect: Depressed Speech Pattern: Clear and Appropriate Laboratory and Diagnostics 06/30/24 05:30 06/30/24 05:30 Labs: 06/27/24 11:27 Sputum - Expectorated Sputum Sputum Culture - Final 06/27/24 11:27 Sputum - Expectorated Sputum - Final 06/26/24 08:46 Blood Blood Culture - Preliminary 06/26/24 08:30 Blood Blood Culture - Preliminary Laboratory WBC 8.8 X10^3/uL (3.6-10.0) 06/30/24 05:30 RBC 3.26 X10^6/uL (4.7-6.0) L 06/30/24 05:30 Hgb 10.1 g/dL (13.5-18.0) L 06/30/24 05:30 Hct 29.5 % (42.0-54.0) L 06/30/24 05:30 MCV 90.7 fL (80.0-100.0) 06/30/24 05:30 MCH 31.1 pg (27.0-34.0) 06/30/24 05:30 MCHC 34.3 g/dL (33.0-35.0) 06/30/24 05:30 RDW 17.7 % (11.6-16.5) H 06/30/24 05:30 Plt Count 231 X10^3/uL (150.0-450.0) 06/30/24 05:30 MPV 9.2 fL (7.4-11.0) 06/30/24 05:30 Neut % (Auto) 62.5 % (42.0-75.0) 06/30/24 05:30 Lymph % (Auto) 13.6 % (21.0-51.0) L 06/30/24 05:30 [place] % (Auto) 10.0 % (0.0-13.0) 06/30/24 05:30 Eos % (Auto) 11.1 % (0.9-2.9) H 06/30/24 05:30 Baso % (Auto) 2.8 % (0.2-1.0) H 06/30/24 05:30 Neut # (Auto) 5.5 x10^3/uL (2.2-4.8) H 06/30/24 05:30 Lymph # (Auto) 1.2 X10^3/uL (1.3-2.9) L 06/30/24 05:30 [place] # (Auto) 0.9 x10^3/uL (0.3-0.8) H 06/30/24 05:30 Eos # (Auto) 1.0 x10^3/uL (0.0-0.2) H 06/30/24 05:30 Baso # (Auto) 0.2 X10^3/uL (0.0-0.1) H 06/30/24 05:30 Absolute Nucleated RBC 0.1 /100WBC 06/30/24 05:30 PT 15.4 SECONDS (11.8-14.3) 06/26/24 08:46 INR Target Range - 06/26/24 08:46 INR 1.25 (0.8-1.3) 06/26/24 08:46 APTT 33.6 SECONDS (22.9-36.5) 06/26/24 08:46 PTT Comment - 06/26/24 08:46 Sodium 140 mmol/L (136-145) 06/30/24 05:30 Corrected Sodium 141 mmol/L (136-145) 06/30/24 05:30 Potassium 4.3 mmol/L (3.5-5.1) 06/30/24 05:30 Chloride 108 mmol/L (98-107) H 06/30/24 05:30 Carbon Dioxide 30.7 mmol/L (21-32) 06/30/24 05:30 BUN 22 mg/dL (7-18) H 06/30/24 05:30 Creatinine 1.02 mg/dL (0.70-1.30) 06/30/24 05:30 Est GFR (MDRD) Af Amer > 60 (>60) 06/30/24 05:30 Est GFR (MDRD) Non-Af > 60 (>60) 06/30/24 05:30 Glucose 146 mg/dL (65-99) H 06/30/24 05:30 Calcium 7.7 mg/dL (8.5-10.1) L 06/30/24 05:30 Corrected Calcium 9.6 mg/dL (8.5-10.1) 06/30/24 05:30 Magnesium 2.0 mg/dL (2.0-2.9) 06/28/24 05:29 Total Bilirubin 0.40 mg/dL (0.2-1.0) 06/30/24 05:30 AST 36 Units/L (15-37) 06/30/24 05:30 ALT 14 Units/L (12-78) 06/30/24 05:30 Alkaline Phosphatase 94 Units/L (46-116) 06/30/24 05:30 Creatine Kinase 153 Units/L (39-308) 06/26/24 08:46 Troponin I High Sens 18.5 ng/L (4.0-60.0) 06/26/24 08:46 B-Natriuretic Peptide 358 pg/mL (0-79) H 06/26/24 08:46 Total Protein 4.6 g/dL (6.4-8.2) L 06/30/24 05:30 Albumin 1.6 g/dL (3.4-5.0) L 06/30/24 05:30 Globulin 3.0 g/dL (2.5-4.5) 06/30/24 05:30 Albumin/Globulin Ratio 0.5 Ratio (1.1-2.1) L 06/30/24 05:30 Plan (1) Tense ascites: Status: Acute Plan: ADMIT, CONSULT DR THOMPSON CXR ON ADMISSION PRN SUPPLEMENTAL O2 , [place] LEVEL STRICT I&OS (2) SOB (shortness of breath): Status: Acute (3) Cirrhosis: Status: Acute (4) Pneumonia: Status: Acute
[2024-06-30] MEDS: COLACE CAP 100 MG PO SCH (20:44)
[2024-07-01 06:00] LABS: BASOPHILS % (AUTO) 0.4 % (0.2-1.0); EOSINOPHILS # (AUTO) 0.8 x10^3/uL (0.0-0.2); EOSINOPHILS % (AUTO) 10.1 % (0.9-2.9); HEMATOCRIT 29.1 % (42.0-54.0); HEMOGLOBIN 9.9 g/dL (13.5-18.0); LYMPHOCYTES # (AUTO) 0.7 X10^3/uL (1.3-2.9); LYMPHOCYTES % (AUTO) 8.8 % (21.0-51.0); MEAN CORPUSCULAR HEMOGLOBIN 30.9 pg (27.0-34.0); MEAN CORPUSCULAR HGB CONC 33.9 g/dL (33.0-35.0); MEAN CORPUSCULAR VOLUME 91.1 fL (80.0-100.0); MEAN PLATELET VOLUME 7.9 fL (7.4-11.0); MONOCYTES # (AUTO) 0.8 x10^3/uL (0.3-0.8); MONOCYTES % (AUTO) 9.4 % (0.0-13.0); NEUTROPHILS # (AUTO) 5.9 x10^3/uL (2.2-4.8); NEUTROPHILS % (AUTO) 71.3 % (42.0-75.0); PLATELET COUNT 278 X10^3/uL (150.0-450.0); RED CELL DISTRIBUTION WIDTH 17.3 % (11.6-16.5); WHITE BLOOD COUNT 8.3 X10^3/uL (3.6-10.0)
[2024-07-01 06:20] LABS: ALANINE AMINOTRANSFERASE 14 Units/L (12-78); ALBUMIN 1.8 g/dL (3.4-5.0); ALKALINE PHOSPHATASE 101 Units/L (46-116); ASPARTATE AMINO TRANSFERASE 32 Units/L (15-37); BLOOD UREA NITROGEN 22 mg/dL (7-18); CALCIUM 7.6 mg/dL (8.5-10.1); CARBON DIOXIDE 30.2 mmol/L (21-32); CHLORIDE 108 mmol/L (98-107); COR CA(FOR HYPOALB) 9.4 mg/dL (8.5-10.1); COR NA(FOR HYPERGLY) 142 mmol/L (136-145); GLUCOSE 117 mg/dL (65-99); SODIUM 142 mmol/L (136-145); TOTAL PROTEIN 4.8 g/dL (6.4-8.2); eGFR NON BLACK RACES > 60 (>60)
[2024-07-01 07:54] VITALS: PULSE 76; TEMP 98.1
[2024-07-01] MEDS: AFRIN NASAL SPRAY ENOSTRIL PRN (08:47)
[2024-07-01 12:35] VITALS: BP 142/74; O2SAT 96
[2024-07-01 13:34] VITALS: RESP 20
== END 2024-07-01 13:45 | disposition home health service (06) ==
LOC: ER 08:21 → INTOOBSV 09:45 → U 09:45 → MED/SURG 13:28
PROVIDERS: ADMIT Internal Medicine; ATTEND Internal Medicine
DX: K74.60 Unspecified cirrhosis of liver; Z59.82 Transportation insecurity; E83.42 Hypomagnesemia; I10 Essential (primary) hypertension; J18.8 Other pneumonia, unspecified organism; R06.02 Shortness of breath; M19.90 Unspecified osteoarthritis, unspecified site; K21.9 Gastro-esophageal reflux disease without esophagitis; Z59.86 Financial insecurity; R18.8 Other ascites; J44.9 Chronic obstructive pulmonary disease, unspecified

== ENCOUNTER 2024-07-29 19:53 | Observation (INO) ==
--- NOTE | 2024-07-29 20:06 | DR.SOBA ---
HPI Time Seen Time Seen by Provider: 07/29/24 20:05 Complaints Chief Complaint Doctors Comments: abdm swelling/pain, a/w sob, has tense ascites, hx Etoh abuse Reviewed Nurses Notes Reviewed: Yes PMH PMH Past Medical History: COPD, GERD, Hypertension and Liver Disease Past Surgical History: Yes Surgical History: No History Family History Family Medical History: Diabetes Mellitus and [place] Social History Do you use any recreational Drugs:: No ROS Review of Systems All Other Systems: Reviewed and Negative (negative except as above) PE Vital Signs Vitals: Vital Signs Temperature 98.1 F Pulse Rate 91 Pulse Rate 101 Pulse Rate 87 Pulse Rate 93 Pulse Rate 88 Pulse Rate 94 Pulse Rate 91 Pulse Rate 94 Pulse Rate 95 Respiratory Rate 19 Respiratory Rate 18 Respiratory Rate 22 Respiratory Rate 25 Respiratory Rate 21 Respiratory Rate 21 Respiratory Rate 20 Blood Pressure 162/95 O2 Sat by Pulse Oximetry 99 O2 Sat by Pulse Oximetry 98 O2 Sat by Pulse Oximetry 100 O2 Sat by Pulse Oximetry 100 O2 Sat by Pulse Oximetry 100 O2 Sat by Pulse Oximetry 100 General General Appearance: Alert Head Head Exam: Normal Inspection Eyes Eye exam: Normal Appearance ENT ENT Exam: Normal Exam Neck Neck Exam: Normal Inspection Chest Chest Inspection: Normal Inspection Cardiovascular Cardiovascular Exam: Regular Rate Abdominal Exam Abdominal Tenderness: Other (tense ascites with scrotal and le edema) Extremities Extremities Exam: Edema Neurologic Neurological Exam: Alert, Oriented X3 and CN II-XII Intact; negative Motor Sensory Deficit Skin Skin Exam: Warm MDM Differential Diagnosis Differential Diagnosis Comment:: tense ascites, pna, sbp COURSE Reevaluation 1st: Unchanged Consultation Called: 23:12 Call Returned: 23:12 Consultation Comments: [facility]: admit Education/Counseling Education/Counseling: Patient ROR Labs Reviewed 07/29/24 21:10 07/29/24 21:10 Laboratory: WBC 7.8 X10^3/uL (3.6-10.0) 07/29/24 21:10 RBC 3.37 X10^6/uL (4.7-6.0) L 07/29/24 21:10 Hgb 10.3 g/dL (13.5-18.0) L 07/29/24 21:10 Hct 30.7 % (42.0-54.0) L 07/29/24 21:10 MCV 91.1 fL (80.0-100.0) 07/29/24 21:10 MCH 30.5 pg (27.0-34.0) 07/29/24 21:10 MCHC 33.5 g/dL (33.0-35.0) 07/29/24 21:10 RDW 17.0 % (11.6-16.5) H 07/29/24 21:10 Plt Count 282 X10^3/uL (150.0-450.0) 07/29/24 21:10 MPV 7.6 fL (7.4-11.0) 07/29/24 21:10 Neut % (Auto) 67.9 % (42.0-75.0) 07/29/24 21:10 Lymph % (Auto) 14.0 % (21.0-51.0) L 07/29/24 21:10 [place] % (Auto) 10.0 % (0.0-13.0) 07/29/24 21:10 Eos % (Auto) 7.0 % (0.9-2.9) H 07/29/24 21:10 Baso % (Auto) 1.1 % (0.2-1.0) H 07/29/24 21:10 Neut # (Auto) 5.3 x10^3/uL (2.2-4.8) H 07/29/24 21:10 Lymph # (Auto) 1.1 X10^3/uL (1.3-2.9) L 07/29/24 21:10 [place] # (Auto) 0.8 x10^3/uL (0.3-0.8) 07/29/24 21:10 Eos # (Auto) 0.5 x10^3/uL (0.0-0.2) H 07/29/24 21:10 Baso # (Auto) 0.1 X10^3/uL (0.0-0.1) 07/29/24 21:10 Absolute Nucleated RBC 0.0 /100WBC 07/29/24 21:10 Opioid Opioid Risk Tool Age (Shaan box if 16-45): No History of Preadolescent Sexual Abuse: No Total: 0 Total Score Risk Category: Low Risk Copyright: Humberto OSEGUERA predicting aberrant behaviors Discharge Plan Diagnosis Discharge Problem: Tense ascites, Pneumonia Discharge Plan Patient Disposition: ADMITTED INPATIENT Condition: Stable Prescriptions: No Action spironolactone 25 mg Tablet 25 mg PO QDAY furosemide [Lasix] 40 mg Tablet 40 mg PO DAILY Qty: 30 3[facility] Health Concerns: Post Hospitalization: new medications and changes needed to prevent readmission or further decline. Pt educated and given instructions on all concerns. Plan of Treatment: Continue with present treatment and follow up plan. Pt is to keep follow up appointment as instructed and take medications as ordered. Follow ups/Referrals Follow ups/Referrals: NFD,None [Primary Care Provider] - 3 days
[2024-07-29 20:15] VITALS: BMI 35.9
--- NOTE | 2024-07-29 20:54 | EKG ---
Test Reason : chest pain Blood Pressure : */* mmHG Vent. Rate : 91 BPM Atrial Rate : 91 BPM P-R Int : 158 ms QRS Dur : 82 ms QT Int : 384 ms P-R-T Axes : 8 25 17 degrees QTc Int : 472 ms Sinus rhythm with frequent premature ventricular complexes Otherwise normal ECG When compared with ECG of 26-JUN-2024 08:29, fusion complexes are no longer present Confirmed by Trev German MD ([id number]) on 07/30/2024 7:27:04 AM Referred By: Confirmed By: Trev German MD
[2024-07-29] MEDS: DUONEB 0.5 MG/3 MG (3 mL) NEB ONE (20:55)
[2024-07-29 21:38] LABS: BASOPHILS # (AUTO) 0.1 X10^3/uL (0.0-0.1); BASOPHILS % (AUTO) 1.1 % (0.2-1.0); EOSINOPHILS # (AUTO) 0.5 x10^3/uL (0.0-0.2); HEMATOCRIT 30.7 % (42.0-54.0); HEMOGLOBIN 10.3 g/dL (13.5-18.0); LYMPHOCYTES # (AUTO) 1.1 X10^3/uL (1.3-2.9); MEAN CORPUSCULAR HEMOGLOBIN 30.5 pg (27.0-34.0); MEAN CORPUSCULAR HGB CONC 33.5 g/dL (33.0-35.0); MEAN CORPUSCULAR VOLUME 91.1 fL (80.0-100.0); MEAN PLATELET VOLUME 7.6 fL (7.4-11.0); MONOCYTES # (AUTO) 0.8 x10^3/uL (0.3-0.8); NEUTROPHILS # (AUTO) 5.3 x10^3/uL (2.2-4.8); NEUTROPHILS % (AUTO) 67.9 % (42.0-75.0); PLATELET COUNT 282 X10^3/uL (150.0-450.0); RED BLOOD COUNT 3.37 X10^6/uL (4.7-6.0); WHITE BLOOD COUNT 7.8 X10^3/uL (3.6-10.0)
[2024-07-29 21:43] LABS: INR 1.18 (0.8-1.3)
[2024-07-29 21:48] LABS: ALANINE AMINOTRANSFERASE 23 Units/L (12-78); ALBUMIN 1.5 g/dL (3.4-5.0); ALKALINE PHOSPHATASE 124 Units/L (46-116); ASPARTATE AMINO TRANSFERASE 44 Units/L (15-37); BLOOD UREA NITROGEN 18 mg/dL (7-18); CALCIUM 7.9 mg/dL (8.5-10.1); CARBON DIOXIDE 29.6 mmol/L (21-32); CHLORIDE 110 mmol/L (98-107); COR CA(FOR HYPOALB) 9.9 mg/dL (8.5-10.1); CREATININE 1.05 mg/dL (0.70-1.30); GLUCOSE 98 mg/dL (65-99); POTASSIUM 3.5 mmol/L (3.5-5.1); SODIUM 145 mmol/L (136-145); TOTAL PROTEIN 5.6 g/dL (6.4-8.2); eGFR NON BLACK RACES > 60 (>60)
[2024-07-29] MEDS: ZOSYN VIAL 3.375 GRAMS 3.375 G in NS 100 ML IV 100 ML IV ONE (22:37)
[2024-07-29] MEDS: NS 250 ML IV 25 ML IV PRN (22:37)
--- NOTE | 2024-07-29 22:45 | CT ---
EXAM: CT ABDOMEN AND PELVIS WITH INTRAVENOUS CONTRAST HISTORY: Abdominal pain. TECHNIQUE: Spiral axial CT images are obtained through the abdomen and pelvis without the administrat ion of oral contrast and with the administration of intravenous contrast. Additional coronal and sagi ttal reformatted images are reconstructed. COMPARISON: CT abdomen and pelvis dated March 31, 2024. FINDINGS: CIRRHOTIC COMPLEX: Lobular hepatic surface contour and shrunken appearance of the liver (right lobe m easures 14.9 cm CC) consistent with hepatic cirrhosis (stable). Clinical correlation is advised. Bor derline splenomegaly (13.1 cm AP), in keeping with portal hypertension. Prominent left upper quadran t intra-abdominal/perisplenic/perinephric varices with splenorenal shunt in keeping with portal hyper tension. There is massive intraperitoneal ascites (with interval increase compared with the previous exam) consistent with sequela of portal hypertension. There are markedly enlarged bilateral inguina l hernias containing ascitic fluid (stable findings) ABDOMINAL/PELVIC WALL AND HIPS/THIGHS: There is diffuse subcutaneous soft tissue edema (with signific ant interval progression), which may represent anasarca in the appropriate clinical setting; rule out third spacing secondary to hypoalbuminemia or hypervolemia. There is severe scrotal skin thickening (with interval progression of findings) in keeping with edema; rule out cellulitis; no scrotal cutan eous soft tissue emphysema reminiscent of necrotizing fasciitis is seen. There is an approximately 4 cm CC by 2.4 cm AP by 4.1 cm transverse umbilical hernia containing ascitic fluid. Axial image 73; sagittal image 37. GASTROINTESTINAL TRACT: There is diffuse colonic diverticulosis, especially severe in the sigmoid reg ion, without CT evidence for acute diverticulitis. No evidence for bowel herniation, bowel obstructio n, or colitis. A normal-appearing appendix is seen. GENITOURINARY SYSTEM: The kidneys are unremarkable. There is no ureteral calculus or stigmata of obst ructive uropathy. The urinary bladder is grossly unremarkable for a non-dedicated exam. CT ABDOMEN: Aortoiliac atherosclerotic disease, without aneurysm formation or dissection. The liver, spleen, pancreas, adrenal glands, gallbladder, and inferior vena cava are within normal limits for a CT scan. There is no intra-abdominal or retroperitoneal lymphadenopathy, free fluid, or free air see n. CT PELVIS: No pelvic sidewall or inguinal lymphadenopathy is seen. No free air is seen. BONES AND JOINTS: Severe multilevel DDD is seen throughout the distal thoracic and lumbar spine. The visualized bony structures are otherwise within normal limits. LUNG BASES: There is a chronic appearing loculated small to low moderate right posterior pleural effu tonya, with interval development of air bubbles within the effusion, which may represent iatrogenic ch luis manuel from previous thoracentesis, but cannot rule out empyema with gas producing organism in the appr opriate clinical setting. Axial image 1-27. There is interval development of a small left pleural e ffusion. There is again evidence for focal subpleural lung consolidation involving the posterior rig ht lower lobe and peripheral right middle lobe (with some air bronchograms); nonspecific finding; DDx includes multi lobar subpleural consolidative atelectasis and/or consolidative pneumonia is in the a ppropriate clinical setting. Axial image 9-24, lung windows. IMPRESSION: 1. Lobular hepatic surface contour and shrunken appearance of the liver (right lobe measures 14.9 cm CC) consistent with hepatic cirrhosis (stable). Clinical correlation is advised. 2. Borderline splenomegaly (13.1 cm AP), in keeping with portal hypertension. 3. Prominent left upper quadrant intra-abdominal/perisplenic/perinephric varices with splenorenal sh unt in keeping with portal hypertension. 4. Massive intraperitoneal ascites (with interval increase compared with the previous exam) consiste nt with sequela of portal hypertension. 5. Markedly enlarged bilateral inguinal hernias containing ascitic fluid (stable findings) 6. Diffuse subcutaneous soft tissue edema (with significant interval progression), which may represe nt anasarca in the appropriate clinical setting; rule out third spacing secondary to hypoalbuminemia or hypervolemia. 7. Severe scrotal skin thickening (with interval progression of findings) in keeping with edema; rul e out cellulitis; no scrotal cutaneous soft tissue emphysema reminiscent of necrotizing fasciitis is seen. 8. Approximately 4 cm CC by 2.4 cm AP by 4.1 cm transverse umbilical hernia containing ascitic fluid . Axial image 73; sagittal image 37. 9. Colonic diverticulosis, especially severe in the sigmoid region, without CT evidence for acute di verticulitis. 10. No evidence for bowel herniation, bowel obstruction, appendicitis or colitis. 11. No evidence for pyelonephritis, renal stone disease or obstructive uropathy. 12. No free air, mass lesions, or lymphadenopathy seen. 13. Chronic appearing loculated small to low moderate right posterior pleural effusion, with interva l development of air bubbles within the effusion, which may represent iatrogenic change from previous thoracentesis, but cannot rule out empyema with gas producing organism in the appropriate clinical s etting. Axial image 1-27. 14. Again evidence for focal subpleural lung consolidation involving the posterior right lower lobe and peripheral right middle lobe (with some air bronchograms); nonspecific finding; DDx includes mult i lobar subpleural consolidative atelectasis and/or consolidative pneumonia is in the appropriate cli nical setting. Axial image 9-24, lung windows. 15. Interval development of a small left pleural effusion. THIS IS AN ELECTRONICALLY VERIFIED FINAL REPORT 07/29/2024 10:41 PM - Electronically signed by Heide Higgins MD
[2024-07-29] MEDS: ZOSYN VIAL 3.375 GRAMS 3.375 G in NS 100 ML IV 100 ML IV SCH (23:27)
[2024-07-29] MEDS ORDERED: CONSULT PHARMACY - POTASSIUM & MAGNESIUM XX SCH (23:45)
[2024-07-30] MEDS: NORCO 5/325 MG TAB PO PRN (01:40)
[2024-07-30 05:43] LABS: BILIRUBIN,URINE NEGATIVE (NEGATIVE); BLOOD/HEMOGLOBIN,URINE 5+ (NEGATIVE); GLUCOSE, URINE NEGATIVE (NEGATIVE); KETONES,URINE NEGATIVE (NEGATIVE); LEUKOCYTE ESTERASE ,URINE NEGATIVE (NEGATIVE); NITRITES,URINE NEGATIVE (NEGATIVE); PROTEIN,URINE 4+ (NEGATIVE); UROBILINOGEN,URINE 1+ (NORMAL)
[2024-07-30 05:52] LABS: APPEARANCE,URINE CLEAR (CLEAR); BACTERIA,URINE TRACE /HPF (NEGATIVE); COLOR,URINE YELLOW (YELLOW); SQUAMOUS EPITHELIAL CELL,UR FEW /HPF (NEGATIVE)
[2024-07-30 05:56] LABS: BASOPHILS % (AUTO) 0.4 % (0.2-1.0); EOSINOPHILS # (AUTO) 0.6 x10^3/uL (0.0-0.2); EOSINOPHILS % (AUTO) 7.2 % (0.9-2.9); HEMATOCRIT 27.8 % (42.0-54.0); HEMOGLOBIN 9.7 g/dL (13.5-18.0); LYMPHOCYTES # (AUTO) 1.2 X10^3/uL (1.3-2.9); LYMPHOCYTES % (AUTO) 14.7 % (21.0-51.0); MEAN CORPUSCULAR HEMOGLOBIN 31.2 pg (27.0-34.0); MEAN CORPUSCULAR HGB CONC 34.7 g/dL (33.0-35.0); MEAN CORPUSCULAR VOLUME 89.7 fL (80.0-100.0); MEAN PLATELET VOLUME 7.8 fL (7.4-11.0); MONOCYTES # (AUTO) 0.7 x10^3/uL (0.3-0.8); MONOCYTES % (AUTO) 9.1 % (0.0-13.0); NEUTROPHILS # (AUTO) 5.4 x10^3/uL (2.2-4.8); NEUTROPHILS % (AUTO) 68.6 % (42.0-75.0); PLATELET COUNT 250 X10^3/uL (150.0-450.0); RED CELL DISTRIBUTION WIDTH 16.7 % (11.6-16.5); WHITE BLOOD COUNT 7.8 X10^3/uL (3.6-10.0)
--- NOTE | 2024-07-30 06:09 | RAD ---
EXAM:Portable chestHISTORY:Shortness of breath, peripheral edemaCOMPARISON:06/30/2024FINDINGS:Heart remains enlarged. No congestive heart failure is noted. Abnormal parenchymal density in the right lung base is stable when compared to multiple prior examination and may represent rounded atelectasis consolidation, or fissural fluid. Small right pleural effusion is present. Remainder of the right lung is clear as is the left lung. Bony thorax is unremarkableIMPRESSION:Cardiomegaly without congestive heart failureAbnormal parenchymal density in right lung base stable when compared with multiple prior examinations. Differential diagnostic possibilities given above.Small right pleural effusionRemainder of the lung andrews are clear.THIS IS AN ELECTRONICALLY VERIFIED FINAL REPORT07/30/2024 6:05 AM - Electronically signed by Dinh Wilhelm MD
[2024-07-30 06:11] LABS: ALANINE AMINOTRANSFERASE 20 Units/L (12-78); ALBUMIN 1.4 g/dL (3.4-5.0); ALKALINE PHOSPHATASE 106 Units/L (46-116); ASPARTATE AMINO TRANSFERASE 40 Units/L (15-37); BLOOD UREA NITROGEN 18 mg/dL (7-18); CALCIUM 7.8 mg/dL (8.5-10.1); CARBON DIOXIDE 28.3 mmol/L (21-32); CHLORIDE 110 mmol/L (98-107); COR CA(FOR HYPOALB) 9.9 mg/dL (8.5-10.1); CREATININE 0.97 mg/dL (0.70-1.30); GLUCOSE 88 mg/dL (65-99); POTASSIUM 3.3 mmol/L (3.5-5.1); SODIUM 144 mmol/L (136-145); TOTAL PROTEIN 5.1 g/dL (6.4-8.2); eGFR NON BLACK RACES > 60 (>60)
[2024-07-30] MEDS ORDERED: CONSULT PHARMACY - POTASSIUM & MAGNESIUM XX SCH ×2 (08:00→12:00)
[2024-07-30] MEDS: MAG-OX TAB PO SCH (08:14)
[2024-07-30] MEDS: K-DUR TAB 20 MEQ PO SCH (08:14)
[2024-07-30] MEDS: PULMICORT NEB TX 0.5 MG NEB SCH (09:17)
[2024-07-30] MEDS: DUONEB 0.5 MG/3 MG (3 mL) NEB SCH (09:17)
[2024-07-30 09:21] LABS: ABG ALLEN TEST POS; ABG BASE EXCESS 5.9 mmol/L (-2.0-2.0); ABG HCO3 29.7 mmol/L (22-26)
[2024-07-30] MEDS: ALBUMIN HUMAN 25%- 100 ML 100 ML IV SCH (10:13)
[2024-07-30] MEDS: VISTARIL PO PRN (20:30)
[2024-07-30] MEDS: OMNIPAQUE 350 mg/mL 100 mL BTL 100 ML ONE (23:43)
[2024-07-31 05:06] LABS: BASOPHILS # (AUTO) 0.1 X10^3/uL (0.0-0.1); BASOPHILS % (AUTO) 1.1 % (0.2-1.0); EOSINOPHILS # (AUTO) 0.8 x10^3/uL (0.0-0.2); EOSINOPHILS % (AUTO) 10.7 % (0.9-2.9); HEMATOCRIT 26.9 % (42.0-54.0); HEMOGLOBIN 9.1 g/dL (13.5-18.0); LYMPHOCYTES # (AUTO) 1.1 X10^3/uL (1.3-2.9); LYMPHOCYTES % (AUTO) 14.8 % (21.0-51.0); MEAN CORPUSCULAR HEMOGLOBIN 30.8 pg (27.0-34.0); MEAN CORPUSCULAR VOLUME 90.5 fL (80.0-100.0); MONOCYTES # (AUTO) 0.7 x10^3/uL (0.3-0.8); MONOCYTES % (AUTO) 9.7 % (0.0-13.0); NEUTROPHILS # (AUTO) 4.8 x10^3/uL (2.2-4.8); NEUTROPHILS % (AUTO) 63.7 % (42.0-75.0); PLATELET COUNT 226 X10^3/uL (150.0-450.0); RED BLOOD COUNT 2.97 X10^6/uL (4.7-6.0); RED CELL DISTRIBUTION WIDTH 16.5 % (11.6-16.5); WHITE BLOOD COUNT 7.6 X10^3/uL (3.6-10.0)
[2024-07-31 05:18] LABS: ALANINE AMINOTRANSFERASE 17 Units/L (12-78); ALBUMIN 1.4 g/dL (3.4-5.0); ALKALINE PHOSPHATASE 94 Units/L (46-116); ASPARTATE AMINO TRANSFERASE 31 Units/L (15-37); BLOOD UREA NITROGEN 18 mg/dL (7-18); CALCIUM 7.5 mg/dL (8.5-10.1); CHLORIDE 110 mmol/L (98-107); COR CA(FOR HYPOALB) 9.6 mg/dL (8.5-10.1); COR NA(FOR HYPERGLY) 145 mmol/L (136-145); CREATININE 1.14 mg/dL (0.70-1.30); GLUCOSE 136 mg/dL (65-99); MAGNESIUM 1.9 mg/dL (2.0-2.9); POTASSIUM 3.8 mmol/L (3.5-5.1); SODIUM 144 mmol/L (136-145); TOTAL PROTEIN 4.5 g/dL (6.4-8.2); eGFR NON BLACK RACES > 60 (>60)
--- NOTE | 2024-07-31 10:56 | DR.PROGNOT ---
HOSPITAL PROGRESS NOTE Progress Note for Day of: Progress Note Date: 07/31/24 Chief Complaint Chief Complaint: Less abdominal pain but still distended. Drained about 14 L of fluid over the past 24 hours, electrolytes, BUN and creatinine, liver function test are all within normal limits. Platelet count 226. Albumin 1.4, ammonia level 58, hemoglobin 9.1. Past Medical Family Social History Past Med/Fam/Surg Hx: No changes since H&P Allergies: Allergies No Known Drug Allergies Allergy (Unknown, Verified 04/11/24 16:24) Onset Date: 05/26/2022 Vital Signs Vital Signs: Vital Signs Temperature 97.9 F Temperature 98.4 F Pulse Rate [Apical] 81 Pulse Rate [Apical] 102 Pulse Rate 95 Respiratory Rate 20 Respiratory Rate 18 Respiratory Rate 19 Respiratory Rate 18 Blood Pressure [Left Arm] 136/72 Blood Pressure [Left Arm] 132/86 O2 Sat by Pulse Oximetry 97 O2 Sat by Pulse Oximetry 95 O2 Sat by Pulse Oximetry 98 Physical Exam Oriented: Normal Eyes: Normal Ear: Normal Nose: Normal Throat: Normal Respiratory: Normal Cardiovascular: Normal GI:Auscultation: Normal GI:Palpation: Other (Moderate distended abdomen but soft with good bowel sounds, paracentesis catheter is in place.) Speech Pattern: Clear and Appropriate Laboratory and Diagnostics 07/31/24 04:33 07/31/24 04:33 Labs: 07/29/24 21:22 Blood Blood Culture - Preliminary 07/29/24 21:10 Blood Blood Culture - Preliminary Laboratory WBC 7.6 X10^3/uL (3.6-10.0) 07/31/24 04:33 RBC 2.97 X10^6/uL (4.7-6.0) L 07/31/24 04:33 Hgb 9.1 g/dL (13.5-18.0) L 07/31/24 04:33 Hct 26.9 % (42.0-54.0) L 07/31/24 04:33 MCV 90.5 fL (80.0-100.0) 07/31/24 04:33 MCH 30.8 pg (27.0-34.0) 07/31/24 04:33 MCHC 34.0 g/dL (33.0-35.0) 07/31/24 04:33 RDW 16.5 % (11.6-16.5) 07/31/24 04:33 Plt Count 226 X10^3/uL (150.0-450.0) 07/31/24 04:33 MPV 8.0 fL (7.4-11.0) 07/31/24 04:33 Neut % (Auto) 63.7 % (42.0-75.0) 07/31/24 04:33 Lymph % (Auto) 14.8 % (21.0-51.0) L 07/31/24 04:33 Rich % (Auto) 9.7 % (0.0-13.0) 07/31/24 04:33 Eos % (Auto) 10.7 % (0.9-2.9) H 07/31/24 04:33 Baso % (Auto) 1.1 % (0.2-1.0) H 07/31/24 04:33 Neut # (Auto) 4.8 x10^3/uL (2.2-4.8) 07/31/24 04:33 Lymph # (Auto) 1.1 X10^3/uL (1.3-2.9) L 07/31/24 04:33 Rich # (Auto) 0.7 x10^3/uL (0.3-0.8) 07/31/24 04:33 Eos # (Auto) 0.8 x10^3/uL (0.0-0.2) H 07/31/24 04:33 Baso # (Auto) 0.1 X10^3/uL (0.0-0.1) 07/31/24 04:33 Absolute Nucleated RBC 0.0 /100WBC 07/31/24 04:33 PT 14.8 SECONDS (11.8-14.3) 07/29/24 21:10 INR Target Range - 07/29/24 21:10 INR 1.18 (0.8-1.3) 07/29/24 21:10 APTT 35.1 SECONDS (22.9-36.5) 07/29/24 21:10 PTT Comment - 07/29/24 21:10 Sample Site Rrad 07/30/24 09:18 ABG pH 7.490 (7.35-7.45) H 07/30/24 09:18 ABG pCO2 39.0 mmHg (35.0-45.0) 07/30/24 09:18 ABG pO2 81.0 mmHg (80.0-100.0) 07/30/24 09:18 ABG HCO3 29.7 mmol/L (22-26) H 07/30/24 09:18 ABG O2 Saturation 97.0 % (90-100) 07/30/24 09:18 ABG Base Excess 5.9 mmol/L (-2.0-2.0) H 07/30/24 09:18 Sage Test Pos 07/30/24 09:18 A-a Gradient 20.0 mmHg 07/30/24 09:18 FiO2 21.0 07/30/24 09:18 Blood Gas Comments Pt arnoldo well elj cdn 07/30/24 09:18 Sodium 144 mmol/L (136-145) 07/31/24 04:33 Corrected Sodium 145 mmol/L (136-145) 07/31/24 04:33 Potassium 3.8 mmol/L (3.5-5.1) 07/31/24 04:33 Chloride 110 mmol/L (98-107) H 07/31/24 04:33 Carbon Dioxide 30.0 mmol/L (21-32) 07/31/24 04:33 BUN 18 mg/dL (7-18) 07/31/24 04:33 Creatinine 1.14 mg/dL (0.70-1.30) 07/31/24 04:33 Est GFR (MDRD) Af Amer > 60 (>60) 07/31/24 04:33 Est GFR (MDRD) Non-Af > 60 (>60) 07/31/24 04:33 Glucose 136 mg/dL (65-99) H 07/31/24 04:33 Lactic Acid 1.7 mmol/L (0.4-2.0) 07/30/24 09:10 Calcium 7.5 mg/dL (8.5-10.1) L 07/31/24 04:33 Corrected Calcium 9.6 mg/dL (8.5-10.1) 07/31/24 04:33 Magnesium 1.9 mg/dL (2.0-2.9) L 07/31/24 04:33 Total Bilirubin 0.40 mg/dL (0.2-1.0) 07/31/24 04:33 AST 31 Units/L (15-37) 07/31/24 04:33 ALT 17 Units/L (12-78) 07/31/24 04:33 Alkaline Phosphatase 94 Units/L (46-116) 07/31/24 04:33 Ammonia 58 umol/L (11-32) H 07/30/24 09:10 B-Natriuretic Peptide 271 pg/mL (0-79) H 07/29/24 21:10 Total Protein 4.5 g/dL (6.4-8.2) L 07/31/24 04:33 Albumin 1.4 g/dL (3.4-5.0) L 07/31/24 04:33 Globulin 3.1 g/dL (2.5-4.5) 07/31/24 04:33 Albumin/Globulin Ratio 0.5 Ratio (1.1-2.1) L 07/31/24 04:33 Specimen Type Clean catch urine 07/30/24 05:15 Urine Color Yellow (YELLOW) 07/30/24 05:15 Urine Appearance Clear (CLEAR) 07/30/24 05:15 Urine pH 5.0 (5.0 - 8.0) 07/30/24 05:15 Ur Specific [place] 1.015 (1.000-1.030) 07/30/24 05:15 Urine Protein 4+ (NEGATIVE) 07/30/24 05:15 Urine Glucose (UA) Negative (NEGATIVE) 07/30/24 05:15 Urine Ketones Negative (NEGATIVE) 07/30/24 05:15 Urine Blood 5+ (NEGATIVE) 07/30/24 05:15 Urine Nitrite Negative (NEGATIVE) 07/30/24 05:15 Urine Bilirubin Negative (NEGATIVE) 07/30/24 05:15 Urine Urobilinogen 1+ (NORMAL) 07/30/24 05:15 Ur Leukocyte Esterase Negative (NEGATIVE) 07/30/24 05:15 Urine RBC 5-10 /HPF (0-3) A 07/30/24 05:15 Urine WBC 0-2 /HPF (0-5) 07/30/24 05:15 Ur Squamous Epith Cells Few /HPF (NEGATIVE) 07/30/24 05:15 Amorphous Sediment 1+ /HPF (NEGATIVE) 07/30/24 05:15 Urine Bacteria Trace /HPF (NEGATIVE) 07/30/24 05:15 Ur Culture Indicated? No/not indicated 07/30/24 05:15 Assessment and Plan 1: Recurrent ascites status post paracentesis and drainage. Will keep the catheter today and remove it in the morning. Albumin supplement. Same IV antibiotics. 2: Liver cirrhosis, atelectasis right lung versus pneumonia. Same medical management. Problem Patient Problems: Patient Problems Pneumonia (Acute) J18.9 Tense ascites (Acute) R18.8
--- NOTE | 2024-07-31 13:01 | RAD ---
EXAM: CHEST, 1 VIEW HISTORY: PNEUMONIA; COMPARISON: 07/29/2024 FINDINGS: The trachea is midline. The cardiac silhouette is enlarged with a tortuous thoracic aorta. Focal ai rspace opacity in the right lower lobe is observed consistent with bronchopneumonia. Blunting of the right costophrenic angle is observed consistent with parapneumonic effusion. The left hemithorax ap pears clear. The bony thorax is unremarkable. IMPRESSION: Right lower lobe bronchopneumonia with parapneumonic effusion. Findings are similar to prior examina tion. THIS IS AN ELECTRONICALLY VERIFIED FINAL REPORT 07/31/2024 12:54 PM - Electronically signed by Elmo Carlisle MD
[2024-07-31] MEDS: CHRONULAC PO PRN (17:57)
[2024-07-31] MEDS: NS 250 ML IV 25 ML IV PRN (21:26)
[2024-08-01 06:28] LABS: BASOPHILS # (AUTO) 0.1 X10^3/uL (0.0-0.1); BASOPHILS % (AUTO) 1.3 % (0.2-1.0); EOSINOPHILS % (AUTO) 12.2 % (0.9-2.9); HEMATOCRIT 27.7 % (42.0-54.0); HEMOGLOBIN 9.5 g/dL (13.5-18.0); LYMPHOCYTES # (AUTO) 1.2 X10^3/uL (1.3-2.9); MEAN CORPUSCULAR HEMOGLOBIN 31.1 pg (27.0-34.0); MEAN CORPUSCULAR HGB CONC 34.4 g/dL (33.0-35.0); MEAN CORPUSCULAR VOLUME 90.5 fL (80.0-100.0); MEAN PLATELET VOLUME 7.9 fL (7.4-11.0); MONOCYTES # (AUTO) 0.7 x10^3/uL (0.3-0.8); NEUTROPHILS # (AUTO) 5.3 x10^3/uL (2.2-4.8); NEUTROPHILS % (AUTO) 63.5 % (42.0-75.0); PLATELET COUNT 240 X10^3/uL (150.0-450.0); RED BLOOD COUNT 3.07 X10^6/uL (4.7-6.0); RED CELL DISTRIBUTION WIDTH 16.8 % (11.6-16.5); WHITE BLOOD COUNT 8.3 X10^3/uL (3.6-10.0)
[2024-08-01 06:42] LABS: ALANINE AMINOTRANSFERASE 18 Units/L (12-78); ALBUMIN 1.6 g/dL (3.4-5.0); ALKALINE PHOSPHATASE 93 Units/L (46-116); ASPARTATE AMINO TRANSFERASE 30 Units/L (15-37); BLOOD UREA NITROGEN 17 mg/dL (7-18); CALCIUM 7.6 mg/dL (8.5-10.1); CARBON DIOXIDE 29.1 mmol/L (21-32); CHLORIDE 110 mmol/L (98-107); COR CA(FOR HYPOALB) 9.5 mg/dL (8.5-10.1); CREATININE 1.04 mg/dL (0.70-1.30); GLUCOSE 98 mg/dL (65-99); POTASSIUM 3.5 mmol/L (3.5-5.1); SODIUM 144 mmol/L (136-145); TOTAL PROTEIN 4.6 g/dL (6.4-8.2); eGFR NON BLACK RACES > 60 (>60)
--- NOTE | 2024-08-01 07:02 | RAD ---
EXAM: Two-view chest HISTORY: Congestion COMPARISON: 07/31/2023 chest x-ray and multiple priors, CT abdomen pelvis 07/29/2024 and multiple prior FINDINGS: Heart remains enlarged. No congestive heart failure is noted. Haziness in the right lung base lik jason due to the patient's known right pleural effusion. Rounded density in the right lung base corres ponds to a chronic area of abnormal pleural-parenchymal density visible on multiple prior CT examinat ions having the appearance of chronic rounded atelectasis. Remainder of the lung andrews are clear. Bony thorax is unremarkable. IMPRESSION: Continued cardiomegaly without congestive heart failure Haziness in the right lung base likely due to right pleural effusion Rounded density in the right lung base is stable when compared with prior chest x-rays and CTs and ma y represent a focus of chronic rounded atelectasis THIS IS AN ELECTRONICALLY VERIFIED FINAL REPORT 08/01/2024 6:59 AM - Electronically signed by Dinh Wilhelm MD
[2024-08-01] MEDS ORDERED: CONSULT PHARMACY - POTASSIUM & MAGNESIUM XX SCH (08:00)
[2024-08-01] MEDS: K-DUR TAB 20 MEQ PO SCH (08:10)
[2024-08-01] MEDS: ALDACTONE TAB 25 MG PO SCH (08:10)
[2024-08-01] MEDS: ZOFRAN INJ 4 MG VIAL IVP ONE (10:09)
[2024-08-01] MEDS: DILAUDID INJ IVP ONE (10:17)
[2024-08-01 10:49] VITALS: RESP 20
[2024-08-01 13:59] VITALS: BP 130/59; PULSE 85; TEMP 97.3; O2SAT 96
== END 2024-08-01 15:00 | disposition home health service (06) ==
LOC: ER 19:53 → MED/SURG 19:53
PROVIDERS: ADMIT Internal Medicine; ATTEND Internal Medicine
DX: J44.9 Chronic obstructive pulmonary disease, unspecified; J90 Pleural effusion, not elsewhere classified; R18.8 Other ascites; J18.8 Other pneumonia, unspecified organism; K21.9 Gastro-esophageal reflux disease without esophagitis; K74.69 Other cirrhosis of liver; R06.02 Shortness of breath; Z59.86 Financial insecurity; I10 Essential (primary) hypertension; E83.42 Hypomagnesemia; R10.84 Generalized abdominal pain

== ENCOUNTER 2024-09-12 16:00 | Observation (INO) ==
[2024-09-12 17:07] LABS: BASOPHILS # (AUTO) 0.1 X10^3/uL (0.0-0.1); BASOPHILS % (AUTO) 1.3 % (0.2-1.0); EOSINOPHILS # (AUTO) 0.3 x10^3/uL (0.0-0.2); EOSINOPHILS % (AUTO) 2.9 % (0.9-2.9); HEMATOCRIT 27.8 % (42.0-54.0); HEMOGLOBIN 9.6 g/dL (13.5-18.0); LYMPHOCYTES # (AUTO) 0.9 X10^3/uL (1.3-2.9); LYMPHOCYTES % (AUTO) 9.8 % (21.0-51.0); MEAN CORPUSCULAR HEMOGLOBIN 30.6 pg (27.0-34.0); MEAN CORPUSCULAR HGB CONC 34.4 g/dL (33.0-35.0); MEAN CORPUSCULAR VOLUME 88.8 fL (80.0-100.0); MEAN PLATELET VOLUME 6.9 fL (7.4-11.0); MONOCYTES # (AUTO) 0.8 x10^3/uL (0.3-0.8); MONOCYTES % (AUTO) 8.5 % (0.0-13.0); NEUTROPHILS # (AUTO) 6.9 x10^3/uL (2.2-4.8); NEUTROPHILS % (AUTO) 77.5 % (42.0-75.0); PLATELET COUNT 350 X10^3/uL (150.0-450.0); RED BLOOD COUNT 3.13 X10^6/uL (4.7-6.0); RED CELL DISTRIBUTION WIDTH 15.5 % (11.6-16.5); WHITE BLOOD COUNT 8.9 X10^3/uL (3.6-10.0)
[2024-09-12 17:18] LABS: AMMONIA 24 umol/L (11-32)
[2024-09-12 17:19] LABS: ALANINE AMINOTRANSFERASE 11 Units/L (12-78); ALBUMIN 1.5 g/dL (3.4-5.0); ALKALINE PHOSPHATASE 131 Units/L (46-116); AMYLASE 69 Units/L (25-115); ASPARTATE AMINO TRANSFERASE 27 Units/L (15-37); BLOOD UREA NITROGEN 16 mg/dL (7-18); CALCIUM 7.9 mg/dL (8.5-10.1); CHLORIDE 108 mmol/L (98-107); COR CA(FOR HYPOALB) 9.9 mg/dL (8.5-10.1); CREATININE 0.83 mg/dL (0.70-1.30); GLUCOSE 100 mg/dL (65-99); LIPASE 64 Units/L (16-77); POTASSIUM 3.7 mmol/L (3.5-5.1); SODIUM 140 mmol/L (136-145); TOTAL PROTEIN 5.9 g/dL (6.4-8.2); eGFR NON BLACK RACES > 60 (>60)
--- NOTE | 2024-09-12 18:54 | DR.SOBA ---
HPI Time Seen Time Seen by Provider: 09/12/24 16:36 Primary Care Physician Primary Care Physician: PRABHU Pandey HPI Comment HPI Comment: Patient with history of alcoholic liver cirrhosis and recurrent episodes of tense ascites requiring paracentesis. Patient states he is getting distended again and feels like he needs fluid drawn from his abdomen again. Patient states he feels that his baseline and explains the shortness of breath it is just with the fluid in the abdomen causing difficulty taking a deep breath. He states he feels just like every other time. Denies fevers. States his scrotum swells up as usual as well as his abdomen. Patient did follow-up with [facility] and has follow-up scheduled. Complaints Chief Complaint:: Pt c/o four days of progressively worsening shortness of breath with swelling of his abdomen and scrotum. Pt states, "I just need the fluid drawn off my abdomen again." Pt c/o constant aching pain in his abdomen and scrotum. COVID-19 Coronavirus risk:travel/contact w/high risk person: No Has patient experienced Coronavirus symptoms: No Source History Provided: Patient Mode of Arrival Mode of Arrival: EMS Timing Onset of Chief Complaint: 09/09/24 PMH PMH Past Medical History: Yes Past Medical History: COPD, GERD, Hyperthyroidism and Liver Disease Past Surgical History: Yes Surgical History: Other Family History History of Family Medical Conditions: Yes Family Medical History: Diabetes Mellitus, Cancer, Coronary Artery Disease and Hypertension Social History Does patient currently use any type of tobacco product: No Have you used tobacco products in the last 12 months: No Type of Tobacco Use: None Does any household member use tobacco: No Alcohol Use: None Do you use any recreational Drugs:: Yes (marijuana) Lives With: Alone Lives Where: Home Travel Risk Coronavirus risk:travel/contact w/high risk person: No Has patient experienced Coronavirus symptoms: No Infectious screening In the last 2 months have you had wt loss of >10#?: NO Have you had fever, night sweats or hemotysis?: No Have you traveled outside the country in the last 6 months?: No Isolation: Standard ROS Review of Systems Constitutional: Other (Abdominal swelling with pain history of ascites) Eyes: No Symptoms Reported ENTM: No Symptoms Reported Respiratoy: No Symptoms Reported Cardiovascular: No Symptoms Reported Gastrointestinal/Abdominal: Abdominal Pain (Describes as a typical achy discomfort when he accumulates too much ascites.) and Other (ascites) Genitourinary: No Symptoms Reported Neurological: No Symptoms Reported Musculoskeletal: No Symptoms Reported Integumentary: No Symptoms Reported Hematologic/Lymphatic: No Symptoms Reported Endocrine: No Symptoms Reported Psychiatric: No Symptoms Reported PE Vital Signs Vitals: Vital Signs Temperature 97.9 F Pulse Rate 86 Pulse Rate 90 Pulse Rate 92 Pulse Rate 83 Pulse Rate 84 Pulse Rate 86 Pulse Rate 88 Pulse Rate 88 Pulse Rate 83 Pulse Rate 82 Respiratory Rate 24 Blood Pressure 160/99 Blood Pressure 155/92 Blood Pressure 170/81 Blood Pressure 160/85 Blood Pressure 139/84 O2 Sat by Pulse Oximetry 99 O2 Sat by Pulse Oximetry 98 O2 Sat by Pulse Oximetry 99 O2 Sat by Pulse Oximetry 98 O2 Sat by Pulse Oximetry 99 O2 Sat by Pulse Oximetry 99 O2 Sat by Pulse Oximetry 100 O2 Sat by Pulse Oximetry 99 O2 Sat by Pulse Oximetry 100 O2 Sat by Pulse Oximetry 99 General Limitations: No Limitations General Appearance: Alert and In No Apparent Distress Head Head Exam: Normal Inspection Eyes Eye exam: Normal Appearance ENT ENT Exam: Normal Exam Neck Neck Exam: Normal Inspection Chest Chest Inspection: Normal Inspection Respiratory Respiratory Exam: Normal Lung Sounds Bilat Respiratory Exam: Bilateral: Clear to Auscultation Cardiovascular Cardiovascular Exam: Regular Rate and Normal Rhythm Abdominal Exam Abdominal Exam: Distention and Ascites; negative Tenderness or Guarding Extremities Extremities Exam: Normal Inspection Back Back Exam: Normal Inspection Neurologic Neurological Exam: Alert and Oriented X3 Psychiatric Psychiatric Exam: Normal Affect and Normal Mood Skin Skin Exam: Warm, Dry, Intact and Normal Color COURSE Treatment Treatment: Patient is stable at this time. Discussed results of workup. I suggested to patient that he should discuss with his PCP to schedule paracentesis since it has been so regular. Consultation Called: 19:25 Consultation Comments: Discussed case with Dr. Brooke. Discussed workup resul ts. He is agreeable with admission. ROR Labs Reviewed 09/12/24 16:56 09/12/24 16:56 Laboratory: WBC 8.9 X10^3/uL (3.6-10.0) 09/12/24 16:56 RBC 3.13 X10^6/uL (4.7-6.0) L 09/12/24 16:56 Hgb 9.6 g/dL (13.5-18.0) L 09/12/24 16:56 Hct 27.8 % (42.0-54.0) L 09/12/24 16:56 MCV 88.8 fL (80.0-100.0) 09/12/24 16:56 MCH 30.6 pg (27.0-34.0) 09/12/24 16:56 MCHC 34.4 g/dL (33.0-35.0) 09/12/24 16:56 RDW 15.5 % (11.6-16.5) 09/12/24 16:56 Plt Count 350 X10^3/uL (150.0-450.0) 09/12/24 16:56 MPV 6.9 fL (7.4-11.0) L 09/12/24 16:56 Neut % (Auto) 77.5 % (42.0-75.0) H 09/12/24 16:56 Lymph % (Auto) 9.8 % (21.0-51.0) L 09/12/24 16:56 [place] % (Auto) 8.5 % (0.0-13.0) 09/12/24 16:56 Eos % (Auto) 2.9 % (0.9-2.9) 09/12/24 16:56 Baso % (Auto) 1.3 % (0.2-1.0) H 09/12/24 16:56 Neut # (Auto) 6.9 x10^3/uL (2.2-4.8) H 09/12/24 16:56 Lymph # (Auto) 0.9 X10^3/uL (1.3-2.9) L 09/12/24 16:56 [place] # (Auto) 0.8 x10^3/uL (0.3-0.8) 09/12/24 16:56 Eos # (Auto) 0.3 x10^3/uL (0.0-0.2) H 09/12/24 16:56 Baso # (Auto) 0.1 X10^3/uL (0.0-0.1) 09/12/24 16:56 Absolute Nucleated RBC 0.0 /100WBC 09/12/24 16:56 Sodium 140 mmol/L (136-145) 09/12/24 16:56 Corrected Sodium TNP 09/12/24 16:56 Potassium 3.7 mmol/L (3.5-5.1) 09/12/24 16:56 Chloride 108 mmol/L (98-107) H 09/12/24 16:56 Carbon Dioxide 27.0 mmol/L (21-32) 09/12/24 16:56 BUN 16 mg/dL (7-18) 09/12/24 16:56 Creatinine 0.83 mg/dL (0.70-1.30) 09/12/24 16:56 Est GFR (MDRD) Af Amer > 60 (>60) 09/12/24 16:56 Est GFR (MDRD) Non-Af > 60 (>60) 09/12/24 16:56 Glucose 100 mg/dL (65-99) H 09/12/24 16:56 Calcium 7.9 mg/dL (8.5-10.1) L 09/12/24 16:56 Corrected Calcium 9.9 mg/dL (8.5-10.1) 09/12/24 16:56 Total Bilirubin 0.60 mg/dL (0.2-1.0) 09/12/24 16:56 AST 27 Units/L (15-37) 09/12/24 16:56 ALT 11 Units/L (12-78) L 09/12/24 16:56 Alkaline Phosphatase 131 Units/L (46-116) H 09/12/24 16:56 Ammonia 24 umol/L (11-32) 09/12/24 16:56 B-Natriuretic Peptide 423 pg/mL (0-79) H 09/12/24 16:56 Total Protein 5.9 g/dL (6.4-8.2) L 09/12/24 16:56 Albumin 1.5 g/dL (3.4-5.0) L 09/12/24 16:56 Globulin 4.4 g/dL (2.5-4.5) 09/12/24 16:56 Albumin/Globulin Ratio 0.3 Ratio (1.1-2.1) L 09/12/24 16:56 Amylase 69 Units/L (25-115) 09/12/24 16:56 Lipase 64 Units/L (16-77) 09/12/24 16:56 Opioid Opioid Risk Tool Age (Shaan box if 16-45): No History of Preadolescent Sexual Abuse: No Total: 0 Total Score Risk Category: Low Risk Copyright: Humberto OSEGUERA predicting aberrant behaviors Discharge Plan Diagnosis Discharge Problem: Tense ascites, Ascites, Alcoholic cirrhosis of liver with ascites Discharge Plan Patient Disposition: 09 ADMITTED INPATIENT Condition: Stable Prescriptions: No Action spironolactone 50 mg tablet 50 mg PO DAILY lactulose 10 gram/15 mL solution See Rx Instructions .ROUTE .COMPLEX Rx Instructions: take as directed furosemide [Lasix] 40 mg tablet 40 mg PO TID Trelegy Ellipta 100-62.5-25 mcg blister with device 1 inh INHALATION QDAY Rx Instructions: FreeTextSi (one) Puff daily; Refills: 2; Provider: [facility] Concerns: Post Hospitalization: new medications and changes needed to prevent readmission or further decline. Pt educated and given instructions on all concerns. Plan of Treatment: Continue with present treatment and follow up plan. Pt is to keep follow up appointment as instructed and take medications as ordered. Orders to Discharge Patient Discharge Orders: Transfer (Routine); Ordered 09/12/24 Ordered By: Nabor Hay Follow ups/Referrals Follow ups/Referrals: [facility],None [STAFF PHYSICIAN] - 3 days Instructions Stand Alone Forms: Find Help Web Site, Post Hospital Follow Up Care
[2024-09-12] MEDS ORDERED: ZOFRAN INJ 4 MG VIAL IVP PRN (20:05)
[2024-09-12] MEDS: PROVENTIL NEB TX 0.083% 2.5MG/ 3ML ONE (20:14)
[2024-09-12] MEDS: PULMICORT NEB TX 0.5 MG NEB ONE (20:15)
[2024-09-12] MEDS: PULMICORT NEB TX 0.5 MG NEB SCH (20:16)
[2024-09-12] MEDS: PROVENTIL NEB TX 0.083% 2.5MG/ 3ML NEB SCH (20:16)
[2024-09-12] MEDS ORDERED: TYLENOL 325 MG TAB PO PRN (20:20)
[2024-09-12] MEDS: NORCO 5/325 MG TAB PO PRN (20:36)
[2024-09-12 21:11] VITALS: BMI 33.5
[2024-09-12] MEDS: LASIX PO SCH (22:09)
[2024-09-13] MEDS: MAALOX or MYLANTA PO PRN (00:53)
[2024-09-13 05:48] LABS: BASOPHILS # (AUTO) 0.3 X10^3/uL (0.0-0.1); BASOPHILS % (AUTO) 3.5 % (0.2-1.0); EOSINOPHILS # (AUTO) 0.3 x10^3/uL (0.0-0.2); EOSINOPHILS % (AUTO) 3.9 % (0.9-2.9); HEMATOCRIT 24.7 % (42.0-54.0); HEMOGLOBIN 8.7 g/dL (13.5-18.0); LYMPHOCYTES # (AUTO) 1.1 X10^3/uL (1.3-2.9); LYMPHOCYTES % (AUTO) 13.2 % (21.0-51.0); MEAN CORPUSCULAR HEMOGLOBIN 30.8 pg (27.0-34.0); MEAN CORPUSCULAR HGB CONC 35.1 g/dL (33.0-35.0); MEAN CORPUSCULAR VOLUME 87.8 fL (80.0-100.0); MEAN PLATELET VOLUME 7.2 fL (7.4-11.0); MONOCYTES # (AUTO) 0.7 x10^3/uL (0.3-0.8); MONOCYTES % (AUTO) 8.7 % (0.0-13.0); NEUTROPHILS # (AUTO) 5.6 x10^3/uL (2.2-4.8); NEUTROPHILS % (AUTO) 70.7 % (42.0-75.0); PLATELET COUNT 340 X10^3/uL (150.0-450.0); RED BLOOD COUNT 2.81 X10^6/uL (4.7-6.0); RED CELL DISTRIBUTION WIDTH 15.5 % (11.6-16.5); WHITE BLOOD COUNT 7.9 X10^3/uL (3.6-10.0)
[2024-09-13 06:04] LABS: ALANINE AMINOTRANSFERASE 11 Units/L (12-78); ALBUMIN 1.3 g/dL (3.4-5.0); ALKALINE PHOSPHATASE 114 Units/L (46-116); ASPARTATE AMINO TRANSFERASE 24 Units/L (15-37); BLOOD UREA NITROGEN 17 mg/dL (7-18); CALCIUM 7.7 mg/dL (8.5-10.1); CARBON DIOXIDE 28.9 mmol/L (21-32); CHLORIDE 110 mmol/L (98-107); COR CA(FOR HYPOALB) 9.9 mg/dL (8.5-10.1); CREATININE 0.84 mg/dL (0.70-1.30); GLUCOSE 82 mg/dL (65-99); POTASSIUM 3.7 mmol/L (3.5-5.1); SODIUM 142 mmol/L (136-145); TOTAL PROTEIN 5.2 g/dL (6.4-8.2); eGFR NON BLACK RACES > 60 (>60)
[2024-09-13] MEDS ORDERED: CONSULT PHARMACY - POTASSIUM & MAGNESIUM XX SCH ×2 (07:00→10:00)
[2024-09-13] MEDS ORDERED: ALBURX INJ 5% 25 G/500 ML VIAL IV SCH (08:19)
[2024-09-13] MEDS: ALDACTONE TAB 25 MG PO SCH (08:32)
[2024-09-13] MEDS: K-DUR TAB 20 MEQ PO SCH (08:32)
[2024-09-13] MEDS: ALBUMIN HUMAN 25%- 100 ML 100 ML IV SCH (08:57)
[2024-09-13] MEDS: NS 250 ML IV 250 ML IV ONE (08:57)
[2024-09-13] MEDS: BENADRYL INJ 50 MG VIAL IVP PRN (08:58)
[2024-09-13] MEDS: PROTONIX INJ 40 MG VIAL IVP SCH (08:58)
[2024-09-13] MEDS: MORPHINE SULFATE INJ 2 MG INJ IVP ONE (08:59)
[2024-09-13] MEDS ORDERED: PATIENT'S HOME MEDICATION (Fluticasone-Umeclidin-Vilanter [Trelegy Ellipta] 100-62.5-25 mc IN SCH (09:00)
[2024-09-13] MEDS: K-DUR TAB 20 MEQ PO ONE (10:27)
[2024-09-13] MEDS: MAG-OX TAB PO SCH (10:28)
[2024-09-13] MEDS: ROXICODONE TAB 5 MG PO PRN (14:28)
[2024-09-14 05:32] LABS: BASOPHILS # (AUTO) 0.4 X10^3/uL (0.0-0.1); BASOPHILS % (AUTO) 4.6 % (0.2-1.0); EOSINOPHILS # (AUTO) 0.3 x10^3/uL (0.0-0.2); EOSINOPHILS % (AUTO) 4.4 % (0.9-2.9); HEMATOCRIT 26.4 % (42.0-54.0); LYMPHOCYTES # (AUTO) 1.1 X10^3/uL (1.3-2.9); MEAN CORPUSCULAR HEMOGLOBIN 30.4 pg (27.0-34.0); MEAN CORPUSCULAR VOLUME 89.4 fL (80.0-100.0); MONOCYTES # (AUTO) 0.7 x10^3/uL (0.3-0.8); MONOCYTES % (AUTO) 8.7 % (0.0-13.0); NEUTROPHILS # (AUTO) 5.3 x10^3/uL (2.2-4.8); NEUTROPHILS % (AUTO) 68.3 % (42.0-75.0); PLATELET COUNT 365 X10^3/uL (150.0-450.0); RED BLOOD COUNT 2.96 X10^6/uL (4.7-6.0); WHITE BLOOD COUNT 7.8 X10^3/uL (3.6-10.0)
[2024-09-14 05:46] LABS: ALANINE AMINOTRANSFERASE 11 Units/L (12-78); ALBUMIN 1.4 g/dL (3.4-5.0); ALKALINE PHOSPHATASE 102 Units/L (46-116); ASPARTATE AMINO TRANSFERASE 23 Units/L (15-37); BLOOD UREA NITROGEN 16 mg/dL (7-18); CALCIUM 7.4 mg/dL (8.5-10.1); CARBON DIOXIDE 26.3 mmol/L (21-32); CHLORIDE 107 mmol/L (98-107); COR CA(FOR HYPOALB) 9.5 mg/dL (8.5-10.1); COR NA(FOR HYPERGLY) 140 mmol/L (136-145); CREATININE 1.07 mg/dL (0.70-1.30); GLUCOSE 112 mg/dL (65-99); MAGNESIUM 1.6 mg/dL (2.0-2.9); POTASSIUM 3.7 mmol/L (3.5-5.1); SODIUM 140 mmol/L (136-145); TOTAL PROTEIN 4.9 g/dL (6.4-8.2); eGFR NON BLACK RACES > 60 (>60)
[2024-09-14] MEDS ORDERED: CONSULT PHARMACY - POTASSIUM & MAGNESIUM XX SCH (06:00)
[2024-09-14] MEDS ORDERED: ALBURX INJ 5% 25 G/500 ML VIAL IV SCH (08:19)
[2024-09-14] MEDS: K-DUR TAB 20 MEQ PO SCH (08:28)
[2024-09-14] MEDS: MAG-OX TAB PO SCH (08:28)
--- NOTE | 2024-09-14 09:35 | DR.PROGNOT ---
HOSPITAL PROGRESS NOTE Progress Note for Day of: Progress Note Date: 09/14/24 Chief Complaint Chief Complaint: no new c/o . draining clear fluid , mild abdominal pain . albumin 2.4 .. normal LFT . afebrile , scrotal edema , soft abdomen , BS+ Past Medical Family Social History Allergies: Allergies acetaminophen [From Tylenol] Allergy (Verified 09/13/24 11:01) Vital Signs Vital Signs: Vital Signs Temperature 98.1 F Pulse Rate 88 Pulse Rate 85 Pulse Rate 79 Pulse Rate 76 Pulse Rate 76 Pulse Rate 75 Pulse Rate 81 Pulse Rate 75 Pulse Rate 74 Pulse Rate 78 Pulse Rate 76 Pulse Rate 76 Pulse Rate 91 Pulse Rate 79 Pulse Rate 78 Pulse Rate 82 Pulse Rate 81 Pulse Rate 90 Pulse Rate 81 Pulse Rate 78 Pulse Rate 77 Pulse Rate 77 Pulse Rate 81 Pulse Rate 80 Pulse Rate 81 Pulse Rate 81 Pulse Rate 79 Pulse Rate 80 Respiratory Rate 21 Respiratory Rate 24 Respiratory Rate 21 Respiratory Rate 14 Respiratory Rate 15 Respiratory Rate 12 Respiratory Rate 13 Respiratory Rate 15 Respiratory Rate 13 Respiratory Rate 12 Respiratory Rate 10 Respiratory Rate 13 Respiratory Rate 12 Respiratory Rate 33 Respiratory Rate 14 Respiratory Rate 16 Respiratory Rate 17 Respiratory Rate 15 Respiratory Rate 14 Respiratory Rate 16 Respiratory Rate 16 Respiratory Rate 16 Respiratory Rate 16 Respiratory Rate 15 Respiratory Rate 15 Respiratory Rate 15 Respiratory Rate 16 Respiratory Rate 29 Respiratory Rate 15 Respiratory Rate 16 Respiratory Rate 17 Blood Pressure 134/82 Blood Pressure 130/70 O2 Sat by Pulse Oximetry 98 O2 Sat by Pulse Oximetry 98 O2 Sat by Pulse Oximetry 95 O2 Sat by Pulse Oximetry 94 O2 Sat by Pulse Oximetry 93 O2 Sat by Pulse Oximetry 94 O2 Sat by Pulse Oximetry 93 O2 Sat by Pulse Oximetry 93 O2 Sat by Pulse Oximetry 92 O2 Sat by Pulse Oximetry 95 O2 Sat by Pulse Oximetry 97 O2 Sat by Pulse Oximetry 95 O2 Sat by Pulse Oximetry 78 O2 Sat by Pulse Oximetry 92 O2 Sat by Pulse Oximetry 92 O2 Sat by Pulse Oximetry 94 O2 Sat by Pulse Oximetry 95 O2 Sat by Pulse Oximetry 97 O2 Sat by Pulse Oximetry 95 O2 Sat by Pulse Oximetry 95 O2 Sat by Pulse Oximetry 98 O2 Sat by Pulse Oximetry 96 O2 Sat by Pulse Oximetry 94 O2 Sat by Pulse Oximetry 97 O2 Sat by Pulse Oximetry 97 O2 Sat by Pulse Oximetry 94 O2 Sat by Pulse Oximetry 93 O2 Sat by Pulse Oximetry 98 Physical Exam Oriented: Normal Eyes: Normal Ear: Normal Nose: Normal Throat: Normal Respiratory: Normal Cardiovascular: Normal GI:Auscultation: Normal GI:Palpation: Other (soft, moderate distention , BS+) Speech Pattern: Clear and Appropriate Laboratory and Diagnostics 09/14/24 04:25 09/14/24 04:25 Labs: Laboratory WBC 7.8 X10^3/uL (3.6-10.0) 09/14/24 04:25 RBC 2.96 X10^6/uL (4.7-6.0) L 09/14/24 04:25 Hgb 9.0 g/dL (13.5-18.0) L 09/14/24 04:25 Hct 26.4 % (42.0-54.0) L 09/14/24 04:25 MCV 89.4 fL (80.0-100.0) 09/14/24 04:25 MCH 30.4 pg (27.0-34.0) 09/14/24 04:25 MCHC 34.0 g/dL (33.0-35.0) 09/14/24 04:25 RDW 16.0 % (11.6-16.5) 09/14/24 04:25 Plt Count 365 X10^3/uL (150.0-450.0) 09/14/24 04:25 MPV 7.0 fL (7.4-11.0) L 09/14/24 04:25 Neut % (Auto) 68.3 % (42.0-75.0) 09/14/24 04:25 Lymph % (Auto) 14.0 % (21.0-51.0) L 09/14/24 04:25 [place] % (Auto) 8.7 % (0.0-13.0) 09/14/24 04:25 Eos % (Auto) 4.4 % (0.9-2.9) H 09/14/24 04:25 Baso % (Auto) 4.6 % (0.2-1.0) H 09/14/24 04:25 Neut # (Auto) 5.3 x10^3/uL (2.2-4.8) H 09/14/24 04:25 Lymph # (Auto) 1.1 X10^3/uL (1.3-2.9) L 09/14/24 04:25 [place] # (Auto) 0.7 x10^3/uL (0.3-0.8) 09/14/24 04:25 Eos # (Auto) 0.3 x10^3/uL (0.0-0.2) H 09/14/24 04:25 Baso # (Auto) 0.4 X10^3/uL (0.0-0.1) H 09/14/24 04:25 Absolute Nucleated RBC 0.1 /100WBC 09/14/24 04:25 Sodium 140 mmol/L (136-145) 09/14/24 04:25 Corrected Sodium 140 mmol/L (136-145) 09/14/24 04:25 Potassium 3.7 mmol/L (3.5-5.1) 09/14/24 04:25 Chloride 107 mmol/L (98-107) 09/14/24 04:25 Carbon Dioxide 26.3 mmol/L (21-32) 09/14/24 04:25 BUN 16 mg/dL (7-18) 09/14/24 04:25 Creatinine 1.07 mg/dL (0.70-1.30) 09/14/24 04:25 Est GFR (MDRD) Af Amer > 60 (>60) 09/14/24 04:25 Est GFR (MDRD) Non-Af > 60 (>60) 09/14/24 04:25 Glucose 112 mg/dL (65-99) H 09/14/24 04:25 Calcium 7.4 mg/dL (8.5-10.1) L 09/14/24 04:25 Corrected Calcium 9.5 mg/dL (8.5-10.1) 09/14/24 04:25 Magnesium 1.6 mg/dL (2.0-2.9) L 09/14/24 04:25 Total Bilirubin 0.40 mg/dL (0.2-1.0) 09/14/24 04:25 AST 23 Units/L (15-37) 09/14/24 04:25 ALT 11 Units/L (12-78) L 09/14/24 04:25 Alkaline Phosphatase 102 Units/L (46-116) 09/14/24 04:25 Ammonia 20 umol/L (11-32) 09/13/24 09:18 B-Natriuretic Peptide 423 pg/mL (0-79) H 09/12/24 16:56 Total Protein 4.9 g/dL (6.4-8.2) L 09/14/24 04:25 Albumin 1.4 g/dL (3.4-5.0) L 09/14/24 04:25 Globulin 3.5 g/dL (2.5-4.5) 09/14/24 04:25 Albumin/Globulin Ratio 0.4 Ratio (1.1-2.1) L 09/14/24 04:25 Amylase 69 Units/L (25-115) 09/12/24 16:56 Lipase 64 Units/L (16-77) 09/12/24 16:56 Assessment and Plan 1: liver cirrhosis with ascites , s/p thoracentesis . same plan and Albumin supplement . Problem Patient Problems: Patient Problems Ascites (Acute) R18.8 Tense ascites (Acute) R18.8 Alcoholic cirrhosis of liver with ascites (Acute) K70.31
[2024-09-15 05:12] LABS: BASOPHILS # (AUTO) 0.1 X10^3/uL (0.0-0.1); BASOPHILS % (AUTO) 1.2 % (0.2-1.0); EOSINOPHILS # (AUTO) 0.5 x10^3/uL (0.0-0.2); HEMATOCRIT 25.4 % (42.0-54.0); HEMOGLOBIN 8.9 g/dL (13.5-18.0); LYMPHOCYTES # (AUTO) 1.2 X10^3/uL (1.3-2.9); LYMPHOCYTES % (AUTO) 16.1 % (21.0-51.0); MEAN CORPUSCULAR HEMOGLOBIN 30.4 pg (27.0-34.0); MEAN CORPUSCULAR HGB CONC 34.9 g/dL (33.0-35.0); MEAN CORPUSCULAR VOLUME 87.2 fL (80.0-100.0); MEAN PLATELET VOLUME 6.9 fL (7.4-11.0); MONOCYTES # (AUTO) 0.8 x10^3/uL (0.3-0.8); NEUTROPHILS # (AUTO) 4.9 x10^3/uL (2.2-4.8); NEUTROPHILS % (AUTO) 65.7 % (42.0-75.0); PLATELET COUNT 328 X10^3/uL (150.0-450.0); RED BLOOD COUNT 2.92 X10^6/uL (4.7-6.0); RED CELL DISTRIBUTION WIDTH 15.8 % (11.6-16.5); WHITE BLOOD COUNT 7.5 X10^3/uL (3.6-10.0)
[2024-09-15 05:49] LABS: ALANINE AMINOTRANSFERASE 8 Units/L (12-78); ALBUMIN 1.6 g/dL (3.4-5.0); ALKALINE PHOSPHATASE 93 Units/L (46-116); ASPARTATE AMINO TRANSFERASE 21 Units/L (15-37); BLOOD UREA NITROGEN 16 mg/dL (7-18); CALCIUM 7.5 mg/dL (8.5-10.1); CARBON DIOXIDE 30.3 mmol/L (21-32); CHLORIDE 107 mmol/L (98-107); COR CA(FOR HYPOALB) 9.4 mg/dL (8.5-10.1); CREATININE 0.98 mg/dL (0.70-1.30); GLUCOSE 92 mg/dL (65-99); MAGNESIUM 1.7 mg/dL (2.0-2.9); POTASSIUM 3.9 mmol/L (3.5-5.1); SODIUM 141 mmol/L (136-145); TOTAL PROTEIN 4.6 g/dL (6.4-8.2); eGFR NON BLACK RACES > 60 (>60)
[2024-09-15] MEDS ORDERED: CONSULT PHARMACY - POTASSIUM & MAGNESIUM XX SCH (07:00)
[2024-09-15 08:59] VITALS: BP 124/71; PULSE 76; TEMP 98.3; O2SAT 95
[2024-09-15] MEDS: K-DUR TAB 20 MEQ PO SCH (09:44)
[2024-09-15] MEDS: MAG-OX TAB PO SCH (09:44)
[2024-09-15 09:45] VITALS: RESP 18
== END 2024-09-15 12:05 | disposition home or self-care (01) ==
LOC: SUPCPDRO → ER 16:00 → ICU 16:00
PROVIDERS: ADMIT Family Medicine; ATTEND Internal Medicine
DX: N50.89 Other specified disorders of the male genital organs; E88.09 Other disorders of plasma-protein metabolism, not elsewhere classified; E83.42 Hypomagnesemia; J44.9 Chronic obstructive pulmonary disease, unspecified; Z59.41 Food insecurity; R06.02 Shortness of breath; D63.8 Anemia in other chronic diseases classified elsewhere; R60.0 Localized edema; K21.9 Gastro-esophageal reflux disease without esophagitis; K70.31 Alcoholic cirrhosis of liver with ascites; R10.84 Generalized abdominal pain; M19.90 Unspecified osteoarthritis, unspecified site

== ENCOUNTER 2024-10-10 22:11 | Observation (INO) ==
--- NOTE | 2024-10-10 22:33 | DR.GENAD ---
HPI Time Seen Time Seen by Provider: 10/10/24 22:21 PCP Primary Care Physician: Dr. Navas HPI Comment HPI Comment: Patient with history of alcoholic liver cirrhosis and recurrent episodes of tense ascites requiring paracentesis. Patient states he is getting distended again and feels like he needs fluid drawn from his abdomen again. Patient states he feels at his baseline. denies shortness of breath. He states he feels just like every other time. Denies fevers. States his scrotum swells up as usual as well as his abdomen. Patient did follow-up with [facility] and has follow-up scheduled. Complaint/Symptoms Chief Complaint:: Patient brougth in er via ems with complaints of abdominal dis tention, bilateral lower ext edema, and scrotal edema x4 days. Pt has a medical hx of liver cirrhosis and ascites and states he was admitted 1 month ago for a paracentesis. COVID-19 Coronavirus risk:travel/contact w/high risk person: No Has patient experienced Coronavirus symptoms: No Source History Provided: Patient Mode of Arrival Mode of Arrival: EMS Timing Onset of Chief Complaint: 10/06/24 PMH PMH Past Medical History: Yes Past Medical History: COPD, GERD, Hypertension, Hyperthyroidism and Liver Disease Past Medical History Comment: Liver Cirrhosis, Ascites, inguinal hernia, umbilical hernia, heart murmur Past Surgical History: Yes Surgical History: Other Past Surgical History Comment: Paracentesis Family History History of Family Medical Conditions: Yes Family Medical History: Diabetes Mellitus and Cancer Social History Does patient currently use any type of tobacco product: No Have you used tobacco products in the last 12 months: No Type of Tobacco Use: None Does any household member use tobacco: No Alcohol Use: None Do you use any recreational Drugs:: No Lives With: Family Lives Where: Home Travel Risk Coronavirus risk:travel/contact w/high risk person: No Has patient experienced Coronavirus symptoms: No Infectious screening Have you traveled outside the country in the last 6 months?: No Isolation: Standard ROS Review of Systems Constitutional: No Symptoms Reported Eyes: No Symptoms Reported ENTM: No Symptoms Reported Respiratoy: No Symptoms Reported Cardiovascular: No Symptoms Reported Gastrointestinal/Abdominal: See HPI; negative Abdominal Pain, Constipation, Diarrhea, Nausea or Vomiting Genitourinary: No Symptoms Reported Neurological: No Symptoms Reported Musculoskeletal: No Symptoms Reported Integumentary: No Symptoms Reported Hematologic/Lymphatic: No Symptoms Reported Endocrine: No Symptoms Reported Psychiatric: No Symptoms Reported All Other Systems: Reviewed and Negative PE Vital Signs Vitals: Vital Signs Temperature 98.3 F Pulse Rate 104 Respiratory Rate 19 Blood Pressure 133/85 O2 Sat by Pulse Oximetry 95 General Limitations: No Limitations General Appearance: Alert and In No Apparent Distress Head Head Exam: Normal Inspection Eyes Eye exam: Normal Appearance ENT ENT Exam: Normal Exam External Ear Exam: Normal External Inspection TM/Canal Exam: Bilateral: Normal Nose Exam: Normal Nose Exam Mouth Exam: Normal Inspection Throat Exam: Normal Inspection Neck Neck Exam: Normal Inspection Chest Chest Inspection: Normal Inspection Respiratory Respiratory Exam: Normal Lung Sounds Bilat Respiratory Exam: Bilateral: Clear to Auscultation Cardiovascular Cardiovascular Exam: Regular Rate and Normal Rhythm Abdominal Exam Abdominal Exam: Normal Bowel Sounds, Soft and Ascites (Tense ascites); negative Tenderness, Guarding, Rebound, Rigidity or Dimnished Bowel Sounds Extremities Extremities Exam: Edema Back Back Exam: Normal Inspection Neurologic Neurological Exam: Alert and Oriented X3 Psychiatric Psychiatric Exam: Normal Affect and Normal Mood Skin Skin Exam: Warm, Dry, Intact and Normal Color COURSE Treatment Treatment: Patient with tense ascites. Reviewed labs and appeared to be at his baseline. We have had discussion about him trying to arrange for scheduled paracentesis and patient states he will discuss with surgeon. Consultation Called: 23:32 Consultation Comments: Discussed case with Stuart. He is agreeable to adm ission. Consulting Dr. Brambila for paracentesis ROR Labs Reviewed 10/10/24 22:35 10/10/24 22:35 Laboratory: WBC 7.2 X10^3/uL (3.6-10.0) 10/10/24 22:35 RBC 2.97 X10^6/uL (4.7-6.0) L 10/10/24 22:35 Hgb 8.9 g/dL (13.5-18.0) L 10/10/24 22:35 Hct 26.1 % (42.0-54.0) L 10/10/24 22:35 MCV 87.8 fL (80.0-100.0) 10/10/24 22:35 MCH 30.1 pg (27.0-34.0) 10/10/24 22:35 MCHC 34.3 g/dL (33.0-35.0) 10/10/24 22:35 RDW 16.3 % (11.6-16.5) 10/10/24: Plt Count 284 X10^3/uL (150.0-450.0) 10/10/24: MPV 7.0 fL (7.4-11.0) L 10/10/24:35 Neut % (Auto) 74.6 % (42.0-75.0) 10/10/24: Lymph % (Auto) 10.3 % (21.0-51.0) L 10/10/24 22:35 [place] % (Auto) 8.9 % (0.0-13.0) 10/10/24: Eos % (Auto) 4.9 % (0.9-2.9) H 10/10/24: Baso % (Auto) 1.3 % (0.2-1.0) H 10/10/24: Neut # (Auto) 5.4 x10^3/uL (2.2-4.8) H 10/10/24:35 Lymph # (Auto) 0.7 X10^3/uL (1.3-2.9) L 10/10/24:35 [place] # (Auto) 0.6 x10^3/uL (0.3-0.8) 10/10/24:35 Eos # (Auto) 0.4 x10^3/uL (0.0-0.2) H 10/10/24:35 Baso # (Auto) 0.1 X10^3/uL (0.0-0.1) 10/10/24 22:35 Absolute Nucleated RBC 0.0 /100WBC 10/10/24 22:35 Sodium 142 mmol/L (136-145) 10/10/24 22:35 Corrected Sodium 142 mmol/L (136-145) 10/10/24: Potassium 3.7 mmol/L (3.5-5.1) 10/10/24 22:35 Chloride 108 mmol/L (98-107) H 10/10/24 22:35 Carbon Dioxide 28.3 mmol/L (21-32) 10/10/24: BUN 25 mg/dL (7-18) H 10/10/24 22:35 Creatinine 1.15 mg/dL (0.70-1.30) 10/10/24 22:35 Est GFR (MDRD) Af Amer > 60 (>60) 10/10/24 22:35 Est GFR (MDRD) Non-Af > 60 (>60) 10/10/24 22:35 Glucose 116 mg/dL (65-99) H 10/10/24 22:35 Calcium 8.4 mg/dL (8.5-10.1) L 10/10/24 22:35 Corrected Calcium 10.5 mg/dL (8.5-10.1) H 10/10/24 22:35 Total Bilirubin 0.50 mg/dL (0.2-1.0) 10/10/24 22:35 AST 57 Units/L (15-37) H 10/10/24 22:35 ALT 27 Units/L (12-78) 10/10/24 22:35 Alkaline Phosphatase 100 Units/L (46-116) 10/10/24 22:35 Total Protein 5.3 g/dL (6.4-8.2) L 10/10/24 22:35 Albumin 1.4 g/dL (3.4-5.0) L 10/10/24 22:35 Globulin 3.9 g/dL (2.5-4.5) 10/10/24 22:35 Albumin/Globulin Ratio 0.4 Ratio (1.1-2.1) L 10/10/24 22:35 Opioid Opioid Risk Tool Age (Shaan box if 16-45): No History of Preadolescent Sexual Abuse: No Total: 0 Total Score Risk Category: Low Risk Copyright: Humberto OSEGUERA predicting aberrant behaviors Discharge Plan Diagnosis Discharge Problem: Tense ascites, Alcoholic cirrhosis of liver with ascites Discharge Plan Patient Disposition: ADMITTED INPATIENT Condition: Stable Prescriptions: No Action nadolol 20 mg tablet 20 mg PO QDAY albuterol sulfate 90 mcg/actuation HFA aerosol inhaler 2 inh inhalation Q4H PRN spironolactone 50 mg tablet 50 mg PO QDAY lactulose 10 gram/15 mL solution See Rx Instructions .ROUTE .COMPLEX Rx Instructions: SEE RX INSTRUCTIONS Health Concerns: Post Hospitalization: new medications and changes needed to prevent readmission or further decline. Pt educated and given instructions on all concerns. Plan of Treatment: Continue with present treatment and follow up plan. Pt is to keep follow up appointment as instructed and take medications as ordered. Orders to Discharge Patient Discharge Orders: Transfer (Routine); Ordered 10/10/24 Ordered By: Nabor Hay Instructions Stand Alone Forms: Find Help Web Site, Post Hospital Follow Up Care
[2024-10-10 22:45] LABS: BASOPHILS # (AUTO) 0.1 X10^3/uL (0.0-0.1); BASOPHILS % (AUTO) 1.3 % (0.2-1.0); EOSINOPHILS # (AUTO) 0.4 x10^3/uL (0.0-0.2); EOSINOPHILS % (AUTO) 4.9 % (0.9-2.9); HEMATOCRIT 26.1 % (42.0-54.0); HEMOGLOBIN 8.9 g/dL (13.5-18.0); LYMPHOCYTES # (AUTO) 0.7 X10^3/uL (1.3-2.9); LYMPHOCYTES % (AUTO) 10.3 % (21.0-51.0); MEAN CORPUSCULAR HEMOGLOBIN 30.1 pg (27.0-34.0); MEAN CORPUSCULAR HGB CONC 34.3 g/dL (33.0-35.0); MEAN CORPUSCULAR VOLUME 87.8 fL (80.0-100.0); MONOCYTES # (AUTO) 0.6 x10^3/uL (0.3-0.8); MONOCYTES % (AUTO) 8.9 % (0.0-13.0); NEUTROPHILS # (AUTO) 5.4 x10^3/uL (2.2-4.8); NEUTROPHILS % (AUTO) 74.6 % (42.0-75.0); PLATELET COUNT 284 X10^3/uL (150.0-450.0); RED BLOOD COUNT 2.97 X10^6/uL (4.7-6.0); RED CELL DISTRIBUTION WIDTH 16.3 % (11.6-16.5); WHITE BLOOD COUNT 7.2 X10^3/uL (3.6-10.0)
[2024-10-10 22:57] LABS: ALANINE AMINOTRANSFERASE 27 Units/L (12-78); ALBUMIN 1.4 g/dL (3.4-5.0); ALKALINE PHOSPHATASE 100 Units/L (46-116); ASPARTATE AMINO TRANSFERASE 57 Units/L (15-37); BLOOD UREA NITROGEN 25 mg/dL (7-18); CALCIUM 8.4 mg/dL (8.5-10.1); CARBON DIOXIDE 28.3 mmol/L (21-32); CHLORIDE 108 mmol/L (98-107); COR CA(FOR HYPOALB) 10.5 mg/dL (8.5-10.1); COR NA(FOR HYPERGLY) 142 mmol/L (136-145); CREATININE 1.15 mg/dL (0.70-1.30); GLUCOSE 116 mg/dL (65-99); POTASSIUM 3.7 mmol/L (3.5-5.1); SODIUM 142 mmol/L (136-145); TOTAL PROTEIN 5.3 g/dL (6.4-8.2); eGFR NON BLACK RACES > 60 (>60)
[2024-10-11] MEDS ORDERED: CONSULT PHARMACY - POTASSIUM & MAGNESIUM XX SCH (00:25)
[2024-10-11 00:49] VITALS: BMI 34.2
[2024-10-11] MEDS: K-DUR TAB 20 MEQ PO SCH (00:58)
[2024-10-11] MEDS: MORPHINE SULFATE INJ 2 MG INJ IVP PRN (00:59)
[2024-10-11 06:21] LABS: ALANINE AMINOTRANSFERASE 26 Units/L (12-78); ALBUMIN 1.4 g/dL (3.4-5.0); ALKALINE PHOSPHATASE 97 Units/L (46-116); ASPARTATE AMINO TRANSFERASE 51 Units/L (15-37); BLOOD UREA NITROGEN 23 mg/dL (7-18); CALCIUM 8.2 mg/dL (8.5-10.1); CARBON DIOXIDE 27.4 mmol/L (21-32); CHLORIDE 109 mmol/L (98-107); COR CA(FOR HYPOALB) 10.3 mg/dL (8.5-10.1); CREATININE 1.05 mg/dL (0.70-1.30); GLUCOSE 92 mg/dL (65-99); POTASSIUM 3.7 mmol/L (3.5-5.1); SODIUM 141 mmol/L (136-145); TOTAL PROTEIN 5.2 g/dL (6.4-8.2); eGFR NON BLACK RACES > 60 (>60)
[2024-10-11 06:30] LABS: BASOPHILS # (AUTO) 0.1 X10^3/uL (0.0-0.1); BASOPHILS % (AUTO) 1.5 % (0.2-1.0); EOSINOPHILS # (AUTO) 0.8 x10^3/uL (0.0-0.2); EOSINOPHILS % (AUTO) 10.1 % (0.9-2.9); HEMATOCRIT 27.1 % (42.0-54.0); HEMOGLOBIN 9.2 g/dL (13.5-18.0); LYMPHOCYTES % (AUTO) 12.7 % (21.0-51.0); MEAN CORPUSCULAR HGB CONC 34.1 g/dL (33.0-35.0); MEAN CORPUSCULAR VOLUME 88.1 fL (80.0-100.0); MEAN PLATELET VOLUME 7.7 fL (7.4-11.0); MONOCYTES # (AUTO) 0.8 x10^3/uL (0.3-0.8); MONOCYTES % (AUTO) 9.7 % (0.0-13.0); NEUTROPHILS # (AUTO) 5.3 x10^3/uL (2.2-4.8); PLATELET COUNT 279 X10^3/uL (150.0-450.0); RED BLOOD COUNT 3.08 X10^6/uL (4.7-6.0); RED CELL DISTRIBUTION WIDTH 16.3 % (11.6-16.5)
[2024-10-11] MEDS: CHRONULAC PO SCH (08:41)
[2024-10-11] MEDS: NORCO 5/325 MG TAB PO PRN (08:46)
[2024-10-11] MEDS: ALBUMIN HUMAN 25%- 100 ML 100 ML IV SCH (14:42)
[2024-10-11] MEDS: DILAUDID INJ IVP PRN (20:08)
[2024-10-12 06:16] LABS: BASOPHILS % (AUTO) 0.4 % (0.2-1.0); EOSINOPHILS # (AUTO) 0.9 x10^3/uL (0.0-0.2); EOSINOPHILS % (AUTO) 9.8 % (0.9-2.9); HEMATOCRIT 29.8 % (42.0-54.0); HEMOGLOBIN 10.1 g/dL (13.5-18.0); LYMPHOCYTES # (AUTO) 1.1 X10^3/uL (1.3-2.9); MEAN CORPUSCULAR VOLUME 88.2 fL (80.0-100.0); MEAN PLATELET VOLUME 7.9 fL (7.4-11.0); MONOCYTES # (AUTO) 0.7 x10^3/uL (0.3-0.8); MONOCYTES % (AUTO) 7.2 % (0.0-13.0); NEUTROPHILS # (AUTO) 6.9 x10^3/uL (2.2-4.8); NEUTROPHILS % (AUTO) 71.6 % (42.0-75.0); PLATELET COUNT 302 X10^3/uL (150.0-450.0); RED BLOOD COUNT 3.38 X10^6/uL (4.7-6.0); RED CELL DISTRIBUTION WIDTH 16.4 % (11.6-16.5); WHITE BLOOD COUNT 9.6 X10^3/uL (3.6-10.0)
[2024-10-12 06:31] LABS: ALANINE AMINOTRANSFERASE 23 Units/L (12-78); ALBUMIN 1.5 g/dL (3.4-5.0); ALKALINE PHOSPHATASE 96 Units/L (46-116); ASPARTATE AMINO TRANSFERASE 44 Units/L (15-37); BLOOD UREA NITROGEN 23 mg/dL (7-18); CALCIUM 8.1 mg/dL (8.5-10.1); CARBON DIOXIDE 27.5 mmol/L (21-32); CHLORIDE 109 mmol/L (98-107); COR CA(FOR HYPOALB) 10.1 mg/dL (8.5-10.1); CREATININE 0.97 mg/dL (0.70-1.30); GLUCOSE 78 mg/dL (65-99); POTASSIUM 3.9 mmol/L (3.5-5.1); SODIUM 142 mmol/L (136-145); TOTAL PROTEIN 5.3 g/dL (6.4-8.2); eGFR NON BLACK RACES > 60 (>60)
--- NOTE | 2024-10-12 11:13 | DR.PROGNOT ---
HOSPITAL PROGRESS NOTE Progress Note for Day of: Progress Note Date: 10/12/24 Chief Complaint Chief Complaint: Status post paracentesis and draining about 10 L of ascites. Feeling better with less pressure but complaining of abdominal pain all along, no nausea or vomiting. Stable vital signs and afebrile. Normal white count, hemoglobin 10.1, platelet 302, potassium 3.9, BUN 23, creatinine 0.9, albumin 1.5. Abdomen is soft with mild diffuse tenderness and good bowel sounds. Past Medical Family Social History Allergies: Allergies acetaminophen [From Tylenol] Allergy (Verified 10/10/24 22:27) Vital Signs Vital Signs: Vital Signs Temperature 97.1 F Temperature 97.9 F Pulse Rate [Right Brachial] 84 Pulse Rate [Right Brachial] 86 Respiratory Rate 18 Respiratory Rate 18 Respiratory Rate 18 Respiratory Rate 16 Blood Pressure [Right Arm] 130/66 Blood Pressure [Right Arm] 150/65 O2 Sat by Pulse Oximetry 97 O2 Sat by Pulse Oximetry 96 Physical Exam Oriented: Normal Eyes: Normal Ear: Normal Nose: Normal Throat: Normal Respiratory: Normal Cardiovascular: Normal : Normal GI:Auscultation: Decreased GI: Tenderness: Other (Mild diffuse tenderness) Speech Pattern: Clear and Appropriate Laboratory and Diagnostics 10/12/24 05:22 10/12/24 05:22 Labs: Laboratory WBC 9.6 X10^3/uL (3.6-10.0) 10/12/24 05: RBC 3.38 X10^6/uL (4.7-6.0) L 10/12/24 05:22 Hgb 10.1 g/dL (13.5-18.0) L 10/12/24 05:22 Hct 29.8 % (42.0-54.0) L 10/12/24 05:22 MCV 88.2 fL (80.0-100.0) 10/12/24 05:22 MCH 30.0 pg (27.0-34.0) 10/12/24 05: MCHC 34.0 g/dL (33.0-35.0) 10/12/24 05:22 RDW 16.4 % (11.6-16.5) 10/12/24 05:22 Plt Count 302 X10^3/uL (150.0-450.0) 10/12/24 05:22 MPV 7.9 fL (7.4-11.0) 10/12/24 05:22 Neut % (Auto) 71.6 % (42.0-75.0) 10/12/24 05:22 Lymph % (Auto) 11.0 % (21.0-51.0) L 10/12/24 05:22 [place] % (Auto) 7.2 % (0.0-13.0) 10/12/24 05:22 Eos % (Auto) 9.8 % (0.9-2.9) H 10/12/24 05:22 Baso % (Auto) 0.4 % (0.2-1.0) 10/12/24 05:22 Neut # (Auto) 6.9 x10^3/uL (2.2-4.8) H 10/12/24 05:22 Lymph # (Auto) 1.1 X10^3/uL (1.3-2.9) L 10/12/24 05:22 [place] # (Auto) 0.7 x10^3/uL (0.3-0.8) 10/12/24 05:22 Eos # (Auto) 0.9 x10^3/uL (0.0-0.2) H 10/12/24 05:22 Baso # (Auto) 0.0 X10^3/uL (0.0-0.1) 10/12/24 05:22 Absolute Nucleated RBC 0.1 /100WBC 10/12/24 05:22 Sodium 142 mmol/L (136-145) 10/12/24 05:22 Corrected Sodium TNP 10/12/24 05:22 Potassium 3.9 mmol/L (3.5-5.1) 10/12/24 05:22 Chloride 109 mmol/L (98-107) H 10/12/24 05:22 Carbon Dioxide 27.5 mmol/L (21-32) 10/12/24 05:22 BUN 23 mg/dL (7-18) H 10/12/24 05:22 Creatinine 0.97 mg/dL (0.70-1.30) 10/12/24 05:22 Est GFR (MDRD) Af Amer > 60 (>60) 10/12/24 05:22 Est GFR (MDRD) Non-Af > 60 (>60) 10/12/24 05:22 Glucose 78 mg/dL (65-99) 10/12/24 05:22 Calcium 8.1 mg/dL (8.5-10.1) L 10/12/24 05:22 Corrected Calcium 10.1 mg/dL (8.5-10.1) 10/12/24 05:22 Total Bilirubin 0.60 mg/dL (0.2-1.0) 10/12/24 05:22 AST 44 Units/L (15-37) H 10/12/24 05:22 ALT 23 Units/L (12-78) 10/12/24 05:22 Alkaline Phosphatase 96 Units/L (46-116) 10/12/24 05:22 Total Protein 5.3 g/dL (6.4-8.2) L 10/12/24 05:22 Albumin 1.5 g/dL (3.4-5.0) L 10/12/24 05:22 Globulin 3.8 g/dL (2.5-4.5) 10/12/24 05:22 Albumin/Globulin Ratio 0.4 Ratio (1.1-2.1) L 10/12/24 05:22 Assessment and Plan 1: Tense ascites, status post paracentesis and drainage. 2: Liver cirrhosis, same treatment plan, will keep the catheter overnight. Replace albumin and monitor vital signs Problem Patient Problems: Patient Problems (Updated 10/10/24 @ 23:33 by Nabor Hay) Tense ascites (Acute) R18.8 Alcoholic cirrhosis of liver with ascites (Acute) K70.31
[2024-10-13 03:52] VITALS: O2SAT 98
[2024-10-13 06:00] LABS: EOSINOPHILS # (AUTO) 0.7 x10^3/uL (0.0-0.2); HEMOGLOBIN 8.9 g/dL (13.5-18.0); RED CELL DISTRIBUTION WIDTH 16.2 % (11.6-16.5); WHITE BLOOD COUNT 8.1 X10^3/uL (3.6-10.0)
[2024-10-13 06:04] LABS: BASOPHILS % (AUTO) 0.1 % (0.2-1.0); EOSINOPHILS % (AUTO) 8.6 % (0.9-2.9); HEMATOCRIT 26.3 % (42.0-54.0); LYMPHOCYTES % (AUTO) 11.9 % (21.0-51.0); MEAN CORPUSCULAR HEMOGLOBIN 29.7 pg (27.0-34.0); MEAN CORPUSCULAR HGB CONC 33.9 g/dL (33.0-35.0); MEAN CORPUSCULAR VOLUME 87.6 fL (80.0-100.0); MEAN PLATELET VOLUME 7.6 fL (7.4-11.0); MONOCYTES # (AUTO) 0.8 x10^3/uL (0.3-0.8); MONOCYTES % (AUTO) 9.7 % (0.0-13.0); NEUTROPHILS # (AUTO) 5.7 x10^3/uL (2.2-4.8); NEUTROPHILS % (AUTO) 69.7 % (42.0-75.0); PLATELET COUNT 229 X10^3/uL (150.0-450.0)
[2024-10-13 06:12] LABS: ALANINE AMINOTRANSFERASE 17 Units/L (12-78); ALBUMIN 1.4 g/dL (3.4-5.0); ALKALINE PHOSPHATASE 80 Units/L (46-116); ASPARTATE AMINO TRANSFERASE 29 Units/L (15-37); BLOOD UREA NITROGEN 25 mg/dL (7-18); CALCIUM 7.5 mg/dL (8.5-10.1); CARBON DIOXIDE 27.9 mmol/L (21-32); CHLORIDE 108 mmol/L (98-107); COR CA(FOR HYPOALB) 9.6 mg/dL (8.5-10.1); CREATININE 1.03 mg/dL (0.70-1.30); GLUCOSE 99 mg/dL (65-99); POTASSIUM 3.7 mmol/L (3.5-5.1); SODIUM 140 mmol/L (136-145); TOTAL PROTEIN 4.5 g/dL (6.4-8.2); eGFR NON BLACK RACES > 60 (>60)
[2024-10-13 06:39] LABS: BASOPHILS % (MANUAL) 0 % (0-1); OVALOCYTES SLIGHT; PLATELET MORPHOLOGY COMMENT NORMAL (NORMAL)
[2024-10-13] MEDS: NS 100 ML IV 100 ML ONE (10:53)
[2024-10-13 11:32] VITALS: BP 130/71; PULSE 73; RESP 19; TEMP 98.3
== END 2024-10-13 13:20 | disposition home or self-care (01) ==
LOC: SUPCPDRO → ER 22:11 → MED/SURG 22:11
PROVIDERS: ADMIT Family Medicine; ATTEND Internal Medicine
DX: E88.09 Other disorders of plasma-protein metabolism, not elsewhere classified; K21.9 Gastro-esophageal reflux disease without esophagitis; Z59.41 Food insecurity; R10.84 Generalized abdominal pain; J44.9 Chronic obstructive pulmonary disease, unspecified; K70.31 Alcoholic cirrhosis of liver with ascites; Z59.89 Other problems related to housing and economic circumstances; N50.89 Other specified disorders of the male genital organs; I10 Essential (primary) hypertension

== ENCOUNTER 2024-11-11 17:14 | Observation (INO) ==
[2024-11-11 19:54] LABS: BASOPHILS # (AUTO) 0.1 X10^3/uL (0.0-0.1); BASOPHILS % (AUTO) 1.1 % (0.2-1.0); EOSINOPHILS # (AUTO) 0.5 x10^3/uL (0.0-0.2); EOSINOPHILS % (AUTO) 5.8 % (0.9-2.9); HEMATOCRIT 25.8 % (42.0-54.0); HEMOGLOBIN 8.9 g/dL (13.5-18.0); LYMPHOCYTES # (AUTO) 0.8 X10^3/uL (1.3-2.9); MEAN CORPUSCULAR HEMOGLOBIN 29.1 pg (27.0-34.0); MEAN CORPUSCULAR HGB CONC 34.5 g/dL (33.0-35.0); MEAN CORPUSCULAR VOLUME 84.2 fL (80.0-100.0); MEAN PLATELET VOLUME 6.8 fL (7.4-11.0); MONOCYTES # (AUTO) 0.8 x10^3/uL (0.3-0.8); MONOCYTES % (AUTO) 8.6 % (0.0-13.0); NEUTROPHILS # (AUTO) 6.7 x10^3/uL (2.2-4.8); NEUTROPHILS % (AUTO) 75.5 % (42.0-75.0); PLATELET COUNT 360 X10^3/uL (150.0-450.0); RED BLOOD COUNT 3.07 X10^6/uL (4.7-6.0); RED CELL DISTRIBUTION WIDTH 16.8 % (11.6-16.5); WHITE BLOOD COUNT 8.9 X10^3/uL (3.6-10.0)
--- NOTE | 2024-11-11 19:54 | DR.ABDMALE ---
HPI Time seen Time Seen by Provider: 11/11/24 19:52 PCP Primary Care Physician: Dr. Navas Complaint Chief Complaint:: Chronic Abdominal pain, Abdominal swelling that kept getting worse everyday until he could not take it anymore. Self Treatment fo Chief Complaint: N/A COVID-19 Coronavirus risk:travel/contact w/high risk person: No Has patient experienced Coronavirus symptoms: No Mode of arrival Mode of Arrival: EMS Timing Onset of Chief Complaint: 10/28/24 PMH PMH Past Medical History: Yes Past Medical History: COPD, GERD, Hypertension, Hyperthyroidism and Liver Disease Past Medical History Comment: Inguinal hernia, Liver Cirrhosis, Ascites Past Surgical History: Yes Surgical History: Other Past Surgical History Comment: Paracentesis Family History History of Family Medical Conditions: Yes Family Medical History: Diabetes Mellitus and Cancer Social History Does patient currently use any type of tobacco product: No Have you used tobacco products in the last 12 months: No Type of Tobacco Use: None Does any household member use tobacco: No Alcohol Use: None Do you use any recreational Drugs:: No Lives With: Alone Lives Where: Home Travel Risk Coronavirus risk:travel/contact w/high risk person: No Has patient experienced Coronavirus symptoms: No Infectious screening In the last 2 months have you had wt loss of >10#?: YES Have you had fever, night sweats or hemotysis?: No Have you traveled outside the country in the last 6 months?: No Isolation: Standard PE Vital Signs Vital Signs: Temp Pulse Pulse Resp BP BP Pulse Ox 11/12/24 00:46 22 11/12/24 00:21 80 20 168/89 98 11/11/24 17:15 98.4 F 73 20 136/75 100 11/11/24 17:15 98.4 F 73 20 136/75 100 11/11/24 17:29 98.4 F 73 20 136/75 100 O2 Del Method O2 Flow Rate 11/12/24 00:46 11/12/24 00:21 Nasal Cannula 11/11/24 17:15 Nasal Cannula 11/11/24 17:15 Nasal Cannula 2 11/11/24 17:29 Nasal Cannula ROR Labs Reviewed 11/11/24 19:44 11/11/24 19:44 Laboratory: WBC 8.9 X10^3/uL (3.6-10.0) 11/11/24 19:44 RBC 3.07 X10^6/uL (4.7-6.0) L 11/11/24 19:44 Hgb 8.9 g/dL (13.5-18.0) L 11/11/24 19:44 Hct 25.8 % (42.0-54.0) L 11/11/24 19:44 MCV 84.2 fL (80.0-100.0) 11/11/24 19:44 MCH 29.1 pg (27.0-34.0) 11/11/24 19:44 MCHC 34.5 g/dL (33.0-35.0) 11/11/24 19:44 RDW 16.8 % (11.6-16.5) H 11/11/24 19:44 Plt Count 360 X10^3/uL (150.0-450.0) 11/11/24 19:44 MPV 6.8 fL (7.4-11.0) L 11/11/24 19:44 Neut % (Auto) 75.5 % (42.0-75.0) H 11/11/24 19:44 Lymph % (Auto) 9.0 % (21.0-51.0) L 11/11/24 19:44 [place] % (Auto) 8.6 % (0.0-13.0) 11/11/24 19:44 Eos % (Auto) 5.8 % (0.9-2.9) H 11/11/24 19:44 Baso % (Auto) 1.1 % (0.2-1.0) H 11/11/24 19:44 Neut # (Auto) 6.7 x10^3/uL (2.2-4.8) H 11/11/24 19:44 Lymph # (Auto) 0.8 X10^3/uL (1.3-2.9) L 11/11/24 19:44 [place] # (Auto) 0.8 x10^3/uL (0.3-0.8) 11/11/24 19:44 Eos # (Auto) 0.5 x10^3/uL (0.0-0.2) H 11/11/24 19:44 Baso # (Auto) 0.1 X10^3/uL (0.0-0.1) 11/11/24 19:44 Absolute Nucleated RBC 0.0 /100WBC 11/11/24 19:44 Sodium 141 mmol/L (136-145) 11/11/24 19:44 Corrected Sodium TNP 11/11/24 19:44 Potassium 4.1 mmol/L (3.5-5.1) 11/11/24 19:44 Chloride 109 mmol/L (98-107) H 11/11/24 19:44 Carbon Dioxide 26.7 mmol/L (21-32) 11/11/24 19:44 BUN 24 mg/dL (7-18) H 11/11/24 19:44 Creatinine 1.00 mg/dL (0.70-1.30) 11/11/24 19:44 Est GFR (MDRD) Af Amer > 60 (>60) 11/11/24 19:44 Est GFR (MDRD) Non-Af > 60 (>60) 11/11/24 19:44 Glucose 104 mg/dL (65-99) H 11/11/24 19:44 Calcium 8.1 mg/dL (8.5-10.1) L 11/11/24 19:44 Corrected Calcium 10.4 mg/dL (8.5-10.1) H 11/11/24 19:44 Total Bilirubin 0.40 mg/dL (0.2-1.0) 11/11/24 19:44 AST 27 Units/L (15-37) 11/11/24 19:44 ALT 11 Units/L (12-78) L 11/11/24 19:44 Alkaline Phosphatase 114 Units/L (46-116) 11/11/24 19:44 B-Natriuretic Peptide 369 pg/mL (0-79) H 11/11/24 19:44 Total Protein 5.2 g/dL (6.4-8.2) L 11/11/24 19:44 Albumin 1.1 g/dL (3.4-5.0) L 11/11/24 19:44 Globulin 4.1 g/dL (2.5-4.5) 11/11/24 19:44 Albumin/Globulin Ratio 0.3 Ratio (1.1-2.1) L 11/11/24 19:44 Opioid Opioid Risk Tool Age (Shaan box if 16-45): No History of Preadolescent Sexual Abuse: No Total: 0 Total Score Risk Category: Low Risk Copyright: Humberto OSEGUERA predicting aberrant behaviors Discharge Plan Diagnosis Discharge Problem: Tense ascites, Cirrhosis of liver, Abdominal pain Discharge Plan Patient Disposition: ADMITTED INPATIENT Condition: Stable Prescriptions: No Action nadolol 20 mg tablet 20 mg PO QDAY albuterol sulfate 90 mcg/actuation HFA aerosol inhaler 2 inh inhalation Q4H PRN spironolactone 50 mg tablet 50 mg PO QDAY lactulose 10 gram/15 mL solution See Rx Instructions .ROUTE .COMPLEX Rx Instructions: SEE RX INSTRUCTIONS Health Concerns: Post Hospitalization: new medications and changes needed to prevent readmission or further decline. Pt educated and given instructions on all concerns. Plan of Treatment: Continue with present treatment and follow up plan. Pt is to keep follow up appointment as instructed and take medications as ordered. Orders to Discharge Patient Discharge Orders: Transfer (Routine); Ordered 11/12/24 Ordered By: KALI HODGE Follow ups/Referrals Follow ups/Referrals: [facility],None [Primary Care Provider] - 3 days Instructions Stand Alone Forms: Find Help Web Site, Post Hospital Follow Up Care
[2024-11-11 20:03] LABS: ALANINE AMINOTRANSFERASE 11 Units/L (12-78); ALBUMIN 1.1 g/dL (3.4-5.0); ALKALINE PHOSPHATASE 114 Units/L (46-116); ASPARTATE AMINO TRANSFERASE 27 Units/L (15-37); BLOOD UREA NITROGEN 24 mg/dL (7-18); CALCIUM 8.1 mg/dL (8.5-10.1); CARBON DIOXIDE 26.7 mmol/L (21-32); CHLORIDE 109 mmol/L (98-107); COR CA(FOR HYPOALB) 10.4 mg/dL (8.5-10.1); GLUCOSE 104 mg/dL (65-99); POTASSIUM 4.1 mmol/L (3.5-5.1); SODIUM 141 mmol/L (136-145); TOTAL PROTEIN 5.2 g/dL (6.4-8.2); eGFR NON BLACK RACES > 60 (>60)
--- NOTE | 2024-11-11 22:10 | CT ---
EXAM:ABDOMEN/PELVIS W/O CONHISTORY:Chronic Abdominal pain, Abdominal swelling that kept getting worse everyday until he could not take it anymore.;COMPARISON:CT examination July 29, 2024TECHNIQUE:CT of the abdomen and pelvis without contrastFINDINGS:Sensitivity is reduced without intravenous contrast. Right lung volumes are low. There is right pleural thickening suspected. Dense airspace consolidation in the right lung suggests atelectasis although pneumonia could be present. Small left pleural effusion versus pleural thickening.Severe cirrhosis of the liver. The kidneys are not obstructed. No renal stones. Spleen contours are normal. There is upper abdominal varices present. Atrophy of the pancreas. The stomach is not obstructed.There is a large volume of abdominal and pelvic ascites present which tracks into the scrotum significantly. Soft tissue anasarca. Colon diverticulosis. Mild diffuse wall thickening in the colon probably reactive to ascites. Scattered small bowel air-fluid levels are nonspecific. No free air. Multiple lumbar superior endplate compression deformities are similar the comparison CT study.IMPRESSION:Severe cirrhosis of the liver.Large volume of abdominal and pelvic ascites present tracking into the scrotum which is significantly distended. Paracentesis suggested.Soft tissue anasarca and 3rd spacing.All CT scans at this facility use dose modulation, iterative reconstruction, and/or weight based dosing when appropriate to reduce radiation dose to as low as reasonably achievable.THIS IS AN ELECTRONICALLY VERIFIED FINAL REPORT11/11/2024 10:00 PM - Electronically signed by Yeison Ramirez MD
[2024-11-12] MEDS: PERCOCET TAB 5/325 MG PO ONE (00:46)
[2024-11-12 03:00] VITALS: BMI 35.0
[2024-11-12 04:41] LABS: BASOPHILS # (AUTO) 0.1 X10^3/uL (0.0-0.1); BASOPHILS % (AUTO) 1.6 % (0.2-1.0); EOSINOPHILS # (AUTO) 0.6 x10^3/uL (0.0-0.2); EOSINOPHILS % (AUTO) 6.8 % (0.9-2.9); HEMATOCRIT 24.8 % (42.0-54.0); HEMOGLOBIN 8.5 g/dL (13.5-18.0); LYMPHOCYTES # (AUTO) 0.9 X10^3/uL (1.3-2.9); LYMPHOCYTES % (AUTO) 9.9 % (21.0-51.0); MEAN CORPUSCULAR HEMOGLOBIN 28.9 pg (27.0-34.0); MEAN CORPUSCULAR HGB CONC 34.4 g/dL (33.0-35.0); MEAN CORPUSCULAR VOLUME 83.9 fL (80.0-100.0); MEAN PLATELET VOLUME 6.8 fL (7.4-11.0); MONOCYTES # (AUTO) 0.8 x10^3/uL (0.3-0.8); MONOCYTES % (AUTO) 9.2 % (0.0-13.0); NEUTROPHILS # (AUTO) 6.6 x10^3/uL (2.2-4.8); NEUTROPHILS % (AUTO) 72.5 % (42.0-75.0); PLATELET COUNT 343 X10^3/uL (150.0-450.0); RED BLOOD COUNT 2.96 X10^6/uL (4.7-6.0); RED CELL DISTRIBUTION WIDTH 17.1 % (11.6-16.5); WHITE BLOOD COUNT 9.1 X10^3/uL (3.6-10.0)
[2024-11-12 04:56] LABS: ALANINE AMINOTRANSFERASE 12 Units/L (12-78); ALKALINE PHOSPHATASE 113 Units/L (46-116); AMYLASE 57 Units/L (25-115); ASPARTATE AMINO TRANSFERASE 27 Units/L (15-37); BLOOD UREA NITROGEN 25 mg/dL (7-18); CALCIUM 8.1 mg/dL (8.5-10.1); CARBON DIOXIDE 26.6 mmol/L (21-32); CHLORIDE 109 mmol/L (98-107); COR CA(FOR HYPOALB) 10.5 mg/dL (8.5-10.1); GLUCOSE 92 mg/dL (65-99); LIPASE 56 Units/L (16-77); MAGNESIUM 1.6 mg/dL (2.0-2.9); POTASSIUM 3.9 mmol/L (3.5-5.1); SODIUM 140 mmol/L (136-145); TOTAL PROTEIN 5.2 g/dL (6.4-8.2); eGFR NON BLACK RACES > 60 (>60)
[2024-11-12] MEDS: VISTARIL PO PRN (05:07)
[2024-11-12] MEDS ORDERED: CONSULT PHARMACY - POTASSIUM & MAGNESIUM XX SCH (07:00)
[2024-11-12 09:05] LABS: INR 1.15 (0.8-1.3)
[2024-11-12] MEDS: ALBUMIN HUMAN 25%- 100 ML 100 ML IV SCH (09:22)
[2024-11-12] MEDS: MAG-OX TAB PO SCH (09:24)
--- NOTE | 2024-11-12 14:02 | DR.H&P ---
H&P History & Physical for Day of: H&P Date: 11/12/24 Chief Complaint Chief Complaint: ABDOMINAL SWELLING AND SOB History of Present Illness History of Present Illness: PT IS 59 WM, ER ADMISSION WITH CO DIFFUSE ABDOMINAL SWELLING AND FLUID RETENTION. PT HAS PMH OF CIRRHOSIS AND TENSE ASCITES WITH NEED FOR PARACENTESIS. PT ADMITTED FOR TREATMENT AND EVALUATION OF ACUTE ILLNESS. Past Medical History Past Medical History: COPD, GERD, Hypertension, Hyperthyroidism and Liver Dise ase Past Surgical History Surgical History: Other Family History Family Medical History: Diabetes Mellitus Social History Does patient currently use any type of tobacco product: No Have you used tobacco products in the last 12 months: No Type of Tobacco Use: None Does any household member use tobacco: No Alcohol Use: Occasionally Drug Use: None Medications Home Medications: Home Medications Medication Instructions Recorded Confirmed Type albuterol sulfate 90 mcg/actuation 2 inh inhalation Q4H PRN 10/10/24 11/12/24 History aerosol inhaler lactulose 10 gram/15 mL oral See Rx Instructions .Route .COMPLEX 10/10/24 11/12/24 History solution nadolol 20 mg tablet 20 mg PO QDAY 10/10/24 11/12/24 History spironolactone 50 mg tablet 50 mg PO QDAY 10/10/24 11/12/24 History Allergies Allergies Allergy/AdvReac Type Severity Reaction Status Date / Time acetaminophen [From Tylenol] Allergy Verified 10/10/24 22:27 Labs 11/12/24 04:30 11/12/24 04:30 Labs: Laboratory WBC 9.1 X10^3/uL (3.6-10.0) 11/12/24 04:30 RBC 2.96 X10^6/uL (4.7-6.0) L 11/12/24 04:30 Hgb 8.5 g/dL (13.5-18.0) L 11/12/24 04:30 Hct 24.8 % (42.0-54.0) L 11/12/24 04:30 MCV 83.9 fL (80.0-100.0) 11/12/24 04:30 MCH 28.9 pg (27.0-34.0) 11/12/24 04:30 MCHC 34.4 g/dL (33.0-35.0) 11/12/24 04:30 RDW 17.1 % (11.6-16.5) H 11/12/24 04:30 Plt Count 343 X10^3/uL (150.0-450.0) 11/12/24 04:30 MPV 6.8 fL (7.4-11.0) L 11/12/24 04:30 Neut % (Auto) 72.5 % (42.0-75.0) 11/12/24 04:30 Lymph % (Auto) 9.9 % (21.0-51.0) L 11/12/24 04:30 [place] % (Auto) 9.2 % (0.0-13.0) 11/12/24 04:30 Eos % (Auto) 6.8 % (0.9-2.9) H 11/12/24 04:30 Baso % (Auto) 1.6 % (0.2-1.0) H 11/12/24 04:30 Neut # (Auto) 6.6 x10^3/uL (2.2-4.8) H 11/12/24 04:30 Lymph # (Auto) 0.9 X10^3/uL (1.3-2.9) L 11/12/24 04:30 [place] # (Auto) 0.8 x10^3/uL (0.3-0.8) 11/12/24 04:30 Eos # (Auto) 0.6 x10^3/uL (0.0-0.2) H 11/12/24 04:30 Baso # (Auto) 0.1 X10^3/uL (0.0-0.1) 11/12/24 04:30 Absolute Nucleated RBC 0.0 /100WBC 11/12/24 04:30 PT 14.9 SECONDS (11.8-14.3) 11/12/24 08:35 INR Target Range - 11/12/24 08:35 INR 1.15 (0.8-1.3) 11/12/24 08:35 Sodium 140 mmol/L (136-145) 11/12/24 04:30 Corrected Sodium TNP 11/12/24 04:30 Potassium 3.9 mmol/L (3.5-5.1) 11/12/24 04:30 Chloride 109 mmol/L (98-107) H 11/12/24 04:30 Carbon Dioxide 26.6 mmol/L (21-32) 11/12/24 04:30 BUN 25 mg/dL (7-18) H 11/12/24 04:30 Creatinine 1.00 mg/dL (0.70-1.30) 11/12/24 04:30 Est GFR (MDRD) Af Amer > 60 (>60) 11/12/24 04:30 Est GFR (MDRD) Non-Af > 60 (>60) 11/12/24 04:30 Glucose 92 mg/dL (65-99) 11/12/24 04:30 Calcium 8.1 mg/dL (8.5-10.1) L 11/12/24 04:30 Corrected Calcium 10.5 mg/dL (8.5-10.1) H 11/12/24 04:30 Magnesium 1.6 mg/dL (2.0-2.9) L 11/12/24 04:30 Total Bilirubin 0.40 mg/dL (0.2-1.0) 11/12/24 04:30 AST 27 Units/L (15-37) 11/12/24 04:30 ALT 12 Units/L (12-78) 11/12/24 04:30 Alkaline Phosphatase 113 Units/L (46-116) 11/12/24 04:30 Ammonia 42 umol/L (11-32) H 11/12/24 08:35 B-Natriuretic Peptide 369 pg/mL (0-79) H 11/11/24 19:44 Total Protein 5.2 g/dL (6.4-8.2) L 11/12/24 04:30 Albumin 1.0 g/dL (3.4-5.0) L 11/12/24 04:30 Globulin 4.2 g/dL (2.5-4.5) 11/12/24 04:30 Albumin/Globulin Ratio 0.2 Ratio (1.1-2.1) L 11/12/24 04:30 Amylase 57 Units/L (25-115) 11/12/24 04:30 Lipase 56 Units/L (16-77) 11/12/24 04:30 Review of Systems Constitutional: Weakness Eyes: No Symptoms Reported ENT: No Symptoms Reported Respiratory: Shortness of Breath Cardiovascular: Edema Gastrointestinal: Abdominal Pain Genitourinary: No Symptoms Reported Musculoskeletal: Back Pain Skin: No Symptoms Reported Neurological: Weakness and Confusion (MILD, TRANSIENT PT RELATED WITH "AMMONIA LEVEL HIGH") Physical Exam Vital Signs: Vital Signs Temperature 97.5 F Pulse Rate [Right Brachial] 95 Respiratory Rate 18 Blood Pressure [Right Arm] 144/81 O2 Sat by Pulse Oximetry 96 Oriented: Normal Eyes: Normal Ear: Normal Nose: Normal Throat: Normal Respiratory: RLL Diminished and LLL Diminished Cardiovascular: Edema Auscultation: Bowel Sounds: Normal Palpation: Liver Enlarged Tenderness: Other (DIFFUSE) Skin: Decreased Turgur Musculoskeletal: Back:Lumbar Psychiatric: Depression Mood Description: Depressed Affect: Normal Speech Pattern: Clear and Appropriate Assessment/Plan (1) Tense ascites: Status: Acute Plan: ADMIT, BP CONTROL PRN SUPPLEMENTAL O2, CONSULT DR THOMPSON FOR PARACENTESIS ALBUMIN REPLACEMENT THERAPY CXR ON ADMISSION, AMMONIA LEVEL PT/INR (2) Cirrhosis of liver: Status: Acute (3) Abdominal pain: Status: Acute (4) Hypoalbuminemia: Status: Acute
[2024-11-12] MEDS: NS 250 ML IV 250 ML IV ONE (15:45)
[2024-11-12 17:40] LABS: BILIRUBIN,URINE NEGATIVE (NEGATIVE); BLOOD/HEMOGLOBIN,URINE 5+ (NEGATIVE); GLUCOSE, URINE NEGATIVE (NEGATIVE); KETONES,URINE NEGATIVE (NEGATIVE); LEUKOCYTE ESTERASE ,URINE NEGATIVE (NEGATIVE); NITRITES,URINE NEGATIVE (NEGATIVE); PROTEIN,URINE 4+ (NEGATIVE); UROBILINOGEN,URINE NORMAL (NORMAL)
[2024-11-12 17:41] LABS: APPEARANCE,URINE CLEAR (CLEAR); COLOR,URINE DARK YELLOW (YELLOW)
[2024-11-12 17:47] LABS: BACTERIA,URINE 2+ /HPF (NEGATIVE); GRANULAR CASTS,URINE FEW /LPF (NEGATIVE); HYALINE CASTS, URINE FEW /LPF (NEGATIVE); SQUAMOUS EPITHELIAL CELL,UR FEW /HPF (NEGATIVE)
[2024-11-13] MEDS: MORPHINE SULFATE INJ 2 MG INJ IVP PRN (00:39)
[2024-11-13 06:06] LABS: BASOPHILS # (AUTO) 0.1 X10^3/uL (0.0-0.1); BASOPHILS % (AUTO) 0.9 % (0.2-1.0); EOSINOPHILS # (AUTO) 0.5 x10^3/uL (0.0-0.2); EOSINOPHILS % (AUTO) 4.4 % (0.9-2.9); HEMOGLOBIN 8.9 g/dL (13.5-18.0); LYMPHOCYTES # (AUTO) 1.1 X10^3/uL (1.3-2.9); LYMPHOCYTES % (AUTO) 11.1 % (21.0-51.0); MEAN CORPUSCULAR HEMOGLOBIN 28.8 pg (27.0-34.0); MEAN CORPUSCULAR HGB CONC 34.2 g/dL (33.0-35.0); MEAN CORPUSCULAR VOLUME 84.1 fL (80.0-100.0); MONOCYTES # (AUTO) 0.9 x10^3/uL (0.3-0.8); MONOCYTES % (AUTO) 8.3 % (0.0-13.0); NEUTROPHILS # (AUTO) 7.7 x10^3/uL (2.2-4.8); NEUTROPHILS % (AUTO) 75.3 % (42.0-75.0); PLATELET COUNT 358 X10^3/uL (150.0-450.0); RED CELL DISTRIBUTION WIDTH 16.9 % (11.6-16.5); WHITE BLOOD COUNT 10.3 X10^3/uL (3.6-10.0)
[2024-11-13 06:27] LABS: ALANINE AMINOTRANSFERASE 9 Units/L (12-78); ALBUMIN 1.1 g/dL (3.4-5.0); ALKALINE PHOSPHATASE 98 Units/L (46-116); ASPARTATE AMINO TRANSFERASE 22 Units/L (15-37); BLOOD UREA NITROGEN 23 mg/dL (7-18); CALCIUM 7.9 mg/dL (8.5-10.1); CARBON DIOXIDE 27.5 mmol/L (21-32); CHLORIDE 111 mmol/L (98-107); COR CA(FOR HYPOALB) 10.2 mg/dL (8.5-10.1); COR NA(FOR HYPERGLY) 144 mmol/L (136-145); CREATININE 1.04 mg/dL (0.70-1.30); GLUCOSE 119 mg/dL (65-99); MAGNESIUM 1.7 mg/dL (2.0-2.9); POTASSIUM 3.9 mmol/L (3.5-5.1); SODIUM 144 mmol/L (136-145); TOTAL PROTEIN 4.9 g/dL (6.4-8.2); eGFR NON BLACK RACES > 60 (>60)
[2024-11-13] MEDS: CHRONULAC PO SCH (09:29)
[2024-11-13] MEDS: ALDACTONE TAB 25 MG PO SCH (09:29)
[2024-11-13] MEDS: ROCEPHIN VIAL 1 GRAM 1 G in NS 100 ML IV 100 ML IV SCH (12:00)
[2024-11-13] MEDS: NADOLOL 20 MG PO SCH (17:45)
[2024-11-14 06:17] LABS: BASOPHILS # (AUTO) 0.1 X10^3/uL (0.0-0.1); BASOPHILS % (AUTO) 0.9 % (0.2-1.0); EOSINOPHILS # (AUTO) 0.8 x10^3/uL (0.0-0.2); EOSINOPHILS % (AUTO) 7.5 % (0.9-2.9); HEMATOCRIT 25.9 % (42.0-54.0); LYMPHOCYTES # (AUTO) 1.1 X10^3/uL (1.3-2.9); MEAN CORPUSCULAR HEMOGLOBIN 29.2 pg (27.0-34.0); MEAN CORPUSCULAR HGB CONC 34.7 g/dL (33.0-35.0); MEAN CORPUSCULAR VOLUME 84.2 fL (80.0-100.0); MEAN PLATELET VOLUME 7.2 fL (7.4-11.0); MONOCYTES % (AUTO) 10.2 % (0.0-13.0); NEUTROPHILS # (AUTO) 7.1 x10^3/uL (2.2-4.8); NEUTROPHILS % (AUTO) 70.4 % (42.0-75.0); PLATELET COUNT 336 X10^3/uL (150.0-450.0); RED BLOOD COUNT 3.08 X10^6/uL (4.7-6.0); RED CELL DISTRIBUTION WIDTH 17.5 % (11.6-16.5); WHITE BLOOD COUNT 10.1 X10^3/uL (3.6-10.0)
[2024-11-14 06:20] LABS: ALANINE AMINOTRANSFERASE 8 Units/L (12-78); ALBUMIN 1.2 g/dL (3.4-5.0); ALKALINE PHOSPHATASE 93 Units/L (46-116); ASPARTATE AMINO TRANSFERASE 19 Units/L (15-37); BLOOD UREA NITROGEN 22 mg/dL (7-18); CALCIUM 7.6 mg/dL (8.5-10.1); CARBON DIOXIDE 28.6 mmol/L (21-32); CHLORIDE 110 mmol/L (98-107); COR CA(FOR HYPOALB) 9.8 mg/dL (8.5-10.1); COR NA(FOR HYPERGLY) 143 mmol/L (136-145); CREATININE 0.97 mg/dL (0.70-1.30); GLUCOSE 118 mg/dL (65-99); MAGNESIUM 1.7 mg/dL (2.0-2.9); POTASSIUM 3.7 mmol/L (3.5-5.1); SODIUM 143 mmol/L (136-145); TOTAL PROTEIN 4.7 g/dL (6.4-8.2); eGFR NON BLACK RACES > 60 (>60)
[2024-11-14] MEDS ORDERED: CONSULT PHARMACY - POTASSIUM & MAGNESIUM XX SCH (08:00)
[2024-11-14] MEDS: MAG-OX TAB PO SCH (09:17)
[2024-11-14] MEDS: LASIX IVP SCH (09:17)
[2024-11-14] MEDS: ZOFRAN INJ 4 MG VIAL IVP PRN (09:17)
[2024-11-14] MEDS: K-DUR TAB 20 MEQ PO SCH (09:17)
[2024-11-14] MEDS: CIPRO TAB 500 MG PO SCH (13:53)
[2024-11-15 06:26] LABS: BASOPHILS % (AUTO) 0.3 % (0.2-1.0); EOSINOPHILS # (AUTO) 0.7 x10^3/uL (0.0-0.2); EOSINOPHILS % (AUTO) 6.4 % (0.9-2.9); HEMATOCRIT 26.2 % (42.0-54.0); HEMOGLOBIN 9.1 g/dL (13.5-18.0); LYMPHOCYTES # (AUTO) 1.1 X10^3/uL (1.3-2.9); MEAN CORPUSCULAR HEMOGLOBIN 29.1 pg (27.0-34.0); MEAN CORPUSCULAR HGB CONC 34.8 g/dL (33.0-35.0); MEAN CORPUSCULAR VOLUME 83.6 fL (80.0-100.0); MEAN PLATELET VOLUME 7.4 fL (7.4-11.0); MONOCYTES # (AUTO) 0.9 x10^3/uL (0.3-0.8); MONOCYTES % (AUTO) 8.5 % (0.0-13.0); NEUTROPHILS # (AUTO) 8.3 x10^3/uL (2.2-4.8); NEUTROPHILS % (AUTO) 74.8 % (42.0-75.0); PLATELET COUNT 367 X10^3/uL (150.0-450.0); RED BLOOD COUNT 3.14 X10^6/uL (4.7-6.0); RED CELL DISTRIBUTION WIDTH 17.3 % (11.6-16.5); WHITE BLOOD COUNT 11.1 X10^3/uL (3.6-10.0)
[2024-11-15 06:43] LABS: ALANINE AMINOTRANSFERASE 7 Units/L (12-78); ALBUMIN 1.4 g/dL (3.4-5.0); ALKALINE PHOSPHATASE 92 Units/L (46-116); ASPARTATE AMINO TRANSFERASE 22 Units/L (15-37); BLOOD UREA NITROGEN 24 mg/dL (7-18); CALCIUM 7.5 mg/dL (8.5-10.1); CARBON DIOXIDE 24.4 mmol/L (21-32); CHLORIDE 105 mmol/L (98-107); COR CA(FOR HYPOALB) 9.6 mg/dL (8.5-10.1); CREATININE 1.19 mg/dL (0.70-1.30); GLUCOSE 96 mg/dL (65-99); POTASSIUM 4.2 mmol/L (3.5-5.1); SODIUM 139 mmol/L (136-145); TOTAL PROTEIN 4.8 g/dL (6.4-8.2); eGFR NON BLACK RACES > 60 (>60)
[2024-11-15] MEDS ORDERED: OMNIPAQUE 350 mg/mL 100 mL BTL 100 ML ONE (09:31)
[2024-11-15] MEDS ORDERED: READI-CAT 2 ONE (09:31)
--- NOTE | 2024-11-15 14:55 | CT ---
EXAMINATION:ABDCMEN/PELVIS WITH CONHISTORY:Abdominal pain increased;COMPARISON:CT abdomen 11/11/2024TECHNIQUE:Contiguous axial CT images of the abdomen and pelvis following intravenous contrast. Images reviewed in the axial imaging plane with reformatted sagittal and coronal images.The above CT scan was done with automated exposure control and the mA and kV was adjusted to obtain quality images according to patient size.FINDINGS:There has been interval development of a mild amount of intraperitoneal free air primarily collecting anteriorly within the peritoneal cavity.. Numerous tiny collections of extraluminal air adjacent to the descending colon in the left abdomen.The liver measures 23 by 14 by 16 cm with heterogeneous enhancement. There are several hepatic lesions the largest in the posterior segment of the right hepatic lobe measuring 2 cm central density 67 Hounsfield units.. The liver has a diffuse nodular contour consistent with cirrhosis.The spleen measures 9 by 13 x 5 cm and contains several subcentimeter hypodensities.Pancreas and adrenal glands appear intact.There are extensive dilated veins/varices along the hilum of the spleen, between the spleen and left kidney, gastric hepatic ligament, GE junction, falciform ligament of the liver, anterior abdominal wall consistent with portal systemic hypertension.Mild amount of ascites. There has been interval placement of the percutaneous drainage catheter within the peritoneal cavity right mid anterior pelvis.The abdominal aorta tapers normally. Scattered arterial vascular calcifications.Kidneys normal size and position. No hydronephrosis. Mild amount of bowel-gas and feces within the colon. Numerous tiny collections of extraluminal air adjacent to the descending colon in the left abdomen. The stomach contains a small amount of fluid and mild amount of air.There is stranding/edema of the mesentery, and dependent pelvis/presacral fat.Urinary bladder mildly distended with urine. The regions of the seminal vesicles and prostate appear intact.[id number] right-sided inguinal hernia and [id number] left-sided inguinal hernia with large amount of ascites collecting within the scrotum and along the inguinal canals.Images through lower chest demonstrates a small left pleural effusion in the dependent posterior pleural space. There is a small right-sided pleural fluid collection containing fluid and air in the right posterior pleural space with the adjacent pulmonary consolidation of the right lower lobe. There is soft tissue thickening of the right lateral pleural space in the imaged right lower lung field and volume loss of the imaged right lower lung.Moderate spondylosis with multilevel compression fractures.IMPRESSION:Interval development of a mild amount of intraperitoneal free air as described above.Interval placement of a percutaneous drainage catheter within the peritoneal cavity right mid anterior pelvis.Mild amount of ascites.The liver has a cirrhotic appearance and contains multiple lesions nonspecific for neoplasm and/or regenerating hepatic nodules.Numerous varices suspicious for portal systemic hypertension.Stranding/edema of the mesentery and dependent pelvis/presacral fat.Bilateral inguinal hernias with fluid collecting along the inguinal fail and scrotum.Other incidental findings within the chest as discussed above.THIS IS AN ELECTRONICALLY VERIFIED FINAL REPORT11/15/2024 2:52 PM - Electronically signed by Marie Morales MD
[2024-11-16 05:35] LABS: BASOPHILS # (AUTO) 0.1 X10^3/uL (0.0-0.1); BASOPHILS % (AUTO) 0.9 % (0.2-1.0); EOSINOPHILS # (AUTO) 0.6 x10^3/uL (0.0-0.2); EOSINOPHILS % (AUTO) 6.4 % (0.9-2.9); HEMATOCRIT 26.7 % (42.0-54.0); HEMOGLOBIN 9.4 g/dL (13.5-18.0); LYMPHOCYTES # (AUTO) 0.8 X10^3/uL (1.3-2.9); LYMPHOCYTES % (AUTO) 7.7 % (21.0-51.0); MEAN CORPUSCULAR HEMOGLOBIN 29.5 pg (27.0-34.0); MEAN CORPUSCULAR HGB CONC 35.2 g/dL (33.0-35.0); MEAN CORPUSCULAR VOLUME 83.8 fL (80.0-100.0); MEAN PLATELET VOLUME 7.1 fL (7.4-11.0); NEUTROPHILS # (AUTO) 7.5 x10^3/uL (2.2-4.8); PLATELET COUNT 372 X10^3/uL (150.0-450.0); RED BLOOD COUNT 3.18 X10^6/uL (4.7-6.0); RED CELL DISTRIBUTION WIDTH 16.8 % (11.6-16.5)
[2024-11-16 05:46] LABS: ALANINE AMINOTRANSFERASE 6 Units/L (12-78); ALBUMIN 1.5 g/dL (3.4-5.0); ALKALINE PHOSPHATASE 90 Units/L (46-116); ASPARTATE AMINO TRANSFERASE 19 Units/L (15-37); BLOOD UREA NITROGEN 27 mg/dL (7-18); CALCIUM 7.4 mg/dL (8.5-10.1); CARBON DIOXIDE 25.3 mmol/L (21-32); CHLORIDE 106 mmol/L (98-107); COR CA(FOR HYPOALB) 9.4 mg/dL (8.5-10.1); COR NA(FOR HYPERGLY) 138 mmol/L (136-145); CREATININE 1.24 mg/dL (0.70-1.30); GLUCOSE 123 mg/dL (65-99); MAGNESIUM 1.7 mg/dL (2.0-2.9); SODIUM 137 mmol/L (136-145); TOTAL PROTEIN 4.7 g/dL (6.4-8.2); eGFR NON BLACK RACES > 60 (>60)
--- NOTE | 2024-11-16 10:44 | PCM.PROG ---
Progress Note Progress Note for Day of Date of Exam: 11/16/24 Subjective Subjective: Patient seen at bedside, no acute events overnight. Is admitted for tense ascites and UTI. He is currently on ciprofloxacin. He does have a percutaneous catheter for the paracentesis, currently clamped. Dr. Brambila has been following. He reports having some nausea at this morning. Labs/imaging reviewed: - WBC 10 hemoglobin 9.4 potassium 4 creatinine 1.24 magnesium 1.7 - Urine culture E faecalis - AIT negative Plan: Continue Cipro. Continue drainage of ascitic fluid as per Dr. Brambila. Replace electrolytes as per protocol. Zofran as needed. Continue home medications. Continue pain control. Continue albumin. Monitor a.m. labs and imaging. Past Medical Family Social History Allergies: Allergies acetaminophen [From Tylenol] Allergy (Verified 10/10/24 22:27) Vital Signs and I&O's Vital Signs: Vital Signs Temperature 97.4 F Temperature 98.3 F Pulse Rate [Right Brachial] 74 Pulse Rate [Right Brachial] 75 Pulse Rate 81 Respiratory Rate 20 Respiratory Rate 20 Respiratory Rate 20 Respiratory Rate 18 Respiratory Rate 18 Respiratory Rate 18 Blood Pressure [Right Arm] 119/62 Blood Pressure [Right Arm] 113/65 O2 Sat by Pulse Oximetry 96 O2 Sat by Pulse Oximetry 97 O2 Sat by Pulse Oximetry 98 Intake and Output: Intake & Output 11/13/24 11/14/24 11/15/24 11/16/24 23:59 23:59 23:59 23:59 Intake Total 2029 / 2029 1150 / 1150 2490 / 2490 240 / 240 Output Total 5800 / 5800 2600 / 2600 1150 / 1150 Balance -3770 / -3770 -1450 / -1450 1340 / 1340 240 / 240 Physical Exam Oriented: Normal Eyes: Normal Ear: Normal Nose: Normal Throat: Normal Cardiovascular: Edema Auscultation: Bowel Sounds: Normal Tenderness: Other (DIFFUSE) Skin: Decreased Turgur Musculoskeletal: Back:Lumbar Psychiatric: Depression Mood Description: Depressed Affect: Normal Speech Pattern: Clear and Appropriate Laboratory and Diagnostics 11/16/24 05:23 11/16/24 05:23 Labs: 11/12/24 17:22 Urine,Clean Catch Urine Culture - Final Enterococcus Faecalis Laboratory WBC 10.0 X10^3/uL (3.6-10.0) 11/16/24 05:23 RBC 3.18 X10^6/uL (4.7-6.0) L 11/16/24 05:23 Hgb 9.4 g/dL (13.5-18.0) L 11/16/24 05:23 Hct 26.7 % (42.0-54.0) L 11/16/24 05:23 MCV 83.8 fL (80.0-100.0) 11/16/24 05:23 MCH 29.5 pg (27.0-34.0) 11/16/24 05:23 MCHC 35.2 g/dL (33.0-35.0) H 11/16/24 05:23 RDW 16.8 % (11.6-16.5) H 11/16/24 05:23 Plt Count 372 X10^3/uL (150.0-450.0) 11/16/24 05:23 MPV 7.1 fL (7.4-11.0) L 11/16/24 05:23 Neut % (Auto) 75.0 % (42.0-75.0) 11/16/24 05:23 Lymph % (Auto) 7.7 % (21.0-51.0) L 11/16/24 05:23 [place] % (Auto) 10.0 % (0.0-13.0) 11/16/24 05:23 Eos % (Auto) 6.4 % (0.9-2.9) H 11/16/24 05:23 Baso % (Auto) 0.9 % (0.2-1.0) 11/16/24 05:23 Neut # (Auto) 7.5 x10^3/uL (2.2-4.8) H 11/16/24 05:23 Lymph # (Auto) 0.8 X10^3/uL (1.3-2.9) L 11/16/24 05:23 [place] # (Auto) 1.0 x10^3/uL (0.3-0.8) H 11/16/24 05:23 Eos # (Auto) 0.6 x10^3/uL (0.0-0.2) H 11/16/24 05:23 Baso # (Auto) 0.1 X10^3/uL (0.0-0.1) 11/16/24 05:23 Absolute Nucleated RBC 0.1 /100WBC 11/16/24 05:23 PT 14.9 SECONDS (11.8-14.3) 11/12/24 08:35 INR Target Range - 11/12/24 08:35 INR 1.15 (0.8-1.3) 11/12/24 08:35 Sodium 137 mmol/L (136-145) 11/16/24 05:23 Corrected Sodium 138 mmol/L (136-145) 11/16/24 05:23 Potassium 4.0 mmol/L (3.5-5.1) 11/16/24 05:23 Chloride 106 mmol/L (98-107) 11/16/24 05:23 Carbon Dioxide 25.3 mmol/L (21-32) 11/16/24 05:23 BUN 27 mg/dL (7-18) H 11/16/24 05:23 Creatinine 1.24 mg/dL (0.70-1.30) 11/16/24 05:23 Est GFR (MDRD) Af Amer > 60 (>60) 11/16/24 05:23 Est GFR (MDRD) Non-Af > 60 (>60) 11/16/24 05:23 Glucose 123 mg/dL (65-99) H 11/16/24 05:23 Calcium 7.4 mg/dL (8.5-10.1) L 11/16/24 05:23 Corrected Calcium 9.4 mg/dL (8.5-10.1) 11/16/24 05:23 Magnesium 1.7 mg/dL (2.0-2.9) L 11/16/24 05:23 Total Bilirubin 0.40 mg/dL (0.2-1.0) 11/16/24 05:23 AST 19 Units/L (15-37) 11/16/24 05:23 ALT 6 Units/L (12-78) L 11/16/24 05:23 Alkaline Phosphatase 90 Units/L (46-116) 11/16/24 05:23 Ammonia 42 umol/L (11-32) H 11/12/24 08:35 B-Natriuretic Peptide 369 pg/mL (0-79) H 11/11/24 19:44 Total Protein 4.7 g/dL (6.4-8.2) L 11/16/24 05:23 Albumin 1.5 g/dL (3.4-5.0) L 11/16/24 05:23 Globulin 3.2 g/dL (2.5-4.5) 11/16/24 05:23 Albumin/Globulin Ratio 0.5 Ratio (1.1-2.1) L 11/16/24 05:23 Amylase 57 Units/L (25-115) 11/12/24 04:30 Lipase 56 Units/L (16-77) 11/12/24 04:30 Specimen Type Clean catch urine 11/12/24 17:22 Urine Color Dark yellow (YELLOW) 11/12/24 17:22 Urine Appearance Clear (CLEAR) 11/12/24 17:22 Urine pH 6.0 (5.0 - 8.0) 11/12/24 17:22 Ur Specific [place] 1.025 (1.000-1.030) 11/12/24 17:22 Urine Protein 4+ (NEGATIVE) 11/12/24 17:22 Urine Glucose (UA) Negative (NEGATIVE) 11/12/24 17:22 Urine Ketones Negative (NEGATIVE) 11/12/24 17:22 Urine Blood 5+ (NEGATIVE) 11/12/24 17:22 Urine Nitrite Negative (NEGATIVE) 11/12/24 17:22 Urine Bilirubin Negative (NEGATIVE) 11/12/24 17:22 Urine Urobilinogen Normal (NORMAL) 11/12/24 17:22 Ur Leukocyte Esterase Negative (NEGATIVE) 11/12/24 17:22 Urine RBC 5-10 /HPF (0-3) A 11/12/24 17:22 Urine WBC 3-5 /HPF (0-5) 11/12/24 17:22 Ur Squamous Epith Cells Few /HPF (NEGATIVE) 11/12/24 17:22 Urine Bacteria 2+ /HPF (NEGATIVE) 11/12/24 17:22 Hyaline Casts Few /LPF (NEGATIVE) 11/12/24 17:22 Granular Casts Few /LPF (NEGATIVE) 11/12/24 17:22 Urine Mucus Few /HPF (NEGATIVE) 11/12/24 17:22 Ur Culture Indicated? Yes/culture set up 11/12/24 17:22 Resp Viral Panel (PCR) See scanned report 11/12/24 02:15 Plan (1) Tense ascites: Status: Acute (2) Cirrhosis of liver: Status: Chronic Qualifiers: Hepatic cirrhosis type: alcoholic cirrhosis Ascites presence: with ascites Qualified Code(s): K70.31 - Alcoholic cirrhosis of liver with ascites (3) Abdominal pain: Status: Acute Qualifiers: Abdominal location: generalized Qualified Code(s): R10.84 - Generalized abdominal pain (4) Hypoalbuminemia: Status: Acute (5) Hypomagnesemia: Status: Acute (6) Chronic obstructive pulmonary disease: Status: Chronic Qualifiers: COPD type: unspecified COPD Qualified Code(s): J44.9 - Chronic obstructive pulmonary disease, unspecified (7) Hypertension: Status: Chronic Qualifiers: Hypertension type: primary hypertension Qualified Code(s): I10 - Essential (primary) hypertension
[2024-11-16] MEDS ORDERED: CONSULT PHARMACY - POTASSIUM & MAGNESIUM XX SCH (20:00)
[2024-11-16] MEDS ORDERED: MAG-OX TAB PO SCH (22:00)
[2024-11-17 05:15] LABS: BASOPHILS % (AUTO) 0.4 % (0.2-1.0); EOSINOPHILS # (AUTO) 0.6 x10^3/uL (0.0-0.2); EOSINOPHILS % (AUTO) 6.8 % (0.9-2.9); HEMATOCRIT 25.3 % (42.0-54.0); HEMOGLOBIN 8.8 g/dL (13.5-18.0); LYMPHOCYTES # (AUTO) 0.9 X10^3/uL (1.3-2.9); LYMPHOCYTES % (AUTO) 10.7 % (21.0-51.0); MEAN CORPUSCULAR HEMOGLOBIN 29.2 pg (27.0-34.0); MEAN CORPUSCULAR HGB CONC 34.9 g/dL (33.0-35.0); MEAN CORPUSCULAR VOLUME 83.7 fL (80.0-100.0); MEAN PLATELET VOLUME 7.5 fL (7.4-11.0); MONOCYTES % (AUTO) 11.2 % (0.0-13.0); NEUTROPHILS % (AUTO) 70.9 % (42.0-75.0); PLATELET COUNT 345 X10^3/uL (150.0-450.0); RED BLOOD COUNT 3.02 X10^6/uL (4.7-6.0); RED CELL DISTRIBUTION WIDTH 17.5 % (11.6-16.5); WHITE BLOOD COUNT 8.5 X10^3/uL (3.6-10.0)
[2024-11-17 05:31] LABS: ALANINE AMINOTRANSFERASE < 6 Units/L (12-78); ALBUMIN 1.6 g/dL (3.4-5.0); ALKALINE PHOSPHATASE 90 Units/L (46-116); ASPARTATE AMINO TRANSFERASE 17 Units/L (15-37); BLOOD UREA NITROGEN 32 mg/dL (7-18); CALCIUM 7.5 mg/dL (8.5-10.1); CARBON DIOXIDE 23.3 mmol/L (21-32); CHLORIDE 107 mmol/L (98-107); COR CA(FOR HYPOALB) 9.4 mg/dL (8.5-10.1); COR NA(FOR HYPERGLY) 140 mmol/L (136-145); CREATININE 1.39 mg/dL (0.70-1.30); GLUCOSE 141 mg/dL (65-99); MAGNESIUM 1.8 mg/dL (2.0-2.9); SODIUM 139 mmol/L (136-145); TOTAL PROTEIN 4.6 g/dL (6.4-8.2); eGFR NON BLACK RACES 55 (>60)
[2024-11-17] MEDS: ROXICODONE TAB 5 MG PO PRN (07:23)
--- NOTE | 2024-11-17 11:23 | PCM.PROG ---
Progress Note Progress Note for Day of Date of Exam: 11/17/24 Subjective Subjective: Patient seen at bedside, no acute events overnight. He is admitted for tense ascites and UTI. He is currently on ciprofloxacin. He does have a percutaneous catheter for the paracentesis, currently draining. Dr. Brambila has been following. Labs/imaging reviewed: - WBC 8.5 hemoglobin 8.8 potassium 4 creatinine 1.39 magnesium 1.8 - Urine culture E faecalis - AIT negative Plan: Continue Cipro. Continue drainage of ascitic fluid as per Dr. Brambila. Replace electrolytes as per protocol. Zofran as needed. Continue home medications. Continue pain control. Continue albumin. Monitor a.m. labs and imaging. Past Medical Family Social History Allergies: Allergies acetaminophen [From Tylenol] Allergy (Verified 10/10/24 22:27) Vital Signs and I&O's Vital Signs: Vital Signs Temperature 98.3 F Pulse Rate [Right Brachial] 70 Respiratory Rate 20 Respiratory Rate 20 Respiratory Rate 20 Respiratory Rate 19 Blood Pressure [Right Arm] 114/59 O2 Sat by Pulse Oximetry 99 Intake and Output: Intake & Output 11/14/24 11/15/24 11/16/24 11/17/24 23:59 23:59 23:59 23:59 Intake Total 1150 / 1150 2490 / 2490 1290 / 1290 1275 / 1275 Output Total 2600 / 2600 1150 / 1150 600 / 600 2100 / 2100 Balance -1450 / -1450 1340 / 1340 690 / 690 -825 / -825 Physical Exam Oriented: Normal Eyes: Normal Ear: Normal Nose: Normal Throat: Normal Cardiovascular: Edema Auscultation: Bowel Sounds: Normal Tenderness: Moderate and Other (DIFFUSE) Skin: Decreased Turgur Musculoskeletal: Back:Lumbar Psychiatric: Depression Mood Description: Depressed Affect: Normal Speech Pattern: Clear and Appropriate Laboratory and Diagnostics 11/17/24 04:47 11/17/24 04:47 Labs: 11/12/24 17:22 Urine,Clean Catch Urine Culture - Final Enterococcus Faecalis Laboratory WBC 8.5 X10^3/uL (3.6-10.0) 11/17/24 04:47 RBC 3.02 X10^6/uL (4.7-6.0) L 11/17/24 04:47 Hgb 8.8 g/dL (13.5-18.0) L 11/17/24 04:47 Hct 25.3 % (42.0-54.0) L 11/17/24 04:47 MCV 83.7 fL (80.0-100.0) 11/17/24 04:47 MCH 29.2 pg (27.0-34.0) 11/17/24 04:47 MCHC 34.9 g/dL (33.0-35.0) 11/17/24 04:47 RDW 17.5 % (11.6-16.5) H 11/17/24 04:47 Plt Count 345 X10^3/uL (150.0-450.0) 11/17/24 04:47 MPV 7.5 fL (7.4-11.0) 11/17/24 04:47 Neut % (Auto) 70.9 % (42.0-75.0) 11/17/24 04:47 Lymph % (Auto) 10.7 % (21.0-51.0) L 11/17/24 04:47 [place] % (Auto) 11.2 % (0.0-13.0) 11/17/24 04:47 Eos % (Auto) 6.8 % (0.9-2.9) H 11/17/24 04:47 Baso % (Auto) 0.4 % (0.2-1.0) 11/17/24 04:47 Neut # (Auto) 6.0 x10^3/uL (2.2-4.8) H 11/17/24 04:47 Lymph # (Auto) 0.9 X10^3/uL (1.3-2.9) L 11/17/24 04:47 [place] # (Auto) 1.0 x10^3/uL (0.3-0.8) H 11/17/24 04:47 Eos # (Auto) 0.6 x10^3/uL (0.0-0.2) H 11/17/24 04:47 Baso # (Auto) 0.0 X10^3/uL (0.0-0.1) 11/17/24 04:47 Absolute Nucleated RBC 0.0 /100WBC 11/17/24 04:47 PT 14.9 SECONDS (11.8-14.3) 11/12/24 08:35 INR Target Range - 11/12/24 08:35 INR 1.15 (0.8-1.3) 11/12/24 08:35 Sodium 139 mmol/L (136-145) 11/17/24 04:47 Corrected Sodium 140 mmol/L (136-145) 11/17/24 04:47 Potassium 4.0 mmol/L (3.5-5.1) 11/17/24 04:47 Chloride 107 mmol/L (98-107) 11/17/24 04:47 Carbon Dioxide 23.3 mmol/L (21-32) 11/17/24 04:47 BUN 32 mg/dL (7-18) H 11/17/24 04:47 Creatinine 1.39 mg/dL (0.70-1.30) H 11/17/24 04:47 Est GFR (MDRD) Af Amer > 60 (>60) 11/17/24 04:47 Est GFR (MDRD) Non-Af 55 (>60) L 11/17/24 04:47 Glucose 141 mg/dL (65-99) H 11/17/24 04:47 Calcium 7.5 mg/dL (8.5-10.1) L 11/17/24 04:47 Corrected Calcium 9.4 mg/dL (8.5-10.1) 11/17/24 04:47 Magnesium 1.8 mg/dL (2.0-2.9) L 11/17/24 04:47 Total Bilirubin 0.40 mg/dL (0.2-1.0) 11/17/24 04:47 AST 17 Units/L (15-37) 11/17/24 04:47 ALT < 6 Units/L (12-78) L 11/17/24 04:47 Alkaline Phosphatase 90 Units/L (46-116) 11/17/24 04:47 Ammonia 42 umol/L (11-32) H 11/12/24 08:35 B-Natriuretic Peptide 369 pg/mL (0-79) H 11/11/24 19:44 Total Protein 4.6 g/dL (6.4-8.2) L 11/17/24 04:47 Albumin 1.6 g/dL (3.4-5.0) L 11/17/24 04:47 Globulin 3.0 g/dL (2.5-4.5) 11/17/24 04:47 Albumin/Globulin Ratio 0.5 Ratio (1.1-2.1) L 11/17/24 04:47 Amylase 57 Units/L (25-115) 11/12/24 04:30 Lipase 56 Units/L (16-77) 11/12/24 04:30 Specimen Type Clean catch urine 11/12/24 17:22 Urine Color Dark yellow (YELLOW) 11/12/24 17:22 Urine Appearance Clear (CLEAR) 11/12/24 17:22 Urine pH 6.0 (5.0 - 8.0) 11/12/24 17:22 Ur Specific [place] 1.025 (1.000-1.030) 11/12/24 17:22 Urine Protein 4+ (NEGATIVE) 11/12/24 17:22 Urine Glucose (UA) Negative (NEGATIVE) 11/12/24 17:22 Urine Ketones Negative (NEGATIVE) 11/12/24 17:22 Urine Blood 5+ (NEGATIVE) 11/12/24 17:22 Urine Nitrite Negative (NEGATIVE) 11/12/24 17:22 Urine Bilirubin Negative (NEGATIVE) 11/12/24 17:22 Urine Urobilinogen Normal (NORMAL) 11/12/24 17:22 Ur Leukocyte Esterase Negative (NEGATIVE) 11/12/24 17:22 Urine RBC 5-10 /HPF (0-3) A 11/12/24 17:22 Urine WBC 3-5 /HPF (0-5) 11/12/24 17:22 Ur Squamous Epith Cells Few /HPF (NEGATIVE) 11/12/24 17:22 Urine Bacteria 2+ /HPF (NEGATIVE) 11/12/24 17:22 Hyaline Casts Few /LPF (NEGATIVE) 11/12/24 17:22 Granular Casts Few /LPF (NEGATIVE) 11/12/24 17:22 Urine Mucus Few /HPF (NEGATIVE) 11/12/24 17:22 Ur Culture Indicated? Yes/culture set up 11/12/24 17:22 Resp Viral Panel (PCR) See scanned report 11/12/24 02:15 Plan (1) Tense ascites: Status: Acute (2) Cirrhosis of liver: Status: Chronic Qualifiers: Ascites presence: with ascites Hepatic cirrhosis type: alcoholic cirrhosis Qualified Code(s): K70.31 - Alcoholic cirrhosis of liver with ascites (3) Abdominal pain: Status: Acute Qualifiers: Abdominal location: generalized Qualified Code(s): R10.84 - Generalized abdominal pain (4) Hypoalbuminemia: Status: Acute (5) Hypomagnesemia: Status: Acute (6) Chronic obstructive pulmonary disease: Status: Chronic Qualifiers: COPD type: unspecified COPD Qualified Code(s): J44.9 - Chronic obstructive pulmonary disease, unspecified (7) Hypertension: Status: Chronic Qualifiers: Hypertension type: primary hypertension Qualified Code(s): I10 - Essential (primary) hypertension
[2024-11-17] MEDS: MAALOX or MYLANTA PO PRN (20:38)
[2024-11-18 05:10] LABS: BASOPHILS # (AUTO) 0.1 X10^3/uL (0.0-0.1); EOSINOPHILS # (AUTO) 0.5 x10^3/uL (0.0-0.2); EOSINOPHILS % (AUTO) 6.4 % (0.9-2.9); HEMATOCRIT 23.6 % (42.0-54.0); HEMOGLOBIN 8.4 g/dL (13.5-18.0); LYMPHOCYTES % (AUTO) 11.3 % (21.0-51.0); MEAN CORPUSCULAR HEMOGLOBIN 29.5 pg (27.0-34.0); MEAN CORPUSCULAR HGB CONC 35.5 g/dL (33.0-35.0); MEAN CORPUSCULAR VOLUME 83.1 fL (80.0-100.0); MEAN PLATELET VOLUME 7.1 fL (7.4-11.0); MONOCYTES % (AUTO) 11.8 % (0.0-13.0); NEUTROPHILS % (AUTO) 69.5 % (42.0-75.0); PLATELET COUNT 348 X10^3/uL (150.0-450.0); RED BLOOD COUNT 2.84 X10^6/uL (4.7-6.0); RED CELL DISTRIBUTION WIDTH 17.3 % (11.6-16.5); WHITE BLOOD COUNT 8.6 X10^3/uL (3.6-10.0)
[2024-11-18 05:24] LABS: ALANINE AMINOTRANSFERASE < 6 Units/L (12-78); ALBUMIN 1.5 g/dL (3.4-5.0); ALKALINE PHOSPHATASE 86 Units/L (46-116); ASPARTATE AMINO TRANSFERASE 19 Units/L (15-37); BLOOD UREA NITROGEN 32 mg/dL (7-18); CALCIUM 7.5 mg/dL (8.5-10.1); CARBON DIOXIDE 29.5 mmol/L (21-32); CHLORIDE 106 mmol/L (98-107); COR CA(FOR HYPOALB) 9.5 mg/dL (8.5-10.1); CREATININE 1.35 mg/dL (0.70-1.30); GLUCOSE 95 mg/dL (65-99); POTASSIUM 4.4 mmol/L (3.5-5.1); SODIUM 140 mmol/L (136-145); TOTAL PROTEIN 4.3 g/dL (6.4-8.2); eGFR NON BLACK RACES 57 (>60)
[2024-11-18] MEDS: PROTONIX TAB 40 MG PO SCH (15:43)
[2024-11-19 06:20] LABS: BASOPHILS # (AUTO) 0.1 X10^3/uL (0.0-0.1); BASOPHILS % (AUTO) 1.3 % (0.2-1.0); EOSINOPHILS # (AUTO) 0.6 x10^3/uL (0.0-0.2); EOSINOPHILS % (AUTO) 7.1 % (0.9-2.9); HEMATOCRIT 23.8 % (42.0-54.0); HEMOGLOBIN 8.2 g/dL (13.5-18.0); LYMPHOCYTES # (AUTO) 1.1 X10^3/uL (1.3-2.9); LYMPHOCYTES % (AUTO) 13.5 % (21.0-51.0); MEAN CORPUSCULAR HEMOGLOBIN 28.7 pg (27.0-34.0); MEAN CORPUSCULAR HGB CONC 34.3 g/dL (33.0-35.0); MEAN CORPUSCULAR VOLUME 83.7 fL (80.0-100.0); MEAN PLATELET VOLUME 7.3 fL (7.4-11.0); MONOCYTES # (AUTO) 0.8 x10^3/uL (0.3-0.8); MONOCYTES % (AUTO) 10.5 % (0.0-13.0); NEUTROPHILS # (AUTO) 5.4 x10^3/uL (2.2-4.8); NEUTROPHILS % (AUTO) 67.6 % (42.0-75.0); PLATELET COUNT 333 X10^3/uL (150.0-450.0); RED BLOOD COUNT 2.85 X10^6/uL (4.7-6.0)
[2024-11-19 06:34] LABS: ALANINE AMINOTRANSFERASE 6 Units/L (12-78); ALBUMIN 1.7 g/dL (3.4-5.0); ALKALINE PHOSPHATASE 88 Units/L (46-116); ASPARTATE AMINO TRANSFERASE 17 Units/L (15-37); BLOOD UREA NITROGEN 32 mg/dL (7-18); CALCIUM 7.8 mg/dL (8.5-10.1); CARBON DIOXIDE 27.9 mmol/L (21-32); CHLORIDE 106 mmol/L (98-107); COR CA(FOR HYPOALB) 9.6 mg/dL (8.5-10.1); COR NA(FOR HYPERGLY) 140 mmol/L (136-145); CREATININE 1.48 mg/dL (0.70-1.30); GLUCOSE 122 mg/dL (65-99); POTASSIUM 4.3 mmol/L (3.5-5.1); SODIUM 139 mmol/L (136-145); TOTAL PROTEIN 4.4 g/dL (6.4-8.2); eGFR NON BLACK RACES 51 (>60)
[2024-11-19 08:29] VITALS: BP 113/56; PULSE 63; RESP 17; TEMP 98.2; O2SAT 99
--- NOTE | 2024-11-19 10:55 | EKG ---
Test Reason : chest pain Blood Pressure : */* mmHG Vent. Rate : 72 BPM Atrial Rate : 72 BPM P-R Int : 168 ms QRS Dur : 86 ms QT Int : 418 ms P-R-T Axes : 9 36 34 degrees QTc Int : 457 ms Sinus rhythm with frequent premature ventricular complexes Otherwise normal ECG When compared with ECG of 29-JUL-2024 20:50, No significant change was found Confirmed by Trev German MD ([id number]) on 11/19/2024 1:11:07 PM Referred By: Confirmed By: Trev German MD
== END 2024-11-19 13:35 | disposition home health service (06) ==
LOC: ER 17:14 → MED/SURG 17:14
PROVIDERS: ADMIT Obstetrics & Gynecology Obstetrics; ATTEND Internal Medicine
DX: K70.31 Alcoholic cirrhosis of liver with ascites; R10.84 Generalized abdominal pain; Z59.41 Food insecurity; J44.9 Chronic obstructive pulmonary disease, unspecified; R60.0 Localized edema; N39.0 Urinary tract infection, site not specified; Z16.29 Resistance to other single specified antibiotic; R10.31 Right lower quadrant pain; R06.02 Shortness of breath; B95.2 Enterococcus as the cause of diseases classified elsewhere; L03.115 Cellulitis of right lower limb; E83.42 Hypomagnesemia; R07.89 Other chest pain; E88.09 Other disorders of plasma-protein metabolism, not elsewhere classified; R53.1 Weakness; I10 Essential (primary) hypertension; K21.9 Gastro-esophageal reflux disease without esophagitis

== ENCOUNTER 2025-01-08 16:32 | Inpatient (IN) ==
[2025-01-08 18:09] LABS: BASOPHILS # (AUTO) 0.1 X10^3/uL (0.0-0.1); EOSINOPHILS # (AUTO) 0.9 x10^3/uL (0.0-0.2); EOSINOPHILS % (AUTO) 8.7 % (0.9-2.9); HEMATOCRIT 25.4 % (42.0-54.0); HEMOGLOBIN 8.5 g/dL (13.5-18.0); LYMPHOCYTES # (AUTO) 1.1 X10^3/uL (1.3-2.9); LYMPHOCYTES % (AUTO) 10.9 % (21.0-51.0); MEAN CORPUSCULAR HEMOGLOBIN 28.9 pg (27.0-34.0); MEAN CORPUSCULAR HGB CONC 33.5 g/dL (33.0-35.0); MEAN CORPUSCULAR VOLUME 86.5 fL (80.0-100.0); MEAN PLATELET VOLUME 7.4 fL (7.4-11.0); MONOCYTES # (AUTO) 0.9 x10^3/uL (0.3-0.8); MONOCYTES % (AUTO) 9.2 % (0.0-13.0); NEUTROPHILS % (AUTO) 70.2 % (42.0-75.0); PLATELET COUNT 268 X10^3/uL (150.0-450.0); RED BLOOD COUNT 2.94 X10^6/uL (4.7-6.0); RED CELL DISTRIBUTION WIDTH 18.9 % (11.6-16.5)
[2025-01-08 18:30] LABS: ALANINE AMINOTRANSFERASE 16 Units/L (12-78); ALBUMIN 0.6 g/dL (3.4-5.0); ALKALINE PHOSPHATASE 117 Units/L (46-116); ASPARTATE AMINO TRANSFERASE 35 Units/L (15-37); BLOOD UREA NITROGEN 21 mg/dL (7-18); CALCIUM 7.6 mg/dL (8.5-10.1); CARBON DIOXIDE 24.6 mmol/L (21-32); CHLORIDE 110 mmol/L (98-107); COR CA(FOR HYPOALB) 10.3 mg/dL (8.5-10.1); CREATININE 1.23 mg/dL (0.70-1.30); GLUCOSE 88 mg/dL (65-99); LIPASE 56 Units/L (16-77); SODIUM 143 mmol/L (136-145); TOTAL PROTEIN 5.6 g/dL (6.4-8.2); eGFR NON BLACK RACES > 60 (>60)
--- NOTE | 2025-01-08 18:50 | CT ---
EXAMINATION: ABDOMEN/PELVIS W/O CON HISTORY: Patient c.o of abd/scrotum discomfort and distention x2 weeks also states he has not been able to empty his bladder all the way in 3 days. Last tap with dr birch was a month ago.; COMPARISON: CT abdomen 11/15/2024 TECHNIQUE: Contiguous noncontrast axial CT images abdomen and pelvis. Images reviewed in the axial imaging plane with reformatted sagittal and coronal images.The above CT scan was done with automated exposure control and the mA and kV was adjusted to obtain quality images according to patient size. FINDINGS: Details of the organs are limited since intravenous and oral contrast were not used. The liver measures 13 by 22 by 17 cm and has a diffuse nodular contour consistent with cirrhosis. Subtle heterogeneous density to the liver which may contain nodules the largest measuring 1.2 cm. Gallbladder minimally distended. Density in the dependent gallbladder suspect biliary stones. No bile duct dilatation. Pancreas, spleen appear intact. Adrenal glands are not enlarged. Varices along the falciform ligament, anterior abdominal wall, gastric hepatic ligament, distal thoracic esophagus, hilum of the spleen, between the spleen and left kidney suspicious for portal systemic hypertension. Large amount of low-density ascites central measurement 5 Hounsfield units. Generalized edema of the mesentery and subcutaneous adipose tissues, and retroperitoneum. Kidneys normal size and position. No hydronephrosis. The abdominal aorta tapers normally. Arterial vascular calcifications. Details of the GI tract are limited since oral contrast was not used. No evidence of bowel obstruction. Colonic diverticulosis. Mild amount of bowel-gas and feces. No evidence of acute appendicitis. Stomach is empty. Images through lower chest demonstrate mild right-sided pleural effusion, mild cardiomegaly with cardiac calcifications. Diffuse osteopenia with multiple mild compression fractures of the lumbar spine. Urinary bladder mildly distended with urine. The lower pelvis was not imaged. Visualized prostate gland is not enlarged. Large amount of fluid along the imaged inguinal canals bilaterally. The scrotum was not included on the exam. Several prominent lymph nodes in the groin bilaterally. IMPRESSION: Large amount of low-density ascites. Generalized edema of the subcutaneous adipose tissues, mesentery, retroperitoneum. Cirrhosis. Numerous varices consistent with portal systemic hypertension. Colonic diverticulosis. Images through lower chest demonstrate mild right-sided pleural effusion, cardiomegaly with cardiac calcifications. Large amount of fluid along the imaged inguinal canals bilaterally. The scrotum was not included on the exam. THIS IS AN ELECTRONICALLY VERIFIED FINAL REPORT 01/08/2025 6:46 PM - Electronically signed by Marie Morales MD
--- NOTE | 2025-01-08 19:33 | DR.UPM ---
HPI Time Seen Time Seen by Provider: 01/08/25 17:55 PCP Primary Care Physician: hurd Complaint Chief Complaint Doctors Comments: 59 yo M, hx of alcoholic cirrhosis requiring multiple admissions for paracentesis in the past, c/o increasing abd distension & fluid retention over the past wk. c/o large amount of swelling of scrotum. Admits to mild dyspnea. Denies fever/chills, abd pain. Denies other complaints. Chief Complaint:: Patient c.o of abd/scrotum discomfort and distention x2 weeks also states he has not been able to empty his bladder all the way in 3 days. Last tap with dr birch was a month ago. COVID-19 Coronavirus risk:travel/contact w/high risk person: No Has patient experienced Coronavirus symptoms: No Source History Provided: Patient Mode of Arrival Mode of Arrival: EMS Timing Onset of Chief Complaint: 12/25/24 PMH PMH Past Medical History: Yes Past Medical History: COPD, GERD, Hypertension, Hyperthyroidism and Liver Disease Past Surgical History: Yes Surgical History: Other Family History History of Family Medical Conditions: Yes Family Medical History: Diabetes Mellitus Social History Does patient currently use any type of tobacco product: No Have you used tobacco products in the last 12 months: No Type of Tobacco Use: None Does any household member use tobacco: No Alcohol Use: None Do you use any recreational Drugs:: No Lives With: Family Lives Where: Home Travel Risk Coronavirus risk:travel/contact w/high risk person: No Has patient experienced Coronavirus symptoms: No Infectious screening In the last 2 months have you had wt loss of >10#?: NO Have you had fever, night sweats or hemotysis?: No Have you traveled outside the country in the last 6 months?: No Isolation: Standard ROS Review of Systems Gastrointestinal/Abdominal: Other (abd distension, fluid retention, scrotal swelling, dyspnea) PE Vital Signs Vitals: Vital Signs Temperature 98.2 F Pulse Rate 101 Respiratory Rate 15 Blood Pressure 132/67 O2 Sat by Pulse Oximetry 99 General Limitations: No Limitations General Appearance: Alert and In No Apparent Distress Head Head Exam: Normal Inspection Eyes Eye exam: Normal Appearance ENT ENT Exam: Normal Exam Neck Neck Exam: Normal Inspection Chest Chest Inspection: Normal Inspection Respiratory Respiratory Exam: Normal Lung Sounds Bilat Respiratory Exam: Bilateral: Clear to Auscultation Cardiovascular Cardiovascular Exam: Regular Rate and Normal Rhythm Abdominal Exam Abdominal Exam: Distention (with +fluid wave, consistent with large amount of ascites.) Rectal Rectal Exam: Deferred Genitourinary Exam: Male: Deferred Scrotal Exam: Testicular Swelling: Bilateral (Diffuse scrotal swelling bilat) Extremities Extremities Exam: Normal Inspection Back Back Exam: Normal Inspection Neurologic Neurological Exam: Alert and Oriented X3 Psychiatric Psychiatric Exam: Normal Affect and Normal Mood Skin Skin Exam: Warm, Dry, Intact and Normal Color ROR Labs Reviewed Laboratory Results Reviewed?: Yes 01/08/25 18:00 01/08/25 18:00 Laboratory: WBC 10.0 X10^3/uL (3.6-10.0) 01/08/25 18:00 RBC 2.94 X10^6/uL (4.7-6.0) L 01/08/25 18:00 Hgb 8.5 g/dL (13.5-18.0) L 01/08/25 18:00 Hct 25.4 % (42.0-54.0) L 01/08/25 18:00 MCV 86.5 fL (80.0-100.0) 01/08/25 18:00 MCH 28.9 pg (27.0-34.0) 01/08/25 18:00 MCHC 33.5 g/dL (33.0-35.0) 01/08/25 18:00 RDW 18.9 % (11.6-16.5) H 01/08/25 18:00 Plt Count 268 X10^3/uL (150.0-450.0) 01/08/25 18:00 MPV 7.4 fL (7.4-11.0) 01/08/25 18:00 Neut % (Auto) 70.2 % (42.0-75.0) 01/08/25 18:00 Lymph % (Auto) 10.9 % (21.0-51.0) L 01/08/25 18:00 Barnes % (Auto) 9.2 % (0.0-13.0) 01/08/25 18:00 Eos % (Auto) 8.7 % (0.9-2.9) H 01/08/25 18:00 Baso % (Auto) 1.0 % (0.2-1.0) 01/08/25 18:00 Neut # (Auto) 7.0 x10^3/uL (2.2-4.8) H 01/08/25 18:00 Lymph # (Auto) 1.1 X10^3/uL (1.3-2.9) L 01/08/25 18:00 Barnes # (Auto) 0.9 x10^3/uL (0.3-0.8) H 01/08/25 18:00 Eos # (Auto) 0.9 x10^3/uL (0.0-0.2) H 01/08/25 18:00 Baso # (Auto) 0.1 X10^3/uL (0.0-0.1) 01/08/25 18:00 Absolute Nucleated RBC 0.1 /100WBC 01/08/25 18:00 Sodium 143 mmol/L (136-145) 01/08/25 18:00 Corrected Sodium TNP 01/08/25 18:00 Potassium 4.0 mmol/L (3.5-5.1) 01/08/25 18:00 Chloride 110 mmol/L (98-107) H 01/08/25 18:00 Carbon Dioxide 24.6 mmol/L (21-32) 01/08/25 18:00 BUN 21 mg/dL (7-18) H 01/08/25 18:00 Creatinine 1.23 mg/dL (0.70-1.30) 01/08/25 18:00 Est GFR (MDRD) Af Amer > 60 (>60) 01/08/25 18:00 Est GFR (MDRD) Non-Af > 60 (>60) 01/08/25 18:00 Glucose 88 mg/dL (65-99) 01/08/25 18:00 Calcium 7.6 mg/dL (8.5-10.1) L 01/08/25 18:00 Corrected Calcium 10.3 mg/dL (8.5-10.1) H 01/08/25 18:00 Total Bilirubin 0.60 mg/dL (0.2-1.0) 01/08/25 18:00 AST 35 Units/L (15-37) 01/08/25 18:00 ALT 16 Units/L (12-78) 01/08/25 18:00 Alkaline Phosphatase 117 Units/L (46-116) H 01/08/25 18:00 Total Protein 5.6 g/dL (6.4-8.2) L 01/08/25 18:00 Albumin 0.6 g/dL (3.4-5.0) L 01/08/25 18:00 Globulin 5.0 g/dL (2.5-4.5) H 01/08/25 18:00 Albumin/Globulin Ratio 0.1 Ratio (1.1-2.1) L 01/08/25 18:00 Lipase 56 Units/L (16-77) 01/08/25 18:00 Opioid Opioid Risk Tool Age (Shaan box if 16-45): No History of Preadolescent Sexual Abuse: No Total: 0 Total Score Risk Category: Low Risk Copyright: Humberto OSEGUERA predicting aberrant behaviors Discharge Plan Diagnosis Discharge Problem: Alcoholic cirrhosis, Ascites Discharge Plan Patient Disposition: ADMITTED INPATIENT Condition: Stable Prescriptions: No Action lactulose 10 gram/15 mL solution See Rx Instructions .ROUTE .COMPLEX Rx Instructions: SEE RX INSTRUCTIONS nadolol 20 mg tablet 20 mg PO QDAY spironolactone 50 mg tablet 50 mg PO QDAY Trelegy Ellipta 100-62.5-25 mcg blister with device 1 ea inhalation QDAY pantoprazole 40 mg tablet,delayed release (DR/EC) 40 mg PO QDAY Health Concerns: Post Hospitalization: new medications and changes needed to prevent readmission or further decline. Pt educated and given instructions on all concerns. Plan of Treatment: Continue with present treatment and follow up plan. Pt is to keep follow up appointment as instructed and take medications as ordered. Orders to Discharge Patient Discharge Orders: Transfer (Routine); Ordered 01/08/25 Ordered By: Mikhail Hicks Follow ups/Referrals Follow ups/Referrals: NFD,None [Primary Care Provider] - 3 days Instructions Stand Alone Forms: Find Help Web Site, Post Hospital Follow Up Care Print Language: SLOV[place] ADDITIONAL NOTES Additional Notes Additional Notes: Spoke with Dr Birch who agrees to see pt in the morning to evaluate for paracentesis.
[2025-01-08 21:39] VITALS: BMI 38.0
[2025-01-09] MEDS: PROVENTIL NEB TX 0.083% 2.5MG/ 3ML NEB SCH (00:08)
[2025-01-09 06:18] LABS: MEAN PLATELET VOLUME 7.6 fL (7.4-11.0); RED CELL DISTRIBUTION WIDTH 19.2 % (11.6-16.5)
[2025-01-09 06:21] LABS: BASOPHILS # (AUTO) 0.2 X10^3/uL (0.0-0.1); BASOPHILS % (AUTO) 1.5 % (0.2-1.0); HEMOGLOBIN 9.4 g/dL (13.5-18.0); LYMPHOCYTES # (AUTO) 1.1 X10^3/uL (1.3-2.9); LYMPHOCYTES % (AUTO) 10.3 % (21.0-51.0); MEAN CORPUSCULAR HGB CONC 33.7 g/dL (33.0-35.0); MEAN CORPUSCULAR VOLUME 86.1 fL (80.0-100.0); MONOCYTES # (AUTO) 0.8 x10^3/uL (0.3-0.8); MONOCYTES % (AUTO) 7.5 % (0.0-13.0); NEUTROPHILS # (AUTO) 7.8 x10^3/uL (2.2-4.8); NEUTROPHILS % (AUTO) 71.7 % (42.0-75.0); PLATELET COUNT 250 X10^3/uL (150.0-450.0); RED BLOOD COUNT 3.25 X10^6/uL (4.7-6.0); WHITE BLOOD COUNT 10.8 X10^3/uL (3.6-10.0)
[2025-01-09 06:43] LABS: INR 1.29 (0.8-1.3)
[2025-01-09 07:00] LABS: ALANINE AMINOTRANSFERASE 16 Units/L (12-78); ALBUMIN 0.7 g/dL (3.4-5.0); ALKALINE PHOSPHATASE 124 Units/L (46-116); ASPARTATE AMINO TRANSFERASE 36 Units/L (15-37); BLOOD UREA NITROGEN 20 mg/dL (7-18); CALCIUM 7.5 mg/dL (8.5-10.1); CARBON DIOXIDE 25.6 mmol/L (21-32); CHLORIDE 109 mmol/L (98-107); CHOL/HDL RATIO 2.3 (0.0-5.0); CHOLESTEROL 125 mg/dL (0-200); COR CA(FOR HYPOALB) 10.1 mg/dL (8.5-10.1); COR NA(FOR HYPERGLY) 143 mmol/L (136-145); CREATININE 1.22 mg/dL (0.70-1.30); GLUCOSE 141 mg/dL (65-99); HDL CHOLESTEROL 55 mg/dL (40-60); MAGNESIUM 1.8 mg/dL (2.0-2.9); POTASSIUM 3.8 mmol/L (3.5-5.1); SODIUM 142 mmol/L (136-145); TOTAL PROTEIN 6.1 g/dL (6.4-8.2); TRIGLYCERIDES 36 mg/dL (0-150); eGFR NON BLACK RACES > 60 (>60)
[2025-01-09] MEDS: PROVENTIL NEB TX 0.083% 2.5MG/ 3ML ONE (07:47)
[2025-01-09] MEDS: ALDACTONE TAB 25 MG PO SCH (08:14)
--- NOTE | 2025-01-09 08:14 | RAD ---
EXAM: CHEST, 1 VIEW HISTORY: dyspnea; COMPARISON: 5; CT abdomen/pelvis dated 01/08/2025 TECHNIQUE: AP portable FINDINGS: Stable prominent cardiac silhouette, accentuated by AP technique. Chronic small right pleural effusion with right basilar scarring and rounded atelectasis, unchanged. No new areas of consolidation. No visible pneumothorax. IMPRESSION: No acute cardiopulmonary findings. Chronic small right pleural effusion with right basilar scarring and rounded atelectasis. THIS IS AN ELECTRONICALLY VERIFIED FINAL REPORT 01/09/2025 8:11 AM - Electronically signed by Chapincito Canales MD
[2025-01-09] MEDS: PROTONIX TAB 40 MG PO SCH (08:15)
[2025-01-09] MEDS ORDERED: PATIENT'S HOME MEDICATION (Lactulose 10 gram/15 mL solution) SCH (08:15)
--- NOTE | 2025-01-09 08:17 | DR.H&P ---
H&P History & Physical for Day of: H&P Date: 01/08/25 Chief Complaint Chief Complaint: swelling, sob, weakness History of Present Illness History of Present Illness: 59 yo M, hx of alcoholic cirrhosis requiring multiple admissions for paracentesis in the past, c/o increasing abd distension & fluid retention over the past wk. c/o large amount of swelling of scrotum. Admits to mild dyspnea. Denies fever/chills, abd pain. Denies other complaints. Past Medical History Past Medical History: COPD, GERD, Hypertension, Hyperthyroidism and Liver Disease Past Surgical History Surgical History: Other Family History Family Medical History: Diabetes Mellitus, Heart Failure and Hypertension Social History Does patient currently use any type of tobacco product: No Have you used tobacco products in the last 12 months: No Type of Tobacco Use: None Does any household member use tobacco: No Alcohol Use: Occasionally Drug Use: None Medications Home Medications: Home Medications Medication Instructions Recorded Confirmed Type lactulose 10 gram/15 mL oral See Rx Instructions .Rout e .COMPLEX 10/10/24 01/08/25 History solution fluticasone fur. 100 mcg-umeclid 1 ea inhalation QDAY 11/30/24 11/30/24 History 62.5 mcg-vilant 25 mcg inhalat.powder (Trelegy Ellipta) nadolol 20 mg tablet 20 mg PO QDAY 11/30/2401/08 History spironolactone 50 mg tablet 50 mg PO QDAY 11/30/24 History pantoprazole 40 mg tablet,delayed 40 mg PO QDAY 01/08/25 History release Allergies Allergies Allergy/AdvReac Type Severity Reaction Status Date / Time acetaminophen (From Tylenol) Allergy Verified 01/08/25 16:49 Labs 01/09/25 06:05 01/09/25 06:25 Labs: Laboratory WBC 10.8 X10^3/uL (3.6-10.0) H 01/09/25 06:05 RBC 3.25 X10^6/uL (4.7-6.0) L 01/09/25 06:05 Hgb 9.4 g/dL (13.5-18.0) L 01/09/25 06:05 Hct 28.0 % (42.0-54.0) L 01/09/25 06:05 MCV 86.1 fL (80.0-100.0) 01/09/25 06:05 MCH 29.0 pg (27.0-34.0) 01/09/25 06:05 MCHC 33.7 g/dL (33.0-35.0) 01/09/25 06:05 RDW 19.2 % (11.6-16.5) H 01/09/25 06:05 Plt Count 250 X10^3/uL (150.0-450.0) 01/09/25 06:05 Plt Count Comment Cancelled 01/09/25 06:05 MPV 7.6 fL (7.4-11.0) 01/09/25 06:05 Neut % (Auto) 71.7 % (42.0-75.0) 01/09/25 06:05 Lymph % (Auto) 10.3 % (21.0-51.0) L 01/09/25 06:05 Stokes % (Auto) 7.5 % (0.0-13.0) 01/09/25 06:05 Eos % (Auto) 9.0 % (0.9-2.9) H 01/09/25 06:05 Baso % (Auto) 1.5 % (0.2-1.0) H 01/09/25 06:05 Neut # (Auto) 7.8 x10^3/uL (2.2-4.8) H 01/09/25 06:05 Lymph # (Auto) 1.1 X10^3/uL (1.3-2.9) L 01/09/25 06:05 Stokes # (Auto) 0.8 x10^3/uL (0.3-0.8) 01/09/25 06:05 Eos # (Auto) 1.0 x10^3/uL (0.0-0.2) H 01/09/25 06:05 Baso # (Auto) 0.2 X10^3/uL (0.0-0.1) H 01/09/25 06:05 Absolute Nucleated RBC 0.1 /100WBC 01/09/25 06:05 Nucleated RBCs Cancelled 01/09/25 06:05 Atypical Lymphocytes Cancelled 01/09/25 06:05 Blast Cells Cancelled 01/09/25 06:05 Smudge Cells Cancelled 01/09/25 06:05 Toxic Granulation Cancelled 01/09/25 06:05 Dohle Bodies Cancelled 01/09/25 06:05 Wanda Rods Cancelled 01/09/25 06:05 Plt Clumps, EDTA Cancelled 01/09/25 06:05 Giant Platelets Cancelled 01/09/25 06:05 Plt Morphology Comment Cancelled 01/09/25 06:05 RBC Morphology Cancelled 01/09/25 06:05 Dimorphic RBCs Cancelled 01/09/25 06:05 Polychromasia Cancelled 01/09/25 06:05 Hypochromasia Cancelled 01/09/25 06:05 Poikilocytosis Cancelled 01/09/25 06:05 Basophilic Stippling Cancelled 01/09/25 06:05 Anisocytosis Cancelled 01/09/25 06:05 Microcytosis Cancelled 01/09/25 06:05 Macrocytosis Cancelled 01/09/25 06:05 Spherocytes Cancelled 01/09/25 06:05 Pappenheimer Bodies Cancelled 01/09/25 06:05 Sickle Cells Cancelled 01/09/25 06:05 Target Cells Cancelled 01/09/25 06:05 Tear Drop Cells Cancelled 01/09/25 06:05 Ovalocytes Cancelled 01/09/25 06:05 Stomatocytes Cancelled 01/09/25 06:05 Helmet Cells Cancelled 01/09/25 06:05 Fitz[place] Bodies Cancelled 01/09/25 06:05 [place] Rings Cancelled 01/09/25 06:05 Jimi Cells Cancelled 01/09/25 06:05 Crenated Cell Cancelled 01/09/25 06:05 Acanthocytes (Spur) Cancelled 01/09/25 06:05 Rouleaux Cancelled 01/09/25 06:05 Schistocytes Cancelled 01/09/25 06:05 PT 16.2 SECONDS (11.8-14.3) 01/09/25 06:25 INR Target Range - 01/09/25 06:25 INR 1.29 (0.8-1.3) 01/09/25 06:25 APTT 37.0 SECONDS (22.9-36.5) H 01/09/25 06:25 PTT Comment - 01/09/25 06:25 Sodium 142 mmol/L (136-145) 01/09/25 06:25 Corrected Sodium 143 mmol/L (136-145) 01/09/25 06:25 Potassium 3.8 mmol/L (3.5-5.1) 01/09/25 06:25 Chloride 109 mmol/L (98-107) H 01/09/25 06:25 Carbon Dioxide 25.6 mmol/L (21-32) 01/09/25 06:25 BUN 20 mg/dL (7-18) H 01/09/25 06:25 Creatinine 1.22 mg/dL (0.70-1.30) 01/09/25 06:25 Est GFR (MDRD) Af Amer > 60 (>60) 01/09/25 06:25 Est GFR (MDRD) Non-Af > 60 (>60) 01/09/25 06:25 Glucose 141 mg/dL (65-99) H 01/09/25 06:25 Calcium 7.5 mg/dL (8.5-10.1) L 01/09/25 06:25 Corrected Calcium 10.1 mg/dL (8.5-10.1) 01/09/25 06:25 Magnesium 1.8 mg/dL (2.0-2.9) L 01/09/25 06:25 Total Bilirubin 0.70 mg/dL (0.2-1.0) 01/09/25 06:25 AST 36 Units/L (15-37) 01/09/25 06:25 ALT 16 Units/L (12-78) 01/09/25 06:25 Alkaline Phosphatase 124 Units/L (46-116) H 01/09/25 06:25 Total Protein 6.1 g/dL (6.4-8.2) L 01/09/25 06:25 Albumin 0.7 g/dL (3.4-5.0) L 01/09/25 06:25 Globulin 5.4 g/dL (2.5-4.5) H 01/09/25 06:25 Albumin/Globulin Ratio 0.1 Ratio (1.1-2.1) L 01/09/25 06:25 Triglycerides 36 mg/dL (0-150) 01/09/25 06:25 Cholesterol 125 mg/dL (0-200) 01/09/25 06:25 LDL Cholesterol, Calc 63 mg/dL (0-100) 01/09/25 06:25 HDL Cholesterol 55 mg/dL (40-60) 01/09/25 06:25 Cholesterol/HDL Ratio 2.3 (0.0-5.0) 01/09/25 06:25 Lipase 56 Units/L (16-77) 01/08/25 18:00 Review of Systems Constitutional: Weakness Eyes: No Symptoms Reported ENT: No Symptoms Reported Respiratory: Shortness of Breath Cardiovascular: Edema Gastrointestinal: Nausea Genitourinary: Other (swelling to scrotum) Musculoskeletal: Back Pain and Leg Pain Skin: Jaundice Neurological: Weakness (mild diffuse muscle weakness) Physical Exam Vital Signs: Vital Signs Temperature 97.2 F Temperature 97.4 F Pulse Rate [Bilateral Radial] 89 Pulse Rate [Bilateral Radial] 87 Respiratory Rate 19 Respiratory Rate 18 Blood Pressure [Right Arm] 172/96 Blood Pressure [Right Arm] 163/95 O2 Sat by Pulse Oximetry 100 O2 Sat by Pulse Oximetry 98 Oriented: Normal Eyes: Other (sclera jaundice) Ear: Normal Nose: Normal Throat: Normal Respiratory: Wheezes Throughout Cardiovascular: Edema Auscultation: Bowel Sounds: Decreased Palpation: Spleen Enlarged and Liver Enlarged Tenderness: Diffuse Skin: Decreased Turgur Musculoskeletal: Tender Psychiatric: Normal Mood Description: Calm Speech Pattern: Clear and Appropriate Assessment/Plan (1) Tense ascites: Status: Acute Plan: ADMIT, SURGICAL CONSULT IV ALBUMIN SLOW, STRICT I&OS BP CONTROL, RESP THERAPY (2) SOB (shortness of breath): Status: Acute (3) Hypoalbuminemia: Status: Acute (4) Ascites: Status: Acute
[2025-01-09] MEDS: NADOLOL 20 MG PO SCH (08:20)
[2025-01-09] MEDS: ALBUMIN HUMAN 25%- 100 ML 100 ML IV SCH (08:20)
[2025-01-09] MEDS: PULMICORT NEB TX 0.5 MG NEB SCH (08:34)
[2025-01-09] MEDS: ROXICODONE TAB 5 MG PO PRN (08:48)
[2025-01-09] MEDS: CHRONULAC PO SCH (08:50)
--- NOTE | 2025-01-09 18:00 | PCM.PROG ---
Progress Note Progress Note for Day of Date of Exam: 01/09/25 Subjective Subjective: PT IS 59 WM, ER ADMISSION WITH TENSE ASCITES REQUIRING PARACENTESIS PERFORMED PER DR THOMPSON THIS AM. PT'S HOME MEDICATIONS WERE REVIEWED AND RESUMED. PT REPORTS ~25LB WEIGHT GAIN. PT BP WAS ELEVATED ON MORNING ROUNDS, PT WAS CO PAIN TO ABD AND LOWER LEGS. PT HAD AMMONIA LEVEL OBTAINED THIS AM. LACTULOSE RESUMED. PLAN TO REPEAT AM LABS AND CXR. Past Medical Family Social History Allergies: Allergies acetaminophen (From Tylenol) Allergy (Verified 01/08/25 16:49) Vital Signs and I&O's Vital Signs: Vital Signs Temperature 96.3 F Temperature 96.3 F Pulse Rate [Bilateral Radial] 93 Pulse Rate [Bilateral Radial] 86 Respiratory Rate 18 Respiratory Rate 19 Blood Pressure [Right Arm] 169/88 Blood Pressure [Right Arm] 155/84 O2 Sat by Pulse Oximetry 99 O2 Sat by Pulse Oximetry 99 Intake and Output: Intake & Output 01/07/25 01/08/25 01/09/25 01/10/25 11:59 11:59 11:59 11:59 Intake Total 0 / 0 710 / 710 Output Total 99406 / 34461 1100 / 1100 Balance -12288 / -12311 -390 / -390 Physical Exam Oriented: Normal Eyes: Other (sclera jaundice) Ear: Normal Nose: Normal Throat: Normal Respiratory: Wheezes Cardiovascular: Edema Auscultation: Bowel Sounds: Decreased Tenderness: Diffuse Skin: Decreased Turgur Musculoskeletal: Tender Psychiatric: Normal Mood Description: Calm Speech Pattern: Clear and Appropriate Laboratory and Diagnostics 01/09/25 06:05 01/09/25 06:25 Labs: Laboratory WBC 10.8 X10^3/uL (3.6-10.0) H 01/09/25 06:05 RBC 3.25 X10^6/uL (4.7-6.0) L 01/09/25 06:05 Hgb 9.4 g/dL (13.5-18.0) L 01/09/25 06:05 Hct 28.0 % (42.0-54.0) L 01/09/25 06:05 MCV 86.1 fL (80.0-100.0) 01/09/25 06:05 MCH 29.0 pg (27.0-34.0) 01/09/25 06:05 MCHC 33.7 g/dL (33.0-35.0) 01/09/25 06:05 RDW 19.2 % (11.6-16.5) H 01/09/25 06:05 Plt Count 250 X10^3/uL (150.0-450.0) 01/09/25 06:05 Plt Count Comment Cancelled 01/09/25 06:05 MPV 7.6 fL (7.4-11.0) 01/09/25 06:05 Neut % (Auto) 71.7 % (42.0-75.0) 01/09/25 06:05 Lymph % (Auto) 10.3 % (21.0-51.0) L 01/09/25 06:05 [place] % (Auto) 7.5 % (0.0-13.0) 01/09/25 06:05 Eos % (Auto) 9.0 % (0.9-2.9) H 01/09/25 06:05 Baso % (Auto) 1.5 % (0.2-1.0) H 01/09/25 06:05 Neut # (Auto) 7.8 x10^3/uL (2.2-4.8) H 01/09/25 06:05 Lymph # (Auto) 1.1 X10^3/uL (1.3-2.9) L 01/09/25 06:05 [place] # (Auto) 0.8 x10^3/uL (0.3-0.8) 01/09/25 06:05 Eos # (Auto) 1.0 x10^3/uL (0.0-0.2) H 01/09/25 06:05 Baso # (Auto) 0.2 X10^3/uL (0.0-0.1) H 01/09/25 06:05 Absolute Nucleated RBC 0.1 /100WBC 01/09/25 06:05 Nucleated RBCs Cancelled 01/09/25 06:05 Atypical Lymphocytes Cancelled 01/09/25 06:05 Blast Cells Cancelled 01/09/25 06:05 Smudge Cells Cancelled 01/09/25 06:05 Toxic Granulation Cancelled 01/09/25 06:05 Dohle Bodies Cancelled 01/09/25 06:05 Wanda Rods Cancelled 01/09/25 06:05 Plt Clumps, EDTA Cancelled 01/09/25 06:05 Giant Platelets Cancelled 01/09/25 06:05 Plt Morphology Comment Cancelled 01/09/25 06:05 RBC Morphology Cancelled 01/09/25 06:05 Dimorphic RBCs Cancelled 01/09/25 06:05 Polychromasia Cancelled 01/09/25 06:05 Hypochromasia Cancelled 01/09/25 06:05 Poikilocytosis Cancelled 01/09/25 06:05 Basophilic Stippling Cancelled 01/09/25 06:05 Anisocytosis Cancelled 01/09/25 06:05 Microcytosis Cancelled 01/09/25 06:05 Macrocytosis Cancelled 01/09/25 06:05 Spherocytes Cancelled 01/09/25 06:05 Pappenheimer Bodies Cancelled 01/09/25 06:05 Sickle Cells Cancelled 01/09/25 06:05 Target Cells Cancelled 01/09/25 06:05 Tear Drop Cells Cancelled 01/09/25 06:05 Ovalocytes Cancelled 01/09/25 06:05 Stomatocytes Cancelled 01/09/25 06:05 Helmet Cells Cancelled 01/09/25 06:05 Fitzpatrick-[place] Bodies Cancelled 01/09/25 06:05 [place] Rings Cancelled 01/09/25 06:05 Jimi Cells Cancelled 01/09/25 06:05 Crenated Cell Cancelled 01/09/25 06:05 Acanthocytes (Spur) Cancelled 01/09/25 06:05 Rouleaux Cancelled 01/09/25 06:05 Schistocytes Cancelled 01/09/25 06:05 PT 16.2 SECONDS (11.8-14.3) 01/09/25 06:25 INR Target Range - 01/09/25 06:25 INR 1.29 (0.8-1.3) 01/09/25 06:25 APTT 37.0 SECONDS (22.9-36.5) H 01/09/25 06:25 PTT Comment - 01/09/25 06:25 Sodium 142 mmol/L (136-145) 01/09/25 06:25 Corrected Sodium 143 mmol/L (136-145) 01/09/25 06:25 Potassium 3.8 mmol/L (3.5-5.1) 01/09/25 06:25 Chloride 109 mmol/L (98-107) H 01/09/25 06:25 Carbon Dioxide 25.6 mmol/L (21-32) 01/09/25 06:25 BUN 20 mg/dL (7-18) H 01/09/25 06:25 Creatinine 1.22 mg/dL (0.70-1.30) 01/09/25 06:25 Est GFR (MDRD) Af Amer > 60 (>60) 01/09/25 06:25 Est GFR (MDRD) Non-Af > 60 (>60) 01/09/25 06:25 Glucose 141 mg/dL (65-99) H 01/09/25 06:25 Calcium 7.5 mg/dL (8.5-10.1) L 01/09/25 06:25 Corrected Calcium 10.1 mg/dL (8.5-10.1) 01/09/25 06:25 Magnesium 1.8 mg/dL (2.0-2.9) L 01/09/25 06:25 Total Bilirubin 0.70 mg/dL (0.2-1.0) 01/09/25 06:25 AST 36 Units/L (15-37) 01/09/25 06:25 ALT 16 Units/L (12-78) 01/09/25 06:25 Alkaline Phosphatase 124 Units/L (46-116) H 01/09/25 06:25 Ammonia 105 umol/L (11-32) H 01/09/25 08:33 Total Protein 6.1 g/dL (6.4-8.2) L 01/09/25 06:25 Albumin 0.7 g/dL (3.4-5.0) L 01/09/25 06:25 Globulin 5.4 g/dL (2.5-4.5) H 01/09/25 06:25 Albumin/Globulin Ratio 0.1 Ratio (1.1-2.1) L 01/09/25 06:25 Triglycerides 36 mg/dL (0-150) 01/09/25 06:25 Cholesterol 125 mg/dL (0-200) 01/09/25 06:25 LDL Cholesterol, Calc 63 mg/dL (0-100) 01/09/25 06:25 HDL Cholesterol 55 mg/dL (40-60) 01/09/25 06:25 Cholesterol/HDL Ratio 2.3 (0.0-5.0) 01/09/25 06:25 Lipase 56 Units/L (16-77) 01/08/25 18:00 Plan (1) Tense ascites: Status: Acute Plan: SURGICAL CONSULT IV ALBUMIN SLOW, STRICT I&OS BP CONTROL, RESP THERAPY (2) SOB (shortness of breath): Status: Acute (3) Hypoalbuminemia: Status: Acute (4) Ascites: Status: Acute
[2025-01-10 06:04] LABS: BASOPHILS # (AUTO) 0.2 X10^3/uL (0.0-0.1); EOSINOPHILS # (AUTO) 0.4 x10^3/uL (0.0-0.2); EOSINOPHILS % (AUTO) 3.8 % (0.9-2.9); HEMATOCRIT 30.8 % (42.0-54.0); HEMOGLOBIN 10.2 g/dL (13.5-18.0); LYMPHOCYTES # (AUTO) 0.6 X10^3/uL (1.3-2.9); LYMPHOCYTES % (AUTO) 5.5 % (21.0-51.0); MEAN CORPUSCULAR HEMOGLOBIN 28.8 pg (27.0-34.0); MEAN CORPUSCULAR HGB CONC 33.2 g/dL (33.0-35.0); MEAN CORPUSCULAR VOLUME 86.7 fL (80.0-100.0); MEAN PLATELET VOLUME 7.9 fL (7.4-11.0); MONOCYTES # (AUTO) 0.5 x10^3/uL (0.3-0.8); MONOCYTES % (AUTO) 4.3 % (0.0-13.0); NEUTROPHILS # (AUTO) 8.8 x10^3/uL (2.2-4.8); NEUTROPHILS % (AUTO) 84.4 % (42.0-75.0); PLATELET COUNT 290 X10^3/uL (150.0-450.0); RED BLOOD COUNT 3.55 X10^6/uL (4.7-6.0); RED CELL DISTRIBUTION WIDTH 19.2 % (11.6-16.5); WHITE BLOOD COUNT 10.5 X10^3/uL (3.6-10.0)
[2025-01-10 06:10] LABS: ALANINE AMINOTRANSFERASE 13 Units/L (12-78); ALKALINE PHOSPHATASE 120 Units/L (46-116); ASPARTATE AMINO TRANSFERASE 26 Units/L (15-37); BLOOD UREA NITROGEN 20 mg/dL (7-18); CALCIUM 7.8 mg/dL (8.5-10.1); CARBON DIOXIDE 26.6 mmol/L (21-32); CHLORIDE 111 mmol/L (98-107); COR CA(FOR HYPOALB) 10.2 mg/dL (8.5-10.1); CREATININE 1.09 mg/dL (0.70-1.30); GLUCOSE 110 mg/dL (65-99); POTASSIUM 4.3 mmol/L (3.5-5.1); SODIUM 143 mmol/L (136-145); TOTAL PROTEIN 6.1 g/dL (6.4-8.2); eGFR NON BLACK RACES > 60 (>60)
[2025-01-10] MEDS: ROCEPHIN VIAL 1 GRAM 1 G in NS 100 ML IV 100 ML IV SCH (08:09)
[2025-01-10] MEDS: ROBITUSSIN DM PO SCH (08:14)
[2025-01-10] MEDS: ZOSYN VIAL 3.375 GRAMS 3.375 G in NS 100 ML IV 100 ML IV SCH (15:04)
[2025-01-10] MEDS: OFIRMEV IV 1000 MG VIAL 1,000 MG/100 ML VIAL IV ONE ×2 (15:04→15:19)
[2025-01-10] MEDS: LASIX IVP ONE (15:04)
--- NOTE | 2025-01-10 17:09 | RAD ---
EXAM: CHEST, 1 VIEW HISTORY: Shortness of breath, pneumonia; COMPARISON: Frontal chest radiograph January 09 12:34 a.m. TECHNIQUE: 1 frontal view of the chest FINDINGS: The heart is enlarged. The aorta is ectatic and may be aneurysmal. There is widening of the mediastinum. There are airspace infiltrates in the right lung which are severe. There is a rounded masslike density in the lateral right lower lobe which could represent dense pneumonia, round atelectasis or pulmonary mass and follow-up to document clearing will be needed.. No airspace consolidation in the left lung. IMPRESSION: Little interval change. THIS IS AN ELECTRONICALLY VERIFIED FINAL REPORT 01/10/2025 5:06 PM - Electronically signed by Yeison Ramirez MD
[2025-01-10] MEDS: NS 250 ML IV 25 ML IV PRN (21:12)
[2025-01-11 04:50] LABS: BASOPHILS # (AUTO) 0.2 X10^3/uL (0.0-0.1); EOSINOPHILS # (AUTO) 0.1 x10^3/uL (0.0-0.2); HEMATOCRIT 29.3 % (42.0-54.0); HEMOGLOBIN 9.9 g/dL (13.5-18.0); LYMPHOCYTES # (AUTO) 0.5 X10^3/uL (1.3-2.9); MEAN CORPUSCULAR HGB CONC 33.7 g/dL (33.0-35.0); MEAN PLATELET VOLUME 7.8 fL (7.4-11.0); MONOCYTES # (AUTO) 0.5 x10^3/uL (0.3-0.8)
[2025-01-11 04:55] LABS: AMMONIA 85 umol/L (11-32)
[2025-01-11 05:04] LABS: ALANINE AMINOTRANSFERASE 12 Units/L (12-78); ALBUMIN 0.7 g/dL (3.4-5.0); ALKALINE PHOSPHATASE 103 Units/L (46-116); ASPARTATE AMINO TRANSFERASE 32 Units/L (15-37); BLOOD UREA NITROGEN 26 mg/dL (7-18); CALCIUM 7.6 mg/dL (8.5-10.1); CARBON DIOXIDE 30.2 mmol/L (21-32); CHLORIDE 111 mmol/L (98-107); COR CA(FOR HYPOALB) 10.2 mg/dL (8.5-10.1); CREATININE 1.39 mg/dL (0.70-1.30); GLUCOSE 104 mg/dL (65-99); POTASSIUM 4.1 mmol/L (3.5-5.1); SODIUM 144 mmol/L (136-145); TOTAL PROTEIN 5.7 g/dL (6.4-8.2); eGFR NON BLACK RACES 55 (>60)
[2025-01-11 05:12] LABS: BASOPHILS % (AUTO) 1.3 % (0.2-1.0); EOSINOPHILS % (AUTO) 1.1 % (0.9-2.9); LYMPHOCYTES % (AUTO) 3.9 % (21.0-51.0); MEAN CORPUSCULAR HEMOGLOBIN 28.9 pg (27.0-34.0); MEAN CORPUSCULAR VOLUME 85.9 fL (80.0-100.0); MONOCYTES % (AUTO) 3.5 % (0.0-13.0); NEUTROPHILS # (AUTO) 12.4 x10^3/uL (2.2-4.8); NEUTROPHILS % (AUTO) 90.2 % (42.0-75.0); PLATELET COUNT 244 X10^3/uL (150.0-450.0); RED BLOOD COUNT 3.41 X10^6/uL (4.7-6.0); RED CELL DISTRIBUTION WIDTH 18.8 % (11.6-16.5); WHITE BLOOD COUNT 13.7 X10^3/uL (3.6-10.0)
[2025-01-11 05:19] LABS: BAND NEUTROPHILS % 5 % (0-10)
[2025-01-11 05:20] LABS: ANISOCYTOSIS SLIGHT; OVALOCYTES PRESENT; PLATELET MORPHOLOGY COMMENT NORMAL (NORMAL)
[2025-01-11] MEDS ORDERED: PHARMACY CONSULT - VANCOMYCIN XX SCH (07:00)
[2025-01-11] MEDS ORDERED: VANCOMYCIN IV *PREMIX 2 G/400 ML BAG 2 G/400 ML PIGGYBACK IV ONE (08:00)
[2025-01-11] MEDS: VISBIOME PROBIOTIC CAP 112.5 B or equivalent PO SCH (09:04)
[2025-01-11] MEDS: XIFAXAN PO SCH (09:04)
[2025-01-11] MEDS: VANCOMYCIN IV *PREMIX 1 G/200 ML BAG 1 G/200 ML PIGGYBACK IV SCH (09:06)
--- NOTE | 2025-01-11 09:29 | DR.PROGNOT ---
HOSPITAL PROGRESS NOTE Progress Note for Day of: Progress Note Date: 01/11/25 Chief Complaint Chief Complaint: Patient was lethargic and had to be transferred to the ICU. Total drainage has 12 L. When patient was seen he was alert and in no distress, complaining of moderate abdominal pain, no nausea or vomiting. White count 13.7, hemoglobin 9.9, platelet count 244, BUN elevated to 26, creatinine 1.39, blood sugar 104, liver function tests are normal, ammonia level elevated to 83, albumin low 0.7, Past Medical Family Social History Allergies: Allergies acetaminophen (From Tylenol) Allergy (Verified 01/08/25 16:49) Vital Signs Vital Signs: Vital Signs Temperature 99.1 F Pulse Rate 100 Pulse Rate 103 Pulse Rate 101 Pulse Rate 83 Pulse Rate 86 Respiratory Rate 17 Respiratory Rate 22 Respiratory Rate 22 Respiratory Rate 20 Respiratory Rate 15 Blood Pressure 142/80 Blood Pressure 162/85 Blood Pressure 156/87 Blood Pressure 139/86 Blood Pressure 138/68 O2 Sat by Pulse Oximetry 100 O2 Sat by Pulse Oximetry 99 O2 Sat by Pulse Oximetry 100 O2 Sat by Pulse Oximetry 100 O2 Sat by Pulse Oximetry 100 Physical Exam Oriented: Normal Eyes: Other (sclera jaundice) Ear: Normal Nose: Normal Throat: Normal Respiratory: Wheezes Cardiovascular: Edema GI:Auscultation: Decreased GI:Palpation: Spleen Enlarged (Soft with moderate distention, bowel sounds present, diffuse tenderness, bowel sounds are hypoactive.) and Liver Enlarged GI: Tenderness: Diffuse Skin: Decreased Turgur Musculoskeletal: Tender Psychiatric: Normal Mood Description: Calm Speech Pattern: Clear and Appropriate Laboratory and Diagnostics 01/11/25 04:20 01/11/25 04:20 Labs: Laboratory WBC 13.7 X10^3/uL (3.6-10.0) H 01/11/25 04:20 RBC 3.41 X10^6/uL (4.7-6.0) L 01/11/25 04:20 Hgb 9.9 g/dL (13.5-18.0) L 01/11/25 04:20 Hct 29.3 % (42.0-54.0) L 01/11/25 04:20 MCV 85.9 fL (80.0-100.0) 01/11/25 04:20 MCH 28.9 pg (27.0-34.0) 01/11/25 04:20 MCHC 33.7 g/dL (33.0-35.0) 01/11/25 04:20 RDW 18.8 % (11.6-16.5) H 01/11/25 04:20 Plt Count 244 X10^3/uL (150.0-450.0) 01/11/25 04:20 Plt Count Comment Adequate (ADEQUATE) 01/11/25 04:20 MPV 7.8 fL (7.4-11.0) 01/11/25 04:20 Neut % (Auto) 90.2 % (42.0-75.0) H 01/11/25 04:20 Lymph % (Auto) 3.9 % (21.0-51.0) L 01/11/25 04:20 [place] % (Auto) 3.5 % (0.0-13.0) 01/11/25 04:20 Eos % (Auto) 1.1 % (0.9-2.9) 01/11/25 04:20 Baso % (Auto) 1.3 % (0.2-1.0) H 01/11/25 04:20 Neut # (Auto) 12.4 x10^3/uL (2.2-4.8) H 01/11/25 04:20 Lymph # (Auto) 0.5 X10^3/uL (1.3-2.9) L 01/11/25 04:20 [place] # (Auto) 0.5 x10^3/uL (0.3-0.8) 01/11/25 04:20 Eos # (Auto) 0.1 x10^3/uL (0.0-0.2) 01/11/25 04:20 Baso # (Auto) 0.2 X10^3/uL (0.0-0.1) H 01/11/25 04:20 Absolute Nucleated RBC 0.2 /100WBC 01/11/25 04:20 Total Counted 100 01/11/25 04:20 Neutrophils % (Manual) 87 % (39-76) H 01/11/25 04:20 Band Neutrophils % 5 % (0-10) 01/11/25 04:20 Lymphocytes % (Manual) 4 % (13-43) L 01/11/25 04:20 Monocytes % (Manual) 4 % (4-9) 01/11/25 04:20 Nucleated RBCs Cancelled 01/09/25 06:05 Atypical Lymphocytes Cancelled 01/09/25 06:05 Blast Cells Cancelled 01/09/25 06:05 Smudge Cells Cancelled 01/09/25 06:05 Toxic Granulation Cancelled 01/09/25 06:05 Dohle Bodies Cancelled 01/09/25 06:05 Wanda Rods Cancelled 01/09/25 06:05 Plt Clumps, EDTA Cancelled 01/09/25 06:05 Giant Platelets Cancelled 01/09/25 06:05 Plt Morphology Comment Normal (NORMAL) 01/11/25 04:20 RBC Morphology Abnormal (NORMAL) 01/11/25 04:20 Dimorphic RBCs Cancelled 01/09/25 06:05 Polychromasia Cancelled 01/09/25 06:05 Hypochromasia Cancelled 01/09/25 06:05 Poikilocytosis Cancelled 01/09/25 06:05 Basophilic Stippling Cancelled 01/09/25 06:05 Anisocytosis Slight A 01/11/25 04:20 Microcytosis Cancelled 01/09/25 06:05 Macrocytosis Cancelled 01/09/25 06:05 Spherocytes Cancelled 01/09/25 06:05 Pappenheimer Bodies Cancelled 01/09/25 06:05 Sickle Cells Cancelled 01/09/25 06:05 Target Cells Cancelled 01/09/25 06:05 Tear Drop Cells Cancelled 01/09/25 06:05 Ovalocytes Present 01/11/25 04:20 Stomatocytes Cancelled 01/09/25 06:05 Helmet Cells Cancelled 01/09/25 06:05 [place] Bodies Cancelled 01/09/25 06:05 [place] Rings Cancelled 01/09/25 06:05 [place] Cells Cancelled 01/09/25 06:05 Crenated Cell Cancelled 01/09/25 06:05 Acanthocytes (Spur) Cancelled 01/09/25 06:05 Rouleaux Cancelled 01/09/25 06:05 Schistocytes Cancelled 01/09/25 06:05 PT 16.2 SECONDS (11.8-14.3) 01/09/25 06:25 INR Target Range - 01/09/25 06:25 INR 1.29 (0.8-1.3) 01/09/25 06:25 APTT 37.0 SECONDS (22.9-36.5) H 01/09/25 06:25 PTT Comment - 01/09/25 06:25 Sodium 144 mmol/L (136-145) 01/11/25 04:20 Corrected Sodium TNP 01/11/25 04:20 Potassium 4.1 mmol/L (3.5-5.1) 01/11/25 04:20 Chloride 111 mmol/L (98-107) H 01/11/25 04:20 Carbon Dioxide 30.2 mmol/L (21-32) 01/11/25 04:20 BUN 26 mg/dL (7-18) H 01/11/25 04:20 Creatinine 1.39 mg/dL (0.70-1.30) H 01/11/25 04:20 Est GFR (MDRD) Af Amer > 60 (>60) 01/11/25 04:20 Est GFR (MDRD) Non-Af 55 (>60) L 01/11/25 04:20 Glucose 104 mg/dL (65-99) H 01/11/25 04:20 Lactic Acid 1.4 mmol/L (0.4-2.0) 01/10/25 14:40 Calcium 7.6 mg/dL (8.5-10.1) L 01/11/25 04:20 Corrected Calcium 10.2 mg/dL (8.5-10.1) H 01/11/25 04:20 Magnesium 1.8 mg/dL (2.0-2.9) L 01/09/25 06:25 Total Bilirubin 0.60 mg/dL (0.2-1.0) 01/11/25 04:20 AST 32 Units/L (15-37) 01/11/25 04:20 ALT 12 Units/L (12-78) 01/11/25 04:20 Alkaline Phosphatase 103 Units/L (46-116) 01/11/25 04:20 Ammonia 85 umol/L (11-32) H 01/11/25 04:20 Total Protein 5.7 g/dL (6.4-8.2) L 01/11/25 04:20 Albumin 0.7 g/dL (3.4-5.0) L 01/11/25 04:20 Globulin 5.0 g/dL (2.5-4.5) H 01/11/25 04:20 Albumin/Globulin Ratio 0.1 Ratio (1.1-2.1) L 01/11/25 04:20 Triglycerides 36 mg/dL (0-150) 01/09/25 06:25 Cholesterol 125 mg/dL (0-200) 01/09/25 06:25 LDL Cholesterol, Calc 63 mg/dL (0-100) 01/09/25 06:25 HDL Cholesterol 55 mg/dL (40-60) 01/09/25 06:25 Cholesterol/HDL Ratio 2.3 (0.0-5.0) 01/09/25 06:25 Lipase 56 Units/L (16-77) 01/08/25 18:00 Assessment and Plan 1: Recurrent ascites from liver cirrhosis. Will remove the drainage catheter. Infuse albumin. IV antibiotics. Problem Patient Problems: Patient Problems Ascites (Acute) R18.8 Alcoholic cirrhosis (Acute) K70.30
[2025-01-11] MEDS ORDERED: ROBITUSSIN DM PO PRN (18:31)
[2025-01-12 05:47] LABS: ALANINE AMINOTRANSFERASE 12 Units/L (12-78); ALBUMIN 0.8 g/dL (3.4-5.0); ALKALINE PHOSPHATASE 88 Units/L (46-116); ASPARTATE AMINO TRANSFERASE 38 Units/L (15-37); BLOOD UREA NITROGEN 26 mg/dL (7-18); CALCIUM 7.2 mg/dL (8.5-10.1); CARBON DIOXIDE 24.2 mmol/L (21-32); CHLORIDE 108 mmol/L (98-107); COR CA(FOR HYPOALB) 9.8 mg/dL (8.5-10.1); COR NA(FOR HYPERGLY) 142 mmol/L (136-145); CREATININE 1.18 mg/dL (0.70-1.30); GLUCOSE 111 mg/dL (65-99); MAGNESIUM 1.7 mg/dL (2.0-2.9); POTASSIUM 3.5 mmol/L (3.5-5.1); SODIUM 142 mmol/L (136-145); TOTAL PROTEIN 4.8 g/dL (6.4-8.2); eGFR NON BLACK RACES > 60 (>60)
[2025-01-12 05:55] LABS: VANCOMYCIN,TROUGH 15.8 ug/mL (15-20)
[2025-01-12 06:18] LABS: EOSINOPHILS # (AUTO) 0.7 x10^3/uL (0.0-0.2); HEMOGLOBIN 8.2 g/dL (13.5-18.0)
[2025-01-12 06:24] LABS: BASOPHILS # (AUTO) 0.2 X10^3/uL (0.0-0.1); BASOPHILS % (AUTO) 2.8 % (0.2-1.0); HEMATOCRIT 24.2 % (42.0-54.0); LYMPHOCYTES % (AUTO) 15.4 % (21.0-51.0); MEAN CORPUSCULAR HEMOGLOBIN 28.7 pg (27.0-34.0); MEAN CORPUSCULAR HGB CONC 33.8 g/dL (33.0-35.0); MONOCYTES % (AUTO) 14.4 % (0.0-13.0); NEUTROPHILS # (AUTO) 3.9 x10^3/uL (2.2-4.8); NEUTROPHILS % (AUTO) 57.4 % (42.0-75.0); PLATELET COUNT 190 X10^3/uL (150.0-450.0); RED BLOOD COUNT 2.85 X10^6/uL (4.7-6.0); RED CELL DISTRIBUTION WIDTH 19.1 % (11.6-16.5); WHITE BLOOD COUNT 6.7 X10^3/uL (3.6-10.0)
[2025-01-12 06:57] LABS: ANISOCYTOSIS SLIGHT; OVALOCYTES PRESENT; PLATELET MORPHOLOGY COMMENT NORMAL (NORMAL)
[2025-01-12 06:58] LABS: SCHISTOCYTES PRESENT
[2025-01-12] MEDS: PHARMACY COMMENT IV NR (07:00)
[2025-01-12] MEDS: ALBUMIN HUMAN 25%- 100 ML 100 ML IV SCH (08:27)
[2025-01-12] MEDS: LEVAQUIN TAB 500 MG PO SCH (08:55)
[2025-01-12] MEDS ORDERED: VANCOMYCIN IV *PREMIX 1.75 G/350 ML BAG 1.75 G/350 ML PIGGYBACK IV SCH (09:00)
[2025-01-12] MEDS ORDERED: CONSULT PHARMACY - POTASSIUM & MAGNESIUM XX SCH (17:00)
[2025-01-12] MEDS: KLOR-CON PO SCH (21:27)
[2025-01-12] MEDS: MAG-OX TAB PO SCH (21:27)
[2025-01-13] MEDS ORDERED: RESTORIL CAP 15 MG PO ONE (00:20)
[2025-01-13] MEDS: RESTORIL CAP 15 MG PO PRN (01:05)
[2025-01-13 06:09] LABS: AMMONIA 33 umol/L (11-32); BASOPHILS # (AUTO) 0.1 X10^3/uL (0.0-0.1); BASOPHILS % (AUTO) 1.4 % (0.2-1.0); EOSINOPHILS # (AUTO) 0.8 x10^3/uL (0.0-0.2); EOSINOPHILS % (AUTO) 10.1 % (0.9-2.9); HEMATOCRIT 27.6 % (42.0-54.0); HEMOGLOBIN 9.2 g/dL (13.5-18.0); LYMPHOCYTES # (AUTO) 1.1 X10^3/uL (1.3-2.9); LYMPHOCYTES % (AUTO) 13.6 % (21.0-51.0); MEAN CORPUSCULAR HEMOGLOBIN 28.4 pg (27.0-34.0); MEAN CORPUSCULAR HGB CONC 33.5 g/dL (33.0-35.0); MEAN CORPUSCULAR VOLUME 84.8 fL (80.0-100.0); MEAN PLATELET VOLUME 7.9 fL (7.4-11.0); MONOCYTES # (AUTO) 1.3 x10^3/uL (0.3-0.8); MONOCYTES % (AUTO) 16.4 % (0.0-13.0); NEUTROPHILS # (AUTO) 4.8 x10^3/uL (2.2-4.8); NEUTROPHILS % (AUTO) 58.5 % (42.0-75.0); PLATELET COUNT 202 X10^3/uL (150.0-450.0); RED BLOOD COUNT 3.26 X10^6/uL (4.7-6.0); RED CELL DISTRIBUTION WIDTH 19.2 % (11.6-16.5); WHITE BLOOD COUNT 8.2 X10^3/uL (3.6-10.0)
[2025-01-13 06:22] LABS: ALANINE AMINOTRANSFERASE 14 Units/L (12-78); ALBUMIN 0.9 g/dL (3.4-5.0); ALKALINE PHOSPHATASE 94 Units/L (46-116); ASPARTATE AMINO TRANSFERASE 40 Units/L (15-37); BLOOD UREA NITROGEN 24 mg/dL (7-18); CALCIUM 7.1 mg/dL (8.5-10.1); CHLORIDE 108 mmol/L (98-107); COR CA(FOR HYPOALB) 9.6 mg/dL (8.5-10.1); CREATININE 1.06 mg/dL (0.70-1.30); GLUCOSE 91 mg/dL (65-99); MAGNESIUM 1.7 mg/dL (2.0-2.9); POTASSIUM 3.9 mmol/L (3.5-5.1); SODIUM 140 mmol/L (136-145); TOTAL PROTEIN 5.2 g/dL (6.4-8.2); eGFR NON BLACK RACES > 60 (>60)
[2025-01-13 06:44] LABS: ANISOCYTOSIS SLIGHT; BAND NEUTROPHILS % 2 % (0-10); PLATELET MORPHOLOGY COMMENT NORMAL (NORMAL)
[2025-01-13] MEDS ORDERED: CONSULT PHARMACY - POTASSIUM & MAGNESIUM XX SCH (08:00)
[2025-01-13] MEDS: MAG-OX TAB PO SCH (08:28)
[2025-01-13] MEDS: ROXICODONE TAB 5 MG PO PRN (08:29)
[2025-01-13] MEDS: K-DUR TAB 20 MEQ PO SCH (08:31)
--- NOTE | 2025-01-13 13:09 | RAD ---
EXAM: CHEST, 1 VIEW HISTORY: pneumonia; COMPARISON: 025 and 07/31/2024 TECHNIQUE: AP portable FINDINGS: Mild rightward rotation. Stable cardiac silhouette. Right lung volume loss with chronic rounded right basilar atelectasis/scarring. No new areas of consolidation. No large pleural effusion or visible pneumothorax. IMPRESSION: Stable exam with right lung volume loss and scarring. No new areas of consolidation. THIS IS AN ELECTRONICALLY VERIFIED FINAL REPORT 01/13/2025 1:05 PM - Electronically signed by Chapincito Canales MD
[2025-01-13] MEDS: PHARMACY COMMENT IV ONE (13:18)
[2025-01-13 14:57] LABS: CREATININE 1.11 mg/dL (0.70-1.30)
[2025-01-13 15:04] LABS: VANCOMYCIN,TROUGH 25.1 ug/mL (15-20)
[2025-01-14 05:37] LABS: BASOPHILS # (AUTO) 0.1 X10^3/uL (0.0-0.1); BASOPHILS % (AUTO) 1.2 % (0.2-1.0); EOSINOPHILS % (AUTO) 12.1 % (0.9-2.9); HEMATOCRIT 25.3 % (42.0-54.0); HEMOGLOBIN 8.5 g/dL (13.5-18.0); LYMPHOCYTES # (AUTO) 1.4 X10^3/uL (1.3-2.9); LYMPHOCYTES % (AUTO) 17.3 % (21.0-51.0); MEAN CORPUSCULAR HEMOGLOBIN 28.6 pg (27.0-34.0); MEAN CORPUSCULAR HGB CONC 33.7 g/dL (33.0-35.0); MEAN CORPUSCULAR VOLUME 84.8 fL (80.0-100.0); MEAN PLATELET VOLUME 8.1 fL (7.4-11.0); MONOCYTES # (AUTO) 1.1 x10^3/uL (0.3-0.8); MONOCYTES % (AUTO) 13.8 % (0.0-13.0); NEUTROPHILS # (AUTO) 4.4 x10^3/uL (2.2-4.8); NEUTROPHILS % (AUTO) 55.6 % (42.0-75.0); PLATELET COUNT 191 X10^3/uL (150.0-450.0); RED BLOOD COUNT 2.98 X10^6/uL (4.7-6.0); RED CELL DISTRIBUTION WIDTH 19.1 % (11.6-16.5)
[2025-01-14 05:49] LABS: ALANINE AMINOTRANSFERASE 13 Units/L (12-78); ALBUMIN 1.2 g/dL (3.4-5.0); ALKALINE PHOSPHATASE 86 Units/L (46-116); ASPARTATE AMINO TRANSFERASE 28 Units/L (15-37); BLOOD UREA NITROGEN 26 mg/dL (7-18); CALCIUM 7.4 mg/dL (8.5-10.1); CARBON DIOXIDE 27.4 mmol/L (21-32); CHLORIDE 108 mmol/L (98-107); COR CA(FOR HYPOALB) 9.6 mg/dL (8.5-10.1); CREATININE 1.21 mg/dL (0.70-1.30); GLUCOSE 97 mg/dL (65-99); POTASSIUM 3.7 mmol/L (3.5-5.1); SODIUM 140 mmol/L (136-145); TOTAL PROTEIN 5.1 g/dL (6.4-8.2); eGFR NON BLACK RACES > 60 (>60)
[2025-01-14] MEDS ORDERED: CONSULT PHARMACY - POTASSIUM & MAGNESIUM XX SCH (08:00)
[2025-01-14] MEDS: K-DUR TAB 20 MEQ PO SCH (08:16)
[2025-01-14] MEDS: MAG-OX TAB PO SCH (08:16)
[2025-01-14] MEDS ORDERED: VANCOMYCIN IV *PREMIX 1 G/200 ML BAG 1 G/200 ML PIGGYBACK IV SCH (09:00)
--- NOTE | 2025-01-14 10:05 | CT ---
EXAM: CT ABDOMEN AND PELVIS WITHOUT CONTRAST HISTORY: h/o ascites; COMPARISON: CT dated 01/08/2025. TECHNIQUE: Axial CT images were obtained through the abdomen and pelvis without contrast. Coronal and sagittal reformatted images were included. All CT scans at this facility use dose modulation, iterative reconstruction, and/or weight based dosing when appropriate to reduce radiation dose to as low as reasonably achievable. FINDINGS: Please note that without the use of intravenous contrast, evaluation of organ parenchyma is limited. Stable small right pleural effusion with pleural thickening and adjacent right basilar scarring/atelectasis. Cirrhotic liver. No focal liver lesion seen on noncontrast study. Dependent calcified gallstones. No significant gallbladder distention. Stable spleen. Multiple prominent splenorenal varices. Large volume low-density ascites. Unenhanced pancreas, adrenals, and kidneys are unremarkable. Mild aortoiliac atherosclerosis without aneurysm. Scattered air and fluid-filled small and large bowel loops throughout the abdomen without transition point or gradient. Normal right lower quadrant appendix. No free peritoneal air. Unremarkable urinary bladder. Large inguinal hernias containing ascites. No acute osseous findings. Osteopenia with multiple chronic lumbar spine compression deformities. Mild lumbar spondylosis. IMPRESSION: 1. Cirrhosis with large volume ascites and prominent splenorenal varices. 2. Scattered air and fluid-filled small and large bowel loops throughout the abdomen without evidence of obstruction. Findings may be secondary to ascites or enterocolitis. 3. Cholelithiasis. THIS IS AN ELECTRONICALLY VERIFIED FINAL REPORT 01/14/2025 10:02 AM - Electronically signed by Chapincito Canales MD
[2025-01-15 03:52] VITALS: O2SAT 98
[2025-01-15 06:15] LABS: BASOPHILS % (AUTO) 0.3 % (0.2-1.0); EOSINOPHILS # (AUTO) 0.8 x10^3/uL (0.0-0.2); EOSINOPHILS % (AUTO) 9.7 % (0.9-2.9); HEMATOCRIT 24.6 % (42.0-54.0); HEMOGLOBIN 8.2 g/dL (13.5-18.0); LYMPHOCYTES # (AUTO) 1.1 X10^3/uL (1.3-2.9); LYMPHOCYTES % (AUTO) 13.8 % (21.0-51.0); MEAN CORPUSCULAR HEMOGLOBIN 28.4 pg (27.0-34.0); MEAN CORPUSCULAR HGB CONC 33.3 g/dL (33.0-35.0); MEAN CORPUSCULAR VOLUME 85.3 fL (80.0-100.0); MEAN PLATELET VOLUME 8.6 fL (7.4-11.0); MONOCYTES # (AUTO) 1.2 x10^3/uL (0.3-0.8); MONOCYTES % (AUTO) 14.6 % (0.0-13.0); NEUTROPHILS % (AUTO) 61.6 % (42.0-75.0); PLATELET COUNT 192 X10^3/uL (150.0-450.0); RED BLOOD COUNT 2.88 X10^6/uL (4.7-6.0); RED CELL DISTRIBUTION WIDTH 18.9 % (11.6-16.5); WHITE BLOOD COUNT 8.2 X10^3/uL (3.6-10.0)
[2025-01-15 06:39] LABS: ALANINE AMINOTRANSFERASE 10 Units/L (12-78); ALBUMIN 1.2 g/dL (3.4-5.0); ALKALINE PHOSPHATASE 76 Units/L (46-116); ASPARTATE AMINO TRANSFERASE 28 Units/L (15-37); BLOOD UREA NITROGEN 22 mg/dL (7-18); CALCIUM 7.6 mg/dL (8.5-10.1); CARBON DIOXIDE 23.8 mmol/L (21-32); CHLORIDE 107 mmol/L (98-107); COR CA(FOR HYPOALB) 9.8 mg/dL (8.5-10.1); CREATININE 0.91 mg/dL (0.70-1.30); GLUCOSE 102 mg/dL (65-99); MAGNESIUM 1.8 mg/dL (2.0-2.9); SODIUM 139 mmol/L (136-145); TOTAL PROTEIN 4.6 g/dL (6.4-8.2); eGFR NON BLACK RACES > 60 (>60)
[2025-01-15 08:03] VITALS: RESP 20
[2025-01-15] MEDS: LASIX IVP ONE (10:45)
[2025-01-15] MEDS: KLOR-CON 10 MEQ TAB PO SCH (10:45)
[2025-01-15 11:43] VITALS: BP 107/59; PULSE 67; TEMP 97.5
== END 2025-01-15 13:05 | disposition home or self-care (01) | DRG 432 ==
LOC: ER 16:32 → ICU 16:32 → MED/SURG 16:32 → OBSVTOIN 19:29 → MED/SURG 20:13 → INTOOBSV 01-10 10:00 → ICU 01-10 15:55 → MED/SURG 01-12 13:00
PROVIDERS: ADMIT Family Medicine; ATTEND Internal Medicine
DX: E83.42 Hypomagnesemia; J44.89 Other specified chronic obstructive pulmonary disease; N50.89 Other specified disorders of the male genital organs; R74.8 Abnormal levels of other serum enzymes; K21.9 Gastro-esophageal reflux disease without esophagitis; R40.4 Transient alteration of awareness; E88.09 Other disorders of plasma-protein metabolism, not elsewhere classified; H15.89 Other disorders of sclera; K76.82 Hepatic encephalopathy; R79.1 Abnormal coagulation profile; K65.8 Other peritonitis; R10.84 Generalized abdominal pain; J18.8 Other pneumonia, unspecified organism; R60.0 Localized edema; R06.02 Shortness of breath; I10 Essential (primary) hypertension; J90 Pleural effusion, not elsewhere classified; K70.31 Alcoholic cirrhosis of liver with ascites

== ENCOUNTER 2025-02-03 16:21 | Observation (INO) ==
[2025-02-03 17:51] LABS: MEAN PLATELET VOLUME 7.2 fL (7.4-11.0)
[2025-02-03 17:58] LABS: RED CELL DISTRIBUTION WIDTH 18.6 % (11.6-16.5)
[2025-02-03 18:02] LABS: COR CA(FOR HYPOALB) 10.0 mg/dL (8.5-10.1); CREATININE 1.24 mg/dL (0.70-1.30); eGFR NON BLACK RACES > 60 (>60)
--- NOTE | 2025-02-03 19:40 | DR.EXTPAIN ---
HPI Time seen Time Seen by Provider: 02/03/25 18:02 PCP Primary Care Physician: Xavier Blankenship HPI Comment HPI Comment: Patient with history of alcoholic liver cirrhosis with ascites. Patient states he has not had paracentesis in 3 weeks but he used to get it weekly previously. Patient states yesterday he woke up and he had so much fluid that he has eyelids were full of fluid. Patient states his eyelids are still swollen. Denies shortness of breath at this time but feels like he needs to have paracentesis again. Denies fever. Otherwise states that he is at his baseline. Complaint/Symptoms Chief Complaint:: Pt states that he woke up yesterday with swelling of bilateral eyelids which is worse on the left than the right. Pt states that it is not worse today but is just not better. Pt states that it is hard to see out of the left eye due to the swelling. Denies any other complaints. COVID-19 Coronavirus risk:travel/contact w/high risk person: No Has patient experienced Coronavirus symptoms: No Source History Provided: Patient Mode of arrival Mode of Arrival: Ambulatory Timing Onset of Chief Complaint: 02/02/25 PMH PMH Past Medical History: Yes Past Medical History: COPD, GERD, Hypertension, Hyperthyroidism and Liver Disease Past Surgical History: Yes Surgical History: Other Family History History of Family Medical Conditions: Yes Family Medical History: Diabetes Mellitus, Cancer, Heart Failure and Hypertension Social History Does patient currently use any type of tobacco product: No Have you used tobacco products in the last 12 months: No Type of Tobacco Use: None Does any household member use tobacco: No Alcohol Use: None Do you use any recreational Drugs:: No Lives With: Alone Lives Where: Home Travel Risk Coronavirus risk:travel/contact w/high risk person: No Has patient experienced Coronavirus symptoms: No Infectious screening In the last 2 months have you had wt loss of >10#?: NO Have you had fever, night sweats or hemotysis?: No Have you traveled outside the country in the last 6 months?: No Isolation: Standard ROS Review of Systems Constitutional: No Symptoms Reported Eyes: No Symptoms Reported ENTM: No Symptoms Reported Respiratoy: No Symptoms Reported Cardiovascular: No Symptoms Reported Gastrointestinal/Abdominal: See HPI Genitourinary: No Symptoms Reported Neurological: No Symptoms Reported Musculoskeletal: No Symptoms Reported Integumentary: No Symptoms Reported Hematologic/Lymphatic: No Symptoms Reported Endocrine: No Symptoms Reported Psychiatric: No Symptoms Reported All Other Systems: Reviewed and Negative PE Vital Signs Vitals: Vital Signs Temperature 98.1 F Pulse Rate 103 Respiratory Rate 20 Blood Pressure 162/91 O2 Sat by Pulse Oximetry 97 General Limitations: No Limitations General Appearance: Alert and In No Apparent Distress Head Head Exam: Normal Inspection Eyes Eye exam: Normal Appearance, PERRL, EOMI and Other (Fluid retention on eyelids cyst throughout his body. No sign of infection.) ENT ENT Exam: Normal Exam Neck Neck Exam: Normal Inspection Chest Chest Inspection: Normal Inspection Respiratory Respiratory Exam: Normal Lung Sounds Bilat Cardiovascular Cardiovascular Exam: Regular Rate and Normal Rhythm Abdominal Exam Abdominal Exam: Normal Inspection, Normal Bowel Sounds, Soft and Ascites (Tense ascites noted); negative Tenderness, Guarding, Rebound or Rigidity Extremities Extremities Exam: Normal Inspection Back Back Exam: Normal Inspection Neurological Neurological Exam: Alert, Oriented X3 and CN II-XII Intact Psychiatric Psychiatric Exam: Normal Affect and Normal Mood Skin Skin Exam: Warm, Dry, Intact and Normal Color COURSE Treatment Treatment: Discussed results of workup with patient. Patient's ammonia levels are elevated although patient is still coherent but drowsy. Consultation Called: 19:38 Consultation Comments: Discussed case with Dr. Mejia and she is agreeable to admission with consultation to surgeon, Dr. Brambila for possible paracentesis tomorrow. [facility] Labs Reviewed 02/03/25 17:36 02/03/25 17:36 Laboratory: WBC 7.7 X10^3/uL (3.6-10.0) 02/03/25 17:36 RBC 2.90 X10^6/uL (4.7-6.0) L 02/03/25 17:36 Hgb 8.3 g/dL (13.5-18.0) L 02/03/25 17:36 Hct 24.9 % (42.0-54.0) L 02/03/25 17:36 MCV 86.1 fL (80.0-100.0) 02/03/25 17:36 MCH 28.5 pg (27.0-34.0) 02/03/25 17:36 MCHC 33.1 g/dL (33.0-35.0) 02/03/25 17:36 RDW 18.6 % (11.6-16.5) H 02/03/25 17:36 Plt Count 300 X10^3/uL (150.0-450.0) 02/03/25 17:36 MPV 7.2 fL (7.4-11.0) L 02/03/25 17:36 Neut % (Auto) 67.0 % (42.0-75.0) 02/03/25 17:36 Lymph % (Auto) 14.3 % (21.0-51.0) L 02/03/25 17:36 [place] % (Auto) 9.2 % (0.0-13.0) 02/03/25 17:36 Eos % (Auto) 8.1 % (0.9-2.9) H 02/03/25 17:36 Baso % (Auto) 1.4 % (0.2-1.0) H 02/03/25 17:36 Neut # (Auto) 5.1 x10^3/uL (2.2-4.8) H 02/03/25 17:36 Lymph # (Auto) 1.1 X10^3/uL (1.3-2.9) L 02/03/25 17:36 [place] # (Auto) 0.7 x10^3/uL (0.3-0.8) 02/03/25 17:36 Eos # (Auto) 0.6 x10^3/uL (0.0-0.2) H 02/03/25 17:36 Baso # (Auto) 0.1 X10^3/uL (0.0-0.1) 02/03/25 17:36 Absolute Nucleated RBC 0.0 /100WBC 02/03/25 17:36 Sodium 143 mmol/L (136-145) 02/03/25 17:36 Corrected Sodium TNP 02/03/25 17:36 Potassium 3.3 mmol/L (3.5-5.1) L 02/03/25 17:36 Chloride 110 mmol/L (98-107) H 02/03/25 17:36 Carbon Dioxide 25.4 mmol/L (21-32) 02/03/25 17:36 BUN 18 mg/dL (7-18) 02/03/25 17:36 Creatinine 1.24 mg/dL (0.70-1.30) 02/03/25 17:36 Est GFR (MDRD) Af Amer > 60 (>60) 02/03/25 17:36 Est GFR (MDRD) Non-Af > 60 (>60) 02/03/25 17:36 Glucose 101 mg/dL (65-99) H 02/03/25 17:36 Calcium 7.8 mg/dL (8.5-10.1) L 02/03/25 17:36 Corrected Calcium 10.0 mg/dL (8.5-10.1) 02/03/25 17:36 Total Bilirubin 0.60 mg/dL (0.2-1.0) 02/03/25 17:36 AST 37 Units/L (15-37) 02/03/25 17:36 ALT 17 Units/L (12-78) 02/03/25 17:36 Alkaline Phosphatase 118 Units/L (46-116) H 02/03/25 17:36 Ammonia 96 umol/L (11-32) H 02/03/25 17:36 Total Protein 6.6 g/dL (6.4-8.2) 02/03/25 17:36 Albumin 1.2 g/dL (3.4-5.0) L 02/03/25 17:36 Globulin 5.4 g/dL (2.5-4.5) H 02/03/25 17:36 Albumin/Globulin Ratio 0.2 Ratio (1.1-2.1) L 02/03/25 17:36 Amylase 57 Units/L (25-115) 02/03/25 17:36 Lipase 67 Units/L (16-77) 02/03/25 17:36 Opioid Opioid Risk Tool Age (Shaan box if 16-45): No History of Preadolescent Sexual Abuse: No Total: 0 Total Score Risk Category: Low Risk Copyright: Humberto OSEGUERA predicting aberrant behaviors Discharge Plan Diagnosis Discharge Problem: Tense ascites, Alcoholic cirrhosis of liver with ascites, Hyperammonemia Discharge Plan Patient Disposition: 09 ADMITTED INPATIENT Condition: Stable Prescriptions: No Action lactulose 10 gram/15 mL solution 15 ml PO TID PRN Rx Instructions: SEE RX INSTRUCTIONS nadolol 20 mg tablet 20 mg PO QDAY spironolactone 50 mg tablet 50 mg PO QDAY Trelegy Ellipta 100-62.5-25 mcg blister with device 1 ea inhalation QDAY pantoprazole 40 mg tablet,delayed release (DR/EC) 40 mg PO QDAY albuterol sulfate 90 mcg/actuation HFA aerosol inhaler 2 puff inhalation Q4H Health Concerns: Post Hospitalization: new medications and changes needed to prevent readmission or further decline. Pt educated and given instructions on all concerns. Plan of Treatment: Continue with present treatment and follow up plan. Pt is to keep follow up appointment as instructed and take medications as ordered. Orders to Discharge Patient Discharge Orders: Transfer (Routine); Ordered 02/03/25 Ordered By: Nabor Hay Follow ups/Referrals Follow ups/Referrals: XAVIER BLANKENSHIP [Primary Care Provider, MEDICAL] - 3 days Instructions Stand Alone Forms: Find Help Web Site, Post Hospital Follow Up Care Print Language: SAMI
[2025-02-03] MEDS: K-DUR TAB 20 MEQ PO ONE (19:50)
[2025-02-03] MEDS ORDERED: ULTRAM PO PRN (20:13)
[2025-02-03] MEDS ORDERED: VENTOLIN or PROAIR HFA IN SCH (20:13)
[2025-02-03] MEDS ORDERED: PROVENTIL NEB TX 0.083% 2.5MG/ 3ML NEB PRN (21:07)
[2025-02-03] MEDS: MORPHINE SULFATE INJ 2 MG INJ IVP PRN (21:38)
[2025-02-03] MEDS: LASIX IVP SCH (21:38)
[2025-02-03] MEDS: NS + KCL 40 MEQ/L 1,000 ML IV SCH (21:38)
[2025-02-03] MEDS: DUONEB 0.5 MG/3 MG (3 mL) NEB SCH (21:52)
[2025-02-03] MEDS: PULMICORT NEB TX 0.5 MG NEB SCH (21:53)
[2025-02-03] MEDS ORDERED: CHRONULAC PO PRN (22:00)
[2025-02-04 05:30] VITALS: BMI 33.7
[2025-02-04 06:48] LABS: MEAN PLATELET VOLUME 7.3 fL (7.4-11.0); RED CELL DISTRIBUTION WIDTH 18.8 % (11.6-16.5)
[2025-02-04 06:59] LABS: COR CA(FOR HYPOALB) 10.1 mg/dL (8.5-10.1); CREATININE 1.21 mg/dL (0.70-1.30); eGFR NON BLACK RACES > 60 (>60)
--- NOTE | 2025-02-04 08:20 | DR.H&P ---
H&P History & Physical for Day of: H&P Date: 02/03/25 Chief Complaint Chief Complaint: "holding fluid, face swelling" History of Present Illness History of Present Illness: Patient with history of alcoholic liver cirrhosis with ascites. Patient states he has not had paracentesis in 3 weeks but he used to get it weekly previously. Patient states yesterday he woke up and he had so much fluid that he has eyelids were full of fluid. Patient states his eyelids are still swollen. Denies shortness of breath at this time but feels like he needs to have paracentesis again. Denies fever. Otherwise states that he is at his baseline. Past Medical History Past Medical History: COPD, GERD, Hypertension, Hyperthyroidism and Liver Disease Past Surgical History Surgical History: Other Family History Family Medical History: Diabetes Mellitus, Heart Failure and Hypertension Social History Does patient currently use any type of tobacco product: No Have you used tobacco products in the last 12 months: No Type of Tobacco Use: None Does any household member use tobacco: No Alcohol Use: Occasionally Drug Use: None Medications Home Medications: Home Medications Medication Instructions Recorded Confirmed Type lactulose 10 gram/15 mL oral 15 ml PO TID PRN 10/10/24 02/03/25 History solution fluticasone fur. 100 mcg-umeclid 1 ea inhalation QDAY 11/30/24 02/03/25 History 62.5 mcg-vilant 25 mcg inhalat.powder (Trelegy Ellipta) nadolol 20 mg tablet 20 mg PO QDAY 11/30/2402/03 History spironolactone 50 mg tablet 50 mg PO QDAY 11/30/24 History pantoprazole 40 mg tablet,delayed 40 mg PO QDAY 02/03/25 History release albuterol sulfate 90 mcg/actuation 2 puff inhalation Q 4H 01/10/25 02/03/25 History aerosol inhaler Allergies Allergies Allergy/AdvReac Type Severity Reaction Status Date / Time acetaminophen (From Tylenol) Allergy Verified 01/08/25 16:49 Labs 02/04/25 06:18 02/04/25 06:18 Labs: Laboratory WBC 7.5 X10^3/uL (3.6-10.0) 02/04/25 06:18 RBC 2.93 X10^6/uL (4.7-6.0) L 02/04/25 06:18 Hgb 8.5 g/dL (13.5-18.0) L 02/04/25 06:18 Hct 25.3 % (42.0-54.0) L 02/04/25 06:18 MCV 86.2 fL (80.0-100.0) 02/04/25 06:18 MCH 28.8 pg (27.0-34.0) 02/04/25 06:18 MCHC 33.5 g/dL (33.0-35.0) 02/04/25 06:18 RDW 18.8 % (11.6-16.5) H 02/04/25 06:18 Plt Count 265 X10^3/uL (150.0-450.0) 02/04/25 06:18 MPV 7.3 fL (7.4-11.0) L 02/04/25 06:18 Neut % (Auto) 57.0 % (42.0-75.0) 02/04/25 06:18 Lymph % (Auto) 17.3 % (21.0-51.0) L 02/04/25 06:18 [place] % (Auto) 10.0 % (0.0-13.0) 02/04/25 06:18 Eos % (Auto) 13.6 % (0.9-2.9) H 02/04/25 06:18 Baso % (Auto) 2.1 % (0.2-1.0) H 02/04/25 06:18 Neut # (Auto) 4.3 x10^3/uL (2.2-4.8) 02/04/25 06:18 Lymph # (Auto) 1.3 X10^3/uL (1.3-2.9) 02/04/25 06:18 [place] # (Auto) 0.8 x10^3/uL (0.3-0.8) 02/04/25 06:18 Eos # (Auto) 1.0 x10^3/uL (0.0-0.2) H 02/04/25 06:18 Baso # (Auto) 0.2 X10^3/uL (0.0-0.1) H 02/04/25 06:18 Absolute Nucleated RBC 0.1 /100WBC 02/04/25 06:18 Sodium 145 mmol/L (136-145) 02/04/25 06:18 Corrected Sodium TNP 02/04/25 06:18 Potassium 4.0 mmol/L (3.5-5.1) 02/04/25 06:18 Chloride 113 mmol/L (98-107) H 02/04/25 06:18 Carbon Dioxide 27.6 mmol/L (21-32) 02/04/25 06:18 BUN 17 mg/dL (7-18) 02/04/25 06:18 Creatinine 1.21 mg/dL (0.70-1.30) 02/04/25 06:18 Est GFR (MDRD) Af Amer > 60 (>60) 02/04/25 06:18 Est GFR (MDRD) Non-Af > 60 (>60) 02/04/25 06:18 Glucose 87 mg/dL (65-99) 02/04/25 06:18 Calcium 7.6 mg/dL (8.5-10.1) L 02/04/25 06:18 Corrected Calcium 10.1 mg/dL (8.5-10.1) 02/04/25 06:18 Magnesium 1.5 mg/dL (2.0-2.9) L 02/04/25 06:18 Total Bilirubin 0.50 mg/dL (0.2-1.0) 02/04/25 06:18 AST 35 Units/L (15-37) 02/04/25 06:18 ALT 14 Units/L (12-78) 02/04/25 06:18 Alkaline Phosphatase 113 Units/L (46-116) 02/04/25 06:18 Ammonia 96 umol/L (11-32) H 02/03/25 17:36 Total Protein 6.2 g/dL (6.4-8.2) L 02/04/25 06:18 Albumin 0.9 g/dL (3.4-5.0) L 02/04/25 06:18 Globulin 5.3 g/dL (2.5-4.5) H 02/04/25 06:18 Albumin/Globulin Ratio 0.2 Ratio (1.1-2.1) L 02/04/25 06:18 Amylase 57 Units/L (25-115) 02/03/25 17:36 Lipase 67 Units/L (16-77) 02/03/25 17:36 Review of Systems Constitutional: Weakness Eyes: No Symptoms Reported ENT: No Symptoms Reported Respiratory: Cough and Shortness of Breath Gastrointestinal: Abdominal Pain Genitourinary: No Symptoms Reported Musculoskeletal: Back Pain and Leg Pain Skin: No Symptoms Reported Neurological: Weakness Physical Exam Vital Signs: Vital Signs Temperature 98.4 F Pulse Rate 74 Pulse Rate 77 Pulse Rate 75 Pulse Rate 91 Pulse Rate 88 Pulse Rate 81 Pulse Rate 89 Respiratory Rate 18 Respiratory Rate 18 Blood Pressure 156/88 O2 Sat by Pulse Oximetry 100 O2 Sat by Pulse Oximetry 100 O2 Sat by Pulse Oximetry 100 O2 Sat by Pulse Oximetry 100 O2 Sat by Pulse Oximetry 100 O2 Sat by Pulse Oximetry 100 O2 Sat by Pulse Oximetry 100 Oriented: Person Eyes: Normal Ear: Normal Nose: Normal Throat: Normal Respiratory: Wheezes Throughout Cardiovascular: Murmur and Edema Auscultation: Bowel Sounds: Decreased Palpation: Spleen Enlarged and Liver Enlarged Tenderness: Diffuse Skin: Decreased Turgur Psychiatric: Depression Mood Description: Depressed Speech Pattern: Clear and Delayed (appropriate, mild delay)
[2025-02-04] MEDS ORDERED: NADOLOL 20 MG PO SCH (09:00)
[2025-02-04] MEDS ORDERED: PATIENT'S HOME MEDICATION (Fluticasone-Umeclidin-Vilanter [Trelegy Ellipta] 100-62.5-25 mc IN SCH (09:00)
[2025-02-04] MEDS ORDERED: PULMICORT NEB TX 0.5 MG NEB SCH (09:00)
[2025-02-04] MEDS: XIFAXAN PO SCH (09:28)
[2025-02-04] MEDS: INDERAL TAB 10 MG PO SCH (09:30)
[2025-02-04] MEDS: ALDACTONE TAB 25 MG PO SCH (09:31)
[2025-02-04] MEDS: PROTONIX TAB 40 MG PO SCH (09:31)
[2025-02-04] MEDS: ROXICODONE TAB 5 MG PO PRN (09:41)
[2025-02-04] MEDS: ALBUMIN HUMAN 25%- 100 ML 100 ML IV SCH (09:42)
[2025-02-04 09:49] LABS: INR 1.26 (0.8-1.3)
--- NOTE | 2025-02-04 09:50 | RAD ---
EXAM: CHEST, 1 VIEW HISTORY: sob, copd; COMPARISON: 01/13/2025 FINDINGS: The cardiomediastinal silhouette is stable. Shifting bilateral airspace opacities. No pneumothorax or effusion. No acute osseous abnormality. IMPRESSION: Shifting airspace opacities concerning for pneumonia. Recommend follow-up to resolution. THIS IS AN ELECTRONICALLY VERIFIED FINAL REPORT 02/04/2025 9:47 AM - Electronically signed by Dinh Wilhelm MD
[2025-02-04 12:45] LABS: BLOOD/HEMOGLOBIN,URINE 3+ (NEGATIVE); LEUKOCYTE ESTERASE ,URINE NEGATIVE (NEGATIVE); NITRITES,URINE NEGATIVE (NEGATIVE)
[2025-02-04 12:52] LABS: APPEARANCE,URINE CLEAR (CLEAR)
[2025-02-04 12:57] LABS: SQUAMOUS EPITHELIAL CELL,UR RARE /HPF (NEGATIVE)
[2025-02-04] MEDS: CHRONULAC PO SCH (14:46)
[2025-02-04] MEDS: CONSULT PHARMACY - POTASSIUM & MAGNESIUM XX SCH (20:13)
[2025-02-04] MEDS: PHARMACY CONSULT XX SCH (20:13)
[2025-02-05 05:19] LABS: MEAN PLATELET VOLUME 7.1 fL (7.4-11.0); RED CELL DISTRIBUTION WIDTH 18.8 % (11.6-16.5)
[2025-02-05 05:41] LABS: COR CA(FOR HYPOALB) 10.0 mg/dL (8.5-10.1); COR NA(FOR HYPERGLY) 145 mmol/L (136-145); CREATININE 1.19 mg/dL (0.70-1.30); eGFR NON BLACK RACES > 60 (>60)
[2025-02-05] MEDS: INDERAL TAB 10 MG PO SCH (08:47)
[2025-02-05] MEDS: MAG-OX TAB PO SCH (08:48)
[2025-02-05] MEDS: PROVENTIL NEB TX 0.083% 2.5MG/ 3ML NEB SCH (08:56)
[2025-02-05] MEDS: ROCEPHIN VIAL 1 GRAM 1 G in NS 100 ML IV 100 ML IV SCH (09:00)
--- NOTE | 2025-02-05 09:58 | DR.PROGNOT ---
HOSPITAL PROGRESS NOTE Progress Note for Day of: Progress Note Date: 02/05/25 Chief Complaint Chief Complaint: Patient is status post paracentesis and drainage of about 11 L of clear ascites. Having mild to moderate abdominal wall, no nausea or vomiting. White count is 8.8, hemoglobin 9.3, platelet count 287, BUN/creatinine bilirubin and liver function tests all within normal limits, albumin 1.1. Patient is afebrile and stable vital signs. Abdomen is soft with diffuse tenderness, normal bowel sounds, no rebound tenderness 2+ leg edema and genital edema. Past Medical Family Social History Allergies: Allergies acetaminophen (From Tylenol) Allergy (Verified 01/08/25 16:49) Vital Signs Vital Signs: Vital Signs Temperature 98.3 F Temperature 98.2 F Pulse Rate 57 Pulse Rate 60 Pulse Rate 59 Pulse Rate 61 Pulse Rate 65 Pulse Rate 59 Pulse Rate 62 Pulse Rate 57 Respiratory Rate 18 Blood Pressure 137/76 Blood Pressure 119/64 Blood Pressure 135/76 Blood Pressure 154/82 Blood Pressure 149/70 Blood Pressure 140/74 Blood Pressure 132/70 O2 Sat by Pulse Oximetry 98 O2 Sat by Pulse Oximetry 97 O2 Sat by Pulse Oximetry 99 O2 Sat by Pulse Oximetry 98 O2 Sat by Pulse Oximetry 99 O2 Sat by Pulse Oximetry 100 O2 Sat by Pulse Oximetry 99 O2 Sat by Pulse Oximetry 97 Physical Exam Oriented: Person Eyes: Normal Ear: Normal Nose: Normal Throat: Normal Cardiovascular: Murmur and Edema GI:Auscultation: Normal GI:Palpation: Spleen Enlarged and Liver Enlarged GI: Tenderness: Diffuse Skin: Decreased Turgur Psychiatric: Depression Mood Description: Depressed Speech Pattern: Clear and Appropriate Laboratory and Diagnostics 02/05/25 05:07 02/05/25 05:07 Labs: 02/04/25 12:33 Urine,Clean Catch Urine Culture - Preliminary Laboratory WBC 8.8 X10^3/uL (3.6-10.0) 02/05/25 05:07 RBC 3.23 X10^6/uL (4.7-6.0) L 02/05/25 05:07 Hgb 9.3 g/dL (13.5-18.0) L 02/05/25 05:07 Hct 27.8 % (42.0-54.0) L 02/05/25 05:07 MCV 86.2 fL (80.0-100.0) 02/05/25 05:07 MCH 28.9 pg (27.0-34.0) 02/05/25 05:07 MCHC 33.5 g/dL (33.0-35.0) 02/05/25 05:07 RDW 18.8 % (11.6-16.5) H 02/05/25 05:07 Plt Count 287 X10^3/uL (150.0-450.0) 02/05/25 05:07 MPV 7.1 fL (7.4-11.0) L 02/05/25 05:07 Neut % (Auto) 63.0 % (42.0-75.0) 02/05/25 05:07 Lymph % (Auto) 14.6 % (21.0-51.0) L 02/05/25 05:07 Menard % (Auto) 9.6 % (0.0-13.0) 02/05/25 05:07 Eos % (Auto) 11.3 % (0.9-2.9) H 02/05/25 05:07 Baso % (Auto) 1.5 % (0.2-1.0) H 02/05/25 05:07 Neut # (Auto) 5.6 x10^3/uL (2.2-4.8) H 02/05/25 05:07 Lymph # (Auto) 1.3 X10^3/uL (1.3-2.9) 02/05/25 05:07 Menard # (Auto) 0.8 x10^3/uL (0.3-0.8) 02/05/25 05:07 Eos # (Auto) 1.0 x10^3/uL (0.0-0.2) H 02/05/25 05:07 Baso # (Auto) 0.1 X10^3/uL (0.0-0.1) 02/05/25 05:07 Absolute Nucleated RBC 0.0 /100WBC 02/05/25 05:07 PT 15.9 SECONDS (11.8-14.3) 02/04/25 09:14 INR Target Range - 02/04/25 09:14 INR 1.26 (0.8-1.3) 02/04/25 09:14 Sodium 144 mmol/L (136-145) 02/05/25 05:07 Corrected Sodium 145 mmol/L (136-145) 02/05/25 05:07 Potassium 4.1 mmol/L (3.5-5.1) 02/05/25 05:07 Chloride 112 mmol/L (98-107) H 02/05/25 05:07 Carbon Dioxide 28.0 mmol/L (21-32) 02/05/25 05:07 BUN 16 mg/dL (7-18) 02/05/25 05:07 Creatinine 1.19 mg/dL (0.70-1.30) 02/05/25 05:07 Est GFR (MDRD) Af Amer > 60 (>60) 02/05/25 05:07 Est GFR (MDRD) Non-Af > 60 (>60) 02/05/25 05:07 Glucose 126 mg/dL (65-99) H 02/05/25 05:07 Calcium 7.7 mg/dL (8.5-10.1) L 02/05/25 05:07 Corrected Calcium 10.0 mg/dL (8.5-10.1) 02/05/25 05:07 Magnesium 1.5 mg/dL (2.0-2.9) L 02/05/25 05:07 Total Bilirubin 0.30 mg/dL (0.2-1.0) 02/05/25 05:07 AST 26 Units/L (15-37) 02/05/25 05:07 ALT 11 Units/L (12-78) L 02/05/25 05:07 Alkaline Phosphatase 102 Units/L (46-116) 02/05/25 05:07 Ammonia 45 umol/L (11-32) H 02/05/25 08:40 Total Protein 5.0 g/dL (6.4-8.2) L 02/05/25 05:07 Albumin 1.1 g/dL (3.4-5.0) L 02/05/25 05:07 Globulin 3.9 g/dL (2.5-4.5) 02/05/25 05:07 Albumin/Globulin Ratio 0.3 Ratio (1.1-2.1) L 02/05/25 05:07 Amylase 57 Units/L (25-115) 02/03/25 17:36 Lipase 67 Units/L (16-77) 02/03/25 17:36 Specimen Type Clean catch urine 02/04/25 12:33 Urine Color Yellow (YELLOW) 02/04/25 12:33 Urine Appearance Clear (CLEAR) 02/04/25 12:33 Urine pH 5.0 (5.0 - 8.0) 02/04/25 12:33 Ur Specific [place] 1.020 (1.000-1.030) 02/04/25 12:33 Urine Protein 3+ (NEGATIVE) 02/04/25 12:33 Urine Glucose (UA) Negative (NEGATIVE) 02/04/25 12:33 Urine Ketones Negative (NEGATIVE) 02/04/25 12:33 Urine Blood 3+ (NEGATIVE) 02/04/25 12:33 Urine Nitrite Negative (NEGATIVE) 02/04/25 12:33 Urine Bilirubin Negative (NEGATIVE) 02/04/25 12:33 Urine Urobilinogen Normal (NORMAL) 02/04/25 12:33 Ur Leukocyte Esterase Negative (NEGATIVE) 02/04/25 12:33 Urine RBC 3-5 /HPF (0-3) A 02/04/25 12:33 Urine WBC 0-2 /HPF (0-5) 02/04/25 12:33 Ur Squamous Epith Cells Rare /HPF (NEGATIVE) 02/04/25 12:33 Urine Bacteria Trace /HPF (NEGATIVE) 02/04/25 12:33 Ur Culture Indicated? Yes/culture set up 02/04/25 12:33 Urine Opiates Screen Negative (NEG=<300) 02/04/25 12:33 Urine Methadone Screen Negative (NEG=<300) 02/04/25 12:33 Ur Barbiturates Screen Negative (NEG=<200) 02/04/25 12:33 Ur Phencyclidine Scrn Negative (NEG=<25) 02/04/25 12:33 Ur Amphetamines Screen Positive (NEG=<1000) 02/04/25 12:33 U Benzodiazepines Scrn Negative (NEG=<200) 02/04/25 12:33 Urine Cocaine Screen Negative (NEG=<300) 02/04/25 12:33 U Marijuana (THC) Screen Negative (NEG=<50) 02/04/25 12:33 Assessment and Plan 1: Liver cirrhosis with recurrent ascites, status post paracentesis. Serum albumin replacement, we will keep the paracentesis catheter today and will be removed in the morning before discharge. Problem Patient Problems: Patient Problems Hyperammonemia (Acute) E72.20 Tense ascites (Acute) R18.8 Alcoholic cirrhosis of liver with ascites (Acute) K70.31
[2025-02-06 04:32] LABS: MEAN PLATELET VOLUME 7.8 fL (7.4-11.0); RED CELL DISTRIBUTION WIDTH 18.6 % (11.6-16.5)
[2025-02-06 04:39] LABS: COR CA(FOR HYPOALB) 9.4 mg/dL (8.5-10.1); CREATININE 0.98 mg/dL (0.70-1.30); eGFR NON BLACK RACES > 60 (>60)
[2025-02-06] MEDS: CHRONULAC PO SCH (09:05)
[2025-02-06] MEDS: MAG-OX TAB PO SCH (09:06)
[2025-02-06] MEDS: K-DUR TAB 20 MEQ PO SCH (09:06)
--- NOTE | 2025-02-06 11:49 | RAD ---
EXAM: CHEST, 1 VIEW HISTORY: COPD, PNEUMONIA; HTN, LIVER DISEASE, COPD, GERD COMPARISON: Prior study or studies were utilized for comparison during interpretation with the most relevant dated 02/04/2025 TECHNIQUE: CHEST, 1 VIEW FINDINGS: Chest: Lines and tubes: None Mediastinum: Cardiac and mediastinal shadow is within normal limits for size and contour. Pulmonary vessels: No pulmonary vascular congestion. Lung andrews: Similar right airspace opacities compared to 2 days ago Pleura: No effusion. No pneumothorax. Bones and soft tissues: No acute osseous or soft tissue abnormality. IMPRESSION: 1. Similar right airspace opacities compared to 2 days ago THIS IS AN ELECTRONICALLY VERIFIED FINAL REPORT 02/06/2025 11:45 AM - Electronically signed by Yevgeniy Shay MD
[2025-02-06] MEDS: CONSULT PHARMACY - POTASSIUM & MAGNESIUM XX SCH ×2 (20:22→20:23)
[2025-02-07 05:08] VITALS: O2SAT 100
[2025-02-07 06:19] LABS: MEAN PLATELET VOLUME 7.4 fL (7.4-11.0); RED CELL DISTRIBUTION WIDTH 18.3 % (11.6-16.5)
[2025-02-07 06:34] LABS: COR CA(FOR HYPOALB) 9.4 mg/dL (8.5-10.1); CREATININE 0.90 mg/dL (0.70-1.30); eGFR NON BLACK RACES > 60 (>60)
[2025-02-07] MEDS ORDERED: CONSULT PHARMACY - POTASSIUM & MAGNESIUM XX SCH (08:00)
[2025-02-07] MEDS: NS 250 ML IV 250 ML IV ONE (08:27)
[2025-02-07 08:30] VITALS: RESP 20
[2025-02-07] MEDS: K-DUR TAB 20 MEQ PO SCH (08:30)
[2025-02-07] MEDS ORDERED: MAGNESIUM SULFATE 1 GRAM/100 mL PREMIX 1 G/100 ML BAG IV SCH (09:00)
[2025-02-07] MEDS ORDERED: PHARMACY CONSULT XX SCH (09:00)
[2025-02-07] MEDS: MAGNESIUM SULFATE 1 GRAM/100 mL PREMIX 1 G/100 ML BAG IV SCH (10:32)
[2025-02-07] MEDS: NS 100 ML IV 100 ML with VENOFER 400 MG IV ONE (12:45)
[2025-02-07 16:12] VITALS: BP 138/78; PULSE 67; TEMP 98.1
== END 2025-02-07 16:00 | disposition home health service (06) ==
LOC: ER 16:21 → ICU 16:21
PROVIDERS: ADMIT Internal Medicine; ATTEND Internal Medicine
DX: N39.0 Urinary tract infection, site not specified; E72.20 Disorder of urea cycle metabolism, unspecified; R01.1 Cardiac murmur, unspecified; E83.42 Hypomagnesemia; Z29.89 Encounter for other specified prophylactic measures; Z16.11 Resistance to penicillins; R60.0 Localized edema; K70.31 Alcoholic cirrhosis of liver with ascites; I10 Essential (primary) hypertension; J44.9 Chronic obstructive pulmonary disease, unspecified; Z16.23 Resistance to quinolones and fluoroquinolones; R16.2 Hepatomegaly with splenomegaly, not elsewhere classified; R06.02 Shortness of breath; E83.51 Hypocalcemia; R73.9 Hyperglycemia, unspecified; R10.9 Unspecified abdominal pain; D50.9 Iron deficiency anemia, unspecified; Z91.199 Patient's noncompliance with other medical treatment and regimen due to unspecified reason; K76.82 Hepatic encephalopathy; B96.29 Other Escherichia coli [E. coli] as the cause of diseases classified elsewhere; R79.89 Other specified abnormal findings of blood chemistry; R53.1 Weakness; Z16.29 Resistance to other single specified antibiotic